=== PATIENT | female | born 1955 | race Caucasian/White ===

== ENCOUNTER → 2021-05-17 12:01 | Outpatient (CLI) | payer OTHER, SELFPAY | PROVIDERS: PCP Family Medicine; Visit Provider Nurse Practitioner | DX: Z20.822 Contact with and (suspected) exposure to COVID-19 (principal) | CPT/HCPCS: C9803; U0003; U0005 ==

== ENCOUNTER 2022-01-28 10:33 | Emergency (ER) | payer MEDICARE, OTHER, SELFPAY ==
--- NOTE | 2022-01-28 10:45 | HMH.EDUTC ---
[facility] [place] Clinical Impression: Chronic pharyngitis Disposition: Home, Self-Care Condition on Discharge: Good Instructions: Sore Throat, DI for Pharyngitis/Tonsillopharyngitis -- Child Additional Instructions: Drink plenty of fluids. Take tylenol for pain or fever. Take the medications as directed. Follow up with your regular doctor. GO TO THE ER FOR ANY WORSENING SYMPTOMS follow up with your primary care physician to have your thyroid checked. follow up with the ent (Dr. Obando). Any chronically sore throat needs to be examined by an ENT physician to check for thing like cancer, growths, etc. Make sure you follow up there. Prescriptions: Azithromycin [Z-Familia 250mg Tab*] 250 mg PO UD DOSE PK #6 tab Transmission Status: Received by [facility] #[id number] Referrals: Mounika Mccarty [Primary Care Provider] - Samaria Obando MD [Consulting Physician] - Time of Disposition: 11:14 Medical Decision Making - Medical Records Medical records reviewed: No: I reviewed the patient's medical records. - Syed Inquiry Pt receiving controlled substance: No Vital Signs: 01/28/22 10:55 01/28/22 11:16 Temperature 98.2 F 98.2 F Temperature Source Oral Pulse Rate 71 Pulse Rate [Left] 71 Respiratory Rate 18 18 Blood Pressure 148/83 H Blood Pressure [Right Arm] 148/83 H Blood Pressure Mean [Right Arm] 104 02 Sat by Pulse Oximetry 96 - Lab Data Lab Results 01/28/22 10:55: Strep [facility] Negative Orders (Tests/Meds): ORDERS Category Date Time Status Throat Culture Stat Micro 01/28/22 11:15 Received [facility] [place] HPI - General Stated complaint: sore throat Time Seen by Provider: 01/28/22 10:45 - History of Present Illness Provider Complaint: She has had a sore throat for the past 2 months. She has had chronic sinus drainage related to allergies that she believes is causing her symptoms. She denies any fever or chills. - Related Data Home Medications Medication Instructions Recorded Confirmed Metformin HCl [Metformin 500mg 500 mg PO BID 10/06/17 06/29/18 Tablet] Aspirin [Aspir 81] 81 mg PO DAILY 10/09/17 06/29/18 Duloxetine HCl [Cymbalta] 30 mg PO DAILY 10/09/17 06/29/18 Levothyroxine Sodium 125 mcg PO DAILY 10/09/17 06/29/18 [Levothyroxine 125mcg (0.125mg) Tab] Losartan Potassium 100 mg PO DAILY 10/09/17 06/29/18 Metoprolol Succinate 50 mg PO DAILY 10/09/17 06/29/18 Mirtazapine [Remeron 15mg tablet] 15 mg PO DAILY 10/09/17 06/29/18 Multivit-Min/FA/Lycopen/Lutein 1 each PO DAILY 10/09/17 06/29/18 [Centrum Silver Tablet] Pravastatin Sodium [Pravachol 40mg 40 mg PO DAILY 10/09/17 06/29/18 Tablet] cloNIDine HCL [cloNIDine 0.2mg 0.2 - 0.4 mg PO BID 10/09/17 06/29/18 Tablet] hydroCHLOROthiazide [HCTZ 25mg 25 - 50 mg PO DAILY 10/09/17 06/29/18 tab] Fluticasone Propionate 1 - 2 spray IN DAILY 06/29/18 06/29/18 SUMAtriptan succinate [Imitrex] 50 mg PO NEEDED PRN 06/29/18 06/29/18 Tramadol HCl [Tramadol 50mg 50 mg PO BIDP PRN 06/29/18 06/29/18 Tab] hydrOXYzine HCL [Hydroxyzine HCl] 50 mg PO DAILY 06/29/18 06/29/18 Previous Rx's Medication Instructions Recorded Azithromycin [Z-Familia 250mg Tab*] 250 mg PO UD DOSE PK #6 tab 01/28/22 Allergies Allergy/AdvReac Type Severity Reaction Status Date / Time codeine [CODEINE] Allergy Unknown Verified 01/28/22 10:58 ketorolac [From TORADOL] Allergy Unknown Verified 01/28/22 10:58 meperidine [From DEMEROL] Allergy Unknown Verified 01/28/22 10:58 zolpidem [From AMBIEN] Allergy Unknown Verified 01/28/22 10:58 [facility] History - Hepatitis A Screen Attestation statement:: This patient has been screened for Hepatitis A risk factors. I have reviewed the patient's past medical history: Yes Medical History: Reports:: Diabetes Mellitus Type 2, Hyperlipidemia, Hypertension, Lung Disease (histoplasmosis, sleep apnea) Denies:: Cancer, Diabetes Mellitus Type 1, Internal [place]
[2022-01-28 10:55] VITALS: BP 148/83; PULSE 71; RESP 18; TEMP 36.8; O2SAT 96; BMI 46.5
[2022-01-28 11:06] LABS: UTC Strep Screen (Rapid) Negative (Negative)
[2022-01-28 11:16] VITALS: BP 148/83; PULSE 71; RESP 18; TEMP 36.8
== END 2022-01-28 11:20 | disposition home or self-care (01) ==
PROVIDERS: Emergency Provider Nurse Practitioner Family; PCP Family Medicine
DX: J31.2 Chronic pharyngitis (principal)
CPT/HCPCS: 87070; 87880; 99212; G0463

== ENCOUNTER → 2022-02-14 08:14 | Outpatient (CLI) | payer MEDICARE, OTHER, SELFPAY ==
--- NOTE | 2022-02-14 08:18 | MM_ITS ---
PROCEDURE INFORMATION: Exam: MG Bilateral Screening 3D Mammography Exam date and time: 02/14/2022 8:17 AM Age: 66 years old Clinical indication: Screening examination TECHNIQUE: Imaging protocol: Bilateral Screening tomosynthesis and 2D mammography including computer-aided detection (CAD) when performed. COMPARISON: No relevant prior studies available. FINDINGS: MAMMOGRAPHY: Breast composition: The breasts are almost entirely fatty. Mass: 2 adjacent masses measuring 0.6 and 0.5 cm are noted in the middle third of the left lower inner quadrant Architectural distortion: None. Calcifications: No suspicious calcifications. Asymmetric density: None. Skin thickening: None. Axillary adenopathy: None. IMPRESSION: Patient to be recalled for left breast ultrasound for further evaluation of 2 left breast masses ASSESSMENT: BI-RADS Category 0: Incomplete- Need Additional Imaging Evaluation and/or Prior Mammograms for Comparison
== END ==
PROVIDERS: PCP Family Medicine; Visit Provider Family Medicine
DX: Z12.31 Encounter for screening mammogram for malignant neoplasm of breast (principal)
CPT/HCPCS: 77063; 77067

== ENCOUNTER → 2022-02-24 12:51 | Outpatient (CLI) | payer MEDICARE, OTHER, SELFPAY ==
--- NOTE | 2022-02-24 12:54 | US_ITS ---
PROCEDURE INFORMATION: Exam: US Left Breast, Complete Exam date and time: 02/24/2022 1:03 PM Age: 66 years old Clinical indication: Recall on the basis of screening mammogram 02/14/2022 for further evaluation of 2 adjacent masses in the middle 3rd of the left lower inner quadrant. TECHNIQUE: Imaging protocol: Complete ultrasound of all four quadrants of the Left breast and the retroareolar regions, including ultrasound of the axilla when performed. COMPARISON: MG MM DIG SCREENING MAMM BI W/CAD 02/14/2022 8:17 AM MG MAMMO DIAGNOSTIC DIGITAL BILAT 07/28/2016 10:56 AM FINDINGS: Breast: Left sonography, all 4 quadrants, retroareolar and axilla demonstrate at 7 o'clock 4 cm from the nipple a simple cyst measuring 0.7 x 0.6 x 0.4 cm - which appears to correlate with the 0.6 cm mammographic mass. No other masses demonstrated. Sonographically unremarkable left axillary lymph node. Also, comparing to the provided mammogram from 07/28/2016, the 2 adjacent masses in the middle 3rd of the left lower inner quadrant appears similar. IMPRESSION: Probably benign findings, the larger of the 2 adjacent masses corresponds to a simple sonographic cyst and the mammographic pattern appears similar to 2017, unless otherwise clinically indicated, suggest six-month follow-up right diagnostic mammogram. ASSESSMENT: BI-RADS Category 2: Benign
== END ==
PROVIDERS: PCP Family Medicine; Visit Provider Family Medicine
DX: R92.8 Other abnormal and inconclusive findings on diagnostic imaging of breast (principal)
CPT/HCPCS: 76641

== ENCOUNTER 2022-03-08 08:48 | Emergency (ER) | payer MEDICARE, OTHER, SELFPAY ==
[2022-03-08 09:00] VITALS: BP 134/80; PULSE 62; RESP 19; TEMP 36.6; O2SAT 98; BMI 47.4
--- NOTE | 2022-03-08 09:22 | EXP.UTC ---
Discharge Plan Disposition Patient Disposition: Home, Self-Care Prescriptions Prescriptions: No Action metformin 500 MG Tablet 500 mg PO BID pravastatin 40 MG Tablet 40 mg PO DAILY metoprolol succinate 50 MG Tab.Er.24h 50 mg PO DAILY aspirin [Aspir-81] 81 MG Tablet.Dr 81 mg PO DAILY clonidine HCl 0.2 MG Tablet 0.2 - 0.4 mg PO BID levothyroxine 125 MCG Tablet 125 mcg PO DAILY hydrochlorothiazide 25 MG Tablet 25 - 50 mg PO DAILY mirtazapine 15 MG Tablet 15 mg PO DAILY losartan 100 MG Tablet 100 mg PO DAILY duloxetine [Cymbalta] 30 MG Capsule.Dr 30 mg PO DAILY dyewmuqq-ctg-FM-lycopen-lutein [Centrum Silver] 1 EACH Tablet 1 ea PO DAILY sumatriptan succinate [Imitrex] 50 MG Tablet 50 mg PO NEEDED PRN (Reason: Migraine Headache) hydroxyzine HCl 50 MG Tablet 50 mg PO DAILY tramadol 50 MG Tablet 50 mg PO BIDP PRN (Reason: pain) fluticasone propionate 16 GM [place].Susp 1 - 2 spray IN DAILY azithromycin 250 MG tablet 250 mg PO UD DOSE PK Qty: 6 0RF Rx Instructions: Take two (2) tablets today, then one (1) tablet days #2 thru #5 Referrals Follow up/Referrals: Yossi Cuadra MD [Primary Care Provider] - See instructions Activity Restrictions/Add. Instructions Additional Instructions/Restrictions: Start antibiotic today. Be sure to complete entire prescription even if feeling better Tylenol and ibuprofen as needed for pain or fever Humidifier/vaporizer/hot steamy shower Follow-up with primary care tomorrow. Follow-up immediately in the ER of the [facility] for new or worsening symptoms or no noticeable improvement over the next 48-72 hours. Stop smoking Hugo Vaughan will not cause drowsiness to use at bedtime to help stop cough so that she can get some sleep Start steroids today. Helps with inflammation therefore coughing and wheezing. Follow directions on package. Clinical Impressions Clinical Impression: Acute bronchitis Instructions Patient Instructions: Acute Bronchitis Discharge ED Provider: Wilmar ([facility])Binh [facility] [place] HPI General Stated complaint: Cough, congestion Mode of Arrival: Ambulatory Source of Information: Patient Limitations: No Limitations Time Seen by Provider: 03/08/22 09:23 HEENT Symptoms (Recalled from RN notes): Yes Resp Symptoms (Recalled from RN notes): Yes Skin Symptoms (Recalled from RN notes): No GI/ Symptoms (Recalled from RN notes): No MS Symptoms (Recalled from RN notes): No Card Symptoms (Recalled from RN notes): No Other (Recalled from RN notes): No History of Present Illness Provider Complaint: 66 yr old female presents for non productive cough, chest congestion, cough, wheezing and nasal congestion for 1 week and not getting better Related Data Home Medications Medication Instructions Recorded Confirmed metformin 500 mg tablet 500 mg PO BID Diabetes 10/06/17 06/29/18 aspirin 81 mg tablet,delayed 81 mg PO DAILY thinner 10/09/17 06/29/18 release (Aspir-) clonidine HCl 0.2 mg tablet 0.2 - 0.4 mg PO BID heart rate 10/09/17 06/29/18 duloxetine 30 mg capsule,delayed 30 mg PO DAILY Depression 10/09/17 06/29/18 release (Cymbalta) hydrochlorothiazide 25 mg tablet 25 - 50 mg PO DAILY Fluid 10/09/17 06/29/18 levothyroxine 125 mcg tablet 125 mcg PO DAILY thyroid 10/09/17 06/29/18 losartan 100 mg tablet 100 mg PO DAILY blood pressure 10/09/17 06/29/18 metoprolol succinate 50 mg 50 mg PO DAILY Heart rate 10/09/17 06/29/18 tablet,extended release 24 hr mirtazapine 15 mg tablet 15 mg PO DAILY Depression 10/09/17 06/29/18 lykllsdw-nkd-ilyvu acid 0.4 1 ea PO DAILY Supplement 10/09/17 06/29/18 mg-lycopene 300 mcg-lutein 250 mcg tablet (Centrum Silver) pravastatin 40 mg tablet 40 mg PO DAILY Cholesterol 10/09/17 06/29/18 fluticasone propionate 50 1 - 2 spray IN DAILY allergies 06/29/18 06/29/18 mcg/actuation nasal spray,suspension hydroxyzine HCl 50 mg tablet 5
[2022-03-08 09:36] VITALS: BP 134/80; PULSE 62; RESP 19; TEMP 36.6; O2SAT 98
== END 2022-03-08 09:37 | disposition home or self-care (01) ==
PROVIDERS: Emergency Provider Nurse Practitioner Family; PCP Family Medicine
DX: J20.9 Acute bronchitis, unspecified (principal)
CPT/HCPCS: 99212; G0463

== ENCOUNTER 2022-04-11 08:13 | Emergency (ER) | payer MEDICARE, OTHER, SELFPAY ==
[2022-04-11 08:27] VITALS: BP 144/61; PULSE 70; RESP 18; TEMP 36.8; O2SAT 96; BMI 46.5
--- NOTE | 2022-04-11 08:40 | EXP.UTC ---
Discharge Plan Disposition Patient Disposition: Home, Self-Care Condition: Good Prescriptions Prescriptions: New promethazine-DM 6.25-15 mg/5 mL Syrup 5 ml PO Q6H PRN (Reason: Cough) Qty: 180 0RF prednisone [prednisone] 20 mg tablet 20 mg PO BID 5 Days Qty: 10 0RF doxycycline monohydrate 100 mg tablet 100 mg PO BID 10 Days Qty: 20 0RF albuterol sulfate [Ventolin HFA] 90 mcg/actuation HFA aerosol inhaler 2 puffs inhalation QIDP PRN (Reason: Wheezing) Qty: 1 0RF Mucinex 1,200 mg tablet extended release 12hr 1,200 mg PO BID Qty: 20 0RF Breztri Aerosphere 160-9-4.8 mcg/actuation HFA aerosol inhaler 2 inh inhalation BID Qty: 10.7 0RF No Action metformin 500 MG tablet 500 mg PO BID pravastatin 40 MG tablet 40 mg PO DAILY metoprolol succinate 50 MG tablet extended release 24 hr 50 mg PO DAILY aspirin [Aspir-81] 81 MG tablet,delayed release (DR/EC) 81 mg PO DAILY clonidine HCl 0.2 MG tablet 0.2 - 0.4 mg PO BID levothyroxine 125 MCG tablet 125 mcg PO DAILY hydrochlorothiazide 25 MG tablet 25 - 50 mg PO DAILY mirtazapine 15 MG tablet 15 mg PO DAILY losartan 100 MG tablet 100 mg PO DAILY duloxetine [Cymbalta] 30 MG capsule,delayed release(DR/EC) 30 mg PO DAILY yhkvohow-vhl-HT-lycopen-lutein [Centrum Silver] 1 EACH tablet 1 ea PO DAILY sumatriptan succinate [Imitrex] 50 MG tablet 50 mg PO NEEDED PRN (Reason: Migraine Headache) hydroxyzine HCl 50 MG tablet 50 mg PO DAILY tramadol 50 MG tablet 50 mg PO BIDP PRN (Reason: pain) fluticasone propionate 16 GM spray,suspension 1 - 2 spray IN DAILY azithromycin 250 MG tablet 250 mg PO UD DOSE PK Qty: 6 0RF Rx Instructions: Take two (2) tablets today, then one (1) tablet days #2 thru #5 prednisone 10 mg tablet 10 mg PO BID 5 Days Qty: 10 0RF benzonatate 100 mg capsule 100 mg PO BID PRN (Reason: cough) Qty: 10 0RF azithromycin [Zithromax Z-Familia] 250 mg tablet 250 mg PO DAILY 5 Days Qty: 5 0RF Referrals Follow up/Referrals: Yossi Cuadra MD [Primary Care Provider] - See instructions Catherine Pennington MD [Physician] - See instructions Activity Restrictions/Add. 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 by RN): pt comes in with c/o productive cough ongoing for 1 week. pt states she feels a rattle in her chest. HEENT Symptoms (Recalled from RN notes): No Resp Symptoms (Recalled from RN notes): Yes Skin Symptoms (Recalled from RN notes): No MS Symptoms (Recalled from RN notes): No Functional Status (Recalled from RN notes): n/a History of Present Illness Provider Complaint: Patient has had cough X 1 week. No fever. Feels like phlegm stuck in her chest and throat but cannot cough it out. Had bronchitis a month or so ago. Does not smoke or have a history of asthma, but has had bronchitis 3 times since she had COVID. No vomiting or diarrhea. Onset (ago): week(s) Location: chest Consistency: constant Relieving factors: none Exacerbating factors: none Associated symptoms: cough Treatments prior to arrival: none Related Data Home Medications Medication Instru
[2022-04-11 08:56] VITALS: BP 144/61; PULSE 70; RESP 18; TEMP 36.8
== END 2022-04-11 08:57 | disposition home or self-care (01) ==
PROVIDERS: Emergency Provider Physician Assistant; PCP Family Medicine
DX: J20.9 Acute bronchitis, unspecified (principal); E13.9 Other specified diabetes mellitus without complications; U09.9 Post COVID-19 condition, unspecified; Z88.6 Allergy status to analgesic agent; E78.5 Hyperlipidemia, unspecified; I10 Essential (primary) hypertension; E07.9 Disorder of thyroid, unspecified; F32.A Depression, unspecified; G43.909 Migraine, unspecified, not intractable, without status migrainosus; G40.909 Epilepsy, unspecified, not intractable, without status epilepticus; Z86.73 Personal history of transient ischemic attack (TIA), and cerebral infarction without residual deficits
CPT/HCPCS: 99283

== ENCOUNTER → 2022-08-19 11:33 | Outpatient (CLI) | payer MEDICARE, OTHER, SELFPAY ==
[2022-08-19 14:32] VITALS: BMI 39.4
== END ==
PROVIDERS: PCP Family Medicine; Visit Provider Family Medicine
DX: Z71.3 Dietary counseling and surveillance (principal); E11.9 Type 2 diabetes mellitus without complications
CPT/HCPCS: 97802

== ENCOUNTER → 2022-08-20 08:48 | Outpatient (CLI) | payer MEDICARE, OTHER, SELFPAY ==
--- NOTE | 2022-08-20 08:56 | FL_ITS ---
FINAL REPORT CLINICAL HISTORY: sniff test, soa, ft 0.2min FINDINGS: Sniff test History: Chest pressure. Shortness of breath Findings: Diaphragmatic motion was assessed under fluoroscopic observation. Diaphragms were assessed during normal respiration as well as sniff test maneuvers. The right diaphragm is mildly elevated. However normal respiratory excursion was noted of both diaphragms. There was no paradoxical motion. IMPRESSION: No evidence of diaphragmatic paralysis Fluoroscopy time: 0.2 minutes Number of images: 1. Authenticated and ERN
[2022-08-20 14:58] LABS: C-Reactive Protein 10.6 mg/L (0-4)
[2022-08-20 16:57] LABS: Basophils # 0.1 K/mm3 (0-0.2); Basophils % 0.8 % (0.1-2.0); Eosinophils # 0.4 K/mm3 (0.0-0.4); Eosinophils % 3.6 % (0.1-12.0); Hematocrit 47.3 % (37.0-47.0); Hemoglobin 14.9 g/dL (12.2-16.2); Lymphocytes # 3.4 K/mm3 (0.7-4.5); Lymphocytes % 34.8 % (10-50); Mean Corpuscular HGB Conc 31.5 g/dL (31.8-35.4); Mean Corpuscular Hemoglobin 27.7 pg (27.0-31.2); Mean Corpuscular Volume 87.9 fl (81-99); Mean Platelet Volume 9.9 fl (7.4-10.4); Monocytes # 0.5 K/mm3 (0.1-1.0); Monocytes % 4.7 % (1.7-9.3); Neutrophils # 5.4 K/mm3 (1.8-7.8); Neutrophils % 56.1 % (37.0-80.0); Platelet Count 252 K/mm3 (142-424); Red Blood Count 5.38 M/mm3 (4.20-5.40); Red Cell Distribution Width 14.2 % (11.5-17.5); White Blood Count 9.6 K/mm3 (4.8-10.8)
[2022-08-24 14:20] LABS: D001-IgE D pteronyssinus <0.10 kU/L (Class 0); D002-IgE D farinae <0.10 kU/L (Class 0); E001-IgE Cat Dander <0.10 kU/L (Class 0); E005-IgE Dog Dander <0.10 kU/L (Class 0); E072-IgE Mouse Urine <0.10 kU/L (Class 0); G002-IgE Bermuda Grass <0.10 kU/L (Class 0); G006-IgE Timothy Grass <0.10 kU/L (Class 0); I006-IgE Cockroach, German <0.10 kU/L (Class 0); Immunoglobulin E, Total 10 IU/mL (6-495); M001-IgE Penicillium chrysogen <0.10 kU/L (Class 0); M002-IgE Cladosporium herbarum <0.10 kU/L (Class 0); M003-IgE Aspergillus fumigatus <0.10 kU/L (Class 0); M006-IgE Alternaria alternata <0.10 kU/L (Class 0); T001-IgE Maple/Box Elder <0.10 kU/L (Class 0); T003-IgE Common Silver Birch <0.10 kU/L (Class 0); T006-IgE Cedar, Mountain 0.21 kU/L (Class 0/I); T007-IgE Oak, White <0.10 kU/L (Class 0); T008-IgE Elm, American <0.10 kU/L (Class 0); T010-IgE Walnut <0.10 kU/L (Class 0); T011-IgE Maple Leaf Sycamore <0.10 kU/L (Class 0); T014-IgE Cottonwood <0.10 kU/L (Class 0); T015-IgE Ash, White <0.10 kU/L (Class 0); T022-IgE Pecan, Hickory <0.10 kU/L (Class 0); T070-IgE White Mulberry <0.10 kU/L (Class 0); W001-IgE Ragweed, Short <0.10 kU/L (Class 0); W011-IgE Thistle, Russian <0.10 kU/L (Class 0); W014-IgE Pigweed, Common <0.10 kU/L (Class 0); W018-IgE Sheep Sorrel <0.10 kU/L (Class 0)
== END ==
PROVIDERS: PCP Family Medicine; Visit Provider Internal Medicine Pulmonary Disease
DX: R06.09 Other forms of dyspnea; J98.6 Disorders of diaphragm; J45.909 Unspecified asthma, uncomplicated
CPT/HCPCS: 36415; 76000; 82785; 85025; 86003; 86140; 94060; 94618; 94726; 94729

== ENCOUNTER → 2022-09-18 14:21 | Outpatient (CLI) | payer MEDICARE, OTHER, SELFPAY ==
--- NOTE | 2022-09-18 14:25 | XR_ITS ---
FINAL REPORT CLINICAL HISTORY: RT HIP PAIN FINDINGS: RIGHT HIP Two views of the right hip with an AP pelvis demonstrate no acute fracture or dislocation. There are mild degenerative changes. The visualized bony structures are well aligned. No soft tissue abnormality is seen. IMPRESSION: Mild degenerative change with no acute bony abnormality. Reviewed, Interpreted and Dictated by Lico Aguila III, MD Transcribed by Frieda Sandoval Authenticated and . [facility]
== END ==
PROVIDERS: PCP Family Medicine; Visit Provider Family Medicine
DX: M25.551 Pain in right hip (principal)
CPT/HCPCS: 73502

== ENCOUNTER 2022-10-02 09:13 | Emergency (ER) | payer MEDICARE, OTHER, SELFPAY ==
[2022-10-02 09:15] VITALS: BP 154/94; PULSE 58; RESP 18; TEMP 36.9; O2SAT 100; BMI 45.6
--- NOTE | 2022-10-02 09:24 | EXP.UTC ---
Discharge Plan Disposition Patient Disposition: Home, Self-Care Condition: Good Prescriptions Prescriptions: New prednisone 10 mg tablet 10 mg PO DIRECTED 9 Days Qty: 21 0RF Rx Instructions: Take 4 tablets daily for 3 days, then take 2 tablets daily for 3 days, then take 1 tablet daily for 3 days, then stop. benzonatate [benzonatate] 100 mg capsule 100 mg PO TIDP PRN (Reason: Cough) Qty: 30 0RF amoxicillin-pot clavulanate 875-125 mg Tablet 1 tab PO Q12H Qty: 20 0RF guaifenesin [Mucinex] 600 mg tablet extended release 12hr 600 - 1,200 mg PO BIDP PRN (Reason: Congestion) Qty: 30 0RF No Action levalbuterol tartrate [Xopenex HFA] 45 mcg/actuation HFA aerosol inhaler 2 inh inhalation Q6H PRN (Reason: shortness of breath or wheezing) 90 Days Qty: 15 3RF lamotrigine 25 mg tablet 25 mg PO DAILY montelukast 10 mg tablet 10 mg PO DAILY omeprazole 40 mg capsule,delayed release(DR/EC) 40 mg PO DAILY insulin glargine [Lantus Solostar U-100 Insulin] 100 unit/mL (3 mL) insulin pen 34 unit SQ DAILY metformin 500 MG tablet 500 mg PO BID pravastatin 40 MG tablet 40 mg PO DAILY metoprolol succinate 50 MG tablet extended release 24 hr 50 mg PO DAILY aspirin [Aspir-81] 81 MG tablet,delayed release (DR/EC) 81 mg PO DAILY clonidine HCl 0.2 MG tablet 0.2 - 0.4 mg PO BID levothyroxine 125 MCG tablet 125 mcg PO DAILY mirtazapine 15 MG tablet 15 mg PO DAILY Centrum Silver 1 EACH tablet 1 ea PO DAILY sumatriptan succinate [Imitrex] 50 MG tablet 50 mg PO NEEDED PRN (Reason: Migraine Headache) fluticasone propionate 16 GM spray,suspension 1 - 2 spray IN DAILY bupropion HCl 150 mg tablet sustained-release 12 hr 150 mg PO DAILY donepezil 10 mg tablet 10 mg PO DAILY valsartan 320 mg tablet 320 mg PO DAILY Jardiance 25 mg tablet 25 mg PO DAILY fluticasone propion-salmeterol [Advair HFA] 115-21 mcg/actuation HFA aerosol inhaler 2 puff inhalation BID cholecalciferol (vitamin D3) [D3-2000] 50 mcg (2,000 unit) Capsule 2,000 unit PO DAILY mecobalamin (vitamin B12) [B12 Active] 1,000 mcg Tablet,Chewable 1,000 mcg PO DAILY Referrals Follow up/Referrals: Yossi Cuadra MD [Primary Care Provider] - See instructions Activity Restrictions/Add. Instructions Additional Instructions/Restrictions: Drink plenty of fluids. Take tylenol or ibuprofen for pain or fever. Take the medications as directed. Follow up with your regular doctor. GO TO THE ER FOR ANY WORSENING SYMPTOMS Don't start the oral steroids until tomorrow, since you had the shot here today. Clinical Impressions Clinical Impression: COPD exacerbation Instructions Patient Instructions: Chronic Obstructive Pulmonary Disease, DI for Chronic Obstructive Pulmonary Disease Discharge ED Provider: Geoff Eubanks [facility] HPI General Stated complaint: Cough, congestion, sore throat Time Seen by Provider: 10/02/22 09:19 History of Present Illness Provider Complaint: She states that for the past 4 days she has had worsening chest congestion, sore throat from coughing, and a productive cough with yellowish sputum. Related Data Home Medications Medication Instructions Recorded Confirmed metformin 500 mg tablet 500 mg PO BID Diabetes 10/06/17 10/02/22 aspirin 81 mg tablet,delayed 81 mg PO DAILY thinner 10/09/17 10/02/22 release (Aspir-) clonidine HCl 0.2 mg tablet 0.2 - 0.4 mg PO BID heart rate 10/09/17 10/02/22 levothyroxine 125 mcg tablet 125 mcg PO DAILY thyroid 10/09/17 10/02/22 metoprolol succinate 50 mg 50 mg PO DAILY Heart rate 10/09/17 10/02/22 tablet,extended release 24 hr mirtazapine 15 mg tablet 15 mg PO DAILY Depression 10/09/17 10/02/22 qurftvnw-fuu-ltcnr acid 0.4 1 ea PO DAILY Supplement 10/09/17 10/02/22 mg-lycopene 300 mcg-lutein 250 mcg tablet (Centrum Silver) prav
--- NOTE | 2022-10-02 09:25 | XR_ITS ---
FINAL REPORT CLINICAL HISTORY: cough COMPARISON: 06/29/2018 FINDINGS: Two views of the chest were obtained. The heart size and pulmonary vascularity are within normal limits. The mediastinum is normal. Mild left base opacities favored to represent atelectasis or pneumonia. There is no pneumothorax. The bony thorax is intact. IMPRESSION: Mild left base opacities. Reviewed, Interpreted and Dictated by Lico Aguila III, MD Transcribed by Zoila Lawson Authenticated and [facility]
[2022-10-02 10:42] VITALS: BP 154/94; PULSE 58; RESP 18; TEMP 36.9; O2SAT 100
== END 2022-10-02 10:42 | disposition home or self-care (01) ==
PROVIDERS: Emergency Provider Nurse Practitioner Family; PCP Family Medicine
DX: J44.1 Chronic obstructive pulmonary disease with (acute) exacerbation (principal); E11.9 Type 2 diabetes mellitus without complications; I10 Essential (primary) hypertension; E78.5 Hyperlipidemia, unspecified; E03.9 Hypothyroidism, unspecified; K21.9 Gastro-esophageal reflux disease without esophagitis; Z79.4 Long term (current) use of insulin; Z79.84 Long term (current) use of oral hypoglycemic drugs
CPT/HCPCS: 71046; 96372; 99212; 99214; G0463; J0696

== ENCOUNTER → 2022-11-19 09:20 | Outpatient (CLI) | payer MEDICARE, OTHER, SELFPAY ==
--- NOTE | 2022-11-19 09:20 | MR_ITS ---
FINAL REPORT CLINICAL HISTORY: RIGHT HIP PAIN, BURSITIS COMPARISON: None FINDINGS: Multiplanar MR imaging of the right hip was performed without contrast. There is no evidence of fracture or dislocation. There is no evidence of avascular necrosis. No bony mass is identified. No labral tear is identified. No significant joint effusion is seen. There is a small partial tear at the insertion of the right gluteus minimus. The musculature is intact. There is soft tissue edema adjacent to the bilateral greater trochanters which may represent greater trochanter bursitis. Diffuse bladder wall thickening is likely inflammatory. IMPRESSION: Partial tear insertion of the right gluteus minimus. Findings may represent greater trochanter bursitis. Reviewed, Interpreted and Dictated by Lico Aguila III, MD Transcribed by Zoila Lawson Authenticated and [facility]
== END ==
PROVIDERS: PCP Family Medicine; Visit Provider Orthopaedic Surgery
DX: M25.551 Pain in right hip (principal)
CPT/HCPCS: 73721

== ENCOUNTER 2022-12-23 11:00 | Outpatient (RCR) | payer MEDICARE, OTHER, SELFPAY ==
--- NOTE | 2022-12-03 10:49 | HMH.PTOPEV ---
PT Outpatient Evaluation Rehab PT Outpatient Evaluation Start: 12/03/22 09:40 Freq: Status: Active Protocol: Document 12/03/22 09:40 RAMESH (Rec: 12/03/22 10:49 RAMESH [id number]) E-signed By Gabriela Kang, PT Outpatient Therapy Subjective History Subjective History Pt is a 67 y/o female who reports chronic right lateral hip pain for years with recent worsening within the last year. Pt reports pain is aggravated by walking <5 minutes and abolishes with resting just a few minutes in either standing or sitting. Pt denies numbness/tingling, swelling, or clicking/popping of the hip. Pt denies low back pain. Pt had a R hip MRI at [facility] on 11/19/22 with impression of Partial tear insertion of the right gluteus minimus. Findings may represent greater trochanter bursitis. Pt reports she just started taking prescribed Mobic this morning for pain. Medical History: COPD, asthma, Type II Diabetes, hypertension, hx of bilateral knee replacements Chief Complaint Pain Symptom Type Sharp Symptoms Relieved By Rest/Positioning Symptoms Aggravated By Physical Activity,Walking Prior Functional Limitations None Current Functional Limitations Housework,Sleeping,Walking Symptom Description Intermittent Level of pain today (0-10) 0 Pain scale - at its best (0-10) 0 Pain scale - at its worst (0-10) 10 Hip/Knee Eval Gait Observation General Gait Pattern Observation Antalgic Gait Assistive Device Assistive Devices None / NA Palpation Tenderness right Knee Palpation Finding Tenderness Knee Palpation Overall Comment 3/4 over greater trochanter MMT Hip Flexion Strength Grade 4 Good Hip Abduction Strength Grade 4- Good- Hip Adduction Strength Grade 4- Good- Hip Extension Strength Grade 4- Good- Knee Extension Strength Grade 5 Normal Knee Flexion Strength Grade 5 Normal ROM Hip Flexion w/Knee Flexed Passive Range 85 of Motion (degrees) Hip External Rotation Active Range of 30 Motion (degrees) Hip Internal Rotation Active Range of
== END 2022-12-23 11:05 | disposition home or self-care (01) ==
LOC: PT 11:00
PROVIDERS: PCP Family Medicine; Visit Provider Orthopaedic Surgery
DX: M25.551 Pain in right hip (principal); M70.71 Other bursitis of hip, right hip
CPT/HCPCS: 97033; 97035; 97110; 97163; 97530

== ENCOUNTER → 2023-03-24 09:40 | Outpatient (CLI) | payer MEDICARE, OTHER, SELFPAY ==
--- NOTE | 2023-03-24 09:44 | MM_ITS ---
PROCEDURE INFORMATION: Exam: MG Bilateral Screening 3D Mammography Exam date and time: 03/24/2023 9:43 AM Age: 67 years old Clinical indication: Screening examination; Family history of breast cancer in mother and in sister; Mother's age: Unknown; Sister's age: 45 years TECHNIQUE: Imaging protocol: Bilateral Screening tomosynthesis and 2D mammography including computer-aided detection (CAD) when performed. COMPARISON: 1. MG MM DIG SCREENING MAMM BI W/CAD 02/14/2022 8:17 AM 2. MG MAMMO DIAGNOSTIC DIGITAL BILAT 07/28/2016 10:56 AM FINDINGS: MAMMOGRAPHY: Breast composition: There are scattered areas of fibroglandular density. Mass: No new or suspicious masses Architectural distortion: None. Calcifications: No suspicious calcifications. Asymmetric density: None. Skin thickening: None. Axillary adenopathy: None. IMPRESSION: No mammographic evidence of malignancy. Annual screening is recommended unless otherwise clinically indicated. ASSESSMENT: BI-RADS Category 1: Negative
== END ==
PROVIDERS: PCP Family Medicine; Visit Provider Family Medicine
DX: Z12.31 Encounter for screening mammogram for malignant neoplasm of breast (principal)
CPT/HCPCS: 77063; 77067

== ENCOUNTER 2023-08-31 11:44 | Outpatient (CLI) | payer MEDICARE, OTHER, SELFPAY ==
--- NOTE | 2023-08-31 11:55 | XR_ITS ---
FINAL REPORT CLINICAL HISTORY: PAIN IN LEFT SHOULDER..no truama FINDINGS: 2 views of the left shoulder were obtained. There is no prior exam for comparison. There is no fracture or dislocation. There is mild degenerative disease. Soft tissues are normal. IMPRESSION: Mild degenerative disease without acute osseous abnormality of the left shoulder. Reviewed, Interpreted and Dictated by Marcia Mccoy MD Transcribed by Zoila Lawson Authenticated and [facility]
== END 2023-08-31 23:59 ==
PROVIDERS: PCP Family Medicine; Visit Provider Family Medicine
DX: M25.512 Pain in left shoulder (principal)
CPT/HCPCS: 73030

== ENCOUNTER 2024-04-12 13:43 | Outpatient (CLI) | payer MEDICARE, OTHER, SELFPAY ==
--- NOTE | 2024-04-12 13:45 | MM_ITS ---
PROCEDURE INFORMATION: Exam: MG Bilateral Screening 3D Mammography Exam date and time: 04/12/2024 1:42 PM Age: 68 years old Clinical indication: Screening examination TECHNIQUE: Imaging protocol: Bilateral Screening tomosynthesis and 2D mammography including computer-aided detection (CAD) when performed. COMPARISON: 1. MG MM DIG SCREENING MAMM BI W/CAD 03/24/2023 9:43 AM 2. MG MM DIG SCREENING MAMM BI W/CAD 02/14/2022 8:17 AM FINDINGS: MAMMOGRAPHY: Breast composition: The breasts are almost entirely fatty. Mass: None. Architectural distortion: None. Calcifications: No suspicious calcifications. Asymmetric density: None. Skin thickening: None. Axillary adenopathy: None. IMPRESSION: No mammographic evidence of malignancy. Annual screening is recommended unless otherwise clinically indicated. ASSESSMENT: BI-RADS Category 1: Negative.
== END 2024-04-12 23:59 | disposition home or self-care (01) ==
LOC: RAD 13:43
PROVIDERS: PCP Family Medicine; Visit Provider Family Medicine
DX: Z12.31 Encounter for screening mammogram for malignant neoplasm of breast (principal)
CPT/HCPCS: 77063; 77067

== ENCOUNTER 2024-05-01 00:47 | Emergency (ER) | payer MEDICARE, OTHER, SELFPAY ==
[2024-05-01] VITALS (11 sets, daily range): BP systolic 98–124; BP diastolic 59–75; PULSE 67–79; RESP 15–19; TEMP 36.6; O2SAT 94–98; BMI 38.2
--- NOTE | 2024-05-01 00:48 | CT_ITS ---
PROCEDURE INFORMATION: Exam: CTA Neck With Contrast Exam date and time: 05/01/2024 1:29 AM Age: 68 years old Clinical indication: Syncope and collapse; Additional info: Fall today and 2 days ago, syncope TECHNIQUE: Imaging protocol: Computed tomographic angiography of the neck with contrast. Exam focused on the cervical segments of the vasculature. 3D rendering (Not supervised by radiologist): MIP and/or 3D reconstructed images were created by the technologist. Radiation optimization: All CT scans at this facility use at least one of these dose optimization techniques: automated exposure control; mA and/or kV adjustment per patient size (includes targeted exams where dose is matched to clinical indication); or iterative reconstruction. Contrast material: ISOUVE 370; Contrast volume: 80 ml; Contrast route: INTRAVENOUS (IV); COMPARISON: CT CERVICAL SPINE WO CON 05/01/2024 1:27 AM FINDINGS: Right common carotid artery: No stenosis. No dissection or occlusion. Right internal carotid artery: Mild proximal calcific plaque with less than 50% stenosis of the ICA. No dissection or occlusion. Right external carotid artery: No occlusion or stenosis of the origin. Left common carotid artery: No stenosis. No dissection or occlusion. Left internal carotid artery: Moderate calcific plaque with 50-69% stenosis of the proximal ICA. No dissection or occlusion. Left external carotid artery: No occlusion or stenosis of the origin. Right vertebral artery: No stenosis. No dissection or occlusion. Left vertebral artery: No stenosis. No dissection or occlusion. Soft tissues: Normal. No significant soft tissue swelling. Bones/joints: No acute fracture. The cervical spine is reported separately. IMPRESSION: 1. Less than 50% right ICA stenosis and 50-69% left ICA stenosis. 2. Normal vertebral arteries. REFERENCES: NASCET CRITERIA. The degree of stenosis in the cervical segment of the internal carotid artery is based on NASCET criteria. Normal is no stenosis. Mild is less than 50% stenosis. Moderate is 50-69% stenosis. Severe is 70% to 99% stenosis. Total occlusion is no detectable patent lumen.
--- NOTE | 2024-05-01 00:48 | CT_ITS ---
PROCEDURE INFORMATION: Exam: CT Head Without Contrast Exam date and time: 05/01/2024 1:13 AM Age: 68 years old Clinical indication: Injury or trauma; Fall; Blunt trauma (contusions or hematomas); Syncope and collapse; Additional info: Fall today and 2 days ago, syncope TECHNIQUE: Imaging protocol: Computed tomography of the head without contrast. Radiation optimization: All CT scans at this facility use at least one of these dose optimization techniques: automated exposure control; mA and/or kV adjustment per patient size (includes targeted exams where dose is matched to clinical indication); or iterative reconstruction. COMPARISON: CT HEAD/BRAIN WO CON 05/01/2024 1:13 AM FINDINGS: Brain: There is age related atrophy. No hemorrhage. There is mild periventricular white matter hypodensity consistent with chronic small vessel disease. No mass effect. Cerebral ventricles: No ventriculomegaly. Paranasal sinuses: Visualized sinuses are unremarkable. No fluid levels. Mastoid air cells: Visualized mastoid air cells are well aerated. Orbital cavities: There has been bilateral lens extraction. Bones: Unremarkable. No acute fracture. Soft tissues: There is a small right parietal scalp hematoma. IMPRESSION: 1. No acute intracranial abnormality. 2. Small right parietal scalp hematoma.
--- NOTE | 2024-05-01 00:49 | CT_ITS ---
PROCEDURE INFORMATION: Exam: CTA Head With Contrast, Arteriography Exam date and time: 05/01/2024 1:29 AM Age: 68 years old Clinical indication: Injury or trauma; Fall; Blunt trauma; Head; Additional info: Fall today and 2 days ago, syncope TECHNIQUE: Imaging protocol: Computed tomographic angiography of the head with contrast. Exam focused on the arteries. 3D rendering (Not supervised by radiologist): MIP and/or 3D reconstructed images were created by the technologist. Radiation optimization: All CT scans at this facility use at least one of these dose optimization techniques: automated exposure control; mA and/or kV adjustment per patient size (includes targeted exams where dose is matched to clinical indication); or iterative reconstruction. Contrast material: ISOUVE 370; Contrast volume: 80 ml; Contrast route: INTRAVENOUS (IV); COMPARISON: CT HEAD/BRAIN WO CON 05/01/2024 1:13 AM FINDINGS: ANTERIOR CIRCULATION: Right internal carotid artery: Intracranial segment is patent with no significant stenosis. No aneurysm. Right middle cerebral artery: No occlusion or significant stenosis. No aneurysm. Right anterior cerebral artery: No occlusion or significant stenosis. No aneurysm. Left internal carotid artery: Intracranial segment is patent with no significant stenosis. No aneurysm. Left middle cerebral artery: No occlusion or significant stenosis. No aneurysm. Left anterior cerebral artery: No occlusion or significant stenosis. No aneurysm. POSTERIOR CIRCULATION: Right vertebral artery: No occlusion or significant stenosis. No aneurysm. Left vertebral artery: No occlusion or significant stenosis. No aneurysm. Basilar artery: No occlusion or significant stenosis. No aneurysm. Right posterior cerebral artery: No occlusion or significant stenosis. No aneurysm. Left posterior cerebral artery: No occlusion or significant stenosis. No aneurysm. Brain: No definite mass, mass effect, or midline shift. Cerebral ventricles: No ventriculomegaly. Bones/joints: Unremarkable. No acute fracture. Soft tissues: Small right parietal scalp hematoma. IMPRESSION: No large vessel stenosis or occlusion.
--- NOTE | 2024-05-01 00:49 | XR_ITS ---
PROCEDURE INFORMATION: Exam: XR Chest Exam date and time: 05/01/2024 1:32 AM Age: 68 years old Clinical indication: Injury or trauma; Fall; Other: Syncope; Blunt trauma (contusions or hematomas); Additional info: Fall today and 2 days ago, syncope TECHNIQUE: Imaging protocol: Radiologic exam of the chest. Views: 1 view. COMPARISON: CR XR CHEST 2V 10/02/2022 9:20 AM FINDINGS: Lungs: There are peripheral linear densities within the left mid lung zone similar to the prior study consistent with scarring. No consolidation. No mass. Pleural spaces: Unremarkable. No pleural effusion. No pneumothorax. Heart/Mediastinum: Unremarkable. No cardiomegaly. Vasculature: Unremarkable. Bones/joints: Unremarkable. IMPRESSION: No acute findings.
--- NOTE | 2024-05-01 00:50 | CT_ITS ---
PROCEDURE INFORMATION: Exam: CT Cervical Spine Without Contrast Exam date and time: 05/01/2024 1:27 AM Age: 68 years old Clinical indication: Injury or trauma; Fall; Blunt trauma; Additional info: Fall today and 2 days ago, syncope TECHNIQUE: Imaging protocol: Computed tomography of the cervical spine without contrast. Radiation optimization: All CT scans at this facility use at least one of these dose optimization techniques: automated exposure control; mA and/or kV adjustment per patient size (includes targeted exams where dose is matched to clinical indication); or iterative reconstruction. COMPARISON: CT CERVICAL SPINE WO CON 05/01/2024 1:27 AM FINDINGS: Bones: No acute fracture. Normal alignment. Moderate to severe degenerative disc disease at C4-C5 and C5-C6. Diffuse moderate severe facet arthropathy. No significant disc bulge or herniation. No severe spinal canal stenosis. No significant neural foraminal narrowing. Lungs: Lung apices are normal. Soft tissues: Unremarkable. IMPRESSION: No acute findings.
--- NOTE | 2024-05-01 00:51 | [facility].EDGENADL ---
Discharge Plan Disposition Patient Disposition: Home, Self-Care Prescriptions Prescriptions: New sulfamethoxazole-trimethoprim 800-160 mg tablet 1 tab PO BID 7 Days Qty: 14 0RF No Action levalbuterol tartrate [Xopenex HFA] 45 mcg/actuation HFA aerosol inhaler 2 inh inhalation Q6H PRN (Reason: shortness of breath or wheezing) 90 Days Qty: 15 3RF lamotrigine 25 mg tablet 25 mg PO DAILY montelukast 10 mg tablet 10 mg PO DAILY omeprazole 40 mg capsule,delayed release(DR/EC) 40 mg PO DAILY insulin glargine [Lantus Solostar U-100 Insulin] 100 unit/mL (3 mL) insulin pen 34 unit SQ DAILY levalbuterol tartrate [Xopenex HFA] 45 mcg/actuation HFA aerosol inhaler 2 inh inhalation Q6H PRN (Reason: shortness of breath or wheezing) 90 Days Qty: 15 3RF meloxicam 15 mg tablet See Rx Instructions .ROUTE .COMPLEX Qty: 30 1RF Dose Instruction: TAKE 1 TABLET BY MOUTH DAILY Rx Instructions: TAKE 1 TABLET BY MOUTH DAILY meloxicam 15 mg tablet 15 mg PO DAILY Qty: 90 3RF fluticasone propion-salmeterol [Advair HFA] 230-21 mcg/actuation HFA aerosol inhaler See Rx Instructions .ROUTE .COMPLEX Qty: 12 11RF Dose Instruction: USE 2 INHALATIONS TWICE A DAY Rx Instructions: USE 2 INHALATIONS TWICE A DAY azelastine 137 mcg (0.1 %) aerosol,spray 2 spray intranasal HS 90 Days Qty: 30 2RF Rx Instructions: administer into each nostril metformin 500 MG tablet 500 mg PO BID pravastatin 40 MG tablet 40 mg PO DAILY metoprolol succinate 50 MG tablet extended release 24 hr 50 mg PO DAILY aspirin [Aspir-81] 81 MG tablet,delayed release (DR/EC) 81 mg PO DAILY clonidine HCl 0.2 MG tablet 0.2 - 0.4 mg PO BID levothyroxine 125 MCG tablet 125 mcg PO DAILY mirtazapine 15 MG tablet 15 mg PO DAILY Centrum Silver 1 EACH tablet 1 ea PO DAILY sumatriptan succinate [Imitrex] 50 MG tablet 50 mg PO NEEDED PRN (Reason: Migraine Headache) fluticasone propionate 16 GM spray,suspension 1 - 2 spray IN DAILY bupropion HCl 150 mg tablet sustained-release 12 hr 150 mg PO DAILY donepezil 10 mg tablet 10 mg PO DAILY valsartan 320 mg tablet 320 mg PO DAILY Jardiance 25 mg tablet 25 mg PO DAILY cholecalciferol (vitamin D3) [D3-2000] 50 mcg (2,000 unit) Capsule 2,000 unit PO DAILY mecobalamin (vitamin B12) [B12 Active] 1,000 mcg Tablet,Chewable 1,000 mcg PO DAILY prednisone 10 mg tablet 10 mg PO DIRECTED 9 Days Qty: 21 0RF Rx Instructions: Take 4 tablets daily for 3 days, then take 2 tablets daily for 3 days, then take 1 tablet daily for 3 days, then stop. benzonatate [benzonatate] 100 mg capsule 100 mg PO TIDP PRN (Reason: Cough) Qty: 30 0RF amoxicillin-pot clavulanate 875-125 mg Tablet 1 tab PO Q12H Qty: 20 0RF guaifenesin [Mucinex] 600 mg tablet extended release 12hr 600 - 1,200 mg PO BIDP PRN (Reason: Congestion) Qty: 30 0RF Referrals Follow up/Referrals: Yossi Cuadra MD [Primary Care Provider] - See instructions Activity Restrictions/Add. Instructions Additional Instructions/Restrictions: Please follow-up with your primary care provider for reassessment. Take antibiotics as prescribed for treatment of urinary tract infection. Please return to the emergency department if you develop any new or worsening symptoms or become concerned for your health. Clinical Impressions Clinical Impression: Syncope, Acute UTI, Concussion, Carotid stenosis, bilateral Print Language Print Language: [place] Discharge ED Provider: Eliel Ibrahim General Adult HPI General Chief complaint: Dizziness Stated complaint: Syncope/fall Time Seen by Provider: 05/01/24 00:51 History of Present Illness HPI narrative: 68-year-old female with history of PRES and prior brain hemorrhage with residual chronic dizziness, hypertension hyperlipidemia type 2 diabetes obesity asthma/COPD presents for syncope. She reports that she has felt a little nauseous today, starting earlier today when they were in [place]. She felt a little better this evening. Tonight when they were laying down she felt nauseous and sat up. After she sat up she had a syncopal episode and ended up falling off the bed between the bed and the nightstand, striking her head on the nightstand. She does not really remember these events. History is obtained from her, EMS and from family who was there. She also had a serious fall 2 days ago. She thinks that she tripped on the ramp going into their house and fell striking her head and losing consciousness as well. She reports some residual right-sided shoulder and hip pain from that fall, she has been ambulatory at baseline without pain after that fall however. Regarding her prior PRES, it happened several years ago and was associated with severe hypertension and a head bleed of some kind. She did have some seizures as a result and is on seizure medication but she has not had a seizure in a really long time . No reported seizure-like activity tonight, no tongue biting generalized symptoms, bowel or bladder incontinence etc. They were unable to fully characterize the seizures that she had been having when she was hospitalized with PRES. patient reports that she feels generally weak but not focally weak. She denies any vision changes, headache, chest pain abdominal pain shortness of breath. She reports that she has chronic dizziness and her doctors think she either has vertigo or orthostatic hypotension. She reports no recent fever or illness, reports that she has been eating and drinking normally. Her only complaint currently is that she feels off . Patient reports that she is lost approximately 60 pounds in the last 10 months as result of Ozempic, has not had any recent doses, recently came off of her diabetes medications. Related Data Home Medications ?Medication ?Instructions ?Recorded ?Confirmed metformin 500 mg tablet 500 mg PO BID Diabetes 10/06/17 05/21/23 aspirin 81 mg tablet,delayed 81 mg PO DAILY thinner 10/09/17 05/21/23 release (Aspir-) clonidine HCl 0.2 mg tablet 0.2 - 0.4 mg PO BID heart rate 10/09/17 05/21/23 levothyroxine 125 mcg tablet 125 mcg PO DAILY thyroid 10/09/17 05/21/23 metoprolol succinate 50 mg 50 mg PO DAILY Heart rate 10/09/17 05/21/23 tablet,extended release 24 hr mirtazapine 15 mg tablet 15 mg PO DAILY Depression 10/09/17 05/21/23 aicxlebq-sur-ztxvq acid 0.4 1 ea PO DAILY Supplement 10/09/17 05/21/23 mg-lycopene 300 mcg-lutein 250 mcg tablet (Centrum Silver) pravastatin 40 mg tablet 40 mg PO DAILY Cholesterol 10/09/17 05/21/23 fluticasone propionate 50 1 - 2 spray IN DAILY allergies 06/29/18 05/21/23 mcg/actuation nasal spray,suspension sumatriptan succinate 50 mg tablet 50 mg PO NEEDED PRN Migraine 06/29/18 05/21/23 (Imitrex) Headache lamotrigine 25 mg tablet 25 mg PO DAILY . 07/22/22 05/21/23 montelukast 10 mg tablet 10 mg PO DAILY allergies 07/22/22 05/21/23 omeprazole 40 mg capsule,delayed 40 mg PO DAILY gerd 07/22/22 05/21/23 release insulin glargine 100 unit/mL (3 34 unit SQ DAILY Diabetes 08/20/22 05/21/23 mL) subcutaneous pen (Lantus Solostar U-100 Insulin) bupropion HCl 150 mg tablet,12 hr 150 mg PO DAILY Depression 10/02/22 05/21/23 sustained-release cholecalciferol (vitamin D3) 50 2,000 unit PO DAILY Supplement 10/02/22 05/21/23 mcg (2,000 unit) capsule (D3-2000) donepezil 10 mg tablet 10 mg PO DAILY . 10/02/22 05/21/23 empagliflozin 25 mg tablet 25 mg PO DAILY Diabetes 10/02/22 05/21/23 (Jardiance) mecobalamin (vitamin B12) 1,000 1,000 mcg PO DAILY Supplement 10/02/22 05/21/23 mcg chewable tablet (B12 Active) valsartan 320 mg tablet 320 mg PO DAILY blood pressure 10/02/22 05/21/23 Previous Rx's ?Medication ?Instructions ?Recorded levalbuterol tartrate 45 2 inh inhalation Q6H PRN shortness 08/20/22 mcg/actuation aerosol inhaler of breath or wheezing 90 days #15 (Xopenex HFA) grams amoxicillin 875 mg-potassium 1 tab PO Q12H #20 tabs 10/02/22 clavulanate 125 mg tablet benzonatate 100 mg capsule 100 mg PO TIDP PRN Cough #30 caps 10/02/22 guaifenesin 600 mg tablet, 600 - 1,200 mg (1 - 2 x 600 mg) PO 10/02/22 extended release 12 hr (Mucinex) BIDP PRN Congestion #30 tabs prednisone 10 mg tablet 10 mg PO DIRECTED 9 days #21 10/02/22 tabs levalbuterol tartrate 45 2 inh inhalation Q6H PRN shortness 02/26/23 mcg/actuation aerosol inhaler of breath or wheezing 90 days #15 (Xopenex HFA) grams meloxicam 15 mg tablet See Rx Instructions .Route 03/02/23 .COMPLEX #30 tabs meloxicam 15 mg tablet 15 mg PO DAILY osteoarthritis #90 04/20/23 tabs fluticasone propionate 230 See Rx Instructions .Route 05/11/23 mcg-salmeterol 21 mcg/actuation .COMPLEX #12 grams HFA inhaler (Advair HFA) azelastine 137 mcg (0.1 %) nasal 2 spray intranasal HS 90 days #30 10/12/23 spray mL sulfamethoxazole 800 1 tab PO BID 7 days #14 tabs 05/01/24 mg-trimethoprim 160 mg tablet Allergies Allergy/AdvReac Type Severity Reaction Status Date / Time codeine (CODEINE) Allergy Unknown Verified 05/21/23 14:18 ketorolac (From TORADOL) Allergy Unknown Verified 05/21/23 14:18 meperidine (From DEMEROL) Allergy Unknown Verified 05/21/23 14:18 zolpidem (From AMBIEN) Allergy Unknown Verified 05/21/23 14:18 PFSH PFSH Disclaimer: The information contained in this section may have been updated after the patient was seen, as this information can be updated by other users. Medical History Abnormal x-ray of lungs with single pulmonary nodule Asthma Asthma-chronic obstructive pulmonary disease overlap syndrome Depression Diabetes mellitus, type 2 Dyspnea on exertion History of 2019 novel coronavirus disease (COVID-19) History of sleep apnea History of stroke Hyperlipidemia Hypertension Lung nodule Migraine Orthopnea Seizure disorder Thyroid disease Wheezing on both sides of chest Surgical History History of appendectomy History of cholecystectomy History of hysterectomy History of tonsillectomy Family History Other Cancer Social History (Updated 05/21/23 @ 14:19 by Concetta Thrasher) Smoking Status: Never smoker alcohol intake: never current occupational status: retired and other Other Medical History Have you received the Pneumonia Vaccine: Yes ROS Obtained: Yes All systems reviewed & no additional complaints except as documented Physical Exam General General appearance: alert and anxious Head Head exam: normocephalic and other (Right parietal scalp hematoma without laceration) Eye Eye exam: Present normal appearance, PERRL and EOMI; Absent scleral icterus or conjunctival redness ENT ENT exam: Present normal oropharynx and normal external ear exam Neck Neck exam: Present normal inspection and full ROM; Absent tenderness Chest Chest inspection: Present normal inspection and symmetric chest wall rise; Absent tenderness Respiratory Respiratory exam: Present normal lung sounds bilaterally; Absent respiratory distress Cardiovascular Cardiovascular exam: Present regular rate and normal rhythm Abdominal Exam Abdominal exam: Present soft; Absent distention, tenderness or guarding Extremities Exam Extremities exam: Present normal inspection; Absent edema or joint swelling Back Exam Back exam: Present normal inspection; Absent tenderness Neurological Exam Neurological exam: Present alert and oriented X3; Absent motor sensory deficit Psychiatric Psychiatric exam: Present normal affect and normal mood Skin Skin exam: Present warm, dry and normal color Lymphatic Lymphatic Findings: no adenopathy Medical Decision Making Medical Records Medical records reviewed: Yes I reviewed the patient's medical records. Screening: Per USPSTF and CDC recommendations, given the prevalence of disease in our region, it is our hospital?s policy to screen for HIV and viral Hepatitis for all patients aged 18 and over and those with ongoing risk factors. Syed Inquiry Pt receiving controlled substance: No Syed was queried for this patient: No Vital Signs: 05/01/24 00:47 Temperature 97.9 F Temperature Source Oral Pulse Rate [Right Radial] 79 Respiratory Rate 18 Blood Pressure [Right Arm] 124/72 Blood Pressure Mean [Right Arm] 89 Blood Pressure Source [Right Arm] Automatic Cuff Blood Pressure Position [Right Arm] Supine 02 Sat by Pulse Oximetry 97 Oxygen Delivery Method Room Air Lab Data Lab results reviewed: Yes I reviewed the patient's lab results. Lab Results 05/01/24 00:50: WBC 11.1 H, RBC 5.13, Hgb 15.2, Hct 45.3, MCV 88.1, MCH 29.6, MCHC 33.5, RDW 14.2, Plt Count 218, MPV 8.0, Neut % (Auto) 64.5, Lymph % (Auto) 26.8, Mccone % (Auto) 5.9, Eos % (Auto) 1.9, Baso % (Auto) 0.8, Neut # (Auto) 7.2, Lymph # (Auto) 3.0, Mccone # (Auto) 0.7, Eos # (Auto) 0.2, Baso # (Auto) 0.1, PT 10.5, INR 0.93, Sodium 138, Potassium 4.6, Chloride 104, Carbon Dioxide 27, Anion Gap 11.6, BUN 20 H, Creatinine 1.10 H, Estimated Creat Clear 82, Estimated GFR 50 L, Est GFR ( Amer) 60, Glucose 136 H, Calcium 10.0, Magnesium 1.9, Total Bilirubin 0.8, AST 52 H, ALT 39, Alkaline Phosphatase 98, Troponin I < 0.01, Total Protein 7.4, Albumin 4.2, Globulin 3.2, Albumin/Globulin Ratio 1.3, Lipase 106, HIV 1&2 Antibody Rapid Nonreactive 05/01/24 03:09: Urine Color Yellow, Urine Appearance Clear, Urine pH 6.0, Ur Specific Dowell <= 1.005, Urine Protein Negative, Urine Glucose (UA) 3+, Urine Ketones Negative, Urine Blood Negative, Urine Nitrate Positive A, Urine Bilirubin Negative, Urine Urobilinogen 0.2, Ur Leukocyte Esterase Negative, Urine RBC None, Urine WBC 3-5, Ur Squamous Epith Cells None, Urine Bacteria 4+ 05/01/24 03:56: Troponin I < 0.01 05/01/24 00:50 05/01/24 00:50 Orders (Tests/Meds): ED MEDICATIONS Generic Name Dose Route Start Last Admin Trade Name Freq PRN Reason Stop Dose Admin Sodium Chloride 10 ml 05/01/24 01:49 05/01/24 01:53 Sodium Chloride 0.9% 10ml Syr (Rad Only) IV 05/31/24 01:48 10 ml NEEDED PRN Administration Maintain IV Site Discontinued Medications Generic Name Dose Route Start Last Admin Trade Name Freq PRN Reason Stop Dose Admin Sodium Chloride 1,000 mls @ 999 mls/hr 05/01/24 01:00 05/01/24 00:56 Sod Chlor 0.9% 1000ml Bag IV 05/01/24 02:00 999 mls/hr .Q1H1M DANIEL Administration Iopamidol 80 ml 05/01/24 01:49 05/01/24 01:53 Iopamidol-370 (76%);100ml Bottle IV 05/01/24 01:50 80 ml ONCE ONE Administration Ondansetron HCl 4 mg 05/01/24 00:47 05/01/24 00:55 Ondansetron 4mg/2ml Vial IV 05/01/24 00:48 4 mg ONCE ONE Administration Ondansetron HCl 4 mg 05/01/24 03:54 05/01/24 04:22 Ondansetron 4mg Odt SL 05/01/24 03:55 4 mg ONCE ONE Administration Sodium Chloride 50 ml 05/01/24 01:49 05/01/24 01:53 0.9 % Sodium Chloride 50 Ml Vial IV 05/01/24 01:50 50 ml ONCE ONE Administration Trimethoprim/Sulfamethoxazole 1 each 05/01/24 04:33 05/01/24 04:38 Sulfa/Trimethoprim 1 Tablet PO 05/01/24 04:34 1 each ONCE ONE Administration ORDERS Category Date Time Status CT angio head Stat Cat Scan 05/01/24 00:[address] angio neck Stat Cat Scan 05/01/24 00:[address] cervical spine wo con Stat Cat Scan 05/01/24 00:[address] head/brain wo con Stat Cat Scan 05/01/24 00:48 Completed CXR --portable [XR chest portable] Stat Exams 05/01/24 00:49 Completed Hip XR right minimum 2 views [XR hip RT 2-3V w/pelvis] Exams 05/01/24 00:58 Completed Stat Shoulder XR right miminum 2 views [XR shoulder RT min Exams 05/01/24 00:58 Completed 2V] Stat CBC w/Auto Diff [Complete Blood Count Auto Diff] Stat Lab 05/01/24 00:50 Completed CMP [Comprehensive Metabolic Panel] Stat Lab 05/01/24 00:50 Completed HIV (1&2) Antibody Rapid Stat Lab 05/01/24 00:50 Completed Hep C Ab with Reflex to RNA Stat Lab 05/01/24 00:50 Received INR [Prothrombin Time INR] Stat Lab 05/01/24 00:50 Completed Lipase Stat Lab 05/01/24 00:50 Completed MAG [Magnesium] Stat Lab 05/01/24 00:50 Completed Trop I [Troponin I] Stat Lab 05/01/24 00:50 Completed Troponin I Q3H Lab 05/01/24 03:56 Completed Troponin I Q3H Lab 05/01/24 07:00 Ordered UA [Urinalysis and Microscopic] Stat Lab 05/01/24 03:09 Completed Urine Culture Stat Micro 05/01/24 03:09 Received EKG Request [ECG Request] Stat Y 05/01/24 00:47 Ordered HEART Score History (anamnesis): Slightly suspicious ECG: Normal Age: >65 years Risk factors: 3 or more risk factors Troponin: </= normal limit HEART Score: 4 Medical Decision Narrative: 68-year-old female with extensive past medical history presents with syncope and fall out of bed with head trauma. Currently only reports that she feels off and slightly nauseous.. History was obtained via interactive discussion with patient, EMS, family, chart review. On arrival, patient is [afebrile, hemodynamically stable, satting appropriately, alert, oriented x4, GCS 15], moving all extremities spontaneously. Full physical exam performed and significant for clear lungs bilaterally, no significant tenderness of the spines, chest, abdomen, pelvis, extremities. Small right parietal scalp hematoma. Normal neurologic exam with focal deficit. Patient reports normal vision. Differential includes but is not limited to intracranial trauma intrathoracic trauma intra-abdominal trauma spine trauma extremity trauma, neurogenic syncope, orthostasis, cardiogenic syncope, hypoglycemia, electrolyte derangement seizure, stroke. No indication for tPA at this time given NIH of 0, chronic dizziness. Patient was given 1 L IV fluid bolus and 4 mg IV Zofran for symptomatic management and correction of underlying abnormalities. Workup initiated including EKG troponin CBC CMP coags CT head, CT C-spine Noncon, CTA head neck, radiographs of the chest pelvis right hip right shoulder. On re-evaluation, patient [remains afebrile, HD stable.] She reports symptomatic improvement. Laboratory workup independently interpreted by me and significant for no significant leukocytosis, normal renal function, no significant electrolyte derangement, initial troponin undetectably low. Urinalysis consistent with infection. Repeat troponin undetectably low Imaging independently interpreted by me and significant for no evidence of intracranial bleeding or cervical fracture, less than 50% right ICA stenosis, 50 to 69% left ICA stenosis, no dissection or occlusion. No LVO. No acute traumatic injuries on radiographs. See radiology read for full review of final results. EKG independently interpreted by me and significant for normal sinus rhythm, rate of 74, no significant ST or T wave changes, no evidence of arrhythmia.. Interactive discussion was had with patient and family regarding her presentation. The definitive underlying etiology of the patient's syncopal episode tonight remains unclear. No evidence of cardiac involvement as patient has had no chest pain palpitations shortness of breath, has normal EKG and normal troponin x 2, no cardiac history. Patient's symptoms were not reported to be consistent with prior seizures, patient has no stroke deficits on exam and is now asymptomatic. Orthostatics were performed and were normal. Patient's labs were unrevealing. CT does show some mild to moderate carotid stenosis but this seems unlikely to be the acute cause of her symptoms tonight. I had extensive discussion with patient regarding her symptoms, presentation workup and future steps. I discussed with them the possibility of admission for syncope, but after discussion using shared decision making we decided to discharge the patient with treatment for urinary tract infection. The UTI in combination with a possible concussion from the patient's fall 2 days ago could potentially have precipitated the patient's presentation tonight. The patient was given strict return precautions for repeat syncope or any new or worsening symptoms. Patient discharged in stable condition. Patient able ambulate at baseline without difficulty. Procedures Risk/Benefits of Procedure(s) Were Explained: Yes Critical Care Critical Care Time Critical Care Time: No
--- NOTE | 2024-05-01 00:53 | ECG_ITS ---
APPROVED REPORT Exam: Resting ECG HR:74 bpm ECG Measurements Heart Rate 74 AXES SC 171 P 52 QRSd 97 QRS -10 QT 407 T 53 QTc 434 Conclusion SINUS RHYTHM NORMAL ECG UNCONFIRMED REPORT Electronically signed by : MESHA EDWARDS, 05/05/2024 06:33:13
[2024-05-01] MEDS: ONDANSETRON 4MG/2ML VIAL 4 MG IV (00:55)
[2024-05-01] MEDS: 0.9 % SODIUM CHLORIDE 1000ML 1,000 ML 999 ML IV (00:56)
--- NOTE | 2024-05-01 00:58 | XR_ITS ---
PROCEDURE INFORMATION: Exam: XR Right Shoulder Exam date and time: 05/01/2024 1:32 AM Age: 68 years old Clinical indication: Injury or trauma; Fall; Blunt trauma (contusions or hematomas); Shoulder; Right; Additional info: Fall, pain TECHNIQUE: Imaging protocol: Radiologic exam of the right shoulder. Views: 2 or more views. COMPARISON: CR XR CHEST PORTABLE 05/01/2024 1:32 AM FINDINGS: Bones/joints: The shoulder is normally aligned. There are mild degenerative changes of the AC joint. No acute fracture. Soft tissues: Normal. IMPRESSION: No acute findings.
--- NOTE | 2024-05-01 00:58 | XR_ITS ---
PROCEDURE INFORMATION: Exam: XR Right Hip Exam date and time: 05/01/2024 1:32 AM Age: 68 years old Clinical indication: Injury or trauma; Fall; Blunt trauma (contusions or hematomas); Right; Hip; Additional info: Fall, pain TECHNIQUE: Imaging protocol: Radiologic exam of the right hip. Views: 2 or 3 views hip with pelvis when performed. COMPARISON: MR HIP RT WO CON 11/19/2022 9:30 AM FINDINGS: Bones/joints: The pelvis and proximal femurs are intact. There is no acute fracture evident. The SI joints, hips and pubic symphysis are normally aligned. Dedicated imaging of the right hip does not demonstrate a fracture or avascular necrosis Soft tissues: Unremarkable. IMPRESSION: No acute findings.
[2024-05-01 01:04] LABS: Albumin Level 4.2 g/dl (3.5-5.0); Chloride 104 mmol/L (98-107); Potassium 4.6 mmoL/L (3.5-5.1); Sodium 138 mmol/L (136-145)
[2024-05-01 01:05] LABS: Lipase 106 U/L (23-300)
[2024-05-01 01:06] LABS: Alanine Aminotransferase 39 U/L (12-78); Alkaline Phosphatase 98 U/L (38-126); Anion Gap 11.6 mEq/L (5-15); Aspartate Amino Transferase 52 U/L (14-36); Bilirubin,Total 0.8 mg/dl (0.2-1.3); Blood Urea Nitrogen 20 mg/dl (7-17); Carbon Dioxide 27 mmol/L (22.0-30.0); Creatinine Clearance Estimated 82 mL/min (50-200); Estimated Glomerular Filt Rate 50 ml/min (>60); GFR (African American) 60 ML/MIN (>60)
[2024-05-01 01:07] LABS: Albumin/Globulin Ratio 1.3 (1.1-1.8); Globulin 3.2 g/dL (1.3-3.2); Glucose 136 mg/dl (74-100); INR 0.93 (0.9-1.1); Magnesium 1.9 mg/dl (1.6-2.3); Prothrombin Time 10.5 seconds (10.1-12.5); Total Protein,Serum 7.4 g/dl (6.3-8.2)
[2024-05-01 01:14] LABS: Basophils # 0.1 K/mm3 (0-0.2); Basophils % 0.8 % (0.1-2.0); Eosinophils # 0.2 K/mm3 (0.0-0.4); Eosinophils % 1.9 % (0.1-12.0); Hematocrit 45.3 % (37.0-47.0); Hemoglobin 15.2 g/dL (12.2-16.2); Lymphocytes % 26.8 % (10-50); Mean Corpuscular HGB Conc 33.5 g/dL (31.8-35.4); Mean Corpuscular Hemoglobin 29.6 pg (27.0-31.2); Mean Corpuscular Volume 88.1 fl (81-99); Monocytes # 0.7 K/mm3 (0.1-1.0); Monocytes % 5.9 % (1.7-9.3); Neutrophils # 7.2 K/mm3 (1.8-7.8); Neutrophils % 64.5 % (37.0-80.0); Platelet Count 218 K/mm3 (142-424); Red Blood Count 5.13 M/mm3 (4.20-5.40); Red Cell Distribution Width 14.2 % (11.5-17.5); White Blood Count 11.1 K/mm3 (4.8-10.8)
[2024-05-01 01:21] LABS: Troponin I < 0.01 ng/ml (0.00-0.034)
[2024-05-01 01:39] LABS: HIV (1&2) Antibody Rapid NONREACTIVE (NONREACTIVE)
[2024-05-01] MEDS: IOPAMIDOL-370 (76%);100ML BOTTLE 80 ML IV (01:53)
[2024-05-01] MEDS: 0.9 % SODIUM CHLORIDE 50 ML VIAL IV (01:53)
[2024-05-01] MEDS: SODIUM CHLORIDE 0.9% 10ML SYR (RAD ONLY) 10 ML IV (01:53)
[2024-05-01 03:16] LABS: Microscopic, Urine URINE MICROSCOPIC (MICROSCOPIC)
[2024-05-01 03:17] LABS: Appearance,Urine CLEAR (Clear); Bilirubin,Urine Negative (Negative); Blood, Urine Negative (Negative); Color,Urine YELLOW (Yellow); Glucose,Urine (UA) 3+ (Negative); Ketones,Urine Negative (Negative); Leukocyte Esterase,Urine Negative (Negative); Nitrate,Urine POSITIVE (Negative); Protein,Urine Negative (Negative); Specific Gravity, Urine <= 1.005 (1.005-1.030); Urobilinogen,Urine 0.2 EU/dl (0.2)
[2024-05-01 03:27] LABS: Bacteria,Urine 4+ /lpf
[2024-05-01] MEDS: ONDANSETRON 4MG ODT 4 MG SL (04:22)
[2024-05-01 04:23] LABS: Troponin I < 0.01 ng/ml (0.00-0.034)
[2024-05-01] MEDS: SULFA/TRIMETHOPRIM 1 TABLET 1 EACH PO (04:38)
[2024-05-03 06:52] LABS: HCV Ab Non Reactive (Non Reactive)
== END 2024-05-01 04:48 | disposition home or self-care (01) ==
PROVIDERS: Emergency Provider Emergency Medicine; PCP Family Medicine
DX: S06.0XAA Concussion with loss of consciousness status unknown, initial encounter (principal); N39.0 Urinary tract infection, site not specified; R55 Syncope and collapse; R42 Dizziness and giddiness; R11.0 Nausea; R53.1 Weakness; W06.XXXA Fall from bed, initial encounter; Y93.89 Activity, other specified; Y92.003 Bedroom of unspecified non-institutional (private) residence as the place of occurrence of the external cause
CPT/HCPCS: 70450; 70496; 70498; 71045; 72125; 73030; 73502; 80053; 81001; 83690; 83735; 84484; 85025; 85610; 86803; 87086; 87088; 87186; 87389; 93005; 96361; 96374; 99285; J2405; J7030; Q0162; Q9967

== ENCOUNTER 2024-11-28 08:37 | Outpatient (CLI) | payer MEDICARE, OTHER, SELFPAY ==
--- OUTSIDE RECORDS SUMMARY | 2024-11-07 05:45 | XMS_ITS ---
[facility] Organization [facility] Address [address] [facility] [address] [place] [phone] Care Team Providers Care Hoisting Engineer Name Role Phone Yossi Cuadra Primary Care Provider Allergies Allergen (clinical drug ingredient) Drug/Non Drug [...] MG 1 tablet Orally Onc e a day for 90 days Active Valsartan 320 mg TAKE 1 TABLET DAILY for 90 days Active Synthroid 137 MCG TAKE 1 TABLET DAILY Orally Once a day for 90 days Active lamoTRIgine 25 MG 1 tab(s) orally 2 ti mes a day for 90 days Active cloNIDine HCl 0.2 MG 1 tablet Orally twi ce a day for 90 days 11/07/2024 Active buPROPion HCl ER (SR) 150 MG 1 tab(s) orally 2 times a day for 90 days Active Pravastatin Sodium 80 mg 1 tablet Orally Once a day for 90 days Active Metoprolol Succinate ER 50 MG 1 tab(s) orally once a day for 90 days Active CLONIDINE 0.2 mg 1 tab(s) orally 2 ti mes a day for 90 days Active BD Pen Needle Jennifer 2nd Gen 32G X 4 MM USE DIRECTED BY PRESCRIBER OR PACKAGE INSTRUCTIONS Active Ozempic (2 MG/DOSE) 8 MG/3ML USE DIRECTED UNDER THE SKIN ONCE WEEKLY Active Montelukast Sodium 10 MG 1 tab(s) orally once a day for 90 days Active Donepezil HCl 10 MG 1 tab(s) orally once a day (at bedtime) for 90 days Active Mirtazapine 15 MG 1 tab(s) orally once a day (at bedtime) for 90 days Active FREE STYLE BRIAN GLUCOSE SYSTEM 08/05/2022 Active Aspirin 81 MG 1 tab(s) orally once a day for 30 day(s) Active SUMAtriptan Succinate 100 MG 1 tab(s) orally Once a day A ctive Fluticasone Propionate 50 MCG/ACT 1 spray(s) in each nostril once a day for 30 day(s) Active B-12 1000 MCG 1 tab(s) orally once a day for 30 day(s) Active Furosemide 20 MG 1 tablet Orally Once a day for 30 day(s) Active Diclofenac Sodium 1 % as directed applie d topically 4 times a day Active Problems Problem Type SNOMED Code ICD Code Onset Dates Problem Status W/U Status Risk Notes Problem 135325158 Dementia associated with other underlying disease without behavioral disturbance (F02.80) Active confirmed Problem 284231893 BMI 39.0-39.9,adult (Z68.39) Active confirmed Vital Signs Blood pressure systolic 128 mm Hg 11/08/19 25 Blood pressure diastolic 78 mm Hg 025 Heart Rate 62 /min 11/07/2024 Height 65.5 in 11/07/2024 Weight 240.2 lbs 11/07/2024 BMI 39.36 kg/m2 11/07/2024 Encounters Encounter Location Date Provider Diagnosis [facility] [address] [facility] [place] [phone] 11/07/2024 Yossi [place] Primary hypertension I10 ; Type 2 diabetes [...] MG 1 tablet Orally Onc e a day for 90 days Valsartan 320 mg TAKE 1 TABLET DAILY for 90 days Synthroid 137 MCG TAKE 1 TABLET DAILY Orally Once a day for 90 days lamoTRIgine 25 MG 1 tab(s) orally 2 ti mes a day for 90 days cloNIDine HCl 0.2 MG 1 tablet Orally twi ce a day for 90 days 11/07/2024 Pravastatin Sodium 80 mg 1 tablet Orally Once a day for 90 days Next Appt Details Follow Up: 6 Months, Reason: Provider Name:Ysosi Kat ry, 05/24/2025 09:30:00 AM, [address] [facility], [address], [place], [place], [phone], Progress Notes * ELIEL ALEJANDRODOB: (69 yo F)Acc No.[id number]:11/07/2024 Progress Notes Patient: PRINCESS CARROLLNA Provider: Kenia Cuadra M.D. :1955 A ge:69 Y S ex:Female Date:11/07/2024 Address:[address] [place] [address], [id number] Subjective: * Chief Complaints: * 1 . [...] impairment, PRES syndrome, s/p neurology evaluation at [facility], Allergic Rhinitis, Cardiac Murmur, COPD. * Surgical [...] Temp: 97.8, BP: 128/78, HR: 62, Nurse: WMKapil, Ht: 65.5, BMI:39.36. * Examination: E ndocrinology: General Appearance: N AD, BMI 38.67. Heart: R SR. Lungs: c lear to auscultation. Extremities: n o leg edema. Assessment: * Assessment: [...] behavioral disturbance - F02.80 8 . B AL 39.0-39.9,adult - Z68.39 Plan: * Treatment: 2. [...] G 2211 Complex e/[place], [address] CAPILLARY BLOOD DRAW, 88505 GLUCOSE TEST, 47811 GLYCATED HEMOGLOBIN TEST, Modifiers: QW , 3044F HG A1C LEVEL LT 7.0%, G8950 PREHTN/HTN BP DOC INDCD F/U DOC, G8352 MOST RECENT SYSTOLIC BP < 140MM HG, G8754 MOST RECENT DIASTOLIC BP < 90MM HG * Follow Up: 6 Months * Billing Information: * Visit Code: 71353 Office Visit, Est Pt., Level 4. * Procedure Codes: G2211 Complex e/[place]. [address] CAPILLARY BLOOD DRAW. 27220 GLUCOSE TEST. 99406 GLYCATED HEMOGLOBIN TEST. Modifiers: QW 3044F HG A1C LEVEL LT 7.0%. G8950 PREHTN/HTN BP DOC INDCD F/U DOC. G8752 MOST RECENT SYSTOLIC BP < 140MM HG. G8754 MOST RECENT DIASTOLIC BP < 90MM HG. * Electronic signature of Swapna Cuadra MD on 11/28/2024 at 08:44 AM EDT Sign off status: Pending * Provider: Kenia Cuadra M.D. Date: 0 11/07/2024 Generated for [place] nance/Valerie/Aliyahitting on: 0 11/28/2024 08:44 AM EDT History and Physical Notes * [...]
--- OUTSIDE RECORDS SUMMARY | 2024-11-08 07:04 | XMS_ITS ---
Author Organization [facility] Address 1210 [facility] 36 [facility] [address] [place] [phone] Care Team Providers Care Powder Coater Name Role Phone Yossi Cuadra Primary Care Provider Results Component Value Reference Range Notes Cologreggie Reviewed date:11/17/2024 02:22:24 PM Interpretation:not performed, pt is not a candidate Performing Lab: Notes/Report: not performed, pt is not a candidate REASON FOR VISIT due for screenings Encounters Encounter Location Date Provider Diagnosis [facility] 36 [facility] [address] [place] [phone] 11/08/2024 Yossi Cuadra Osteoporosis screeni ng Z13.820 and Colon cancer screening Z12.11 Assessments Encounter Date Diagnosis (ICD Code) Assessment Notes Treatment Notes Treatment Clinical Notes Section Notes 11/08/2024 Osteoporosis screening (ICD-10 - Z13.820) 11/08/2024 Colon cancer screening (ICD-10 - Z12.11) Plan Of Treatment Pending Test Test Name Order Date DEXA Hip and Spine 11/08/2024 Next Appt Details Provider Name:Yossi Kat ry, 05/24/2025 09:30:00 AM, [facility], [address], [place], [phone], Progress Notes * ELIEL ALEJANDRODOB: (69 yo F)Acc No.[id number]:11/08/2024 Patient: Ramon MANLEYCHAKA ELIEL :1955 A ge:69 Y S ex:Female Address:[address] [place] [address], [address] Subjective: * Chief Complaints: * D ue [...] Date: Generated for [place] nance/Valerie/eTransmitting on: 0 11/28/2024 08:42 AM EDT
--- OUTSIDE RECORDS SUMMARY | 2024-11-17 09:51 | XMS_ITS ---
[facility] Address [address] [facility] [address] [place] [id number] Care Team Providers Care Field Artillery Basic Name Role Phone Yossi Cuadra Primary Care Provider REASON FOR VISIT order change Encounters Encounter Location Date Provider Diagnosis [facility] [address] [facility] [address] [place] [id number] 11/17/2024 Yossi Cuadra Screening for colon cancer Z12.11 Assessments Encounter Date Diagnosis (ICD Code) Assessment Notes Treatment Notes Treatment Clinical Notes Section Notes 11/17/2024 Screening for colon cancer (ICD-10 - Z12.11) Plan Of Treatment Pending Test Test Name Order Date colonoscopy 11/17/2024 Next Appt Details Provider Name:Yossi Kat ry, 05/24/2025 09:30:00 AM, [address] [facility], [address], [place], [phone], Progress Notes * ELIEL ARROYODOB: (69 yo F)Acc No.[id number]:11/17/2024 Patient: ELIEL CARROLL :1955 A ge:69 Y S ex:Female Address:[facility] [address] [place], [address] Subjective: * Chief Complaints: * O rder change * Medical History: * Surgical History: * Hospitalization/Major Diagno stic Procedure: * Medications: Objective: * Vitals: * Physical Examination: Assessment: * Assessment: 1. S creening for colon cancer - Z12.11 (Primary) Plan: * Treatment: * Procedure Codes: * true * Date: Generated for [place] nance/Valerie/Anurag on: 0 11/28/2024 08:43 AM EDT
--- OUTSIDE RECORDS SUMMARY | 2024-11-28 08:39 | XMS_ITS | Continuity of Care Document ---
Author Name [facility] Organization [facility] Care Team Providers Care Diet Therapist Name Role Phone [facility] Unavailable Unavailable Medications Combined list of outpatient medications from Department of Defense and Veterans Affairs facilities.Medications provided include 1) outpatient medications from the last 15 months, and 2) patient-reported medications. Medication Details Route Status Patient Instructions Prescription Expires Prescription Number Last Dispense Date Ordering Provider Order Date Order Qty Source AZELASTINE HCL (AZELASTINE HCL), 137 MCG, SPRAY/PUMP, NASAL, APOTEX JERSON, 30 ml SQUEEZ BTL Active [id number] 4 2023 60 Pharmac y Data Transac tion Service Facilit y CLONIDINE HCL (clonidine HCl), 0.2 MG, TABLET, ORAL, [employer] 1000 ea. BOTTLE Active [id number] 4 2023 180 Pharmac y Data Transac tion Service Facilit y DONEPEZIL HCL (DONEPEZIL HCL), 10 MG, TABLET, ORAL, [employer] 1000 ea. BOTTLE Active [id number] 4 2023 90 Pharmac y Data Transac tion Service Facilit y METOPROLOL SUCCINATE (metoprolol succinate), 50 MG, TAB ER 24H, ORAL, [employer] 1000 ea. BOTTLE Active [id number] 4 2023 90 Pharmac y Data Transac tion Service Facilit y MIRTAZAPINE (mirtazapin e), 15 MG, TABLET, ORAL, [employer] 1000 ea. BOTTLE Active [id number] 4 2023 90 Pharmac y Data Transac tion Service Facilit y MIRTAZAPINE (mirtazapin e), 15 MG, TABLET, ORAL, [employer] 1000 ea. BOTTLE Active [id number] 4 2023 90 Pharmac y Data Transac tion Service Facilit y MONTELUKAST SODIUM (montelukas t sodium), 10 MG, TABLET, ORAL, [employer], 90 ea. BOTTLE Active [id number] 4 2023 90 Pharmac y Data Transac tion Service Facilit y OZEMPIC (semaglutid e), 1/0.75 (3), PEN INJCTR, SUBCUT, ALPHONSE NORDISK, 3 ml SYRINGE Active [id number] 4 2023 9 Pharmac y Data Transac tion Service Facilit y SYNTHROID (LEVOTHYROX INE SODIUM), 137 MCG, TABLET, ORAL, [employer] 90 ea. BOTTLE Cancele d [id number] : 2023 0 Pharmac y Data Transac tion Service Facilit y SYNTHROID (LEVOTHYROX INE SODIUM), 137 MCG, TABLET, ORAL, [employer] 90 ea. BOTTLE Active [id number] 4 2023 90 Pharmac y Data Transac tion Service Facilit y Allergies, Adverse Reactions, Alerts Combined list of allergies from Department of Defense and Veterans Affairs facilities. It does not include entries that were removed or entered in error. Substance Category Reaction Severity Reaction type Status Date Reported Comments Source No Known Allergies Drug allergy (disorder) active 2 [facility] Immunizations Combined list of available immunizations from the Department of Defense and Veterans Affairs facilities. Immunization Series Date Given Administered By Site Reaction Lot Number CVX Code Drug Engineer Operations And Maintenance Status Comments Source influenza, injectable, quadrivalent, preservative free 2020 DERRICK VILLAREAL, () Not Given influenza , injectabl e, quadrival ent, preservat margarito free [facility] influenza, injectable, quadrivalent, preservative free 2018 ERWIN WALTON () Not Given influenza , injectabl e, quadrival ent, preservat margarito free DoD Hep A, adult 2016 LIZZY GUADALUPE () Not Given Hep A, adult [facility] Social History Combined list of available smoking, tobacco, and other social history from Department of Defense and Veterans Affairs facilities. Social History Type Response Date Comment [facility] This section is an empty social history section. [facility]
--- NOTE | 2024-11-28 08:41 | XR_ITS ---
FINAL REPORT TECHNIQUE: Bone densitometry calculations of the lumbar spine and bilateral hips were obtained. CLINICAL HISTORY: SCREENING COMPARISON: None FINDINGS: Using L1-4, the bone mineral density of the spine is 1.072 g/cm2, corresponding to T-score of 0.2. Using the left hip, the bone mineral density of the femoral neck is 0.748 g/cm2, corresponding to a T-score of -0.9. Using the right hip, the bone mineral density of the femoral neck is 0.861 g/cm?, corresponding to a T-score of 0.1. NOTE: T-score: Standard deviation compared with peak bone mass of young adult mean. *Following the recommendations of the International Society of Bone densitometry, classification of hip BMD is based on the lower of two T-scores; total hip or femoral neck. IMPRESSION: Normal bone mineral density of the lumbar spine and bilateral hips. Reviewed, Interpreted and Dictated by Constantine Haas MD Transcribed by Sania Willingham Authenticated and [facility]
--- OUTSIDE RECORDS SUMMARY | 2024-11-28 08:43 | XMS_ITS | Clinical Summary ---
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 OBESITY 806828946 (SNOMED CT) Active Jovita Calle MD Obesity DM TYPE II E11.9 (ICD-10-CM ) Active Alexandra Rea Type 2 diabetes mellitus without complications HYPERTENSION 80559976 (SNOMED CT) Active Alexandra Rea Hypertensive disorder HYPERLIPIDEMIA 60641072 (SNOMED CT) Active Alexandra Rea Hyperlipidemia MARTHA LUNG 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 Take after a full meal. ITRACONAZOLE [id number] Donita Suzan RN ITRACONAZOLE 100 MG CAPS take two pills three times daily for two days, then decrease to two pills twice daily. Take after a full meal. ITRACONAZOLE [id number] Jovita Calle MD PERCOCET TABS OXYCODONE-ACETAM INOPHEN TABS 38180104144 Jovita Calle MD MECLIZINE HCL TABS MECLIZINE HCL TABS 24692789942 Jovita Calle MD ZYRTEC ALLERGY TABS CETIRIZINE HCL TABS 04243435772 Jovita Calle MD STOOL SOFTENER CAPS DOCUSATE CALCIUM CAPS 13539896368 Jovita Calle MD PERCOCET TABS OXYCODONE-ACETAM INOPHEN TABS 96838612306 Becca G MECLIZINE HCL TABS MECLIZINE HCL TABS 85767951430 Becca G ZYRTEC ALLERGY TABS CETIRIZINE HCL TABS 43169474935 Becca G SIMVASTATIN TABLET SIMVASTATIN TABS 38066043254 Becca G CENTRUM ORAL TABLET MULTIPLE VITAMINS-MINERAL S 07146317844 Becca G METFORMIN HCL TABS METFORMIN HCL TABS 77302789013 Becca G COZAAR 50 MG TABS LOSARTAN POTASSIUM 01332622636 Becca G SYNTHROID TABS LEVOTHYROXINE SODIUM TABS 88692355832 Becca G LEXAPRO TABS ESCITALOPRAM OXALATE TABS 09690624435 Becca G STOOL SOFTENER CAPS DOCUSATE CALCIUM CAPS 04497234956 Becca G CELEBREX CAPS CELECOXIB CAPS 32759845029 Becca G Medications Administered No information available. Allergies, Adverse Reactions, Alerts Allergy Name Reaction Description Start Date Severity Statu s Provider LATEX TAPE Moderate Active Jovita SANTOS and ambien family Moderate Active Jovita Calle MD DEMEROL Moderate Active Becca G AMBIEN Moderate No Longer Active Becca G TORADOL Moderate Active Becca G CODEINE Moderate Active Becca G Results Date Name Value Unit Range Flag Description Office Visit: 13 SMOK STATUS never smoker Tobacco smoking status Lab Report: Comprehensive Me tabolic Panel ANIONGAP 10 mmol/L 3-11 N anion gap, s ana GFRC 91 mL/min/1. 73m2 Glomerular Filtration Rate Calculation ALBUMIN 4.1 g/dL 3.4-4.8 N Albumin [Mass/volume] in Serum or Plasma PROTEIN, TOT 7.3 g/dL 6.4-8.3 N Protein [Mass/volume] in Serum or Plasma BILI TOTAL 0.7 mg/dL 0.3-1.2 N Bilirubin. total [Mass/volume] in Serum or Plasma SGPT (ALT) 21 U/L 7-40 N Alanine aminotransferase [Enzymatic activity/volume] in Serum or Plasma SGOT (AST) 24 U/L 8-33 N Aspartate aminotransferase [Enzymatic activity/volume] in Serum or Plasma ALK PHOS 88 U/L 25-100 N Alkaline rohini sphatase [Enzymatic activity/volume] in Blood CALCIUM 9.1 mg/dL 8.7-10.4 N Calcium [Moles/volume] in Serum or Plasma CO2 25 mmol/L 20-31 N Carbon dioxid e, total [Moles/volume] in Venous blood CHLORIDE 110 mmol/L 98-107 H Chloride [Moles/volume] in Serum or Plasma POTASSIUM 4.0 mmol/L 3.4-5.4 N Potassium [Moles/volume] in Serum or Plasma SODIUM 145 mmol/L 136-145 N Sodium [Moles/volume] in Serum or Plasma CREATININE 0.7 mg/dL 0.6-1.3 N Creatinine [Mass/volume] in Serum or Plasma BUN 14 mg/dL 6-20 N Urea nitrogen [Mass/volume] in Serum or Plasma GLUCOSE SER 139 mg/dL 70-100 H Glucose [Mass/volume] in Serum or Plasma Lab Report: Itraconazole, Se rum/Plasma [id number] 1.3 mcg/mL GE use o nly - for [employer] import when terms are not otherwise specified Office Visit: rm2 MEDS REVIEW Done Documenta tion of current medications (procedure) Lab Report: Histoplasma Anti gen, Urine HIS AG UR 0.00 EU {EIA'U} Histoplasma capsulatum Ag [Units/volume] in Urine by Immunoassay Plan of Care Type Date Detail Pending order Histoplasmosis U rinary AG Procedures Code Procedure Name Date Entry Date [id number]-71140 Histoplasmosis Urinary AG 20 20/06/10 Vital Signs Date Name Value Unit Description BMI (Body Mass Index) 44.08 kg/m2 Bod y Mass Index (Ratio) Body Temperature 97.7 [degF] temperat ure E&M BP Diastolic 84 mm[Hg] blood pressu re, diastolic BP Systolic 126 mm[Hg] blood pressur e, systolic Heart Rate 88 /min pulse rate Height 65.5 [in_us] height E&M Respiratory Rate 14 /min respirat ory rate E&M Weight Measured 268 [lb_av] weight E& M Weight Measured 268 [lb_av] weight E& M Immunizations No information available. Advance Directives No information available.
--- OUTSIDE RECORDS SUMMARY | 2024-11-28 08:43 | XMS_ITS | Clinical Summary ---
Author Organization Healthcare Address [address] [place] [address] Care Team Providers Care Video Journalist Name Role Phone Mounika Mccarty MD Primary Care Provider Family History Medical History Relation Name Comments Hypertension Brother 1 Other cancer Brother 2 Colon cancer Brother 3 Family history of colon cancer Cardiac disorder Father Hypertension Father Other cancer Father Stomach cancer Father Family histor y of malignant neoplasm of stomach Breast cancer Maternal Grandmother Family history of malignant neoplasm of breast Breast cancer Mother Family history of malignant neoplasm of breast Diabetes Sister 1 Other cancer Sister 2 Breast cancer Sister 3 Family history of malignant neoplasm of breast Stomach cancer Sister 4 Family histor y of malignant neoplasm of stomach Relation Name Status Comments Brother 1 Brother 2 Brother 3 Father Maternal Grandmother Mother Sister 1 Sister 2 Sister 3 Sister 4 Social History Tobacco Use Types Packs/Day Years Used Date Smoking Tobacco: Never Alcohol Use Standard Drinks/Week Comments No 0 (1 standard drink = 0.6 oz pur e alcohol) Comments Unknown Sex and Gender Information Value Date Recorded Sex Assigned at Not on file Legal Sex Female 6:51 PM EDT Gender Identity Not on file Sexual Orientation Not on file Last Filed Vital Signs Vital Sign Reading Time Taken Comments Blood Pressure - - Pulse - - Temperature - - Respiratory Rate - - Oxygen Saturation - - Inhaled Oxygen Concentration - - Weight 121 kg (267 lb 4.9 oz) 09/03/2016 12:45 P M EDT Height 166.4 cm (5' 5.5 ) 03/07/2015 2:00 PM EDT Body Mass Index 43.81 03/07/2015 2:00 PM EDT Plan of Treatment Health Maintenance Due Date Last Done Comments [facility]-Bone Density Scan 1955 [facility]-Depression Screening 1955 [facility]-Infant/Child/Adol SDOH Screenings 1955 [facility]- SDOH Screenings 1974 [facility]-Adult SDOH Screenings 1974 CT Colonography 2001 Colonoscopy 2001 FIT-DNA 2001 FIT 2001 FOBT 2001 Sigmoidoscopy 2001 [facility]-Colorectal Cancer Screening 2001 [facility]-Pneumococcal Vaccine: 50+ Years (3 of 3 - PCV20 or PCV21) 03/16/2022 03/16/2017, 04/11/2016, 06/08/2011 [id number] Vaccine ( - 2023- season) 2024 [facility]-Influenza Vaccine (Season Ended) 2025 05/14/2021, 02/18/2015, 03/14/2014, Additional history exists [facility]-DTaP,Tdap,and Td Vaccines (2 - Td or Tdap) 07/29/2026 07/29/2016 [facility]-RSV Vaccine: 60+ Years or (1 - 1-dose 75+ series) 08/27/2031 [facility]-Hepatitis A Vaccines Aged Out 08/30/2018, 03/08 No longer eligible based on patient's age to complete this topic [facility]-Breast Cancer Screening Discontinued 07/10, 10/11/2018, 2017 [facility]-Zoster Vaccines Completed 03/07/2021, 11/29/2020, 07/29/2016 HPV Vaccines Aged Out No longer eligi ble based on patient's age to complete this topic [facility]-HIB Vaccines Aged Out No longer e ligible based on patient's age to complete this topic [facility]-IPV Vaccines Aged Out No longer e ligible based on patient's age to complete this topic [facility]-Rotavirus Vaccines Aged Out No lo nger eligible based on patient's age to complete this topic Procedures Procedure Name Priority Date/Time Associated Diagnosis Comments MAMMOGRAPHY BREAST SCREENING TOMOSYNTHESIS BILATERAL Routine 08/01/2020 12:00 AM EST from Last 3 Months or Most Recently Relevant to Health Maintenance Results * Mammography Breast Screening Tomosynthesis Bilateral (08/01/2020 12:00 AM EST) Anatomical Region Laterality Modality Breast Bilateral Mammography Impressions 08/02/2020 3:13 PM EST BI-RADS Assessment Category 2: Benign finding. RECOMMENDATION: Routine screening mammogram in 1 year. COMMUNICATION: The results and recommendations will be sent to the patient in a printed lay language version of the imaging report. The mammogram was read with the assistance of CAD and tomosynthesis. Page 1 of 2 Patient Name:Danielle Murphy : 1955 Age: 64 Gender: femaleDate of Service: 08/01/2020 eferring Phy:[facility]ikakayden Mccarty, [facility] [phone] Dictated By: Luis Whaley M.D. Verified By: Luis Whaley M.D. on 08/02/2020 at 03:07:24 PM Page 2 of 2 Narrative 08/02/2020 3:13 PM EST REQUESTING PHYSICIAN: MOUNIKA MCCARTY REASON FOR EXAMINATION/PROCEDURE: screen EXAMINATION / PROCEDURE: ANDRE BILATERAL SCREENING Aug 01 2020:; Screening Mamm w/cad Aug 01 2020:; HISTORY: Patient is 64 years old and is seen for screening mammography. The patient has a history of right breast cyst aspiration in 2001 - benign. The patient has the following family history of breast cancer: sister, at age 40, x2; mother and maternal grandmother. COMPARISON: The present examination has been compared to prior imaging studies performed at [facility] on 07/28/2016, and at [facility] on 2017 and 10/11/2018. FINDINGS: MAMMOGRAM There are scattered areas of fibroglandul ar density. There are multiple equal density, oval masses of varying size with circumscribed margins in both breasts. There are no suspicious masses, calcifications, or areas of architectural distortion in either breast. IMPRESSION: BI -RADS Assessment Category 2: Benign finding. RECOMMENDATION: Routine screening mammogram in 1 year. COMMUNICATION: The results and recommendations will be sent to the patient in a printed lay language version of the imaging report. The mamm ogram was read with the assistance of CAD and tomosynthesis. Read By: LUIS WHALEY M.D. Signed By: LUIS WHALEY M.D. on 08/02/2020 at 15::1:2: Verified by: LUIS WHALEY M.D. on Aug 02 2020 3:12P Transcribed by: PSCB on Aug 02 2020 3:12 P Dictated by: LUIS WHALEY M.D. on Aug 02 2020 3:12P Patient Name:Danielle Murphy : 1955 Age: 64 Gender: femaleDate of Service: 08/01/2020 eferring Phy:[facility]ounika Mccarty, [facility] [phone] MD Bibiana Guthrie[address], [address] [place] [address] FINAL REPORT PROCEDURE: Tomosynthesis Bilateral Screening - bilateral , Screening Mammogram With Cad - bilateral HISTORY: Patient is 64 years old and is seen for screening mammography. The patient has a history of right breast cyst aspiration in 2001 - benign. The patient has the following family history of breast cancer: sister, at age 40, x2; mother and maternal grandmother. COMPARISON: The present examination has been compared to prior imaging studies performed at [facility] on 07/28/2016, and at [facility] on 2017 and 10/11/2018. FINDINGS: MAMMOGRAM There are scattered areas of fibroglandular density. There are multiple equal density, oval masses of varying size with circumscribed margins in both breasts. There are no suspicious masses, calcifications, or areas of architectural distortion in either breast. Procedure Note Luis Whaley MD - 10/14/2020 REQUESTING PHYSICIAN: MOUNIKA MCCARTY REASON FOR EXAMINATION/PROCEDURE: screen EXAMINATION / PROCEDURE: ANDRE BILATERAL SCREENING Aug 01 2020 - 12:27; Screening Mamm w/cad Aug 01 2020 - 12:27; HISTORY: Patient is 64 years old and is seen for screening mammography. The patient has a history of right breast cyst aspiration in 2001 - benign. The patient has the following family history of breast cancer: sister, at age 40, x2; mother and maternal grandmother. COMPARISON: The present examination has been compared to prior imaging studies performed at [facility] on 07/28/2016, and at [facility] on 2017 and 10/11/2018. FINDINGS: MAMMOGRAM There are scattered areas of fibroglandul ar density. There are multiple equal density, oval masses of varying size with circumscribed margins in both breasts. There are no suspicious masses, calcifications, or areas of architectural distortion in either breast. IMPRESSION: BI -RADS Assessment Category 2: Benign finding. RECOMMENDATION: Routine screening mammogram in 1 year. COMMUNICATION: The results and recommendations will be sent to the patient in a printed lay language version of the imaging report. The mamm ogram was read with the assistance of CAD and tomosynthesis. Read By: LUIS WHALEY M.D. Signed By: LUIS WHALEY M.D. on 08/02/2020 at 15::1:2: Verified by: LUIS WHALEY M.D. on Aug 02 2020 3:12P Transcribed by: PSCB on Aug 02 2020 3:12 P Dictated by: LUIS WHALEY M.D. on Aug 02 2020 3:12P Patient Name:Danielle Murphy : 1955 Age: 64 Gender: femaleDate of Service:08/01/2020 eferring Phy:[facility] [phone] MD Bibiana Guthrie[address], [address] [place] [address] FINAL REPORT PROCEDURE: Tomosynthesis Bilateral Screening - bilateral , Screening Mammogram WithCad - bilateral HISTORY: Patient is 64 years old and is seen for screening mammography. The patienthas a history of right breast cyst aspiration in 2002 - benign. The patient has the following family historyof breast cancer: sister, at age 40, x2; mother and maternal grandmother. COMPARISON: The present examination has been compared to prior imaging studiesperformed at [facility], and at [facility] on 2017 and 10/11/2018. FINDINGS: MAMMOGRAM There are scattered areas of fibroglandular density. There are multiple equal density, oval masses of varying size withcircumscribed margins in both breasts. There are no suspicious masses, calcifications, or areas of architecturaldistortion in either breast. IMPRESSION: BI-RADS Assessment Category 2: Benign finding. RECOMMENDATION: Routine screening mammogram in 1 year. COMMUNICATION: The results and recommendations will be sent to the patient in a printedlay language version of the imaging report. The mammogram was read with the assistance of CAD and tomosynthesis. Page 1 of 2 Patient Name:Danielle Murphy : 1955 Age: 64 Gender: femaleDate of Service:08/01/2020 eferring Phy:Mounika Mccarty, [facility] [phone] Dictated By: Luis Whaley M.D. Verified By: Luis Whaley M.D. on 08/02/2020 at 03:07:24 PM Page 2 of 2 us Mounika Mccarty MD IMG BI PROCEDURES Final Res ult from Last 3 Months or Most Recently Relevant to [place] [address] [place] [address] MEDICARE Care Teams Video Journalist Relationship Specialty Start Date End Date Mounika Mccarty MD [address] [place] [address] [address] [place] [address] PCP - General 10/19/20
--- OUTSIDE RECORDS SUMMARY | 2024-11-28 08:44 | XMS_ITS | Patient Health Record ---
[facility] [address] [place] [id number] Care Team Providers Care [employer]anner Name Role Phone Yossi Cuadra Primary Care Provider Allergies Allergen (clinical drug ingredient) Drug/Non Drug Allergy documented on EMR Reaction Allergy Type Onset Date Status zolpidem Ambien Unknown Drug Allergy Active meperidine Demerol Unknown Drug Allergy Active codeine Codeine Unknown Drug Allergy Active ketorolac Ketorolac Unknown Drug Allergy Active Results Component Value Reference Range Notes Cologuard Reviewed date:11/17/2024 02:22:24 PM Interpretation:not performed, pt is not a candidate Performing Lab: Notes/Report: not performed, pt is not a candidate Mammogram Reviewed date:04/18/2024 11:50:58 AM Interpretation:Negative, annual f/u Performing Lab: Notes/Report: Negative, annual f/u result Negative, annual f/u Glycohemoglobin A1c (in hous e) Reviewed date:11/07/2024 10:17:52 AM Interpretation:6.0 Performing Lab: Notes/Report: 6.0 glycohemoglobin 6.0 5 - 6.5 % Glucose (In-House) Reviewed date:11/08/2024 10:23:30 AM Interpretation:134 Performing Lab: Notes/Report: 134 blood glucose 134 74 - 106 mg/dL Glucose (In-House) Reviewed date:01/15/2024 05:32:34 PM Interpretation:114 Performing Lab: Notes/Report: 114 blood glucose 114 74 - 106 mg/dL Glycohemoglobin A1c (in hous e) Reviewed date:01/15/2024 05:32:48 PM Interpretation:6.0% Performing Lab: Notes/Report: 6.0% glycohemoglobin 6.0% 5 - 6.5 % Glucose (In-House) Reviewed date:04/19/2024 08:59:32 AM Interpretation:142 Performing Lab: Notes/Report: 142 blood glucose 142 74 - 106 mg/dL Glycohemoglobin A1c (in hous e) Reviewed date:04/19/2024 08:59:32 AM Interpretation:6.1 Performing Lab: Notes/Report: 6.1 glycohemoglobin 6.1% 5 - 6.5 % P-Comprehensive Metabolic Pa sujit (CMP) Reviewed date:04/19/2024 08:59:32 AM Interpretation:gluc 125 Performing Lab: Notes/Report: Test performed by [facility] [address] [place], [place] [id number] [place] , [address], [place] [address] Jose De Jesus Núñez MD, Assigner CLIA: [id number] Sodium 143 135-145 mmol/L Potassium 4.4 3.5-5.3 mmol/L Chloride 104 97-108 mmol/L CO2 25 22-32 mmol/L Glucose 125 65-99 mg/dL BUN 16 8-23 mg/dL Creatinine 0.94 0.50-1.00 mg/dL Calcium 9.5 8.6-10.4 mg/dL eGFR by Creatinine 66 >59 mL/min/1.73m2 Protein 6.7 6.0-8.3 g/dL Albumin 4.3 3.5-5.3 g/dL Alkaline Phosphatase 118 35-121 IU/L ALT (SGPT) 28 <5-47 IU/L AST (SGOT) 21 <5-40 IU/L Bilirubin, Total 0.4 <0.2-1.2 mg/dL A/G Ratio 1.8 1.1-2.5 P-T4 Free (thyroxine) Reviewed date:04/19/2024 08:59:32 AM Interpretation:Normal Performing Lab: Notes/Report: Test performed by [facility] [address] [place], [place] [id number] [place] , [address], [place] [address] Jose De Jesus Núñez MD, Assigner CLIA: [id number] Thyroxine Free (free T4) 1.42 0.86-1.76 ng/dL P-Lipid Panel Reviewed date:04/19/2024 08:59:32 AM Interpretation:trigs 157 Performing Lab: Notes/Report: Test performed by [facility] [place] [id number] [facility] [place] [address] Jose De Jesus Núñez MD, Assigner CLIA: [id number] Cholesterol 156 <200 mg/dL Triglycerides 157 <150 mg/dL HDL Cholesterol 52 >39 mg/dL Cholesterol / HDL Ratio 3.00 0.00-4.44 Ratio Non-HDL Cholesterol 104 <130 mg/dL LDL Cholesterol (Calculation) 73 <130 mg/dL LDL Cholesterol Levels* Less than 100 mg/dL Optimal 100 to 129 mg/dL Near Optimal/ Above Optimal 130 to 159 mg/dL Borderline High 160 to 189 mg/dL High 190 mg/dL and above Very High * Categories as recommended by the 2004 ATPIII guidelines LDL/HDL Ratio 1.4 <3.3 Ratio LDL Cholesterol Patient History Test Date: 04/15/2024 LDL Results: 73 Units: mg/dL % Change: - P-TSH Reviewed date:04/19/2024 08:59:32 AM Interpretation:Normal Performing Lab: Notes/Report: Test performed by [facility] [place] [id number] [facility] [place] [address] Jose De Jesus Núñez MD, Assigner CLIA: [id number] TSH 0.56 0.43-5.25 mU/L P-Microalbumin/Creatinine, R andom Urine Sample Reviewed date:04/19/2024 08:59:32 AM Interpretation:Normal Performing Lab: Notes/Report: Test performed by [facility] [employer] [address] [place] [address] , [address], [place] [address] Jose De Jesus Núñez MD, Assigner CLIA: [id number] Albumin/Creatinine Ratio, Urine 6 0-30 ug/mg Microalbumin, Urine, Random 0.4 Creatinine, Urine 69.8 Urinalysis - Inhouse Reviewed date:05/12/2024 04:10:13 PM Interpretation: Performing Lab: Notes/Report: Color/Clarity yellow/clear Leuk Neg Nitrite Neg Urobili 3.2 Protein Neg pH 5.5 Blood Neg Sp. Gr. 1.015 Ketone Neg Bili Neg Gluc 2+ CBC Fingerstick (in house) Reviewed date:05/12/2024 04:10:23 PM Interpretation: Performing Lab: Notes/Report: wbc 8.0 3.5 - 10 lym 26.8% 15 - 50 mid 6.3% 2 - 15 gran 66.9% 35 - 80 rbc 5.08 3.5 - 5.5 hgb 14.5 11.5 - 16.5 hct 44.3 35 - 55 mcv 87.1 75 - 100 mch 28.6 25 - 35 mchc 32.8 31 - 38 plat 164 100 - 400 Reason For Referral Reason Dr. Mabry Diagnosis 1 TIP on CPAP (G47.33) Referral Organization [facility] Referring Provider First Name Yossi Referring Provider Last Name Khalif Referring Provider Speciality Family [facility] ctice Referred Provider Specialty Neurology General Notes Anne Marie Carvajal 2024 03:59:12 PM > faxed to Dr. Lewis office, Anne Marie Carvajal 10/14/2024 10:01:19 AM > appt 01/12/2025 at 08:45am Referral Priority Routine Medications Medication SIG (Take, Route, Frequency, Duration) Notes Start Date End Date Status cloNIDine HCl 0.2 MG 1 tablet Orally twi ce a day for 90 days 11/07/2024 Active Cetirizine HCl 10 MG 1 tablet Orally Onc e a day for 90 days Active buPROPion HCl ER (SR) 150 MG 1 tab(s) orally 2 times a day for 90 days Active Pravastatin Sodium 80 mg 1 tablet Orally Once a day for 90 days Active Metoprolol Succinate ER 50 MG 1 tab(s) orally once a day for 90 days Active Valsartan 320 mg TAKE 1 TABLET DAILY for 90 days Active CLONIDINE 0.2 mg 1 tab(s) orally 2 ti mes a day for 90 days Active FREE STYLE EVARISTO GLUCOSE SYSTEM 08/05/2022 Active Aspirin 81 MG 1 tab(s) orally once a day for 30 day(s) Active Ozempic (2 MG/DOSE) 8 MG/3ML USE DIRECTED UNDER THE SKIN ONCE WEEKLY Active SUMAtriptan Succinate 100 MG 1 tab(s) orally Once a day A ctive Montelukast Sodium 10 MG 1 tab(s) orally once a day for 90 days Active Fluticasone Propionate 50 MCG/ACT 1 spray(s) in each nostril once a day for 30 day(s) Active Donepezil HCl 10 MG 1 tab(s) orally once a day (at bedtime) for 90 days Active Synthroid 137 MCG TAKE 1 TABLET DAILY Orally Once a day for 90 days Active Furosemide 20 MG 1 tablet Orally Once a day for 30 day(s) Active Mirtazapine 15 MG 1 tab(s) orally once a day (at bedtime) for 90 days Active lamoTRIgine 25 MG 1 tab(s) orally 2 ti mes a day for 90 days Active B-12 1000 MCG 1 tab(s) orally once a day for 30 day(s) Active Diclofenac Sodium 1 % as directed applie d topically 4 times a day Active BD Pen Needle Jennifer 2nd Gen 32G X 4 MM USE DIRECTED BY PRESCRIBER OR PACKAGE INSTRUCTIONS Active Immunizations Vaccine Route Administration Date Status Comme nts Fluzone High Dose (65yr and older) IM Intramuscular 05/05/2022 Administered Fluzone High Dose (65yr and older) IM Intramuscular 03/11/2023 Administered Fluzone High Dose (65yr and older) IM Intramuscular 04/15/2024 Administered Fluzone PF Quad (6-35 months) Unknown 05/14/2021 Administered Prevnar (PCV13) IM Intramuscular 05/05/2022 Administered Prevnar (PCV20) IM Intramuscular 04/15/2024 Administered Shingrix Unknown 11/29/2020 Administered Shingrix Unknown 03/07/2021 Administered Problems Problem Type SNOMED Code ICD Code Onset Dates Problem Status W/U Status Risk Notes Problem 277212406 Type 2 diabetes mellitus without complications (E11.9) Active confirmed Problem 623406193 Morbid obesity (E66.01) Active confir med Problem 97394948 Memory loss (R41.3) Active confirmed Problem 222263911 senior living (curre nt) use of insulin (Z79.4) Active confirmed Problem 682647118 Acquired hypothy roidism (E03.9) Active confirmed Problem 279168504 Dementia associa amarilys with other underlying disease without behavioral disturbance (F02.80) Active confirmed Problem 382992159 Abnormal mammogr am of left breast (R92.8) Active confirmed Problem 463088064 BMI 39.0-39.9,ad ult (Z68.39) Active confirmed Problem 000300802 Pure hypercholesterolemia (E78.00) Active confirmed Problem 18562716 Allergic rhiniti s, unspecified seasonality, unspecified trigger (J30.9) Active confirmed Problem 304460964 Gastroesophageal reflux disease, unspecified whether esophagitis present (K21.9) Active confirmed Problem 35868182 Primary hyperten jony (I10) Active confirmed Problem 64058005 TIP on CPAP (G47.33) Active confirmed Vital Signs Heart Rate 62 /min 11/07/2024 Blood pressure diastolic 78 mm Hg 11/07/2024 Height 65.5 in 11/07/2024 Blood pressure systolic 128 mm Hg 11/07/2024 Weight 240.2 lbs 11/07/2024 BMI 39.36 kg/m2 11/07/2024 Encounters Encounter Location Date Provider Diagnosis [facility] [address] [facility] [address] [facility] [address] [place], [employer] [id number] 01/15/2024 Yossi [place] Type 2 diabetes ely itus without complications E11.9 ; Primary hypertension I10 ; Depressive disorder F32.A and Morbid obesity E66.01 [facility] [address] [place], [place] [id number] 04/15/2024 Yossi [place] Type 2 diabetes ely itus without complications E11.9 ; Primary hypertension I10 ; Acquired hypothyroidism E03.9 ; Pure hypercholesterolemia E78.00 and Encounter for immunization Z23 [facility] [address] [place], [place] [id number] 05/12/2024 Yossi [place] Dizziness R42 ; Conc ussion with unknown loss of consciousness status, initial encounter S06.0XAA ; Acute URI J06.9 ; Recent urinary tract infection Z87.440 and Primary hypertension I10 [facility] [address] [place], [place] [id number] 07/14/2024 Yossi [place] Type 2 diabetes ely itus without complications E11.9 [facility] [address] [place], [place] [id number] 11/07/2024 Yossi [place] Primary hypertension I10 ; Type 2 diabetes mellitus without complications E11.9 ; Acquired hypothyroidism E03.9 ; Pure hypercholesterolemia E78.00 ; Allergic rhinitis, unspecified seasonality, unspecified trigger J30.9 ; Morbid obesity E66.01 ; Dementia associated with other underlying disease without behavioral disturbance F02.80 and BMI 39.0-39.9,adult Z68.39 [facility] [address] [place], [place] [id number] 02/04/2024 Yossi [place] Type 2 diabetes ely itus without complications E11.9 [facility] [address] [place], [place] [id number] 02/11/2024 Yossi [place] [facility] [address] [place], [place] [id number] 04/19/2024 Yossi [place] [facility] [address] [place], [place] [id number] 07/14/2024 Yossi [place] Type 2 diabetes ely itus without complications E11.9 [facility] [address] [place], [place] [id number] 10/11/2024 Yossi [place] TIP on CPAP G47.33 [facility] [address] [place], [place] [id number] 10/12/2024 Yossi [place] [facility] [address] [place], [place] [id number] 11/08/2024 Yossi [place] Osteoporosis screeni ng Z13.820 and Colon cancer screening Z12.11 [facility] [address] [place] [id number] 11/17/2024 Yossi [place] Screening for colon cancer Z12.11 Assessments Encounter Date Diagnosis (ICD Code) Assessment Notes Treatment Notes Treatment Clinical Notes Section Notes 01/15/2024 Type 2 diabetes ely itus without complications (ICD-10 - E11.9) 01/15/2024 Primary hypertension (ICD-10 - I10) 02/04/2024 Type 2 diabetes ely itus without complications (ICD-10 - E11.9) 04/15/2024 Type 2 diabetes ely itus without complications (ICD-10 - E11.9) 04/15/2024 Primary hypertension (ICD-10 - I10) 05/12/2024 Dizziness (ICD-10 - R42) See ms to predate the concussion, will stop Clonidine and monitor for symptoms 05/12/2024 Concussion with unkn own loss of consciousness status, initial encounter (ICD-10 - S06.0XAA) Clinically improved 07/14/2024 Type 2 diabetes ely itus without complications (ICD-10 - E11.9) 07/14/2024 Type 2 diabetes ely itus without complications (ICD-10 - E11.9) 10/11/2024 TIP on CPAP (ICD-10 - G47.33) 11/07/2024 Type 2 diabetes ely itus without complications (ICD-10 - E11.9) 11/07/2024 Primary hypertension (ICD-10 - I10) 11/08/2024 Colon cancer screeni ng (ICD-10 - Z12.11) 11/08/2024 Osteoporosis screeni ng (ICD-10 - Z13.820) 11/17/2024 Screening for colon cancer (ICD-10 - Z12.11) 04/15/2024 Acquired hypothyroid ism (ICD-10 - E03.9) 11/07/2024 Acquired hypothyroid ism (ICD-10 - E03.9) 05/12/2024 Acute URI (ICD-10 - J06.9) fluids, rest, supportive measures for fever/symptom relief 01/15/2024 Depressive disorder (ICD-10 - F32.A) 01/15/2024 Morbid obesity (ICD- 10 - E66.01) 05/12/2024 Recent urinary tract infection (ICD-10 - Z87.440) Resolved 04/15/2024 Pure hypercholesterolemia (ICD-10 - E78.00) 11/07/2024 Pure hypercholesterolemia (ICD-10 - E78.00) 11/07/2024 Allergic rhinitis, unspecified seasonality, unspecified trigger (ICD-10 - J30.9) 05/12/2024 Primary hypertension (ICD-10 - I10) 04/15/2024 Encounter for immunization (ICD-10 - Z23) 11/07/2024 Morbid obesity (ICD- 10 - E66.01) 11/07/2024 Dementia associated with other underlying disease without behavioral disturbance (ICD-10 - F02.80) 11/07/2024 BMI 39.0-39.9,adult (ICD-10 - Z68.39) Plan Of Treatment Pending Test Test Name Order Date colonoscopy 11/17/2024 DEXA Hip and Spine 11/08/2024 Next Appt Details Provider Name:Yossi Kat ry, 05/24/2025 09:30:00 AM, [address], [place], [place], [id number], Insurance Providers Payer Name Payer Address Payer Phone Subscriber Number Group Number Insured Name Patient Relationship to Insured Coverage Start Date Coverage End Date MEDICARE PART B [address] [address] [place] [address] [id number] ELIEL ALEJANDRO Self - patient is the insured [facility] CLAIMS [address] [address] [place] [id number] ELIEL ALEJANDRO Self - patient is the insured Medical (General) History Medical History History ICD Code Diabetes Mellitus 2 Hypertension, Followed by Dr. Patel Hypothyroidism Migraines Histoplamosis Sleep Apnea, treated with ASV Renal Artery Stenosis Enlarged Left Atrium Narcolepsy Brain Hemorrhage Memory Loss Mild cognitive impairment PRES syndrome, s/p neurology evaluation at [facility] Allergic Rhinitis Cardiac Murmur COPD Surgical History Surgery Date(Month/Year) Tubaligation Appedectomy Hysterectomy LT Knee Orthoscopy Cholecystectomy Bilateral Knee Replacement Thoracotomy Foot/ Ankle Surgery Hospitalization History Reason Date(Month/Year)
--- OUTSIDE RECORDS SUMMARY | 2024-11-28 08:44 | XMS_ITS | Data Portability ---
Author Organization [facility] Address [address] [place] [address] Care Team Providers Care Multicultural Internship Name Role Phone [facility] Referring Provider [facility] Referring Provider [phone] SITA GILMAN Referring Provider VADIM MONTES Referring Provider [facility] Referring Provider Assessment Encounter Date Assessment Date Assessment LastModified by Organization Details LastModified Time 08/20/2020 08/20/2020 Eliel presents for a check up. She has had some medications adjusted and they were reviewed. Some need refills. Her corrected some of the medications after we saw her. She has basically been dismissed from the neurologist who advised her to consider psychiatry. She does not feel the need for that at this point. Labs are taken and diabetes is well controlled with A1C of 6.5%. Remaining labs are quite good. She did get out of the habit of her regular exercise when her sister passed. She seems motivated to resume her water aerobics and plant based diet. She has recently taken the covid vaccine so it is premature to take the shingrix vaccine. We recommend she wait 4 weeks to begin shingrix. Not available 08/22/2020 20:29:20 11/29/2020 11/29/2020 Eliel receives the second Shingrix vaccine today. She is concerned about a skin lesion that has recently appeared on the dorsum of the right hand and it is suspicious for an early basal cell lesion. We recommend dermatology referral. Not available 12/02/2020 22:37:12 03/07/2021 03/07/2021 Mrs. Murphy presents for her annual wellness visit. Her primary concern recently is her memory and she has gotten lost last year while driving. Her drives her now. There were been concerns for a possible seizure disorder and this also started after a small cerebral hemorrhagic stroke 3 years ago. A follow up brain CT in March 2018 as well as in 2018 and also just last month have shown no abnormalities or hemorrhage. She had been seeing a neurologist at [facility] along with her electronic funds transfer coordinator for TIP and the mine engineering supervisor, But neurology has dismissed her. She is more compliant with TIP treatment now with ASV and it has been felt most of her memory and seizure type activity is related to the severe ASV. She has struggled with her weight for years. Her orthopedic problems are much better since the left knee replacement revision in 2016. We referred her for nutrition counselling recently as she was motivated and she has been following a plant based diet. She felt wonderful on this and had also started water aerobics. This lifestyle change helped her both mentally and physically. But with Covid that all stopped and we encourage her to resume more exercise and healthier diet. She has some knee pain as well as lateral hip soreness. We encourage her to continue with stretches as that is her best treatment for the trochanteric bursitis. We also encourage stationary cycling if possible. She has been having great toe pain with walking although the toes appear normal, so we have recommended trying silicone toe sleeves. Depression is in remission so we do not recommend changing her medications. Blood pressure is variable and is elevated today. She is compliant with her medications. With her history of labile hypertension, hemorrhagic stroke, carotid artery atherosclerosis, mild renal artery stenosis and an abnormal stress test several years ago she will continue to be followed by [facility] cardiology as her risk factors are very high. Diabetes had previously been controlled with A1C levels hovering around 6% however it has increased to over 7.6%. Lipids are close to goal and she is already taking high dose statin. She is has controlled seasonal allergies and can use a steroid nasal spray as needed. She had a normal colonoscopy in 2009 and then a small polyp in 2017. She will be due again in 2022. She is now being followed at [facility] and did test positive for the BRCA 2 gene and so have 2 of her sisters. She is having alternating mammograms and breast MRIs there now every 6 months. However she has gotten behind with the pandemic and we encourage her to reach out and get a follow up this year. Vaccines are up to date. She receives the second Shingrix vaccine and should follow with the flu vaccine in a couple of weeks. She is a candidate for the covid booster as well later this year. We continue to encourage her to work on healthy lifestyle choices Not available 03/10/2021 15:49:39 07/08/2021 07/08/2021 Eliel was evaluated in the local ER for chest pressure and dyspnea symptoms on July 01. A chest x ray was negative. Troponin elevation was minimal. ABG was not taken correctly and they only had a venous draw. Pulse oximetry is fine. She has noticed that for several weeks she has had shortness of breath and a chest pressure with any activity she does including laundry and walking to the mailbox. Previously these activities did not bother her. She has had 2 covid vaccines and is due a booster. Covid testing last week in ER was negative but we do recommend repeating that to be cautious. She has an occasional cough but really does not have a lot of respiratory symptoms other than the dyspnea. She did feel the prednisone helped her and so far the sugars have been doing OK. She saw her mine engineering supervisor, Dr. Patel for a brief visit in November. At this point we are rechecking a covid test as a precaution. We can prescribe a short low dose prednisone at this point as we noted a minimal basilar wheeze. She has a rescue inhaler as well. Addendum: The pcr covid test is negative. We continue to recommend cardiology evaluation and have prescribed sublingual nitroglycerin to have on hand as needed. Not available 07/09/2021 23:21:18 07/30/2021 07/30/2021 Mrs. Murphy has had recent bouts of chest pressure and shortness of breath. This has been noticable since she suffered a bout of covid (although we have never received any medical documents about a positive case). She has never smoked. We recently sent her for a cardiology evaluation and the lexiscan was negative. Today we noted a possible mild restriction with the pulmonary function test. We recommend a chest CT scan as her last scan in 2019 did show several small nodules. She has never smoked. In the differential of her breathing issue is acid reflux disease although she does not have major symptoms, we will recommend a trial of a ppi. Not available 07/31/2021 19:48:28 Plan of Treatment Reminders Order Date Submit Date Provider Last Modified By Organization Details Last Modified Time Details Appointments None recorded. Lab SARS CoV 2 RNA (COVID-19 ), QL, purchasing director-PCR, respirato ry specimen [address] [facility], [address] [place], [address], 21:03:08 HbA1c (hemoglob in A1c), blood 2020 [facility], [address] [place], [address], 08:29:15 microalbu min/creat inine, ratio panel, urine [email or web address] [facility], [address] [place], [address], 12:05:54 CMP, serum or plasma 2020 [facility], [address] [place], [address], 08:29:14 lipid panel, serum 2020 [facility], [address] [place], [address], 08:29:13 TSH, serum or plasma 2020 [facility], [address] [place], [address], 08:29:16 CBC w/ auto diff 2020 [facility], [address] [facility], [place], [address], 08:29:17 lipid panel, serum 2020 [facility] Not available 08:13:12 TSH, serum or plasma 2020 [facility] Not available 08:13:13 CBC w/ auto diff 2020 [facility] Not available 08:13:14 HbA1c (hemoglob in A1c), blood 2020 [facility] Not available 08:13:13 microalbu min/creat inine, ratio, test strip, urine 2020 [email or web address] 5 Not available 11:41:54 CMP, serum or plasma 2020 [facility] Not available 08:13:12 Referral cardiolog ist referral 2021 022 [email or web address] 5 Geoff Patel MD, [address] [facility], [facility] [address], [place], [address], 15:17:38 dermatolo gist referral 2020 021 [email or web address] 5 Not available 11:41:39 Procedures None recorded. Surgeries None recorded. Imaging CT, chest, w/o contrast 2021 [facility] (Lab Registration), [address] , [place], [address], 09:35:01 Medication Orders omeprazol e 40 mg capsule,d elayed release 2021 022 [facility] #[id number], [address] [address] [place], [id number], 2 19:28:13 nitroglyc jes 0.4 mg sublingua l tablet 2021 [id number], [address] [facility] [address] [place], [id number], 2 14:20:17 prednison e 10 mg tablet 2021 [address] [place] [address] [facility] #[id number], [address] [address] [place], [id number], 2 14:19:45 lamotrigi ne 25 mg tablet 2020 021 [facility], [address] [place] [address], [address], 1 10:37:14 duloxetin e 30 mg capsule,d elayed release 2020 021 INTER[facility], [address] [place] [address], [address], 1 11:26:08 duloxetin e 60 mg capsule,d elayed release 2020 021 INTERFACE [facility], [address] [place] [address], [address], 11:26:10 donepezil 10 mg tablet 2020 021 INTERFACE [facility], [address] [place] [address], [address], 11:26:09 Patient TargetsNo targets recorded. Patient Instructions Encounter Date Encounter Id Patient Instructions Last Modified By Organization Details Last Modified Time 08/20/2020 [id number] taylor Not available 08/20 11:26:26 03/07/2021 [id number] trochanteric bursitis: exercises Not available 03/07/2021 11:20:44 07/30/2021 [id number] pulmonary function test* [facility] Not available 07/31/2021 16:40:07 Reason for Referral Recreational Programs Director Referral for N eoplasm of uncertain behavior of skin Referring Physician: Mounika Mccarty [facility], Encounter Date: 11/29/2020 Turkey Cleaner Referral for Ch est pain Referring Physician: Mounika Mccarty [facility], Encounter Date: 07/08/2021 Results Created Date Observation Date Name Description Value Unit Range Abnormal Flag Note LastModifiedBy Organization Detail LastModifiedTime 08/21/1908/21/2020 lipid panel , serum cholesterol, total 168 mg/dL <200 normal Not Available [facility] [place] [facility] [address] [place], [address], 08/21/2020 08:13:12 08/21/1908/21/2020 lipid panel , serum HDL cholesterol 62 mg/dL > or = 50 normal Not Available [facility] [place] [facility] [address] [place], [address], 08/21/2020 08:13:12 08/21/1908/21/2020 lipid panel , serum triglyceride s 143 mg/dL <150 normal Not Available [facility] [place] [facility] [address] [facility] [place], [address], 08/21/2020 08:13:12 08/21/1908/21/2020 lipid panel , serum LDL-choleste rol 82 mg/dL _(yesenia c) normal Refer ence range : <100 Drew able range <100 mg/dL for prima ry preve ntion ; <70 mg/dL for patie nts with CHD or diabe tic patie nts with > or = 2 CHD risk facto rs. LDL-C is now calcu lated using the Xochilt n-Hop kins criss reid n, which is a valid ated novel marisolo yuki collado r accur acy than the Fried bita equat ion in the estim ation of LDL-C . Xochilt n SS et al. JOSE RAMON. 2013; 310(1 9): 2061- 2068 (http ://ed sheliaati on.Qu Elena maier [employer]. com/f aq/FA Q164) Not Available [facility] [place] [facility] [address] [facility] [place], [address], 08/21/2020 08:13:12 08/21/1908/21/2020 lipid panel , serum chol/HDLC ratio 2.7 (calc ) <5.0 normal Not Available [facility] [place] [facility] [address] [place], [address], 08/21/2020 08:13:12 08/21/1908/21/2020 lipid panel , serum non HDL cholesterol 106 mg/dL _(yesenia c) <130 normal For patie nts with diabe kathryn plus 1 major ASCVD risk facto r, treat ing to a non-H DL-C goal of <100 mg/dL (LDL- C of <70 mg/dL ) is consi dered a thera peuti c optio n. Not Available [facility] [place] [facility] [address] [facility], [place], [address], 08/21/2020 08:13:12 08/21/1908/21/2020 CMP, serum or plasm a glucose 132 mg/dL 65-99 high Fasti ng refer ence inter stephane For someo ne witho ut known diabe kathryn, a gluco se value >125 mg/dL indic ates that they may have diabe kathryn and this shoul d be confi rmed with a follo w-up test. Not Available [facility] [place] [facility] [address] [facility], [place], [address], 08/21/2020 08:13:12 08/21/1908/21/2020 CMP, serum or plasm a urea nitrogen (BUN) 15 mg/dL 7-25 normal Not Available [facility] [place] [facility] [address] [place], [address], 08/21/2020 08:13:12 08/21/1908/21/2020 CMP, serum or plasm a creatinine 0.84 mg/dL 0.50-0 .99 normal For patie nts >49 years of age, the refer ence limit for Creat inine is appro ximat tim 13% highe r for peopl e ident ified as Afric an-Am oscar n. Not Available [facility] [address] [facility] [place], [address], 08/21/2020 08:13:12 08/21/1908/21/2020 CMP, serum or plasm a eGFR non-afr. albanian 74 mL/mi n/1.7 3m2 > or = 60 normal Not Available [facility] [address] [place], [address], 08/21/2020 08:13:12 08/21/19 21 08/21/2020 CMP, serum or plasm a eGFR 86 mL/mi n/1.7 3m2 > or = 60 normal Not Available [facility] [address] [place], [address], 08/21/2020 08:13:12 08/21/19 21 08/21/2020 CMP, serum or plasm a BUN/creatini ne ratio NOT APPLIC ABLE (calc ) 6-22 Not Available [facility] [address] [facility] [place], [address], 08/21/2020 08:13:12 08/21/1908/21/2020 CMP, serum or plasm a sodium 143 mmol/ L 135-14 6 normal Not Available [facility] [address] [facility] [place], [address], 08/21/2020 08:13:12 08/21/19 21 08/21/2020 CMP, serum or plasm a potassium 4.2 mmol/ L 3.5-5. 3 normal Not Available [facility] [address] [place], [place] [address], [address], 08/21/2020 08:13:12 08/21/19 21 08/21/2020 CMP, serum or plasm a chloride 104 mmol/ L 98-110 normal Not Available [facility] [address], [address], 08/21/2020 08:13:12 08/21/19 21 08/21/2020 CMP, serum or plasm a carbon dioxide 29 mmol/ L 20-32 normal Not Available [address], [address], 08/21/2020 08:13:12 08/21/19 21 08/21/2020 CMP, serum or plasm a calcium 9.1 mg/dL 8.6-10 .4 normal Not Available [facility] [address] [place] [address], [address], 08/21/2020 08:13:12 08/21/1908/21/2020 CMP, serum or plasm a protein, total 6.5 g/dL 6.1-8. 1 normal Not Available [address], [address], 08/21/2020 08:13:12 08/21/1908/21/2020 CMP, serum or plasm a albumin 3.9 g/dL 3.6-5. 1 normal Not Available [facility] [address] [place] [address], [address], 08/21/2020 08:13:12 08/21/1908/21/2020 CMP, serum or plasm a globulin 2.6 g/dL_ (calc ) 1.9-3. 7 normal Not Available [facility] [address] [place], [address], 08/21/2020 08:13:12 08/21/1908/21/2020 CMP, serum or plasm a albumin/glob ulin ratio 1.5 (calc ) 1.0-2. 5 normal Not Available [facility] [address] [place], [address], 08/21/2020 08:13:12 08/21/1908/21/2020 CMP, serum or plasm a bilirubin, total 0.4 mg/dL 0.2-1. 2 normal Not Available [facility] [address] [place], [address], 08/21/2020 08:13:12 08/21/1908/21/2020 CMP, serum or plasm a alkaline phosphatase 114 U/L 37-153 normal Not Available [facility] [address] [place], [address], 08/21/2020 08:13:12 08/21/1908/21/2020 CMP, serum or plasm a AST 18 U/L 10-35 normal Not Available [facility] [address] [place], [address], 08/21/2020 08:13:12 08/21/1908/21/2020 CMP, serum or plasm a ALT 19 U/L 6-29 normal Not Available [facility] [address] [place], [address], 08/21/2020 08:13:12 08/21/1908/21/2020 HbA1c (hemo globi n A1c), blood hemoglobin A1C 6.5 %_of_ total _HGB <5.7 high For someo ne witho ut known diabe kathryn, a hemog lobin A1c value of 6.5% or great er indic ates that they may have diabe kathryn and this shoul d be confi rmed with a follo w-up test. For someo ne with known diabe kathryn, a value <7% indic ates that their diabe kathryn is well contr olled and a value great er than or equal to 7% indic ates subop timal contr ol. A1c targe ts shoul d be indiv idual ized based on durat ion of diabe kathryn, age, comor bid condi tions , and other consi derat ions. Curre ntly, no conse nsus exist s beth rowland use of hemog lobin A1c for diagn osis of diabe kathryn for child gracia. Not Available [facility] [place] [facility] [address] [place], [address], 08/21/2020 08:13:13 08/21/1908/21/2020 TSH, serum or plasm a TSH 2.10 mIU/L 0.40-4 .50 normal Not Available [facility] [place] [facility] [address] [facility] [place], [address], 08/21/2020 08:13:13 08/21/1908/21/2020 CBC w/ auto diff white blood cell count 8.8 thous and/u L 3.8-10 .8 normal Not Available [facility] [place] [facility] [address] [place], [address], 08/21/2020 08:13:14 08/21/1908/21/2020 CBC w/ auto diff red blood cell count 4.81 montana on/uL 3.80-5 .10 normal Not Available [facility] [place] [facility] [address] [place], [address], 08/21/2020 08:13:14 08/21/1908/21/2020 CBC w/ auto diff hemoglobin 13.2 g/dL 11.7-1 5.5 normal Not Available [facility] [place] [facility] [address] [facility] [place], [address], 08/21/2020 08:13:14 08/21/19 21 08/21/2020 CBC w/ auto diff hematocrit 41.0 % 35.0-4 5.0 normal Not Available [facility] [address] [facility] [place], [address], 08/21/2020 08:13:14 08/21/1908/21/2020 CBC w/ auto diff MCV 85.2 fL 80.0-1 00.0 normal Not Available [facility] [address] [place], [address], 08/21/2020 08:13:14 08/21/1908/21/2020 CBC w/ auto diff MCH 27.4 pg 27.0-3 3.0 normal Not Available [facility] [address] [place], [address], 08/21/2020 08:13:14 08/21/1908/21/2020 CBC w/ auto diff MCHC 32.2 g/dL 32.0-3 6.0 normal Not Available [facility] [address] [facility] [place], [address], 08/21/2020 08:13:14 08/21/1908/21/2020 CBC w/ auto diff RDW 13.2 % 11.0-1 5.0 normal Not Available [facility] [address] [facility] [place], [address], 08/21/2020 08:13:14 08/21/1908/21/2020 CBC w/ auto diff platelet count 197 thous and/u L 140-40 0 normal Not Available [facility] [address] [place], [address], 08/21/2020 08:13:14 08/21/19 21 08/21/2020 CBC w/ auto diff MPV 11.6 fL 7.5-12 .5 normal Not Available [facility] [place] [facility] [address], [place], [address], 08/21/2020 08:13:14 08/21/19 21 08/21/2020 CBC w/ auto diff absolute neutrophils 6239 cells /uL 1500-7 800 normal Not Available [facility] [place] [facility] [address], [place], [address], 08/21/2020 08:13:14 08/21/19 21 08/21/2020 CBC w/ auto diff absolute lymphocytes 1646 cells /uL 850-39 00 normal Not Available [facility] [place] [facility] [address], [place], [address], 08/21/2020 08:13:14 08/21/1908/21/2020 CBC w/ auto diff absolute monocytes 598 cells /uL 200-95 0 normal Not Available [facility] [place] [facility] [address], [place], [address], 08/21/2020 08:13:14 08/21/19 21 08/21/2020 CBC w/ auto diff absolute eosinophils 299 cells /uL 15-500 normal Not Available [facility] [place] [facility] [address], [place], [address], 08/21/2020 08:13:14 08/21/19 21 08/21/2020 CBC w/ auto diff absolute basophils 18 cells /uL 0-200 normal Not Available [facility] [place] [facility] [address], [place], [address], 08/21/2020 08:13:14 08/21/19 21 08/21/2020 CBC w/ auto diff neutrophils 70.9 % normal Not Available [facility] [place] [facility] [address], [place], [address], 08/21/2020 08:13:14 08/21/1908/21/2020 CBC w/ auto diff lymphocytes 18.7 % normal Not Available [facility] [address] [place], [address], 08/21/2020 08:13:14 08/21/19 21 08/21/2020 CBC w/ auto diff monocytes 6.8 % normal Not Available [facility] [address] [place], [address], 08/21/2020 08:13:14 08/21/19 21 08/21/2020 CBC w/ auto diff eosinophils 3.4 % normal Not Available [facility] [address] [place], [address], 08/21/2020 08:13:14 08/21/19 21 08/21/2020 CBC w/ auto diff basophils 0.2 % normal Not Available [facility] [place], [address], 08/21/2020 08:13:14 03/07/20 21 03/08/2021 ALBUM IN, RANDO M URINE W/CRE ATINI NE creatinine, random urine 82 mg/dL 20-275 normal Not Available [facility] [address] [place], [address], 03/08/2021 08:29:12 03/07/20 21 03/08/2021 ALBUM IN, RANDO M URINE W/CRE ATINI NE albumin, urine 0.4 mg/dL see note: normal Refer ence Range : Refer ence Range Not estab lishe d Not Available [facility] [address] [place], [address], 03/08/2021 08:29:12 03/07/20 21 03/08/2021 ALBUM IN, RANDO M URINE W/CRE ATINI NE albumin/crea tinine ratio, random urine 5 mcg/m g_cre at <30 normal The ADA defin es abnor malit ies in album in excre tion as follo ws: Album inuri a Categ ory Resul t (mcg/ mg creat inine ) Chelsi l to Mildl y incre ased <30 Moder ately incre ased 30-29 9 Sever tim incre ased > OR = 300 The ADA recom mends that at least two of three speci mens colle cted withi n a 3-6 month perio d be abnor mal befor e consi arely g a patie nt to be withi n a diagn ostic categ ory. Not Available [facility] [place] [facility] [address] [facility], [place], [address], 03/08/2021 08:29:12 03/07/20 21 03/08/2021 LIPID PANEL , STAND BEVERLY cholesterol, total 203 mg/dL <200 high Not Available [facility] [place] [facility] [address] [facility], [place], [address], 03/08/2021 08:29:13 03/07/20 21 03/08/2021 LIPID PANEL , STAND BEVERLY HDL cholesterol 58 mg/dL > or = 50 normal Not Available [facility] [place] [facility] [address] [facility], [place], [address], 03/08/2021 08:29:13 03/07/20 21 03/08/2021 LIPID PANEL , STAND BEVERLY triglyceride s 259 mg/dL <150 high If a non-f astin g speci men was colle cted, consi prasanna repea t trigl yceri de testi ng on a fasti ng speci men if clini deja indic ated. Sotero art et al. J. of Clin. Lipid ol. 2015; 9:129 -169. Not Available [facility] [place] [facility] [address] [facility] [address], [place], [address], 03/08/2021 08:29:13 03/07/20 21 03/08/2021 LIPID PANEL , STAND BEVERLY LDL-choleste rol 108 mg/dL _(yesenia c) high Refer ence range : <100 Drew able range <100 mg/dL for prima ry preve ntion ; <70 mg/dL for patie nts with CHD or diabe tic patie nts with > or = 2 CHD risk facto rs. LDL-C is now calcu lated using the Xochilt n-Hop kins calcu franklin osuna, which is a valid ated novel metho d provi ding tobias r accur acy than the Fried bita equat ion in the estim ation of LDL-C . Xochilt osuna SS et al. JOSE RAMON. 2013; 310(1 9): 2061- 2068 (http ://ed ucati on.Prifloat. MediaMath/f aq/FA Q164) Not Available [facility] [place] [facility] [address] [facility], [place], [address], 03/08/2021 08:29:13 03/07/20 21 03/08/2021 LIPID PANEL , STAND BEVERLY chol/HDLC ratio 3.5 (calc ) <5.0 normal Not Available [facility] [place] [facility] [address], [place], [address], 03/08/2021 08:29:13 03/07/20 21 03/08/2021 LIPID PANEL , STAND [place] non HDL cholesterol 145 mg/dL _(yesenia c) <130 high For patie nts with diabe kathryn plus 1 major ASCVD risk facto r, treat ing to a non-H DL-C goal of <100 mg/dL (LDL- C of <70 mg/dL ) is consi dered a thera peuti c optio n. Not Available [facility] [place] [facility] [address], [place], [address], 03/08/2021 08:29:13 03/07/20 21 03/08/2021 COMPR EHENS ANY METAB OLIC PANEL glucose 136 mg/dL 65-99 high Fasti ng refer ence inter stephane For someo ne witho ut known diabe kathryn, a gluco se value >125 mg/dL indic ates that they may have diabe kathryn and this shoul d be confi rmed with a follo w-up test. Not Available [facility] [place] [facility] [address] [place], [address], 03/08/2021 08:29:14 03/07/20 21 03/08/2021 COMPR EHENS ANY METAB OLIC PANEL urea nitrogen (BUN) 20 mg/dL 7-25 normal Not Available [facility] [place] [facility] [address] [place], [address], 03/08/2021 08:29:14 03/07/20 21 03/08/2021 COMPR EHENS ANY METAB OLIC PANEL creatinine 0.78 mg/dL 0.50-0 .99 normal For patie nts >49 years of age, the refer ence limit for Creat inine is appro ximat tim 13% highe r for peopl e ident ified as Afric an-Am oscar n. Not Available [facility] [place] [facility] [address] [place], [address], 03/08/2021 08:29:14 03/07/20 21 03/08/2021 COMPR EHENS ANY METAB OLIC PANEL eGFR non-afr. albanian 80 mL/mi n/1.7 3m2 > or = 60 normal Not Available [facility] [address] [place], [address], 03/08/2021 08:29:14 03/07/20 21 03/08/2021 COMPR EHENS ANY METAB OLIC PANEL eGFR 93 mL/mi n/1.7 3m2 > or = 60 normal Not Available [facility] [address] [place], [address], 03/08/2021 08:29:14 03/07/20 21 03/08/2021 COMPR EHENS ANY METAB OLIC PANEL BUN/creatini ne ratio NOT APPLIC ABLE (calc ) 6-22 Not Available [facility] [place] [facility] [address] [place], [address], 03/08/2021 08:29:14 03/07/20 21 03/08/2021 COMPR EHENS ANY METAB OLIC PANEL sodium 141 mmol/ L 135-14 6 normal Not Available [facility] [address] [facility] [place], [address], 03/08/2021 08:29:14 03/07/20 21 03/08/2021 COMPR EHENS ANY METAB OLIC PANEL potassium 4.6 mmol/ L 3.5-5. 3 normal Not Available [facility] [address] [facility] [place], [address], 03/08/2021 08:29:14 03/07/20 21 03/08/2021 COMPR EHENS ANY METAB OLIC PANEL chloride 102 mmol/ L 98-110 normal Not Available [facility] [address] [facility] [place], [address], 03/08/2021 08:29:14 03/07/20 21 03/08/2021 COMPR EHENS ANY METAB OLIC PANEL carbon dioxide 29 mmol/ L 20-32 normal Not Available [facility] [address] [facility] [place], [address], 03/08/2021 08:29:14 03/07/20 21 03/08/2021 COMPR EHENS ANY METAB OLIC PANEL calcium 10.2 mg/dL 8.6-10 .4 normal Not Available [facility] [address] [facility] [place], [address], 03/08/2021 08:29:14 03/07/20 21 03/08/2021 COMPR EHENS ANY METAB OLIC PANEL protein, total 7.1 g/dL 6.1-8. 1 normal Not Available [facility] [address] [facility] [place], [address], 03/08/2021 08:29:14 03/07/20 21 03/08/2021 COMPR EHENS ANY METAB OLIC PANEL albumin 4.4 g/dL 3.6-5. 1 normal Not Available [facility] [address] [facility] [place], [address], 03/08/2021 08:29:14 03/07/20 21 03/08/2021 COMPR EHENS ANY METAB OLIC PANEL globulin 2.7 g/dL_ (calc ) 1.9-3. 7 normal Not Available [facility] [address] [place], [address], 03/08/2021 08:29:14 03/07/20 21 03/08/2021 COMPR EHENS ANY METAB OLIC PANEL albumin/glob ulin ratio 1.6 (calc ) 1.0-2. 5 normal Not Available [facility] [address] [facility] [place], [address], 03/08/2021 08:29:14 03/07/20 21 03/08/2021 COMPR EHENS ANY METAB OLIC PANEL bilirubin, total 0.4 mg/dL 0.2-1. 2 normal Not Available [facility] [address] [place], [address], 03/08/2021 08:29:14 03/07/20 21 03/08/2021 COMPR EHENS ANY METAB OLIC PANEL alkaline phosphatase 112 U/L 37-153 normal Not Available [facility] [facility] [address] [place], [address], 03/08/2021 08:29:14 03/07/20 21 03/08/2021 COMPR EHENS ANY METAB OLIC PANEL AST 24 U/L 10-35 normal Not Available [facility] [address] [place], [address], 03/08/2021 08:29:14 03/07/20 21 03/08/2021 COMPR EHENS ANY METAB OLIC PANEL ALT 24 U/L 6-29 normal Not Available [facility] [place] [facility] [address] [place], [address], 03/08/2021 08:29:14 03/07/20 21 03/08/2021 HEMOG LOBIN A1C hemoglobin A1C 7.6 %_of_ total _HGB <5.7 high For someo ne witho ut known diabe kathryn, a hemog lobin A1c value of 6.5% or great er indic ates that they may have diabe kathryn and this shoul d be confi rmed with a follo w-up test. For someo ne with known diabe kathryn, a value <7% indic ates that their diabe kathryn is well contr olled and a value great er than or equal to 7% indic ates subop timal contr ol. A1c targe ts shoul d be indiv idual ized based on durat ion of diabe kathryn, age, comor bid condi tions , and other consi derat ions. Curre ntly, no conse nsus exist s beth rowland use of hemog lobin A1c for diagn osis of diabe kathryn for child gracia. Not Available [facility] [place] [facility] [address] [place], [address], 03/08/2021 08:29:15 03/07/20 21 03/08/2021 TSH TSH 2.67 mIU/L 0.40-4 .50 normal Not Available [facility] [place] [facility] [address] [place], [address], 03/08/2021 08:29:16 03/07/20 21 03/08/2021 CBC (INCL UDES DIFF/ PLT) white blood cell count 8.0 thous and/u L 3.8-10 .8 normal Not Available [facility] [place] [facility] [address] [place], [address], 03/08/2021 08:29:16 03/07/20 21 03/08/2021 CBC (INCL UDES DIFF/ PLT) red blood cell count 5.29 [place] on/uL 3.80-5 .10 high Not Available [facility] [place] [facility] [address] [facility] [place], [address], 03/08/2021 08:29:16 03/07/20 21 03/08/2021 CBC (INCL UDES DIFF/ PLT) hemoglobin 14.6 g/dL 11.7-1 5.5 normal Not Available [facility] [address] [facility] [place], [address], 03/08/2021 08:29:16 03/07/20 21 03/08/2021 CBC (INCL UDES DIFF/ PLT) hematocrit 44.7 % 35.0-4 5.0 normal Not Available [facility] [address] [facility] [place], [address], 03/08/2021 08:29:16 03/07/20 21 03/08/2021 CBC (INCL UDES DIFF/ PLT) MCV 84.5 fL 80.0-1 00.0 normal Not Available [facility] [place] [facility] [address] [facility] [place], [address], 03/08/2021 08:29:16 03/07/20 21 03/08/2021 CBC (INCL UDES DIFF/ PLT) MCH 27.6 pg 27.0-3 3.0 normal Not Available [facility] [address] [facility] [place], [address], 03/08/2021 08:29:16 03/07/20 21 03/08/2021 CBC (INCL UDES DIFF/ PLT) MCHC 32.7 g/dL 32.0-3 6.0 normal Not Available [facility] [address] [facility] [place], [address], 03/08/2021 08:29:16 03/07/20 21 03/08/2021 CBC (INCL UDES DIFF/ PLT) RDW 13.3 % 11.0-1 5.0 normal Not Available [facility] [place] [facility] [address] [facility] [address], [place], [address], 03/08/2021 08:29:16 03/07/20 21 03/08/2021 CBC (INCL UDES DIFF/ PLT) platelet count 264 thous and/u L 140-40 0 normal Not Available [facility] [place] [facility] [address], [place], [address], 03/08/2021 08:29:16 03/07/20 21 03/08/2021 CBC (INCL UDES DIFF/ PLT) MPV 10.1 fL 7.5-12 .5 normal Not Available [facility] [place] [facility] [address] [facility], [place], [address], 03/08/2021 08:29:16 03/07/20 21 03/08/2021 CBC (INCL UDES DIFF/ PLT) absolute neutrophils 4752 cells /uL 1500-7 800 normal Not Available [facility] [place] [facility] [address], [place], [address], 03/08/2021 08:29:16 03/07/20 21 03/08/2021 CBC (INCL UDES DIFF/ PLT) absolute lymphocytes 2344 cells /uL 850-39 00 normal Not Available [facility] [place] [facility] [address], [place], [address], 03/08/2021 08:29:16 03/07/20 21 03/08/2021 CBC (INCL UDES DIFF/ PLT) absolute monocytes 608 cells /uL 200-95 0 normal Not Available [facility] [place] [facility] [address], [place], [address], 03/08/2021 08:29:16 03/07/20 21 03/08/2021 CBC (INCL UDES DIFF/ PLT) absolute eosinophils 256 cells /uL 15-500 normal Not Available [facility] [place] [facility] [address], [place], [address], 03/08/2021 08:29:16 03/07/20 21 03/08/2021 CBC (INCL UDES DIFF/ PLT) absolute basophils 40 cells /uL 0-200 normal Not Available [facility] [place] [facility] [address], [place], [address], 03/08/2021 08:29:16 03/07/20 21 03/08/2021 CBC (INCL UDES DIFF/ PLT) neutrophils 59.4 % normal Not Available [facility] [place] [facility] [address], [place], [address], 03/08/2021 08:29:16 03/07/20 21 03/08/2021 CBC (INCL UDES DIFF/ PLT) lymphocytes 29.3 % normal Not Available [facility] [place] [facility] [address], [place], [address], 03/08/2021 08:29:16 03/07/20 21 03/08/2021 CBC (INCL UDES DIFF/ PLT) monocytes 7.6 % normal Not Available [facility] [place] [facility] [address], [place], [address], 03/08/2021 08:29:16 03/07/20 21 03/08/2021 CBC (INCL UDES DIFF/ PLT) eosinophils 3.2 % normal Not Available [facility] [place] [facility] [address], [place], [address], 03/08/2021 08:29:16 03/07/20 21 03/08/2021 CBC (INCL UDES DIFF/ PLT) basophils 0.5 % normal Not Available [facility] [place] [facility] [address], [place], [address], 03/08/2021 08:29:16 07/01/19 22 07/01/2021 CBC AUTO W DIFF WBC 6.8 10 4.5-11 .5 Not Available [facility] (Lab Registration) [address] [place], [address], 07/01/2021 22:32:30 07/01/19 22 07/01/2021 CBC AUTO W DIFF RBC 5.17 10 4.25-5 .57 Not Available [facility] (Lab Registration) [address] [place], [address], 07/01/2021 22:32:30 07/01/19 22 07/01/2021 CBC AUTO W DIFF HGB 14.3 g/dL 12.0-1 5.7 Not Available [facility] (Lab Registration) [address] [place], [address], 07/01/2021 22:32:30 07/01/19 22 07/01/2021 CBC AUTO W DIFF HCT 45.3 % 36.0-4 7.0 Not Available [facility] (Lab Registration) [address] [place], [address], 07/01/2021 22:32:30 07/01/19 22 07/01/2021 CBC AUTO W DIFF MCV 87.6 fL 80-95 Not Available [facility] (Lab Registration) [address] [place], [address], 07/01/2021 22:32:30 07/01/19 22 07/01/2021 CBC AUTO W DIFF MCH 27.7 pg 27.0-3 4.0 Not Available [facility] (Lab Registration) [address] [place], [address], 07/01/2021 22:32:30 07/01/19 22 07/01/2021 CBC AUTO W DIFF MCHC 31.6 g/dL 32.0-3 6.0 low Not Available [facility] (Lab Registration) [address] [place], [address], 07/01/2021 22:32:30 07/01/19 22 07/01/2021 CBC AUTO W DIFF platelet count 200 10 150-45 0 Not Available [facility] (Lab Registration) [address] [place], [address], 07/01/2021 22:32:30 07/01/19 22 07/01/2021 CBC AUTO W DIFF RDW 13.9 % 12.3-1 5.1 Not Available [facility] (Lab Registration) [address] [place], [address], 07/01/2021 22:32:30 07/01/19 22 07/01/2021 CBC AUTO W DIFF MPV 10.8 fL 7.4-10 .4 high Not Available [facility] (Lab Registration) [address] [place], [address], 07/01/2021 22:32:30 07/01/19 22 07/01/2021 CBC AUTO W DIFF granulocyte% 51.6 % 40-75 Not Available [facility] (Lab Registration) [address] [place], [address], 07/01/2021 22:32:30 07/01/19 22 07/01/2021 CBC AUTO W DIFF lymphocyte% 35.5 % 15-57 Not Available [facility] (Lab Registration) [address] [place], [address], 07/01/2021 22:32:30 07/01/19 22 07/01/2021 CBC AUTO W DIFF monocyte% 8.6 % 4.0-12 .0 Not Available [facility] (Lab Registration) [address] [place], [address], 07/01/2021 22:32:30 07/01/19 22 07/01/2021 CBC AUTO W DIFF eosinophil% 3.5 % 0.0-4. 0 Not Available [facility] (Lab Registration) [address] [place], [address], 07/01/2021 22:32:30 07/01/19 22 07/01/2021 CBC AUTO W DIFF basophil% 0.4 % 0.0-1. 0 Not Available [facility] (Lab Registration) [address] [place], [address], 07/01/2021 22:32:30 07/01/19 22 07/01/2021 CBC AUTO W DIFF immature granulocytes % 0.4 % 0.0-0. 8 Not Available [facility] (Lab Registration) [address] [place], [address], 07/01/2021 22:32:30 07/01/19 22 07/01/2021 CBC AUTO W DIFF granulocyte# 3.52 10 Not Available [facility] (Lab Registration) [address] [place], [address], 07/01/2021 22:32:30 07/01/19 22 07/01/2021 CBC AUTO W DIFF lymphocyte# 2.43 10 Not Available [facility] (Lab Registration) [address] [place], [address], 07/01/2021 22:32:30 07/01/19 22 07/01/2021 CBC AUTO W DIFF monocyte# 0.59 10 Not Available [facility] (Lab Registration) [address] [place], [address], 07/01/2021 22:32:30 07/01/19 22 07/01/2021 CBC AUTO W DIFF eosinophil# 0.24 10 Not Available [facility] (Lab Registration) [address] [place], [address], 07/01/2021 22:32:30 07/01/19 22 07/01/2021 CBC AUTO W DIFF basophil# 0.03 10 Not Available [facility] (Lab Registration) [address] [place], [address], 07/01/2021 22:32:30 07/01/19 22 07/01/2021 CBC AUTO W DIFF immature granulocytes # 0.03 10 Not Available [facility] (Lab Registration) [address] [place], [address], 07/01/2021 22:32:30 07/01/19 22 07/01/2021 CBC AUTO W DIFF manual differential NO Not Available [facility] (Lab Registration) [address] [place], [address], 07/01/2021 22:32:30 07/01/19 22 07/01/2021 CBC AUTO W DIFF note Unles s other kennedy noted testi ng perfo rmed at: [facility] [address] [place] [address] [phone] Walt mcknight MD CLIA: [id number] Not Available [facility] (Lab Registration) [address] [place], [address], 07/01/2021 22:32:30 07/01/19 22 07/01/2021 COMP METAB OLIC PANEL sodium 140 mmol/ L 136-14 5 Not Available [facility] (Lab Registration) [address] [place], [address], 07/01/2021 22:52:50 07/01/19 22 07/01/2021 COMP METAB OLIC PANEL potassium 4.0 mmol/ L 3.5-5. 1 Not Available [facility] (Lab Registration) [address] [place], [address], 07/01/2021 22:52:50 07/01/19 22 07/01/2021 COMP METAB OLIC PANEL chloride 103 mmol/ L 98-107 Not Available [facility] (Lab Registration) [address] [place], [address], 07/01/2021 22:52:50 07/01/19 22 07/01/2021 COMP METAB OLIC PANEL carbon dioxide 26 mmol/ L 21-32 Not Available [facility] (Lab Registration) [address] [place], [address], 07/01/2021 22:52:50 07/01/19 22 07/01/2021 COMP METAB OLIC PANEL anion gap 11.0 Not Available [facility] (Lab Registration) [address] [place], [address], 07/01/2021 22:52:50 07/01/19 22 07/01/2021 COMP METAB OLIC PANEL glucose 148 mg/dL 70-110 high Not Available [facility] (Lab Registration) [address] [place], [address], 07/01/2021 22:52:50 07/01/19 22 07/01/2021 COMP METAB OLIC PANEL blood urea nitrogen 19 mg/dL 7-18 high Not Available [facility] (Lab Registration) [address] [place], [address], 07/01/2021 22:52:50 07/01/19 22 07/01/2021 COMP METAB OLIC PANEL creatinine 0.9 mg/dL 0.6-1. 0 Not Available [facility] (Lab Registration) [address] [place], [address], 07/01/2021 22:52:50 07/01/19 22 07/01/2021 COMP METAB OLIC PANEL BUN/creatini ne ratio 21.1 ratio 9-21 high Not Available [facility] (Lab Registration) [address] [place], [address], 07/01/2021 22:52:50 07/01/19 22 07/01/2021 COMP METAB OLIC PANEL estimated glom filtration rate 67 mL/mi n >60- Not Available [facility] (Lab Registration) [address] [place], [address], 07/01/2021 22:52:50 07/01/19 22 07/01/2021 COMP METAB OLIC PANEL total protein 7.5 g/dL 6.4-8. 2 Not Available [facility] (Lab Registration) [address], [place], [address], 07/01/2021 22:52:50 07/01/19 22 07/01/2021 COMP METAB OLIC PANEL albumin 3.6 g/dL 3.4-5. 0 Not Available [facility] (Lab Registration) [address], [place], [address], 07/01/2021 22:52:50 07/01/19 22 07/01/2021 COMP METAB OLIC PANEL calcium 9.6 mg/dL 8.5-10 .1 Not Available [facility] (Lab Registration) [address] [place], [address], 07/01/2021 22:52:50 07/01/19 22 07/01/2021 COMP METAB OLIC PANEL corrected calcium 9.9 mg/dL 8.5-10 .1 Not Available [facility] (Lab Registration) [address], [place], [address], 07/01/2021 22:52:50 07/01/19 22 07/01/2021 COMP METAB OLIC PANEL bilirubin total 0.2 mg/dL 0.4-1. 5 low Not Available [facility] (Lab Registration) [address] [place], [address], 07/01/2021 22:52:50 07/01/19 22 07/01/2021 COMP METAB OLIC PANEL AST (SGOT) 28 U/L 15-37 Not Available [facility] (Lab Registration) [address] [place], [address], 07/01/2021 22:52:50 07/01/19 22 07/01/2021 COMP METAB OLIC PANEL ALT (SGPT) 38 U/L 12-78 Not Available [facility] (Lab Registration) [address] [place], [address], 07/01/2021 22:52:50 07/01/19 22 07/01/2021 COMP METAB OLIC PANEL alk phosphatase 116 U/L 53-141 Not Available [facility] (Lab Registration) [address], [place], [address], 07/01/2021 22:52:50 07/01/19 22 07/01/2021 COMP METAB OLIC PANEL note Jasones s other kennedy noted testi ng perfo rmed at: [facility] [address] [place] [address] [phone] Walt mcknight MD CLIA: [id number] Not Available [facility] (Lab Registration) [address], [place], [address], 07/01/2021 22:52:50 07/01/19 22 07/01/2021 CREAT INE KINAS E (CK) creatinine kinase (CPK) 85 U/L 21-232 Not Available [facility] (Lab Registration) [address], [place], [address], 07/01/2021 22:52:52 07/01/19 22 07/01/2021 CREAT INE KINAS E (CK) note Karla mcknight other kennedy noted testi ng perfo rmed at: [facility] [address] [place] [address] [phone] Walt mcknight MD CLIA: [id number] Not Available [facility] (Lab Registration) [address], [place], [address], 07/01/2021 22:52:52 07/01/19 22 07/01/2021 CK MB CKMB 0.3 NG/mL 0.0-3. 6 Not Available [facility] (Lab Registration) [address] [place], [address], 07/01/2021 22:53:54 07/01/19 22 07/01/2021 CK MB note Karla s other kennedy noted testi ng perfo rmed at: [facility] [address] [place] [phone] Walt mcknight MD CLIA: [id number] Not Available [facility] (Lab Registration) [address] , [place], [address], 07/01/2021 22:53:54 07/01/19 22 07/01/2021 TROPO DRAKE QUANT troponin 5.4 pg/mL 0-5 critical high HIGH SENSI TVITY TROPO DRAKE I REFER ENCE RANGE LOW RISK OF CARDI AC EVENT IF RESUL TS ARE /= 75.1 PG/ML FOR MALE PATIE NTS >/= 50.1 PG/ML FOR FEMAL E PATIE NTS 2-ABIMAEL R TROPO DRAKE IS RECOM FANNY D FOR ANY PATIE NT THAT FALLS INTO THE INDET ERMIN ATE OR HIGH RISK CATEG ORIES . BIO TIN AND OTHER SUPPL EMENT S HAVE BEEN KNOWN TO ELEVA TE TROPO DRAKE VAUES IN CHELSI L INDIV IDUAL S Not Available [facility] (Lab Registration) [address] , [place], [address], 07/01/2021 22:53:56 07/01/19 22 07/01/2021 TROPO DRAKE QUANT note Unles s other kennedy noted testi ng perfo rmed at: [facility] [address] [place] [address] [phone] Walt mcknight MD CLIA: [id number] Not Available [facility] (Lab Registration) [address] , [place], [address], 07/01/2021 22:53:56 07/01/19 22 07/01/2021 B-TYP E NATRI URETI C PEPTI DE BNP B-type natriuretic peptide BNP 14.6 pg/mL 0.0-10 0 Non-C HF: Less than 100 pg/mL Class I: Great er than 100 pg/mL - Patie nts have no limit ation s of physi yesenia activ ity and have no sympt oms with ordin troy physi yesenia activ ity. Class II: Great er than 221 pg/mL - Patie nts have a sligh t limit ation of physi yesenia activ ity and have sympt oms with ordin troy physi yesenia activ ity. Class III: Great er than 459 pg/mL - Patie nts have a marke d limit ation of physi yesenia activ ity and have sympt oms with less than ordin troy physi yesenia activ ity, but not at rest. Class IV : Great er than 1006 pg/mL -Gale ents are unabl e to perfo rm any physi yesenia activ ity witho ut disco mfort . Not Available [facility] (Lab Registration) [address], [place], [address], 07/01/2021 22:59:14 07/01/19 22 07/01/2021 B-TYP E NATRI URETI C PEPTI DE BNP note Unles s other kennedy noted testi ng perfo rmed at: [facility] [address] [place], [place] [id number] [phone] Walt mcknight MD CLIA: [id number] Not Available [facility] (Lab Registration) [address] [place], [address], 07/01/2021 22:59:14 07/01/19 22 07/01/2021 D-DIM ER QUANT ITATI VE D-dimer quantitative 423.14 NG/mL 0-500 Not Available [facility] (Lab Registration) [address] [place], [address], 07/01/2021 22:59:15 07/01/19 22 07/01/2021 D-DIM ER QUANT ITATI VE note Karla mcknight other kennedy noted testi ng perfo rmed at: [facility] [address] [place], [place] [id number] [phone] Walt mcknight MD CLIA: [id number] Not Available [facility] (Lab Registration) [address] [place], [address], 07/01/2021 22:59:15 07/01/19 22 07/01/2021 ARTER IAL BLOOD GAS specimen source ARTERI AL Not Available [facility] (Lab Registration) [address] [place], [address], 07/01/2021 23:56:16 07/01/19 22 07/01/2021 ARTER IAL BLOOD GAS marleny's test YES Not Available [facility] (Lab Registration) [address] [place], [address], 07/01/2021 23:56:16 07/01/19 22 07/01/2021 ARTER IAL BLOOD GAS ABG site RIGHT RADIAL Not Available [facility] (Lab Registration) [address] [place], [address], 07/01/2021 23:56:16 07/01/19 22 07/01/2021 ARTER IAL BLOOD GAS arterial pH 7.400 7.35-7 .45 Not Available [facility] (Lab Registration) [address] [place], [address], 07/01/2021 23:56:16 07/01/19 22 07/01/2021 ARTER IAL BLOOD GAS ABG partial pressure CO2 47 mmHg 35-45 high Not Available [facility] (Lab Registration) [address] [place], [address], 07/01/2021 23:56:16 07/01/19 22 07/01/2021 ARTER IAL BLOOD GAS ABG partial pressure O2 24.0 mmHg 80-100 critical low Not Available [facility] (Lab Registration) [address] [place], [address], 07/01/2021 23:56:16 07/01/19 22 07/01/2021 ARTER IAL BLOOD GAS ABG bicarbonate 26.4 mEq/L 21-25 high Not Available [facility] [place] (Lab Registration) [address] [place], [address], 07/01/2021 23:56:16 07/01/19 22 07/01/2021 ARTER IAL BLOOD GAS ABG base excess 3.6 Not Available [facility] (Lab Registration) [address], [place], [address], 07/01/2021 23:56:16 07/01/19 22 07/01/2021 ARTER IAL BLOOD GAS ABG O2 saturation 43 % Not Available [facility] (Lab Registration) [address] [place], [address], 07/01/2021 23:56:16 07/01/19 22 07/01/2021 ARTER IAL BLOOD GAS ABG delivery O2 mode VENTIL ATOR Not Available [facility] (Lab Registration) [address] [place], [address], 07/01/2021 23:56:16 07/01/19 22 07/01/2021 ARTER IAL BLOOD GAS ABG pos end expir pressure 8 cm_H2 O Not Available [facility] (Lab Registration) [address] [place], [address], 07/01/2021 23:56:16 07/01/19 22 07/01/2021 ARTER IAL BLOOD GAS ABG temperature 37.0 Not Available [facility] (Lab Registration) [address] [place], [address], 07/01/2021 23:56:16 07/01/19 22 07/01/2021 ARTER IAL BLOOD GAS ventilator mode PRVC Not Available [facility] (Lab Registration) [address] [place], [address], 07/01/2021 23:56:16 07/01/19 22 07/01/2021 ARTER IAL BLOOD GAS note Unles s other kennedy noted testi ng perfo rmed at: [facility] [address] [place] [address] [phone] Walt mcknight MD CLIA: [id number] Not Available [facility] (Lab Registration) [address] , [place], [address], 07/01/2021 23:56:16 07/01/19 22 07/01/2021 COVID 19, ROMAN (GRAV ITY) note Unles s other kennedy noted testi ng perfo rmed at: [facility] [address] [place] [address] [phone] Walt mcknight MD CLIA: [id number] Not Available [facility] (Lab Registration) [address] , [place], [address], 07/04/2021 13:39:37 07/01/19 22 07/04/2021 COVID 19, ROMAN (GRAV ITY) covid 19, ROMAN (gravity) NOT DETECT ED not detect ed Not Available [facility] (Lab Registration) [address] , [place], [address], 07/04/2021 13:39:37 07/08/19 22 07/09/2021 SARS COV 2 RNA(C OVID 19), QUALI TATIV E NAAT sars cov 2 RNA NOT DETECT ED not detect ed normal A Not Detec amarilys resul t means that SARS- CoV-2 RNA was not prese nt in the speci men above the limit of detec tion. A Not Detec amarilys resul t does not rule out the possi bilit y of COVID -19 and shoul d not be used as the sole basis for treat ment or patie nt manag ement decis ions. If COVID -19 is still suspe cted, based on expos ure histo ry toget her with other clini yesenia findi ngs, re-te sting shoul d be consi dered in the dayana xt of clini yesenia obser vatio ns and epide miolo gical data for patie nt manag ement decis ions. Test Metho d: Nucle ic Acid Ampli ficat ion Test inclu ding rever se trans cript ion polym erase chain react ion (RT-P CR) and trans cript ion media amarilys ampli ficat ion (TMA) . The test metho d meets the [place] Cente rs for Disea se Contr ol and preve ntion (CDC) pre depar ture and arriv al requi remen t for viral test for COVID -19 dated 2020. Testi ng requi remen ts for tatiana wood may caro e with time. The patie nt is respo nsibl e for deter minin g the test requi remen ts for each natio n while they are tatiana wood. This test has been autho rized by the FDA under an Emerg ency Use Autho rizat ion (EUA) for use by autho rized labor atori es. Meggan felipe w the Fact Sheet s and FDA autho rized label ing avail able for healt h care provi ders and patie nts using the follo wing websi kathryn: https ://mark w.que stdia gnost ics.c om/ho me/Co vid-1 9/HCP /NAAT /fact -shee t2 https ://mark w.que stdia gnost ics.c om/ho me/Co vid-1 9/Pat ients /NAAT / fact- sheet 2 Due to the curre nt publi c healt h emerg ency, [facility] is accep parag jarquin es from appro priat e clini yesenia sourc es colle cted using wide varie ty of swabs and trans port media for COVID -19. Not detec amarilys test resul ts deriv ed from speci mens recei edison in non- comme rcial ly manuf actur ed viral colle ction kits or those not yet autho rized by FDA for COVID -19 testi ng shoul d be cauti ously evalu ated and take extra preca ution s such as addit ional clini yesenia monit oring , inclu ding colle ction of an addit ional speci men. Addit ional infor mataustin n about COVID -19 can be found at the [facility] websi te: www.LivQuik uestD iagno LogicMonitor .MediaMath/ Covid 19. Not Available [facility] [address] [facility], [place], [address], 07/09/2021 21:03:08 07/31/19 22 07/31/2021 pulmo nary funct ion test* PFT mild restri ctive patter n Not Available [facility] [address], [place], [address], 07/30/2021 14:22:02 11/10/19 21 10/29/2020 sleep study , diagn ostic * No observ ation record ed. [facility] [address], [place], [address], 12/26/2020 15:37:54 07/02/19 22 07/01/2021 XR, chest , 1 view [facility] [address] [place] [address] Phone: Fax: Name: ELIEL MARQUES Exam Date: : [birth year] Age 65 Gender : F Access ion: [id number] Physic hawa: MINOR GARCIA Facili ty: [facility] Facili ty HSV: Outpat ient Exam: CHEST SINGLE VIEW/P ORTABL E PORTAB LE CHEST, One view HISTOR Y: Cough with weakne ss COMPAR CASSI: FINDIN GS: Portab le view of the chest demons trates the lungs to be grossl y clear. There has been interv al resolu tion of right upper lobe oval opacit y presum ably inflam matory . There is no eviden ce of effusi on, pneumo thorax or other signif icant pleura l diseas e. The medias tinum is unrema rkable . The heart size is normal . IMPRES VON: Unrema rkable portab le chest. Dictat ed By: COURTNEY BOSWELL Transc ribed By: sara malhotra Transc ribed On: 9:22 AM Electr onical ly signed by: COURTNEY BOSWELL Thank you for referr ing EL[facility]EL [facility] to [facility]. Legall y authen ticate d by ELBERT TRINIDAD MD 07-02 11:59: 12 CC'ed Logic: Orderi ng Provid er: RADHA GAXIOLA CC Provid er: JAYJAY Robins Attend ing Provid er: RADHA GAXIOLA Referr ing Provid er: RADHA Parryitt ing Provid er: RADHA vazquez [facility] (Radiology) [address] [place], [address], 07/08/2021 15:38:33 07/24/19 22 07/24/2021 joesph can cardi olite stres s test (PROC ) No observ ation record ed. [address] [facility] [address] [facility] [address], [place], [address], 07/30/2021 14:02:26 07/25/19 22 07/24/2021 joesph can cardi olite stres s test (PROC ) No observ ation record ed. [address] [facility] [address] [facility] [address], [place], [address], 07/25/2021 20:33:55 08/09/19 22 08/08/2021 CT, chest , w/o contr [facility] [address] [facility] [place] [address] Phone: Fax: Name: ELIEL MARQUES Exam Date: 08/09/19 : [birth year] Age 65 Gender : F Access ion: [id number] Physic hawa: CHANTAL CANO Facili ty: [facility] Facili ty HSV: Outpat ient Exam: CT CHEST WO CONTRA ST CT SCAN OF THE CHEST WITHOU T CONTRA ST COMPAR CASSI: 020 HISTOR Y: Shortn ess of breath . Pulmon troy nodule s. PROCED URE: Axial images were obtain ed from the lung apex to the mid abdome n by comput ed tomogr aphy. This study was perfor med with techni ques to keep radiat ion doses as low as reason ably achiev able, (PAULINA ). FINDIN GS: CHEST: There is no axilla ry adenop athy. There is no hilar or medias tinal adenop athy. Heart size is normal . There are scatte red left main peña ry artery calcif icatio ns. There is no perica rdial or pleura l effusi on. Limite d images of the upper abdome n demons trate scatte red coloni c divert iculos is. The patien t is status post prior left lung wedge resect ion. There is a stable puncta te nodule identi fied in the right lower lobe. No new pulmon troy nodule or mass is identi fied. No suspic ious infilt rate is identi fied. There is no pneumo thorax . Centra l airway s are patent . IMPRES VON: No acute proces s. No suspic ious pulmon troy nodule identi fied. Films review ed , interp reted and dictat ed by Dr. Fitz Heath . Transc ribed by Dennis Sosa PA-C. Dictat ed By: FITZ HEATH Transc ribed By: FITZ EHATH Transc ribed On: 08/09/19 9:16 AM Electr onical ly signed by: FITZ HEATH 08/09/19 Thank you for referr ing [facility]. Legall y authen ticate d by FITZ HEATH IVO 08-08 09:16: 27 CC'ed Logic: Orderi ng Provid er: JAYJAY Robins CC Provid er: JAYJAY Robins Attend ing Provid er: JAYJAY Robins Referr ing Provid er: JAYJAY Robins Admitt ing Provid er: JAYJAY vazquez [facility] (Radiology) [address] [place] [address] , [place], [address], 08/09/2021 20:14:52 02/18/20 22 02/14/2022 MAMMO , diagn ostic , bilat eral No observ ation record ed. [email or web address] [facility] [address], [place], [address], 02/18/2022 17:19:05 Result Notes Documentation Provider Name and Address Organization Details Recorded Time Xr, Chest, 1 View : [address] [place] [address] Name: ELIEL MURPHY Exam Date: 07/01/2021 : 1955 Age 65 Gender: F Physician: MINOR GARCIA Facility: [facility] Facility HSV: Outpatient Exam: CHEST SINGLE VIEW/PORTABLE PORTABLE CHEST, One view HISTORY: Cough with weakness COMPARISON: 03/19/21 FINDINGS: Portable view of the chest demonstrates the lungs to be grossly clear. There has been interval resolution of right upper lobe oval opacity presumably inflammatory. There is no evidence of effusion, pneumothorax or other significant pleural disease. The mediastinum is unremarkable. The heart size is normal. IMPRESSION: Unremarkable portable chest. Dictated By: COURTNEY BOSWELL Transcribed By: sara hutton Transcribed On: 07/02/2021 9:22 AM Electronically signed by: COURTNEY BOSWELL 07/02/2021 Thank you for referring ELIEL MURPHY to [facility]. Legally authenticated by ELBERT TRINIDAD MD 2021-07-02 11:59:12 CC'ed Logic: Ordering Provider: RADHA DAVEY Provider: BIBIANA GONZALEZ Attending Provider: RADHA GAXIOLA Referring Provider: RADHA GAXIOLA Admitting Provider: RADHA Mccarty MD [address] [facility], [address], [place], [address], [place] [facility] 07/08/2021 15:38:33 Ct, Chest, W/o Contrast : [address] [place] [address] Name: ELIEL MURPHY Exam Date: 08/08/2021 : 1955 Age 65 Gender: F Physician: MOUNIKA MCCARTY Facility: [facility] Facility HSV: Outpatient Exam: CT CHEST WO CONTRAST CT SCAN OF THE CHEST WITHOUT CONTRAST COMPARISON: 01/23/2020 HISTORY: Shortness of breath. Pulmonary nodules. PROCEDURE: Axial images were obtained from the lung apex to the mid abdomen by computed tomography. This study was performed with techniques to keep radiation doses as low as reasonably achievable, (ALARA). FINDINGS: CHEST: There is no axillary adenopathy. There is no hilar or mediastinal adenopathy. Heart size is normal. There are scattered left main coronary artery calcifications. There is no pericardial or pleural effusion. Limited images of the upper abdomen demonstrate scattered colonic diverticulosis. The patient is status post prior left lung wedge resection. There is a stable punctate nodule identified in the right lower lobe. No new pulmonary nodule or mass is identified. No suspicious infiltrate is identified. There is no pneumothorax. Central airways are patent. IMPRESSION: No acute process. No suspicious pulmonary nodule identified. Films reviewed , interpreted and dictated by Dr. Fitz Heath. Transcribed by Dennis Sosa PA-C. Dictated By: FITZ HEATH Transcribed By: FITZ HEATH Transcribed On: 08/08/2021 9:16 AM Electronically signed by: FITZ HEATH 08/08/2021 Thank you for referring ELIEL MURPHY to [facility]. Legally authenticated by FITZ HEATH IVO 2021-08-08 09:16:27 CC'ed Logic: Ordering Provider: BIBIANA GONZALEZ CC Provider: BIBIANA GONZALEZ Attending Provider: BIBIANA GONZALEZ Referring Provider: BIBIANA GONZALEZ Admitting Provider: BIBIANA Mccarty MD [address] [facility], [facility] [address], [place], [address], [facility] 08/09/2021 20:14:52 Problems Name Problem SNOMED Code Status Onset Date Resolution Date Notes Provider Name and Address Organization Details Recorded Time Disorder of urinary tract 96820018 Active Mounika Mcacrty MD [address] [facility], [facility] [address], [place], [address], [facility] 09:27:57 Malaise and fatigue 248313308 Active Mounika Mccarty MD [address], [address] [place] [address], [place] - [facility] 6 09:27:57 Pain of hip region [id number] Juan Daniel Mccarty MD [address] [place] [address], [place] - [facility] 6 09:27:57 Chest swelling [id number] Juan Daniel Mccarty MD [address] [place] [address], [place] - [facility] 6 09:27:57 Achilles tendinitis 25535282 Active Mounika Mccarty MD [address] [place] [address], [place] [facility] 6 09:27:57 Cellulitis of leg, excluding foot 760197915 Active Mounika Mccarty MD [address] [place] [address], [place] - [facility] 6 09:27:57 Acute sinusitis 69284450 Active Mounika Mccarty MD [address] [place] [address], [place] [facility] 6 09:27:57 Hypertrophi c condition of skin 72652246 Juan Daniel Mccarty MD [address] [place] [address], [place] - [facility] 6 09:27:57 Acute upper respiratory infection 21424976 Juan Daniel Mccarty MD [address] [place] [address], [place] [facility] 6 22:11:51 Essential hypertensio n [id number] Juan Daniel Mccarty MD [address] [place] [address], [place] - [facility] 6 09:27:57 Single major depressive episode Active Mounika Mccarty MD [address] [place] [address], [place] [facility] 6 09:27:57 Type 2 diabetes mellitus without complicatio n 561844274 Active Mounika Mccarty MD [address] [place] [address], [place] [facility] 6 09:27:57 Fever 913048429 Active Mounika Mccarty MD [address] [place] [address], [place] [facility] 6 09:27:57 Generalized osteoarthri tis 585488113 Active Mounika Mccarty MD [address] [place] [address], [place] [facility] 6 22:28:41 Hyperlipide mp 03230988 Active Mounika Mccarty MD [address] [place] [address], [place] [facility] 6 09:27:57 Hypothyroid ism 05338627 Active Mounika Mccarty MD [address] [place] [address], [place] [facility] 6 22:28:41 Acute bronchitis 73109015 Active Mounika Mccarty MD [address] [place] [address], [place] [facility] 6 09:27:57 Depressive disorder 43445813 Active Mounika Mccarty MD [address] [place] [address], [place] [facility] 6 22:28:41 Histoplasma capsulatum with pneumonia Active Mounika Mccarty MD [address] [place] [address], [place] [facility] 6 09:27:57 Otitis media 90511028 Active Mounika Mccarty MD [address] [place] [address], [place] [facility] 6 09:27:57 Impacted cerumen 17306422 Active Mounika Mccarty MD [address] [place] [address], [facility] - [facility] 6 09:27:57 Anxiety 03537881 Active Mounika Mccarty MD [address] [place] [address], [place] 6 09:27:57 Sleep disorder 13234453 Active Mounika Mccarty MD [address] [place] [address], [facility] 6 09:27:57 Chronic headache disorder 556542003 Active Mounika Mccarty MD [address] [place] [address], [facility] 6 09:27:57 Hypertensiv e disorder 69587340 Active Mounika Mccarty MD [address] [place] [address], [facility] 6 09:27:57 Sleep apnea 35373268 Juan Daniel Mccarty MD [address] [place] [address], [facility] 6 09:27:57 Tendinitis of elbow or forearm 067301985175 Juan Daniel Mccarty MD [address] [place] [address], [place] [facility] 6 09:27:57 Anthony's palsy 018759109 Juan Daniel Mccarty MD [address] [place] [address], [place] [facility] 6 09:27:57 Vertiginous syndrome 82641638 Juan Daniel Mccarty MD [address] [place] [address], [place] [facility] 6 09:27:57 Nausea 725985887 Juan Daniel Mccarty MD [address] [place] [address], [place] [facility] 6 09:27:57 Sensory neuropathy 15158427 Juan Daniel Mccarty MD [address] [place] [address], [place] [facility] 6 09:27:57 Dehydration 05622269 Juan Daniel Mccarty MD [address] [place] [address], [place] [facility] 6 09:27:57 Acute urinary tract infection 795428791 Juan Daniel Mccarty MD [address] [place] [address], [place] [facility] 6 09:27:57 Diabetic peripheral neuropathy 231967867 Juan Daniel Mccarty MD [address] [place] [address], [place] 6 09:27:57 Mammography abnormal 256397727 Juan Daniel Mccarty MD [address] [place] [address], [facility] 6 09:27:57 Knee pain Active Mounika Mccarty MD [address] [place] [address], [place], [place], [address] [place] [address] 7, [facility] 6 09:27:57 Insomnia 202217939 Active Mounika Mccarty MD [address], [address] [place] [address], [place] 6 22:28:41 Problem Notes None recorded. Procedures Surgical History Date Name Laterality Status Provider Name and Address Organization Details Recorded Time 10/10/19 18 Colonoscopy completed Mounika Mccarty MD [address], [address] [place] [address], [facility] 12/02/2020 22:39:02 06/08/19 15 Orthopaedic Surgery completed Mounika Mccarty MD [address], [address] [place] [address], [facility] 06/18/2015 10:21:40 04/13/20 14 Orthopaedic Surgery completed Mounika Mccarty MD [address], [address] [place] [address], [facility] 06/18/2015 10:21:40 06/08/19 12 Other completed [facility] 07/18/2013 08:57:50 09/06/19 10 Colonoscopy completed Mounika Mccarty MD [address], [address] [place] [address], [facility] 06/18/2015 10:21:40 06/08/19 07 Breast Biopsy completed Mounika Mccarty MD [address], [address] [place] [address], [facility] 06/18/2015 10:21:40 06/08/19 05 Knee Surgery completed [facility] 09/02/2011 09:20:39 06/08/19 05 Colonoscopy completed [facility] 09/02/2011 09:20:39 06/08/19 03 Knee Surgery completed [facility] 09/02/2011 09:20:39 06/08/19 02 Cholecystectomy completed [facility] 09/02/2011 09:20:39 06/08/19 02 Knee Surgery completed Mounika Mccarty MD [address], [address], [facility] 03/31/2014 21:45:39 06/08/19 02 Lumpectomy completed Mounika Mccarty MD [address] [address], [place], [address], [facility] 06/18/2015 10:21:40 06/08/19 01 Hysterectomy completed Mounika Mccarty MD [address] [address], [place], [address], [facility] 06/18/2015 10:22:05 06/08/18 81 Tubal Ligation completed [facility] 09/02/2011 09:20:39 06/08/18 81 Appendectomy completed [facility] 09/02/2011 09:20:39 Imaging Results None recorded. Procedure Notes None recorded. Medical Equipment None Reported. Allergies Allergen ID Allergen Name Allergen Category Reaction Reaction Severity Criticality Documentation Date Start Date Code Code System Note Provider Name and Address Organization Details Recorded Time 92506 codeine medicatio n Not available Not available Not available 09/02/2011 5930 RxNorm [facility] 03/27/201 2 09:25:04 72030 Ambien medicatio n Not available Not available Not available 09/02/2011 30949 5 RxNorm Era [facility] 2 09:25:04 63594 Toradol medicatio n Not available Not available Not available 09/02/2011 31656 RxNorm [facility] 2 09:25:04 43310 Demerol medicatio n Not available Not available Not available 09/02/2011 86807 1 RxNorm [facility] 2 09:25:04 Medications Name Sig Start Date Stop Date Status Note LastModified by Organization Details LastModified Time amoxicill in 500 mg capsule take 4 capsules by mouth 1 hour prior to appointm ent 03/27 completed Not Available Not Available Not Available clonidine HCl 0.1 mg tablet TAKE 1 TABLET BY MOUTH 3 TIMES A DAY ONLY IF SBP IS HIGHER THAN 160 active Not Available Not Available No t Available prednison e 10 mg tablet TAKE 1 TABLET BY MOUTH EVERY DAY WITH MEALS FOR 5 DAYS 07/30 completed Not Available Not Available Not Available venlafaxi ne ER 75 mg capsule,e xtended release 24 hr 1 po daily active Not Available Not Available No t Available donepezil 5 mg tablet 09/04 completed Not Available Not Available Not Available azithromy neeta 250 mg tablet take 2 tablets by mouth today then take 1 tablet DAILY FOR 4 DAYS 07/29 completed Not Available Not Available Not Available pravastat in 40 mg tablet TAKE 2 TABLETS DAILY UNTIL the 80 mg ARRIVES 11/05 completed Not Available Not Available Not Available ofloxacin 0.3 % eye drops INSTILL ONE DROP IN THE OPERATIV E EYE(S) THREE TIMES A DAY DIRECTED 09/24 completed Not Available Not Available Not Available metoprolo l succinate ER 50 mg tablet,ex tended release 24 hr TAKE 1 TABLET DAILY active Not Available Not Available No t Available valacyclo vir 1 gram tablet TAKE 1 TABLET EVERY 12 HOURS active Not Available Not Available No t Available sumatript an 100 mg tablet TAKE 1 TABLET BY MOUTH EVERY DAY NEEDED active Not Available Not Available No t Available ondansetr on HCl 8 mg tablet take 1 tablet by mouth every 6 hours if needed 09/24 completed Not Available Not Available Not Available donepezil 10 mg tablet TAKE 1 TABLET DAILY IN THE EVENING active Not Available Not Available No t Available FreeStyle Lancets 28 gauge TEST once daily active Not Available Not Available No t Available ondansetr on HCl 4 mg tablet TAKE 1 TABLET BY MOUTH EVERY 12 HOURS 09/08 completed tx for migraine s Not Available Not Available Not Available prednison e 20 mg tablet TAKE 3 TABLETS BY MOUTH EVERY DAY WITH FOOD FOR 5 DAYS 07/30 completed Not Available Not Available Not Available sumatript an 50 mg tablet Take 1 tablet every day by oral route as needed for 90 days. 07/30 completed Not Available Not Available Not Available topiramat e 25 mg tablet 12/24 completed Not Available Not Available Not Available metronida zole 500 mg tablet Take 1 tablet 3 times a day by oral route for 5 days. 01/29 completed Not Available Not Available Not Available hydroxyzi ne HCl 50 mg tablet TAKE ONE-HALF (1/2) TO ONE TABLET AT BEDTIME NEEDED active Not Available Not Available No t Available melatonin 3 mg tablet Take by oral route. active Not Available Not Available No t Available fexofenad ine 180 mg tablet Take 1 tablet every day by oral route at bedtime. 04/11 completed Not Available Not Available Not Available sulfameth oxazole 800 mg-trimet hoprim 160 mg tablet TAKE 1 TABLET BY MOUTH EVERY 12 HOURS FOR 5 DAYS 07/13 completed Not Available Not Available Not Available hydrocodo ne 10 mg-acetam inophen 325 mg tablet take 1 tablet by mouth every 4 hours if needed for pain 02/13 completed Not Available Not Available Not Available omeprazol e 40 mg capsule,d elayed release TAKE 1 CAPSULE BY MOUTH EVERY DAY IN THE MORNING 2021 active Not Available Not Available Not Avai lable aspirin 81 mg tablet,de layed release Take 1 tablet every day by oral route. active Not Available Not Available No t Available tramadol 50 mg tablet TAKE 1 TABLET EVERY 4 TO 6 HOURS NEEDED FOR PAIN 01/14 completed Not Available Not Available Not Available Gentak 0.3 % eye drops INSTILL 2 DROPS IN THE AFFECTED EYE THREE TIMES A DAY FOR 7 DAYS active Not Available Not Available No t Available simvastat in 40 mg tablet Take 1 tablet every day by oral route in the evening. 2012 active Not Available Not Available Not Avai lable ondansetr on 8 mg disintegr ating tablet DISSOLVE 1 TABLET ON THE TONGUE EVERY 8 HOURS NEEDED 08/22 completed Not Available Not Available Not Available glimepiri de 1 mg tablet TAKE 1 TABLET DAILY active Not Available Not Available No t Available lamotrigi ne 25 mg tablet TAKE 3 TABLETS DAILY active Not Available Not Available No t Available levothyro xine 75 mcg tablet Take 1 tablet every day by oral route for 90 days. 2013 active Not Available Not Available Not Avai lable Celebrex 200 mg capsule 04/11 completed Not Available Not Available Not Available meloxicam 7.5 mg tablet TAKE 1 TABLET BY MOUTH TWICE A DAY AFTER MEALS active Not Available Not Available No t Available levothyro xine 100 mcg tablet TAKE 1 TABLET DAILY FOR 90 DAYS (THIS REPLACES THE 75 MCG DOSE) 2014 active Not Available Not Available Not Avai lable oxycodone -acetamin ophen 5 mg-325 mg tablet take 1 tablet by mouth every 8 hours if needed 04/16 completed Not Available Not Available Not Available ceftriaxo ne 1 gram solution for injection Take 1 g by injectio n route. 07/06 completed Not Available Not Available Not Available clonidine HCl 0.2 mg tablet TAKE 1 TABLET TWICE A DAY active Not Available Not Available No t Available pravastat in 80 mg tablet TAKE 1 TABLET DAILY active Not Available Not Available No t Available oxycodone -acetamin ophen 10 mg-325 mg tablet TAKE 1 TABLET EVERY 6 HOURS AFTER MEALS active Not Available Not Available No t Available ciproflox acin 0.3 % eye drops INSTILL 1 DROP INTO AFFECTED EYES EVERY 2 HOURS WHILE AWAKE FOR 2 DAYS, THEN 1 DROP EVERY 4 HOURS WHILE AWAKE FOR 5 DAYS 2021 active Not Available Not Available Not Avai lable baclofen 10 mg tablet TAKE 1 TABLET 4 TIMES A DAY NEEDED active Not Available Not Available No t Available amlodipin e 10 mg tablet TAKE 1 TABLET DAILY 12/08 completed Not Available Not Available Not Available benzonata te 100 mg capsule TAKE ONE CAPSULE THREE TIMES A DAY DO NOT CHEW SWALLOW WHOLE active Not Available Not Available No t Available levothyro xine 50 mcg tablet TAKE 1 TABLET BY MOUTH EVERY DAY 2012 active Not Available Not Available Not Avai lable cephalexi n 500 mg capsule Take 2 capsules every 12 hours by oral route for 10 days. 03/24 completed Not Available Not Available Not Available levothyro xine 125 mcg tablet TAKE 1 TABLET DAILY PO 09/24 completed Not Available Not Available Not Available valsartan 320 mg tablet TAKE 1 TABLET DAILY active Not Available Not Available No t Available diltiazem ER (XR/XT) 120 mg capsule,e xtended release 24 hr, controlle d Take 1 capsule every day by oral route for 30 days. 04/22 completed Not Available Not Available Not Available hydrochlo rothiazid e 12.5 mg capsule TAKE 1 CAPSULE DAILY 08/[address] Duong office increase d to 25mg 06-13-16 Not Available Not Available Not Available nitroglyc jes 0.4 mg sublingua l tablet PLACE ONE TABLET UNDER THE TONGUE NEEDED FOR CHEST PAIN EVERY 5 MINUTES FOR A MAX OF 3 TABLETS IN 15 MINUTES NEEDED 07/30 completed Not Available Not Available Not Available diltiazem CD 120 mg capsule,e xtended release 24 hr Take 1 capsule every day by oral route for 90 days. 2013 active Not Available Not Available Not Avai lable pravastat in 20 mg tablet TAKE 1 TABLET BY MOUTH EVERY DAY IN THE EVENING 2013 active Not Available Not Available Not Avai lable hydrochlo rothiazid e 25 mg tablet TAKE 1 or 2 TABLET (25 MG) BY ORAL ROUTE ONCE DAILY 08/13 completed Not Available Not Available Not Available mupirocin 2 % topical ointment APPLY TO BIOPSY SITE DAILY DIRECTED 07/30 completed Not Available Not Available Not Available furosemid e 20 mg tablet TAKE 1 TABLET DAILY NEEDED FOR LEG SWELLING / WEIGHT GAIN OF ... (REFER TO PRESCRIP TION NOTES). active Not Available Not Available No t Available mirtazapi ne 15 mg tablet TAKE 1 TABLET DAILY IN THE EVENING active Not Available Not Available No t Available metoprolo l succinate ER 25 mg tablet,ex tended release 24 hr take 1 tablet by mouth once daily active Not Available Not Available No t Available dexametha sone sodium phosphate 4 mg/mL injection solution Take 1 mL by injectio n route. 05/18 completed Not Available Not Available Not Available ibuprofen 600 mg tablet TAKE 1 TABLET EVERY 6 HOURS NEEDED FOR PAIN 11/05 completed Not Available Not Available Not Available levofloxa neeta 500 mg tablet TAKE ONE TABLET EVERY 24 HOURS DIRECTED FOR 10 DAYS active Not Available Not Available No t Available methylpre dnisolone 4 mg tablets in a dose pack take as directed on pack 04/26 completed Not Available Not Available Not Available ondansetr on 4 mg disintegr ating tablet 08/22 completed Not Available Not Available Not Available Zofran 2 mg/mL intraveno us solution 2014 active odansetr on for nausea & vomiting , IM Not Available Not Available Not Available losartan 100 mg tablet Take 1 tablet(s ) every day by oral route. 11/03 completed Not Available Not Available Not Available fluticaso ne propionat e 50 mcg/actua tion nasal spray,lucia pension USE 1 SPRAY IN EACH NOSTRIL DAILY active Not Available Not Available No t Available metformin ER 500 mg tablet,ex tended release 24 hr TAKE 1 TABLET TWICE A DAY WITH MEALS active Not Available Not Available No t Available metoclopr amide 10 mg tablet TAKE 1 TABLET BY MOUTH EVERY 12 HOURS -- TAKE WITH BENADRYL 09/24 completed Not Available Not Available Not Available levothyro xine 112 mcg tablet TAKE 1 TABLET DAILY (REPLACE S 100 MCG DOSE) 12/15 completed Not Available Not Available Not Available amoxicill in 875 mg-potass ium clavulana te 125 mg tablet TAKE 1 TABLET BY MOUTH TWICE DAILY WITH MEALS 07/08 completed Not Available Not Available Not Available modafinil 100 mg tablet 1 po daily 08/22 completed Not Available Not Available Not Available Tessalon Perle 100 mg capsule Take 1 capsule 3 times a day by oral route as needed. 2011 active Not Available Not Available Not Avai lable enoxapari n 40 mg/0.4 mL subcutane ous syringe inject ONE SYRINGE (40MG) subcutan eously once daily for 10 days 02/07 completed Not Available Not Available Not Available escitalop gaby 20 mg tablet TAKE 1 TABLET BY MOUTH EVERY DAY 2013 active Not Available Not Available Not Avai lable Synthroid 137 mcg tablet TAKE 1 TABLET DAILY (REPLACE S THE 125 MCG) 2021 active Not Available Not Available Not Avai lable bupropion HCl XL 150 mg 24 hr tablet, extended release TAKE 1 TABLET DAILY active Not Available Not Available No t Available topiramat e 50 mg tablet Take 1 tablet twice a day by oral route. 01/17 completed Not Available Not Available Not Available nitrofura ntoin monohydra te/macroc rystals 100 mg capsule TAKE 1 CAPSULE EVERY 12 HOURS 10/04 completed Not Available Not Available Not Available duloxetin e 30 mg capsule,d elayed release TAKE 1 CAPSULE DAILY active Not Available Not Available No t Available duloxetin e 60 mg capsule,d elayed release 1 po daily active Not Available Not Available No t Available Stacie-D 24 Hour 180 mg-240 mg tablet,ex tended release Take 1 tablet every day by oral route as needed. 09/24 completed Not Available Not Available Not Available melatonin q hs prn active Not Available Not A vailable Not Available digestive enzymes Zenwise 350 mg bid active Not Available Not Available No t Available Aleve active Not Available Not Availa ble Not Available Excedrin Migraine active Not Available Not Available Not Available Centrum Silver 1 PO daily active Not Available Not Available No t Available Zantac 75 as needed 11/05 completed Not Available Not Available Not Available Vitamin B12 1000 mcg sl daily active Not Available Not Available No t Available berberine -herbal comb no.18 1200 mg bid active Not Available Not Available No t Available FreeStyle Lite Meter kit use as directed active Not Available Not Available No t Available FreeStyle Lite Strips use one strip daily to check glucose active Not Available Not Available No t Available Havrix (PF) 1,440 ANNALEE unit/mL intramusc ular syringe inject 1 millilit er intramus cularly 10/03 completed Not Available Not Available Not Available Lantus Solostar U-100 Insulin 100 unit/mL (3 mL) subcutane ous pen Inject 20 units every day by subcutan eous route at bedtime for 90 days. active Not Available Not Available No t Available diclofena c 1 % topical gel BILLIE 1 TO 2 GRAMS EXT AA QID active Not Available Not Available No t Available Durezol 0.05 % eye drops 09/24 completed Not Available Not Available Not Available levetirac etam ER 500 mg tablet,ex tended release 24 hr 2 po daily 09/04 completed Not Available Not Available Not Available Refresh P.M. 57.3 %-42.5 % eye ointment APPLY TO AFFECTED EYE EVERY EVENING active Not Available Not Available No t Available Salvax Duo Plus 6 %-35 % topical foam Apply by topical route as directed bid 04/11 completed Not Available Not Available Not Available Suprep Bowel Prep Kit 17.5 gram-3.13 gram-1.6 gram oral solution 10/02 completed Not Available Not Available Not Available Kapvay 0.1 mg tablet,ex tended release TAKE 1 TABLET AT BEDTIME 05/29 completed Not Available Not Available Not Available Caltrate 600 plus D 1 PO daily active Not Available Not Available No t Available Refresh Lacri-Lub e 56.8 %-42.5 % eye ointment Apply by ophthalm ic route to affected eye q pm 2014 active Not Available Not Available Not Avai lable Ilevro 0.3 % eye drops,lucia pension 09/24 completed Not Available Not Available Not Available Oxytrol For Women 3.9 mg/24 hour transderm al patch Apply 1 patch twice a week by transder mal route. 11/19 completed Not Available Not Available Not Available Jardiance 10 mg tablet TAKE 1 TABLET DAILY active Not Available Not Available No t Available Afluria Quad (PF) 60 mcg (15 mcg x 4)/0.5 mL IM syringe inject 0.5 millilit er intramus cularly 11/05 completed Not Available Not Available Not Available BD Jennifer 2nd Gen Pen Needle 32 gauge x USE WITH LANTUS INJECTIO NS ONCE DAILY active Not Available Not Available No t Available Fluarix Quad (PF) 60 mcg (15 mcg x 4)/0.5 mL IM syringe inject 0.5 millilit ers intramus cularly 08/22 completed Not Available Not Available Not Available Vitals Date Recorded Body height Body mass index (BMI) Body weight Heart rate Oxygen saturation Oxygen saturation in Arterial blood by Pulse oximetry Body temperature Systolic blood pressure Diastolic blood pressure Provider Name and Address Organization Details Last Updated DateTime 2 167.64 cm 46.2 kg/m2 205851. 82 g 74 /min 97 % 97 % 97 [degF] 142 mm[Hg] 96 mm[Hg] [facility] 2 15:15:08 Date Recorded Body height Body mass index (BMI) Body weight Body temperature Oxygen saturation Oxygen saturation in Arterial blood by Pulse oximetry Heart rate Systolic blood pressure Diastolic blood pressure Provider Name and Address Organization Details Last Updated DateTime 2 167.64 cm 46.3 kg/m2 746998. 01 g 97.7 [degF] 97 % 97 % 78 /min 137 mm[Hg] 90 mm[Hg] [facility] 2 13:30:48 Date Recorded Body height Body mass index (BMI) Body weight Heart rate Oxygen saturation Oxygen saturation in Arterial blood by Pulse oximetry Body temperature Systolic blood pressure Diastolic blood pressure Provider Name and Address Organization Details Last Updated DateTime 1 167.64 cm 43.9 kg/m2 287406. 82 g 83 /min 96 % 96 % 97.7 [degF] 138 mm[Hg] 83 mm[Hg] [facility] 1 10:04:47 Date Recorded Body height Heart rate Oxygen saturation Oxygen saturation in Arterial blood by Pulse oximetry Body temperature Systolic blood pressure Diastolic blood pressure Provider Name and Address Organization Details Last Updated DateTime 1 167.64 cm 70 /min 97 % 97 % 97.9 [degF] 134 mm[Hg] 91 mm[Hg] [facility] 1 14:54:07 Date Recorded Body height Body mass index (BMI) Body weight Heart rate Oxygen saturation Oxygen saturation in Arterial blood by Pulse oximetry Body temperature Systolic blood pressure Diastolic blood pressure Provider Name and Address Organization Details Last Updated DateTime 1 167.64 cm 46.5 kg/m2 644214. 7 g 82 /min 96 % 96 % 97.2 [degF] 167 mm[Hg] 110 mm[Hg] [facility] 1 10:10:52 Social History Question Answer Notes LastModified by Organizat ion Details LastModified Time Tobacco Smoking Status Never Smoker Not Available [facility] 04/03/2020 03:11:20 Do You Have An Advance Directive? Yes [id number] Information not available 04/03/2020 Animal Exposure? No Informat ion not available 09/02/2011 Auto Related Injury? No Information not available 09/02/2011 Is Blood Transfusion Acceptable In An Emergency? Yes [id number] Information not available 04/03/2020 What Is Your Level Of Caffeine Consumption? Moderate [id number] Information not available 04/03/2020 How Much Tobacco Do You Chew? None [id number] Information not available 04/03/2020 In The 14 Days Before Symptom Onset, Have You Had Close Contact With A Laboratory-confir med COVID-19 While That Case Was Ill? No [id number] Information not available 04/03/2020 In The 14 Days Before Symptom Onset, Have You Had Close Contact With A Person Who Is Under Investigation For COVID-19 While That Person Was Ill? No [id number] Information not available 04/03/2020 Have You Been To An Area Known To Be High Risk For COVID-19? No [id number] Information not available 04/03/2020 Diabetes Yes Information no t available 03/09/2020 What Type Of Diet Are You Following? GLUTENFREE [id number] Information not available 04/03/2020 Education 12 1 Yr. College Information not available 09/02/2011 Family History Of Heart Disease? Yes Information not available 09/02/2011 High Blood Pressure Yes Information not available 09/02/2011 High Cholesterol Yes Informat ion not available 09/02/2011 Live Alone Or With Others? With Others Information not available 09/02/2011 Marital Status Informatio n not available 09/02/2011 What Was The Date Of Your Most Recent Tobacco Screening? 07/30/2021 Information not available 07/31/2021 How Many Children Do You Have? 2 [id number] Information not available 04/03/2020 Obese Yes Information no t available 03/09/2020 What Is Your Relationship Status? Information not available 03/10/2021 Seat Belts Used Routinely Yes Information not available 09/02/2011 Smoke Alarm In Home Yes Information not available 09/02/2011 Are You Passively Exposed To Smoke? No Information no t available 09/02/2011 How Much Tobacco Do You Smoke? No [id number] Information not available 04/03/2020 General Stress Level Low Information not available 09/02/2011 Do You Use Sunscreen Routinely? No [id number] Information not available 04/03/2020 Sex: Unknown Functional Status Question Answer Note LastModified by Organizat ion Details LastModified Time What is your level of alcohol consumption? None [id number] Information not available 04/03/2020 Are you currently employed? No Information not available 03/10/2021 Are you able to care for yourself? 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 Occasional Information not available 03/10/2021 Mental Status None recorded. Family History Relationship Description Onset Age of this Age Resolved Age Notes LastModified by Organization Details LastModified Time Mother Malignant neoplastic disease breast (previ ously record ed as Cancer ) Not available 10/23/2015 09:34:40 Sister Malignant neoplastic disease stomac h, diabet es (previ ously record ed as Cancer ) Not available 10/23/2015 09:34:40 Brother Malignant neoplastic disease colon, diabet es (previ ously record ed as Cancer ) Not available 10/23/2015 09:34:40 Father Malignant neoplastic disease stomac h, heart proble m (previ ously record ed as Cancer ) Not available 10/23/2015 09:34:40 Sister Malignant neoplastic disease breast (previ ously record ed as Cancer ) Not available 10/23/2015 09:34:40 Sister Malignant tumor of breast 40 Not available 2017 10:25:47 Maternal Grandmother Malignant neoplastic disease breast (previ ously record ed as Cancer ) Not available 10/23/2015 09:34:40 Notes:all of four sisters bu t one are positive for BRCA 2 gene; she is the oldest sister; She has one brother with colon cancer. Medical History Condition Response Coronary Artery Disease N Gout N Kidney Stones N Blood Diseases N Hyperthyroidism N Depression Y COPD N Hypothyroidism Y Developmental or Behavioral Disorders N Eczema, Hives or other skin conditions N Anxiety Disorder N Muscle, Joint, or Bone Problems N Vision or Eye Problems N Arthritis Y Serious Illness or Injuries N Congenital Anomalies N Cancer N Stroke N Bladder or Kidney Problems N Hospital Admission other than N High Cholesterol Y Liver Disease N Fibromyalgia N Kidney Disease N Heart Problems N Ear or Hearing Problems N ADD or ADHD N Thyroid Problems N Skin Problems N Anemia N Constipation N Diabetes N Bedwetting N Seizures/Epilepsy N Tuberculosis N Diverticulitis N Asthma N Allergies N GERD/Reflux N Heart Disease N Pulmonary Embolism N Hypertension Y Chicken Pox N Osteoporosis N Gynecological HistoryNo gynecological history recorded. Obstetrics History GPAL:G 0 P 0 0 0 0 Immunizations Vaccine Type Date Status Note Provider Nam e and Address Organization Details Recorded Time Influenza, split virus, quadrivalent, PF 7 completed Not Available [facility] 06/25/2019 02:12:13 pneumococcal polysaccharide PPV23 7 completed Not Available [facility] 06/25/2019 02:12:07 Influenza, recombinant, quadrivalent, PF 0 completed Not Available [facility] 03/06/2020 10:29:37 Influenza, split virus, trivalent, preservative 4 completed [facility] 05/18/2014 11:03:43 zoster recombinant 1 completed Not Available [facility] 11/29/2020 15:01:31 zoster recombinant 1 completed Not Available [facility] 03/07/2021 10:17:21 Influenza, split virus, trivalent, preservative 5 completed Mounika Mccarty MD [address] [address], [place], [address], [facility] 02/22/2015 19:20:45 pneumococcal, unspecified formulation 2 completed Mounika Mccarty MD [address] [address], [place], [address], [facility] 03/05/2012 10:59:08 Influenza, split virus, quadrivalent, preservative 6 completed [facility] 04/11/2016 11:41:59 Pneumococcal conjugate PCV 13 6 completed [facility] 04/11/2016 11:42:57 Tdap 7 completed [facility] 07/29/2016 11:14:49 zoster live 7 completed [facility] 07/29/2016 11:15:02 Hep A, adult 7 completed Mounika Mccarty MD [address] [facility], [address] [address], [place], [address], [facility] 06/25/2017 08:51:34 Influenza, split virus, quadrivalent, preservative 8 completed Mounika Mccarty MD [address] [facility], [facility], [place], [address], [facility] 05/03/2018 22:10:14 Hep A, adult 9 completed Mounika Mccarty MD [address] [address], [place], [address], [place] [facility] 11/05/2018 15:38:26 Influenza, split virus, quadrivalent, preservative 9 completed [facility] 02/24/2019 08:48:02 SARS-COV-2 (COVID-19) vaccine, UNSPECIFIED 1 completed Mounika Mccarty MD [address] [address], [place], [address], [place] [facility] 08/20/2020 11:05:17 SARS-COV-2 (COVID-19) vaccine, UNSPECIFIED 1 completed Mounika Mccarty MD [address] [address], [place], [address], [facility] 08/20/2020 11:05:35 Influenza, split virus, trivalent, preservative 2 completed Not Available [facility] 06/25/2019 02:12:11 Influenza, split virus, trivalent, preservative 3 completed Mounika Mccarty MD [address] [address], [place], [address], [place] [facility] 07/18/2013 09:53:05 Past Encounters Encounter ID Performer Location Encounter Start Date Encounter Closed Date Diagnosis/Indication Diagnosis SNOMED-CT Code Diagnosis ICD10 Code Diagnosis Note [id number] Mounika Mccarty MD [facility] [address] [address] 09/02/2011 08:45:51 09/02/2011 14:14:27 [id number] Mounika Mccarty MD [address] [id number] 10/06/2011 15:31:57 10/07/2011 08:28:44 [id number] Mounika Mccarty MD [facility] [address] [address] 01/12/2012 15:33:44 01/14/2012 10:33:44 [id number] Mounika Mccarty MD [address] [id number] 03/05/2012 09:44:43 03/05/2012 11:54:19 [id number] Mounika Mccarty MD [place] [id number] 12/24/2012 15:49:00 12/24/2012 17:40:53 [id number] Mounika Mccarty MD [address] [address] 07/18/2013 08:49:00 07/18/2013 14:39:55 Essential hypertension 27450736 Hyperlipidemia 07742823 Hypothyroidism 40615741 Pain of hip region 39219352 Hypertroph ic condition of skin 25140532 [id number] Mounika Mccarty MD [facility] [address] [address] 03/14/2014 08:23:05 03/14/2014 10:44:00 Achilles tendinitis 60636372 Depressive disorder 94592760 Otitis media 60905817 Impacted cerumen 44563775 Anxiety 71746813 Sleep disorder 08432144 Generalize d osteoarthritis 157469148 Chronic he adache disorder 637002498 Hypertensive disorder 80110030 [id number] Mounika Mccarty MD [address] [address] 03/23/2014 13:34:43 03/31/2014 15:08:30 Essential hypertension 67985939 Sleep apnea 86931498 Generalize d osteoarthritis 916167934 Hyperlipidemia 76914600 Hypothyroidism 20858470 Malaise and fatigue 544283115 [id number] Mounika Mccarty MD [address] [id number] 03/30/2014 16:33:06 04/05/2014 11:07:04 Hypertensive disorder 01927011 Achilles tendinitis 32263662 [id number] Mounika Mccarty MD [address] [id number] 04/28/2014 13:31:14 04/28/2014 16:30:03 Tendinitis of elbow or forearm 0340160724 06 [id number] Mounika Mccarty MD [facility] [address] [address] 11/09/2014 08:52:46 11/09/2014 17:00:21 Anthony's palsy 420849867 Vertiginous syndrome 69700848 Chronic he adache disorder 382996906 Essential hypertension 42762474 Nausea 483958993 [id number] Mounika Mccarty MD [facility] [place] [id number] 12/12/2014 08:57:45 12/12/2014 10:24:23 Essential hypertension 50423916 Depressive disorder 02006707 Chronic he adache disorder 492376475 Sleep disorder 58334420 Type 2 alex betes mellitus without complication 561901516 Generalize d osteoarthritis 119175710 [id number] Mounika Mccarty MD [facility] [place] [id number] 01/18/2015 09:17:25 01/18/2015 17:38:28 Essential hypertension 53720418 Achilles tendinitis 39786437 Generalize d osteoarthritis 019206023 Type 2 alex betes mellitus without complication 465231999 Sensory neuropathy 69247888 [id number] Mounika Mccarty MD [address] [id number] 05/16/2015 08:57:46 05/18/2015 00:24:01 Acute sinusitis 23289448 J01.90 [id number] Mounika Mccarty MD [facility] [address] [id number] 06/06/2015 08:31:34 06/10/2015 23:21:56 Acute bronchitis 64290207 J20.9 Dehydration 29522055 E86 .0 Acute urin troy tract infection 438461151 N39.0 [id number] Mounika Mccarty MD [facility] [address] [address] 06/18/2015 08:42:16 06/20/2015 08:46:44 Adult health examination 586323021 Z00.01 Essential hypertension 55482003 I10 Hyperlipidemia 03745156 E78.5 Hypothyroidism 15300587 E03.9 Screening mammography 24 458584 Z12.31 Type 2 alex betes mellitus without complication 105931141 E11.9 Diabetic p eripheral neuropathy 989190739 E11.40 [id number] Mounika Mccarty MD [facility] [address] [place], [place] [id number] 10/23/2015 08:16:56 10/24/2015 08:18:04 Depressive disorder 21491526 F32.9 Insomnia 559227597 G47.0 0 Hypothyroidism 43683021 E03.9 Generalize d osteoarthritis 309469531 M15.9 [id number] Mounika Mccarty MD [facility] [address] [place], [place] [id number] 04/11/2016 10:58:24 04/16/2016 09:20:48 Chronic headache disorder 933132611 G43.719 [id number] Mounika Mccarty MD [place] [address] 7 05/29/2016 09:12:39 05/29/2016 14:20:15 Essential hypertension 16084274 I10 Atypical chest pain 1025 17694 R07.89 Migraine 64753059 G43.90 9 Gastroesop hageal reflux disease 529558635 K21.9 [id number] Mounika Mccarty MD [facility] [place] [id number] 07/29/2016 09:13:23 07/30/2016 09:03:26 Adult health examination 866940322 Z00.01 Hypothyroidism 06005941 E03.9 Greater tr ochanteric pain syndrome 7483207 M70.60 Cyst of breast 149821714 N60.01 Body mass index 40+ - severely obese 244507025 Z68.42 Active or passive immunization 078655473 Z23 Essential hypertension 58617616 I10 Depressive disorder 3548 9007 F32.4 Diabetic p eripheral neuropathy 598130297 E11.40 Hyperlipidemia 34895820 E78.5 [id number] Mounika Mccarty MD [facility] [address] [address] 01/15/2017 15:08:38 01/16/2017 10:04:52 Pre-surgery evaluation 117305839 Z01.818 Essential hypertension 88861441 I10 Hypothyroidism 10349499 E03.9 Diabetic p eripheral neuropathy 795334158 E11.40 Depressive disorder 3548 9007 F32.5 History of migraine 1614 66924 Z86.69 Hyperlipidemia 37817863 E78.5 [id number] Mounika Mccarty MD [facility] [address] [place] [address] 7 03/16/2017 10:33:29 03/17/2017 09:17:07 Active or passive immunization 809025385 Z23 [place] malignant neoplasm of breast 0337614449 66741 Z91.89 Type 2 alex betes mellitus without complication 681509988 E11.9 Essential hypertension 52708100 I10 Hyperlipidemia 11710259 E78.5 Hypothyroidism 79449089 E03.9 [id number] Mounika Mccarty MD [facility] [place] [address] 7 05/18/2017 10:10:11 05/18/2017 14:10:28 Acute sinusitis 97500471 J01.90 [id number] Mounika Mccarty MD [facility] [place] [address] 7 07/03/2017 10:12:53 07/03/2017 14:24:33 Urge incontinence of urine 52657261 N39.41 Body mass index 40+ - severely obese 692232517 Z68.42 [id number] Mounika Mccarty MD [place] [address] 7 08/18/2017 09:14:18 08/19/2017 12:06:58 Adult health examination 217120977 Z00.01 Seasonal a llergic rhinitis 624884096 J30.2 Screening for malignant neoplasm of colon 639727016 Z12.11 Essential hypertension 67185050 I10 Hyperlipidemia 39509939 E78.5 History of migraine 1614 39321 Z86.69 Chronic pain syndrome 37 7813964 G89.4 BRCA2 gene mutation detected 114241973 Z15.01 Hypothyroidism 93866819 E03.9 Diabetic p eripheral neuropathy 173585356 E11.40 Depressive disorder 3548 9007 F32.5 Body mass index 40+ - severely obese 809285065 Z68.42 [id number] Mounika Mccarty MD [facility] [place] [address] 7 12/17/2017 09:48:26 12/18/2017 08:06:22 Essential hypertension 79785344 I10 Migraine 64794245 G43.90 9 Seizure disorder 9241334 02 G40.909 Depressive disorder 3548 9007 F32.5 History of hemorrhagic cerebrovascular accident without residual deficits 0184892733 96380 Z86.73 Body mass index 40+ - severely obese 587704704 Z68.42 [id number] Mounika Mccarty MD [facility] [address] [place] [address] 7 07/05/2018 09:40:47 07/05/2018 17:58:04 Urinary tract infectious disease 80018282 N39.0 Acute pyelonephritis 366 88297 N10 [id number] Mounika Mccarty MD [facility] [address] [place] [address] 7 09/24/2018 09:51:14 09/26/2018 21:27:36 Adult health examination 071269719 Z00.01 Hypothyroidism 27234956 E03.9 Allergic rhinitis 413473 04 J30.9 Urinary tr act infectious disease 17014430 N39.0 Hyperlipidemia 61117559 E78.5 Screening for malignant neoplasm of colon 379436410 Z12.11 Obstructiv e sleep apnea syndrome 01185616 G47.33 Atypical chest pain 1025 39788 R07.89 Essential hypertension 59543708 I10 History of migraine 1614 07131 Z86.69 BRCA2 gene mutation detected 751598500 Z15.01 Diabetic p eripheral neuropathy 592897525 E11.40 Depressive disorder 3548 9007 F32.5 Body mass index 40+ - severely obese 690763655 Z68.42 at her last visit and may be higher now Uncontroll ed type 2 diabetes mellitus 682903577 E11.65 Memory impairment 700804 006 R41.3 [id number] Mounika Mccarty MD [facility] [address] [place] [address] 7 11/05/2018 14:43:12 11/09/2018 08:11:28 Uncontrolled type 2 diabetes mellitus 977985448 E11.65 Essential hypertension 47315434 I10 Body mass index 40+ - severely obese 617580303 Z68.42 at her last visit and may be higher now Hyperlipidemia 51302521 E78.5 Depressive disorder 3548 9007 F32.5 Hypothyroidism 83835944 E03.9 [id number] Mounika Mccarty MD [facility] [address] [place] [address] 7 01/14/2019 14:46:06 01/17/2019 07:47:19 Seizure disorder 075125415 G40.909 History of migraine 1614 04900 Z86.69 Essential hypertension 31714620 I10 she will continue to monitor this as it is quite variable and consider taking a low dose( 2.5 to 5 mg) of the amlodipine 10 mg tablets she has at home. [id number] Mounika Mccarty MD [facility] [address] [place] [address] 7 09/05/2019 14:18:47 09/06/2019 09:11:02 Abdominal pain 20923466 R10.9 Diarrhea 03290184 R19.7 Gastro-eso phageal reflux disease with esophagitis 121858301 K21.0 Uncontroll ed type 2 diabetes mellitus 155586470 E11.65 Hyperlipidemia 66732059 E78.5 [id number] Mounika Mccarty MD [facility] [address] [place] [address] 7 01/30/2020 13:57:06 02/01/2020 19:05:24 Increased frequency of urination 239874741 R35.0 Uncontroll ed type 2 diabetes mellitus 486356158 E11.65 Depressive disorder 3548 9007 F32.5 Depression screening 171 597782 Z13.31 Pain in left thumb 64911 14574 009293 M79.645 [id number] Mounika Mccarty MD [facility] [address] [place] [address] 7 03/06/2020 09:34:40 03/09/2020 15:50:46 Active or passive immunization 851678970 Z23 Trochanter ic bursitis of right hip 9018838922 02509 M70.61 Adult heal th examination 392974280 Z00.01 Hypothyroidism 20239087 E03.9 Allergic rhinitis 215713 04 J30.9 Hyperlipidemia 38790081 E78.5 Obstructiv e sleep apnea syndrome 33120570 G47.33 History of migraine 1614 94749 Z86.69 BRCA2 gene mutation detected 857025219 Z15.01 Diabetic p eripheral neuropathy 187836978 E11.40 Depressive disorder 3548 9007 F32.5 Body mass index 40+ - severely obese 129551139 Z68.42 at her last visit and may be higher now Uncontroll ed type 2 diabetes mellitus 987357508 E11.65 Memory impairment 575618 006 R41.3 [id number] Mounika Mccarty MD [facility] [address] [address] 05/21/2020 11:06:49 05/22/2020 08:38:40 Diabetic peripheral neuropathy 420322948 E11.40 Dizziness 801850941 R42 we will decrease clonidine only to pm dose Administra tion of viral vaccine 76142132 Z23 Body mass index 40+ - severely obese 700036939 Z68.41 [id number] Mounika Mccarty MD [facility] [address] [address] 08/20/2020 09:58:53 08/23/2020 08:56:59 Essential hypertension 31012782 I10 Hyperlipidemia 28533609 E78.5 Fatigue 07465488 R53.83 Type 2 alex betes mellitus without complication 560930802 E11.9 Depressive disorder 3548 9007 F32.5 Mild memor y disturbance 319102040 R41.3 Seizure disorder 2820855 02 G40.909 [id number] Mounika Mccarty MD [facility] [address] [address] 7 11/29/2020 14:48:17 12/03/2020 09:29:29 Active or passive immunization 323700582 Z23 Neoplasm o f uncertain behavior of skin 33255158 D48.5 suspicious lesion dorsum right hand [id number] Mounika Mccarty MD [facility] [address] [address] 03/07/2021 10:09:30 03/10/2021 15:54:35 Active or passive immunization 913425007 Z23 Adult heal th examination 448209841 Z00.01 Trochanter ic bursitis of right hip 3995165116 33081 M70.61 Hypothyroidism 64141321 E03.9 Allergic rhinitis 486298 04 J30.9 Hyperlipidemia 49462079 E78.5 Obstructiv e sleep apnea syndrome 94933182 G47.33 History of migraine 1614 74105 Z86.69 BRCA2 gene mutation detected 738715626 Z15.01 Diabetic p eripheral neuropathy 736578494 E11.40 Depressive disorder 3548 9007 F32.5 Body mass index 40+ - severely obese 169257018 Z68.42 at her last visit and may be higher now Uncontroll ed type 2 diabetes mellitus 584620621 E11.65 Memory impairment 837924 006 R41.3 Essential hypertension 87428482 I10 Fatigue 24167790 R53.83 [id number] Mounika Mccarty MD [facility] [address] [address] 07/08/2021 14:47:45 07/10/2021 11:53:17 Chest pain 29295702 R07.9 This started 3-4 weeks ago with any activity and it causes a chest pressure and significan t dyspnea with any activity that is new. This is gradually worsening over the past several weeks and is concerning for CAD. Dyspnea on exertion 6084 5006 R06.09 Dyspnea 360851543 R06.00 [id number] Mounika Mccarty MD [facility] [address] [address] 07/30/2021 13:26:45 08/01/2021 08:50:19 Dyspnea on exertion 95068158 R06.09 Multiple n odules of lung 888740280 R91.8 Gastroesop hageal reflux disease 770860134 K21.9 Body mass index 40+ - severely obese 564911523 Z68.42 Health Concerns Section Related Observation LastModified by Organization Detai ls LastModified Time None Recorded Concern Status LastModified by Organization Details LastModified Time None Recorded Advance Directives Directive Y: Payers Insurance Date Sequence Insurance Name Policy Number Policy Hope Covered Member ID Hope Member ID Guarantor Name 09/22/2021 1 [facility] Eliel Murphy [id number] Eliel Murphy 06/05/2023 1 [place] Eliel Murphy [id number] Eliel Murphy 09/22/2021 1 [employer] - [place] [employer] - [facility] (PPO) [id number] Eliel Murphy [id number] Eliel Murphy 09/22/2021 1 [facility] Eliel Murphy [id number] Eliel Murphy 12/03/2021 2 FOR LIFE ( - MEDICARE SUPPLEMENT) Eliel Murphy [id number] Eliel Murphy 12/03/2021 1 [facility] () Eliel Murphy [id number] Eliel Murphy Notes Date Note Type Note Provider Name and Address Organization Details Recorded Time 08/20/2020 text/html Her sister end of june and she got off her diet She had leukemia and was a year younger than her. She is having a hard time with it. She is still doing plant based eating for the most part Mounika Mccarty MD [facility], [address], [address], [facility] 08/22/2020 20:29:32 11/29/2020 text/html she had a sleep study a few weeks ago and she remains on BipaP and she may be changed She has a suspicious lesion right dorsum of hand for early basal cell Mounika Mccarty MD 2017 [facility], [place] [address], [place], [address], [facility] 12/02/2020 22:40:19 03/07/2021 text/html her CPAP/ ARC wa s increased about 2 months ago but she is still tired but her sleep numbers are doing well. Mounika Mccarty MD 2017 [facility], [facility], [place], [address], [facility] 03/10/2021 15:50:36 07/08/2021 text/html she has been having significant shortness of breath and went to ER. She feels that she gets worse as the day progresses At night on BIPAP she does OK but feels at times like she is struggling with any activity. 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 She is having some dry cough lately as well. No fevers. Had a negative covid test last week but we recommend repeating Has not had the Booster yet.All activity including just walking to mailbox has started causing her to have shortness of breath Mounika Mccarty MD [address] [facility], [address], [place], [address], [facility] 07/09/2021 23:21:50 07/30/2021 text/html she gets out of breath walking to and from mailbox but they keep walking. And sometimes just feels short of breath when sitting and it gets worse as the day goes on. She does not have acid reflux. She gets a pressure sensation in her chest but no pain. She never chokes. She just had a normal lexiscan stress test. Mounika Mccarty MD [address] [facility], [address], [place], [address], [facility] 07/31/2021 19:49:55 OBGyn Episode No OBEpisode recorded.
== END 2024-11-28 23:59 | disposition home or self-care (01) ==
LOC: RAD 08:39
PROVIDERS: PCP Family Medicine; Visit Provider Family Medicine
DX: M81.0 Age-related osteoporosis without current pathological fracture (principal)
CPT/HCPCS: 77080

== ENCOUNTER 2024-12-22 13:22 | Outpatient (CLI) | payer MEDICARE, OTHER, SELFPAY ==
--- OUTSIDE RECORDS SUMMARY | 2024-11-07 05:45 | XMS_ITS ---
Author Organization [facility] Address [address] [facility] [address] [place] [phone] Care Team Providers Care Heavy Media Operator Name Role Phone Yossi Cuadra Primary Care Provider [phone] Allergies Allergen (clinical drug ingredient) Drug/Non Drug [...] Status W/U Status Risk Notes Problem Dementia (28117989) Dementia associated with other underlying disease without behavioral disturbance (F02.80) Active confirmed Problem Obese class II (338031608628 105) BMI 39.0-39.9,adult (Z68.39) Active confirmed Vital Signs Blood pressure systolic 128 mm Hg 11/08/19 25 Blood pressure diastolic 78 mm Hg 025 Heart Rate 62 /min 11/07/2024 Height 65.5 in 11/07/2024 Weight 240.2 lbs 11/07/2024 BMI 39.36 kg/m2 11/07/2024 Encounters Encounter Location Date Provider Diagnosis [facility] [address] [place] [phone] 11/07/2024 Yossi Cuadra Primary hypertension I10 ; [...] 05/24/2025 09:30:00 AM, [address] [facility], [address], [place], [place], [phone], Progress Notes * OLEG ALEJANDRO: 7 (69 yo F)Acc No.[id number]:11/07/2024 Progress Notes Patient: ELIEL CARROLL Provider: Kenia Cuadra M.D. :1955 A ge:69 Y S ex:Female Date:11/07/2024 Address:[address] [place] [address] Subjective: * Chief Complaints: * 1 . [...] iabetes Mellitus 2, Hypertension, Followed by Dr. aPtel, Hypothyroidism, Migraines, Histoplamosis, Sleep Apnea, treated with ASV, Renal Artery Stenosis, Enlarged Left Atrium, Narcolepsy, Brain Hemorrhage, Memory Loss, Mild cognitive impairment, PRES syndrome, s/p neurology evaluation at [facility], Allergic Rhinitis, Cardiac Murmur, COPD. * [...] behavioral disturbance - F02.80 8 . B MS 39.0-39.9,adult - Z68.39 Plan: * Treatment: 2. [...] G 2211 Complex e/[place], [address] CAPILLARY BLOOD DRAW, 73749 GLUCOSE TEST, 82667 GLYCATED HEMOGLOBIN TEST, Modifiers: QW , 3044F HG A1C LEVEL LT 7.0%, G8950 PREHTN/HTN BP DOC INDCD F/U DOC, G8752 MOST RECENT SYSTOLIC BP < 140MM HG, G8754 MOST RECENT DIASTOLIC BP < 90MM HG * Follow Up: 6 Months * Images: Billing Information: * Visit Code: 30130 Office Visit, Est Pt., Level 4. * Procedure Codes: G2211 Complex e/[place]. [address] CAPILLARY BLOOD DRAW. 51418 GLUCOSE TEST. 49080 GLYCATED HEMOGLOBIN TEST. Modifiers: QW 3044F HG A1C LEVEL LT 7.0%. G8950 PREHTN/HTN BP DOC INDCD F/U DOC. G8752 MOST RECENT SYSTOLIC BP < 140MM HG. G8754 MOST RECENT DIASTOLIC BP < 90MM HG. * Electronic signature of Swapna Cuadra MD on 12/22/2024 at 01:26 PM EDT Sign off status: Pending * Provider: Kenia Cuadra M.D. Date: 0 11/07/2024 Generated for [place] nance/Valerie/eTransmitting on: 0 12/22/2024 01:26 PM EDT History and Physical Notes * HPI [...]
--- OUTSIDE RECORDS SUMMARY | 2024-11-08 07:04 | XMS_ITS ---
Author Organization [facility] Address [address] [place] [address] 36 [facility] Kimberlee [place] [id number] Care Team Providers Care Junior High School Teacher Name Role Phone Yossi Cuadra Primary Care Provider Results Component Value Reference Range Notes Cologuard Reviewed date:11/17/2024 02:22:24 PM Interpretation:not performed, pt is not a candidate Performing Lab: Notes/Report: not performed, pt is not a candidate DEXA Hip and Spine Reviewed date:11/30/2024 03:47:48 PM Interpretation:Normal Performing Lab: Notes/Report: Normal REASON FOR VISIT due for screenings Encounters Encounter Location Date Provider Diagnosis [facility] 1210 [facility] 36 [facility] [address] [place] [id number] 11/08/2024 Yossi Cuadra Osteoporosis screeni ng Z13.820 and Colon cancer screening Z12.11 Assessments Encounter Date Diagnosis (ICD Code) Assessment Notes Treatment Notes Treatment Clinical Notes Section Notes 11/08/2024 Osteoporosis screening (ICD-10 - Z13.820) 11/08/2024 Colon cancer screening (ICD-10 - Z12.11) Plan Of Treatment Next Appt Details Provider Name:Yossi Kat ry, 05/24/2025 09:30:00 AM, [address] [facility] 36 [facility], [address], [place], [id number], Progress Notes * ELIEL ALEJANDRODOB: 7 (69 yo F)Acc No.[id number]:11/08/2024 Patient: Ramon ELIEL MERRILL :1955 A ge:69 Y S ex:Female Address:[address] [place] [address] Subjective: * Chief Complaints: * D ue for screenings * Medical History: * Surgical History: * Hospitalization/Major Diagno stic Procedure: * Medications: Objective: * Vitals: * Physical Examination: Assessment: * Assessment: 1. O steoporosis screening - Z13.820 (Primary) 2 . C olon cancer screening - Z12.11 Plan: * Treatment: 2. C olon cancer screening L AB: Cologuard * Procedure Codes: * true * Date: Generated for [place] nance/Valerie/eTransmitting on: 0 12/22/2024 01:25 PM EDT
--- OUTSIDE RECORDS SUMMARY | 2024-11-17 09:51 | XMS_ITS ---
[facility] [address] [facility] [address] [place] [id number] Care Team Providers Care Cotton Candy Maker Name Role Phone Yossi Cuadra Primary Care Provider [phone] REASON FOR VISIT order change Encounters Encounter Location Date Provider Diagnosis [facility] [address] [facility] [address] [place] [id number] 11/17/2024 Yossi Cuadra Screening for colon cancer Z12.11 Assessments Encounter Date Diagnosis (ICD Code) Assessment Notes Treatment Notes Treatment Clinical Notes Section Notes 11/17/2024 Screening for colon cancer (ICD-10 - Z12.11) Plan Of Treatment Pending Test Test Name Order Date colonoscopy 11/17/2024 Next Appt Details Provider Name:Yossi Kat ry, 05/24/2025 09:30:00 AM, [address] [facility], [address], [place], [id number], Progress Notes * ELIEL ALEJANDRODOB: (69 yo F)Acc No.[id number]:11/17/2024 Patient: ELIEL CARROLL :1955 A ge:69 Y S ex:Female Address:[facility] [address] [place], [address] Subjective: * Chief Complaints: * O rder change * Medical History: * Surgical History: * Hospitalization/Major Diagno stic Procedure: * Medications: Objective: * Vitals: * Physical Examination: Assessment: * Assessment: 1. S creening for colon cancer - Z12.11 (Primary) Plan: * Treatment: * Procedure Codes: * true * Date: Generated for [place] nance/Valerie/Anurag on: 0 12/22/2024 01:25 PM EDT
--- OUTSIDE RECORDS SUMMARY | 2024-12-22 13:23 | XMS_ITS | Continuity of Care Document ---
Author Name [facility] Organization [facility] Care Team Providers Care Silk Spooler Name Role Phone [facility] Unavailable Unavailable Medications Combined list of outpatient [...] APOTEX JERSON, 30 ml SQUEEZ BTL Active [id number] 4 2023 60 Pharmac y Data Transac tion Service Facilit y CLONIDINE HCL (clonidine HCl), 0.2 MG, TABLET, ORAL, [employer]., 1000 ea. BOTTLE Active [id number] 4 2023 180 Pharmac y Data Transac tion Service Facilit y DONEPEZIL HCL (DONEPEZIL HCL), 10 MG, TABLET, ORAL, [employer] 1000 ea. BOTTLE Active [id number] 4 2023 90 Pharmac y Data Transac tion Service Facilit y METOPROLOL SUCCINATE (metoprolol succinate), 50 MG, TAB ER 24H, ORAL, [employer] 1000 ea. BOTTLE Active [id number] 4 2023 90 Pharmac y Data Transac tion Service Facilit y MONTELUKAST SODIUM (montelukas t sodium), 10 MG, TABLET, ORAL, [employer], 90 ea. BOTTLE Active [id number] 4 2023 90 Pharmac y Data Transac tion Service Facilit y OZEMPIC (semaglutid e), 1/0.75 (3), PEN INJCTR, SUBCUT, ALPHONSE NORDISK, 3 ml SYRINGE Active [id number] 4 2023 9 Pharmac y Data Transac tion Service Facilit y SYNTHROID (LEVOTHYROX INE SODIUM), 137 MCG, TABLET, ORAL, [employer] 90 ea. BOTTLE Cancele d 0524538 4 [id number] : 2023 0 Pharmac y Data Transac tion Service Facilit y SYNTHROID (LEVOTHYROX INE SODIUM), 137 MCG, TABLET, ORAL, [employer] 90 ea. BOTTLE Active [id number] 4 2023 90 Pharmac y Data Transac tion Service Facilit y Allergies, Adverse Reactions, Alerts Combined list of allergies from Department of Defense and Veterans Affairs facilities. It does not include entries that were removed or entered in error. Substance Category Reaction Severity Reaction type Status Date Reported Comments Source No Known Allergies Drug allergy (disorder) active [address] [facility] Immunizations Combined list of available immunizations from the Department of Defense and Veterans Affairs facilities. Immunization Series Date Given Administered By Site Reaction Lot Number CVX Code Drug Research Chemical Engineer Status Comments Source influenza, injectable, quadrivalent, preservative free 2020 DERRICK VILLAREAL, () Not Given influenza , injectabl e, quadrival ent, preservat margarito free DoD influenza, injectable, quadrivalent, preservative free 2018 ERWIN WALTON () Not Given influenza , injectabl e, quadrival ent, preservat margarito free DoD Hep A, adult 2016 LIZZY GUADALUPE () Not Given Hep A, adult [facility] Social History Combined list of available smoking, tobacco, and other social history from Department of Defense and Veterans Affairs facilities. Social History Type Response Date Comment Formerly [facility] e This section is an empty social history section. [facility]
--- OUTSIDE RECORDS SUMMARY | 2024-12-22 13:25 | XMS_ITS | Clinical Summary ---
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 OBESITY 578809159 (SNOMED CT) Active Jovita Calle MD Obesity DM TYPE II E11.9 (ICD-10-CM ) Active Alexandra Rea Type 2 diabetes mellitus without complications HYPERTENSION 87111598 (SNOMED CT) Active Alexandra Rea Hypertensive disorder HYPERLIPIDEMIA 49189615 (SNOMED CT) Active Alexandra Rea Hyperlipidemia MARTHA LUNG 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 Take after a full meal. ITRACONAZOLE 26585491685 Donita Suzan RN ITRACONAZOLE 100 MG CAPS take two pills three times daily for two days, then decrease to two pills twice daily. Take after a full meal. ITRACONAZOLE 80565952425 Jovita Calle MD PERCOCET TABS OXYCODONE-ACETAM INOPHEN TABS 78576660298 Jovita Calle MD MECLIZINE HCL TABS MECLIZINE HCL TABS 10389066457 Jovita Calle MD ZYRTEC ALLERGY TABS CETIRIZINE HCL TABS 62493951277 Jovita Calle MD STOOL SOFTENER CAPS DOCUSATE CALCIUM CAPS 60496132335 Jovita Calle MD PERCOCET TABS OXYCODONE-ACETAM INOPHEN TABS 77077042311 Becca G MECLIZINE HCL TABS MECLIZINE HCL TABS 79029029160 Becca G ZYRTEC ALLERGY TABS CETIRIZINE HCL TABS 70661910929 Becca G SIMVASTATIN TABLET SIMVASTATIN TABS 78526472318 Becca G CENTRUM ORAL TABLET MULTIPLE VITAMINS-MINERAL S 41878613669 Becca G METFORMIN HCL TABS METFORMIN HCL TABS 06746797169 Becca G COZAAR 50 MG TABS [place]ARTAN POTASSIUM 00698985150 Becca G SYNTHROID TABS LEVOTHYROXINE SODIUM TABS 05530636286 Becca G LEXAPRO TABS ESCITALOPRAM OXALATE TABS 35579980643 Becca G STOOL SOFTENER CAPS DOCUSATE CALCIUM CAPS 56249628486 Becca G CELEBREX CAPS CELECOXIB CAPS 88358701036 Becca G Medications Administered No information available. [...] Procedures Code Procedure Name Date Entry Date CPT-75201 Histoplasmosis Urinary AG 20 20/06/10 Vital Signs [...]
--- OUTSIDE RECORDS SUMMARY | 2024-12-22 13:25 | XMS_ITS | Clinical Summary ---
Author Organization Healthcare Address [address] [place] [address] Care Team Providers Care Customer Success Manager Name Role Phone Mounika Mccarty MD Primary [...] PCV20 or PCV21) 03/16/2022 03/16/2017, 04/11/2016, 06/08/2011 [id number] Vaccine (1 - 2023- season) 2024 [facility]-Influenza Vaccine (#1) 02/06/202505/14, 02/18/2015, 03/14/2014, Additional history exists [facility]-DTaP,Tdap,and Td [...] femaleDate of Service: 08/01/2020 eferring Phy:[phone] Dictated By: Luis Whaley M.D. Verified By: [...] An Outside Location on 07/28/2016, and at [facility] on 2017 and 10/11/2018. FINDINGS: MAMMOGRAM [...] femaleDate of Service: 08/01/2020 eferring Phy:[facility] [phone] MD [facility], [address] [place] [address] FINAL REPORT PROCEDURE: Tomosynthesis Bilateral Screening - [...] An Outside Location on 07/28/2016, and at [facility] on 2017 and 10/11/2018. FINDINGS: MAMMOGRAM [...] An Outside Location on 07/28/2016, and at [facility] on 2017 and 10/11/2018. FINDINGS: MAMMOGRAM [...] Gender: femaleDate of Service:08/01/2020 eferring Phy:[facility] [phone] MD [place] [address], [address] [place] [address] FINAL REPORT PROCEDURE: Tomosynthesis Bilateral Screening - [...] An Outside Location on 07/28/2016, and at [facility] on 2017 and 10/11/2018. FINDINGS: MAMMOGRAM [...] Gender: femaleDate of Service:08/01/2020 eferring Phy:[facility] [phone] Dictated By: Luis Whaley M.D. Verified By: Luis Whaley M.D. on 08/02/2020 at 03:07:24 PM Page 2 of 2 us Mounika Mccarty MD IMG BI PROCEDURES Final Res ult from Last 3 Months or Most Recently Relevant to Health [place] [address] [id number] MEDICARE Care Teams Customer Success Manager Relationship Specialty Start Date End Date Mounika Mccarty MD [address] [place] [address] [address] [place] [address] PCP - General 10/19/20
--- OUTSIDE RECORDS SUMMARY | 2024-12-22 13:26 | XMS_ITS | Data Portability ---
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 She is [...] she will continue to be followed by [facility] cardiology as her risk factors are very [...] 2022. She is now being followed at [facility] and did test positive for the BRCA [...] have been doing OK. She saw her chicken hanger, Dr. Patel for a brief visit in [...] SARS CoV 2 RNA (COVID-19 ), QL, employment representative-PCR, respirato ry specimen 2021 022 [facility], [address] [place], [address], 21:03:08 HbA1c (hemoglob in A1c), blood 2020 [facility], [address] [place], [address], 08:29:15 microalbu min/creat inine, ratio panel, urine 2020 021 [email or web address] 5 [facility], [address] [place], [address], 12:05:54 CMP, serum or plasma 2020 [facility], [address] [place], [address], 08:29:14 lipid panel, serum 2020 [facility], [address] [place], [address], 08:29:13 TSH, serum or plasma 2020 [facility], [address] [place], [address], 08:29:16 CBC w/ auto diff 2020 [facility], [address] [facility], [place], [address], 08:29:17 lipid panel, serum 2020 HEIDY Not [...] 022 [email or web address] 5 Geoff Patel MD, [address] [facility], [facility] [address], [place], [address], 15:17:38 dermatolo gist referral 2020 021 [email or web address] 5 Not available 11:41:39 Procedures None recorded. Surgeries None recorded. Imaging CT, chest, w/o contrast 2021 [facility] (Lab Registration), [address] , [place], [address], 09:35:01 Medication Orders omeprazol e 40 mg capsule,d elayed release 2021 022 [facility] #[id number], [address] [address] [place], [id number], 2 19:28:13 nitroglyc jes 0.4 mg sublingua l tablet 2021 022 [facility], [address] [facility] [address] [place], [id number], 2 14:20:17 prednison e 10 mg tablet 2021 022 [place] [address] [facility] #81878, [address] [address] [place], [id number], 2 14:19:45 lamotrigi ne 25 mg tablet 2020 021 [facility], [address] [place] [address], [address], 1 10:37:14 duloxetin e 30 mg capsule,d elayed release 2020 021 INTER[facility], [address] [place] [address], [address], 1 11:26:08 duloxetin e 60 mg capsule,d elayed release 2020 021 INTER[facility], [address] [place] [address], [address], 11:26:10 donepezil 10 mg tablet 2020 021 INTER[facility], [address] [place] [address], [address], 11:26:09 Patient TargetsNo targets recorded. Patient Instructions Encounter Date Encounter Id Patient Instructions Last Modified By Organization Details Last Modified Time 08/20/2020 [id number] taylor Not available 08/20 11:26:26 03/07/2021 [id number] trochanteric bursitis: exercises Not available 03/07/2021 11:20:44 07/30/2021 [id number] pulmonary function test* HEIDY Not available 07/31/2021 16:40:07 Reason for Referral Grinder Set Up Operator Thread Tool Referral for N eoplasm of uncertain behavior of skin Referring Physician: Mounika Mccarty [facility], Encounter Date: 11/29/2020 Measurement Psychologist Referral for Ch est pain Referring Physician: Mounika Mccarty [facility], Encounter Date: 07/08/2021 Results Created Date Observation Date Name Description Value Unit Range Abnormal Flag Note LastModifiedBy Organization Detail LastModifiedTime 08/21/1908/21/2020 lipid panel , serum cholesterol, total 168 mg/dL <200 normal Not Available [facility] [place] [facility] [address] [place], [address], 08/21/2020 08:13:12 08/21/1908/21/2020 lipid panel , serum HDL cholesterol 62 mg/dL > or = 50 normal Not Available [facility] [place] [facility] [address] [place], [address], 08/21/2020 08:13:12 08/21/1908/21/2020 lipid panel , serum triglyceride s 143 mg/dL <150 normal Not Available [facility] [place] [facility] [address] [place], [address], 08/21/2020 08:13:12 08/21/1908/21/2020 lipid panel , serum [...] 2068 (http ://ed sheliaati on.Qu Elena maier [employer]Ch[employer]. com/f aq/FA Q164) Not Available [facility] [place] [facility] [address] [facility] [place], [address], 08/21/2020 08:13:12 08/21/1908/21/2020 lipid panel , serum chol/HDLC ratio 2.7 (calc ) <5.0 normal Not Available [facility] [place] [facility] [address] [place], [address], 08/21/2020 08:13:12 08/21/1908/21/2020 lipid panel , serum non HDL cholesterol 106 mg/dL _(yesenia c) <130 normal For patie nts with diabe kathryn plus 1 major ASCVD risk facto r, treat ing to a non-H DL-C goal of <100 mg/dL (LDL- C of <70 mg/dL ) is consi dered a thera peuti c optio n. Not Available [facility] [place] [facility] [address] [facility], [place], [address], 08/21/2020 08:13:12 08/21/1908/21/2020 CMP, serum or plasm a glucose 132 mg/dL 65-99 high Fasti ng refer ence inter stephane For someo ne witho ut known diabe kathryn, a gluco se value >125 mg/dL indic ates that they may have diabe kathryn and this shoul d be confi rmed with a follo w-up test. Not Available [facility] [place] [facility] [address] [facility], [place], [address], 08/21/2020 08:13:12 08/21/1908/21/2020 CMP, serum or plasm a urea nitrogen (BUN) 15 mg/dL 7-25 normal Not Available [facility] [place] [facility] [address] [facility] [place], [address], 08/21/2020 08:13:12 08/21/1908/21/2020 CMP, serum or plasm a creatinine 0.84 mg/dL 0.50-0 .99 normal For patie nts >49 years of age, the refer ence limit for Creat inine is appro ximat tim 13% highe r for peopl e ident ified as Afric an-Am oscar n. Not Available [facility] [address] [place], [address], 08/21/2020 08:13:12 08/21/1908/21/2020 CMP, serum or plasm a eGFR non-afr. luxembourger 74 mL/mi n/1.7 3m2 > or = 60 normal Not Available [facility] [address] [place], [address], 08/21/2020 08:13:12 08/21/19 21 08/21/2020 CMP, serum or plasm a eGFR 86 mL/mi n/1.7 3m2 > or = 60 normal Not Available [facility] [address] [place], [address], 08/21/2020 08:13:12 08/21/19 21 08/21/2020 CMP, serum or plasm a BUN/creatini ne ratio NOT APPLIC ABLE (calc ) 6-22 Not Available [facility] [address] [place], [address], 08/21/2020 08:13:12 08/21/1908/21/2020 CMP, serum or plasm a sodium 143 mmol/ L 135-14 6 normal Not Available [facility] [address] [place], [address], 08/21/2020 08:13:12 08/21/19 21 08/21/2020 CMP, serum or plasm a potassium 4.2 mmol/ L 3.5-5. 3 normal Not Available [facility] [address] [place] [address], [address], 08/21/2020 08:13:12 08/21/19 21 08/21/2020 CMP, serum or plasm a chloride 104 mmol/ L 98-110 normal Not Available [facility] [address], [address], 08/21/2020 08:13:12 08/21/19 21 08/21/2020 CMP, serum or plasm a carbon dioxide 29 mmol/ L 20-32 normal Not Available [address], [address], 08/21/2020 08:13:12 08/21/19 21 08/21/2020 CMP, serum or plasm a calcium 9.1 mg/dL 8.6-10 .4 normal Not Available [facility] [address] [place] [address], [address], 08/21/2020 08:13:12 08/21/1908/21/2020 CMP, serum or plasm a protein, total 6.5 g/dL 6.1-8. 1 normal Not Available [address], [address], 08/21/2020 08:13:12 08/21/1908/21/2020 CMP, serum or plasm a albumin 3.9 g/dL 3.6-5. 1 normal Not Available [facility] [address] [place] [address], [address], 08/21/2020 08:13:12 08/21/1908/21/2020 CMP, serum or plasm a globulin 2.6 g/dL_ (calc ) 1.9-3. 7 normal Not Available [facility] [address] [place], [address], 08/21/2020 08:13:12 08/21/1908/21/2020 CMP, serum or plasm a albumin/glob ulin ratio 1.5 (calc ) 1.0-2. 5 normal Not Available [facility] [address] [place], [address], 08/21/2020 08:13:12 08/21/1908/21/2020 CMP, serum or plasm a bilirubin, total 0.4 mg/dL 0.2-1. 2 normal Not Available [facility] [address] [place], [address], 08/21/2020 08:13:12 08/21/1908/21/2020 CMP, serum or plasm a alkaline phosphatase 114 U/L 37-153 normal Not Available [facility] [address] [place], [address], 08/21/2020 08:13:12 08/21/1908/21/2020 CMP, serum or plasm a AST 18 U/L 10-35 normal Not Available [facility] [address] [place], [address], 08/21/2020 08:13:12 08/21/1908/21/2020 CMP, serum or plasm a ALT 19 U/L 6-29 normal Not Available [facility] [address] [place], [address], 08/21/2020 08:13:12 08/21/1908/21/2020 HbA1c (hemo globi n [...] diabe kathryn for child gracia. Not Available [facility] [place] [facility] [address] [place], [address], 08/21/2020 08:13:13 08/21/1908/21/2020 TSH, serum or plasm a TSH 2.10 mIU/L 0.40-4 .50 normal Not Available [facility] [place] [facility] [address] [place], [address], 08/21/2020 08:13:13 08/21/1908/21/2020 CBC w/ auto diff white blood cell count 8.8 thous and/u L 3.8-10 .8 normal Not Available [facility] [place] [facility] [address] [place], [address], 08/21/2020 08:13:14 08/21/1908/21/2020 CBC w/ auto diff red blood cell count 4.81 montana on/uL 3.80-5 .10 normal Not Available [facility] [place] [facility] [address] [place], [address], 08/21/2020 08:13:14 08/21/1908/21/2020 CBC w/ auto diff hemoglobin 13.2 g/dL 11.7-1 5.5 normal Not Available [facility] [place] [facility] [address] [place], [address], 08/21/2020 08:13:14 08/21/19 21 08/21/2020 CBC w/ auto diff hematocrit 41.0 % 35.0-4 5.0 normal Not Available [facility] [address] [place], [address], 08/21/2020 08:13:14 08/21/1908/21/2020 CBC w/ auto diff MCV 85.2 fL 80.0-1 00.0 normal Not Available [facility] [address] [place], [address], 08/21/2020 08:13:14 08/21/1908/21/2020 CBC w/ auto diff MCH 27.4 pg 27.0-3 3.0 normal Not Available [facility] [address] [place], [address], 08/21/2020 08:13:14 08/21/1908/21/2020 CBC w/ auto diff MCHC 32.2 g/dL 32.0-3 6.0 normal Not Available [facility] [address] [place], [address], 08/21/2020 08:13:14 08/21/1908/21/2020 CBC w/ auto diff RDW 13.2 % 11.0-1 5.0 normal Not Available [facility] [address] [place], [address], 08/21/2020 08:13:14 08/21/1908/21/2020 CBC w/ auto diff platelet count 197 thous and/u L 140-40 0 normal Not Available [facility] [address] [place], [address], 08/21/2020 08:13:14 08/21/19 21 08/21/2020 CBC w/ auto diff MPV 11.6 fL 7.5-12 .5 normal Not Available [facility] [place] [facility] [address], [place], [address], 08/21/2020 08:13:14 08/21/19 21 08/21/2020 CBC w/ auto diff absolute neutrophils 6239 cells /uL 1500-7 800 normal Not Available [facility] [place] [facility] [address], [place], [address], 08/21/2020 08:13:14 08/21/19 21 08/21/2020 CBC w/ auto diff absolute lymphocytes 1646 cells /uL 850-39 00 normal Not Available [facility] [place] [facility] [address], [place], [address], 08/21/2020 08:13:14 08/21/1908/21/2020 CBC w/ auto diff absolute monocytes 598 cells /uL 200-95 0 normal Not Available [facility] [place] [facility] [address], [place], [address], 08/21/2020 08:13:14 08/21/19 21 08/21/2020 CBC w/ auto diff absolute eosinophils 299 cells /uL 15-500 normal Not Available [facility] [place] [facility] [address], [place], [address], 08/21/2020 08:13:14 08/21/19 21 08/21/2020 CBC w/ auto diff absolute basophils 18 cells /uL 0-200 normal Not Available [facility] [place] [facility] [address], [place], [address], 08/21/2020 08:13:14 08/21/19 21 08/21/2020 CBC w/ auto diff neutrophils 70.9 % normal Not Available [facility] [place] [facility] [address], [place], [address], 08/21/2020 08:13:14 08/21/1908/21/2020 CBC w/ auto diff lymphocytes 18.7 % normal Not Available [facility] [address] [place], [address], 08/21/2020 08:13:14 08/21/19 21 08/21/2020 CBC w/ auto diff monocytes 6.8 % normal Not Available [facility] [address] [place], [address], 08/21/2020 08:13:14 08/21/19 21 08/21/2020 CBC w/ auto diff eosinophils 3.4 % normal Not Available [facility] [address] [place], [address], 08/21/2020 08:13:14 08/21/19 21 08/21/2020 CBC w/ auto diff basophils 0.2 % normal Not Available [facility] [place], [address], 08/21/2020 08:13:14 03/07/20 21 03/08/2021 ALBUM IN, RANDO M URINE W/CRE ATINI NE creatinine, random urine 82 mg/dL 20-275 normal Not Available [facility] [address] [place], [address], 03/08/2021 08:29:12 03/07/20 21 03/08/2021 ALBUM IN, RANDO M URINE W/CRE ATINI NE albumin, urine 0.4 mg/dL see note: normal Refer ence Range : Refer ence Range Not estab lishe d Not Available [facility] [address] [place], [address], 03/08/2021 08:29:12 03/07/20 21 03/08/2021 ALBUM IN, [...] categ ory. Not Available [facility] [place] [facility] [address] [facility], [place], [address], 03/08/2021 08:29:12 03/07/20 21 03/08/2021 LIPID PANEL , STAND BEVERLY cholesterol, total 203 mg/dL <200 high Not Available [facility] [place] [facility] [address] [facility], [place], [address], 03/08/2021 08:29:13 03/07/20 21 03/08/2021 LIPID PANEL , STAND BEVERLY HDL cholesterol 58 mg/dL > or = 50 normal Not Available [facility] [place] [facility] [address] [facility], [place], [address], 03/08/2021 08:29:13 03/07/20 21 03/08/2021 LIPID PANEL , STAND BEVERLY triglyceride s 259 mg/dL <150 high If a non-f astin g speci men was colle cted, consi prasanna repea t trigl yceri de testi ng on a fasti ng speci men if clini deja indic ated. Sotero art et al. J. of Clin. Lipid ol. 2015; 9:129 -169. Not Available [facility] [place] [facility] [address], [place], [address], 03/08/2021 08:29:13 03/07/20 21 03/08/2021 LIPID PANEL [...] 310(1 9): 2061- 2068 (http ://ed ucati on.Everwise. [employer]/f aq/FA Q164) Not Available [facility] [place] [facility] [address] [facility], [place], [address], 03/08/2021 08:29:13 03/07/20 21 03/08/2021 LIPID PANEL , STAND BEVERLY chol/HDLC ratio 3.5 (calc ) <5.0 normal Not Available [facility] [place] [facility] [address], [place], [address], 03/08/2021 08:29:13 03/07/20 21 03/08/2021 LIPID PANEL , STAND BEVERLY non HDL cholesterol 145 mg/dL _(eysenia c) <130 high For patie nts with diabe kathryn plus 1 major ASCVD risk facto r, treat ing to a non-H DL-C goal of <100 mg/dL (LDL- C of <70 mg/dL ) is consi dered a thera peuti c optio n. Not Available [facility] [place] [facility] [address], [place], [address], 03/08/2021 08:29:13 03/07/20 21 03/08/2021 COMPR EHENS ANY METAB OLIC PANEL glucose 136 mg/dL 65-99 high Fasti ng refer ence inter stephane For someo ne witho ut known diabe kathryn, a gluco se value >125 mg/dL indic ates that they may have diabe kathryn and this shoul d be confi rmed with a follo w-up test. Not Available [facility] [place] [facility] [address] [place], [address], 03/08/2021 08:29:14 03/07/20 21 03/08/2021 COMPR EHENS ANY METAB OLIC PANEL urea nitrogen (BUN) 20 mg/dL 7-25 normal Not Available [facility] [place] [facility] [address] [place], [address], 03/08/2021 08:29:14 03/07/20 21 03/08/2021 COMPR EHENS ANY METAB OLIC PANEL creatinine 0.78 mg/dL 0.50-0 .99 normal For patie nts >49 years of age, the refer ence limit for Creat inine is appro ximat tim 13% highe r for peopl e ident ified as Afric an-Am oscar n. Not Available [facility] [place] [facility] [address] [place], [address], 03/08/2021 08:29:14 03/07/20 21 03/08/2021 COMPR EHENS ANY METAB OLIC PANEL eGFR non-afr. luxembourger 80 mL/mi n/1.7 3m2 > or = 60 normal Not Available [facility] [address] [place], [address], 03/08/2021 08:29:14 03/07/20 21 03/08/2021 COMPR EHENS ANY METAB OLIC PANEL eGFR 93 mL/mi n/1.7 3m2 > or = 60 normal Not Available [facility] [address] [place], [address], 03/08/2021 08:29:14 03/07/20 21 03/08/2021 COMPR EHENS ANY METAB OLIC PANEL BUN/creatini ne ratio NOT APPLIC ABLE (calc ) 6-22 Not Available [facility] [place] [facility] [address] [place], [address], 03/08/2021 08:29:14 03/07/20 21 03/08/2021 COMPR EHENS ANY METAB OLIC PANEL sodium 141 mmol/ L 135-14 6 normal Not Available [facility] [address] [place], [address], 03/08/2021 08:29:14 03/07/20 21 03/08/2021 COMPR EHENS ANY METAB OLIC PANEL potassium 4.6 mmol/ L 3.5-5. 3 normal Not Available [facility] [address] [place], [address], 03/08/2021 08:29:14 03/07/20 21 03/08/2021 COMPR EHENS ANY METAB OLIC PANEL chloride 102 mmol/ L 98-110 normal Not Available [facility] [address] [place], [address], 03/08/2021 08:29:14 03/07/20 21 03/08/2021 COMPR EHENS ANY METAB OLIC PANEL carbon dioxide 29 mmol/ L 20-32 normal Not Available [facility] [address] [place], [address], 03/08/2021 08:29:14 03/07/20 21 03/08/2021 COMPR EHENS ANY METAB OLIC PANEL calcium 10.2 mg/dL 8.6-10 .4 normal Not Available [facility] [address] [place], [address], 03/08/2021 08:29:14 03/07/20 21 03/08/2021 COMPR EHENS ANY METAB OLIC PANEL protein, total 7.1 g/dL 6.1-8. 1 normal Not Available [facility] [address] [place], [address], 03/08/2021 08:29:14 03/07/20 21 03/08/2021 COMPR EHENS ANY METAB OLIC PANEL albumin 4.4 g/dL 3.6-5. 1 normal Not Available [facility] [address] [place], [address], 03/08/2021 08:29:14 03/07/20 21 03/08/2021 COMPR EHENS ANY METAB OLIC PANEL globulin 2.7 g/dL_ (calc ) 1.9-3. 7 normal Not Available [facility] [address] [place], [address], 03/08/2021 08:29:14 03/07/20 21 03/08/2021 COMPR EHENS ANY METAB OLIC PANEL albumin/glob ulin ratio 1.6 (calc ) 1.0-2. 5 normal Not Available [facility] [address] [place], [address], 03/08/2021 08:29:14 03/07/20 21 03/08/2021 COMPR EHENS ANY METAB OLIC PANEL bilirubin, total 0.4 mg/dL 0.2-1. 2 normal Not Available [facility] [address] [place], [address], 03/08/2021 08:29:14 03/07/20 21 03/08/2021 COMPR EHENS ANY METAB OLIC PANEL alkaline phosphatase 112 U/L 37-153 normal Not Available [facility] [employer] [facility] [address] [place], [address], 03/08/2021 08:29:14 03/07/20 21 03/08/2021 COMPR EHENS ANY METAB OLIC PANEL AST 24 U/L 10-35 normal Not Available [facility] [address] [place], [address], 03/08/2021 08:29:14 03/07/20 21 03/08/2021 COMPR EHENS ANY METAB OLIC PANEL ALT 24 U/L 6-29 normal Not Available [facility] [place] [facility] [address] [place], [address], 03/08/2021 08:29:14 03/07/20 21 03/08/2021 HEMOG LOBIN [...] child gracia. Not Available [facility] [place] [facility] [address] [place], [address], 03/08/2021 08:29:15 03/07/20 21 03/08/2021 TSH TSH 2.67 mIU/L 0.40-4 .50 normal Not Available [facility] [place] [facility] [address] [place], [address], 03/08/2021 08:29:16 03/07/20 21 03/08/2021 CBC (INCL UDES DIFF/ PLT) white blood cell count 8.0 thous and/u L 3.8-10 .8 normal Not Available [facility] [place] [facility] [address] [place], [address], 03/08/2021 08:29:16 03/07/20 21 03/08/2021 CBC (INCL UDES DIFF/ PLT) red blood cell count 5.29 montana on/uL 3.80-5 .10 high Not Available [facility] [place] [facility] [address] [place], [address], 03/08/2021 08:29:16 03/07/20 21 03/08/2021 CBC (INCL UDES DIFF/ PLT) hemoglobin 14.6 g/dL 11.7-1 5.5 normal Not Available [facility] [address] [place], [address], 03/08/2021 08:29:16 03/07/20 21 03/08/2021 CBC (INCL UDES DIFF/ PLT) hematocrit 44.7 % 35.0-4 5.0 normal Not Available [facility] [address] [place], [address], 03/08/2021 08:29:16 03/07/20 21 03/08/2021 CBC (INCL UDES DIFF/ PLT) MCV 84.5 fL 80.0-1 00.0 normal Not Available [facility] [place] [facility] [address] [place], [address], 03/08/2021 08:29:16 03/07/20 21 03/08/2021 CBC (INCL UDES DIFF/ PLT) MCH 27.6 pg 27.0-3 3.0 normal Not Available [facility] [address] [place], [address], 03/08/2021 08:29:16 03/07/20 21 03/08/2021 CBC (INCL UDES DIFF/ PLT) MCHC 32.7 g/dL 32.0-3 6.0 normal Not Available [facility] [address] [place], [address], 03/08/2021 08:29:16 03/07/20 21 03/08/2021 CBC (INCL UDES DIFF/ PLT) RDW 13.3 % 11.0-1 5.0 normal Not Available [facility] [place] [facility] [address], [place], [address], 03/08/2021 08:29:16 03/07/20 21 03/08/2021 CBC (INCL UDES DIFF/ PLT) platelet count 264 thous and/u L 140-40 0 normal Not Available [facility] [place] [facility] [address], [place], [address], 03/08/2021 08:29:16 03/07/20 21 03/08/2021 CBC (INCL UDES DIFF/ PLT) MPV 10.1 fL 7.5-12 .5 normal Not Available [facility] [place] [facility] [address] [facility], [place], [address], 03/08/2021 08:29:16 03/07/20 21 03/08/2021 CBC (INCL UDES DIFF/ PLT) absolute neutrophils 4752 cells /uL 1500-7 800 normal Not Available [facility] [place] [facility] [address], [place], [address], 03/08/2021 08:29:16 03/07/20 21 03/08/2021 CBC (INCL UDES DIFF/ PLT) absolute lymphocytes 2344 cells /uL 850-39 00 normal Not Available [facility] [place] [facility] [address], [place], [address], 03/08/2021 08:29:16 03/07/20 21 03/08/2021 CBC (INCL UDES DIFF/ PLT) absolute monocytes 608 cells /uL 200-95 0 normal Not Available [facility] [place] [facility] [address], [place], [address], 03/08/2021 08:29:16 03/07/20 21 03/08/2021 CBC (INCL UDES DIFF/ PLT) absolute eosinophils 256 cells /uL 15-500 normal Not Available [facility] [place] [facility] [address], [place], [address], 03/08/2021 08:29:16 03/07/20 21 03/08/2021 CBC (INCL UDES DIFF/ PLT) absolute basophils 40 cells /uL 0-200 normal Not Available [facility] [place] [facility] [address], [place], [address], 03/08/2021 08:29:16 03/07/20 21 03/08/2021 CBC (INCL UDES DIFF/ PLT) neutrophils 59.4 % normal Not Available [facility] [place] [facility] [address], [place], [address], 03/08/2021 08:29:16 03/07/20 21 03/08/2021 CBC (INCL UDES DIFF/ PLT) lymphocytes 29.3 % normal Not Available [facility] [place] [facility] [address], [place], [address], 03/08/2021 08:29:16 03/07/20 21 03/08/2021 CBC (INCL UDES DIFF/ PLT) monocytes 7.6 % normal Not Available [facility] [place] [facility] [address], [place], [address], 03/08/2021 08:29:16 03/07/20 21 03/08/2021 CBC (INCL UDES DIFF/ PLT) eosinophils 3.2 % normal Not Available [facility] [place] [facility] [address], [place], [address], 03/08/2021 08:29:16 03/07/20 21 03/08/2021 CBC (INCL UDES DIFF/ PLT) basophils 0.5 % normal Not Available [facility] [place] [facility] [address], [place], [address], 03/08/2021 08:29:16 07/01/19 22 07/01/2021 CBC AUTO W DIFF WBC 6.8 10 4.5-11 .5 Not Available [facility] (Lab Registration) [address] [place], [address], 07/01/2021 22:32:30 07/01/19 22 07/01/2021 CBC AUTO W DIFF RBC 5.17 10 4.25-5 .57 Not Available [facility] (Lab Registration) [address] [place], [address], 07/01/2021 22:32:30 07/01/19 22 07/01/2021 CBC AUTO W DIFF HGB 14.3 g/dL 12.0-1 5.7 Not Available [facility] (Lab Registration) [address] [place], [address], 07/01/2021 22:32:30 07/01/19 22 07/01/2021 CBC AUTO W DIFF HCT 45.3 % 36.0-4 7.0 Not Available [facility] (Lab Registration) [address] [place], [address], 07/01/2021 22:32:30 07/01/19 22 07/01/2021 CBC AUTO W DIFF MCV 87.6 fL 80-95 Not Available [facility] (Lab Registration) [address] [place], [address], 07/01/2021 22:32:30 07/01/19 22 07/01/2021 CBC AUTO W DIFF MCH 27.7 pg 27.0-3 4.0 Not Available [facility] (Lab Registration) [address] [place], [address], 07/01/2021 22:32:30 07/01/19 22 07/01/2021 CBC AUTO W DIFF MCHC 31.6 g/dL 32.0-3 6.0 low Not Available [facility] (Lab Registration) [address] [place], [address], 07/01/2021 22:32:30 07/01/19 22 07/01/2021 CBC AUTO W DIFF platelet count 200 10 150-45 0 Not Available [facility] (Lab Registration) [address] [place], [address], 07/01/2021 22:32:30 07/01/19 22 07/01/2021 CBC AUTO W DIFF RDW 13.9 % 12.3-1 5.1 Not Available [facility] (Lab Registration) [address] [place], [address], 07/01/2021 22:32:30 07/01/19 22 07/01/2021 CBC AUTO W DIFF MPV 10.8 fL 7.4-10 .4 high Not Available [facility] (Lab Registration) [address] [place], [address], 07/01/2021 22:32:30 07/01/19 22 07/01/2021 CBC AUTO W DIFF granulocyte% 51.6 % 40-75 Not Available [facility] (Lab Registration) [address] [place], [address], 07/01/2021 22:32:30 07/01/19 22 07/01/2021 CBC AUTO W DIFF lymphocyte% 35.5 % 15-57 Not Available [facility] (Lab Registration) [address] [place], [address], 07/01/2021 22:32:30 07/01/19 22 07/01/2021 CBC AUTO W DIFF monocyte% 8.6 % 4.0-12 .0 Not Available [facility] (Lab Registration) [address] [place], [address], 07/01/2021 22:32:30 07/01/19 22 07/01/2021 CBC AUTO W DIFF eosinophil% 3.5 % 0.0-4. 0 Not Available [facility] (Lab Registration) [address] [place], [address], 07/01/2021 22:32:30 07/01/19 22 07/01/2021 CBC AUTO W DIFF basophil% 0.4 % 0.0-1. 0 Not Available [facility] (Lab Registration) [address] [place], [address], 07/01/2021 22:32:30 07/01/19 22 07/01/2021 CBC AUTO W DIFF immature granulocytes % 0.4 % 0.0-0. 8 Not Available [facility] (Lab Registration) [address] [place], [address], 07/01/2021 22:32:30 07/01/19 22 07/01/2021 CBC AUTO W DIFF granulocyte# 3.52 10 Not Available [facility] (Lab Registration) [address] [place], [address], 07/01/2021 22:32:30 07/01/19 22 07/01/2021 CBC AUTO W DIFF lymphocyte# 2.43 10 Not Available [facility] (Lab Registration) [address] [place], [address], 07/01/2021 22:32:30 07/01/19 22 07/01/2021 CBC AUTO W DIFF monocyte# 0.59 10 Not Available [facility] (Lab Registration) [address] [place], [address], 07/01/2021 22:32:30 07/01/19 22 07/01/2021 CBC AUTO W DIFF eosinophil# 0.24 10 Not Available [facility] (Lab Registration) [address] [place], [address], 07/01/2021 22:32:30 07/01/19 22 07/01/2021 CBC AUTO W DIFF basophil# 0.03 10 Not Available [facility] (Lab Registration) [address] [place], [address], 07/01/2021 22:32:30 07/01/19 22 07/01/2021 CBC AUTO W DIFF immature granulocytes # 0.03 10 Not Available [facility] (Lab Registration) [address] [place], [address], 07/01/2021 22:32:30 07/01/19 22 07/01/2021 CBC AUTO W DIFF manual differential NO Not Available [facility] (Lab Registration) [address] [place], [address], 07/01/2021 22:32:30 07/01/19 22 07/01/2021 CBC AUTO W DIFF note Unles s other kennedy noted testi ng perfo rmed at: [facility] [address] [place] [address] [phone] Walt mcknight MD CLIA: [id number] Not Available [facility] (Lab Registration) [address] [place], [address], 07/01/2021 22:32:30 07/01/19 22 07/01/2021 COMP METAB OLIC PANEL sodium 140 mmol/ L 136-14 5 Not Available [facility] (Lab Registration) [address] [place], [address], 07/01/2021 22:52:50 07/01/19 22 07/01/2021 COMP METAB OLIC PANEL potassium 4.0 mmol/ L 3.5-5. 1 Not Available [facility] (Lab Registration) [address] [place], [address], 07/01/2021 22:52:50 07/01/19 22 07/01/2021 COMP METAB OLIC PANEL chloride 103 mmol/ L 98-107 Not Available [facility] (Lab Registration) [address] [place], [address], 07/01/2021 22:52:50 07/01/19 22 07/01/2021 COMP METAB OLIC PANEL carbon dioxide 26 mmol/ L 21-32 Not Available [facility] (Lab Registration) [address] [place], [address], 07/01/2021 22:52:50 07/01/19 22 07/01/2021 COMP METAB OLIC PANEL anion gap 11.0 Not Available [facility] (Lab Registration) [address] [place], [address], 07/01/2021 22:52:50 07/01/19 22 07/01/2021 COMP METAB OLIC PANEL glucose 148 mg/dL 70-110 high Not Available [facility] (Lab Registration) [address] [place], [address], 07/01/2021 22:52:50 07/01/19 22 07/01/2021 COMP METAB OLIC PANEL blood urea nitrogen 19 mg/dL 7-18 high Not Available [facility] (Lab Registration) [address] [place], [address], 07/01/2021 22:52:50 07/01/19 22 07/01/2021 COMP METAB OLIC PANEL creatinine 0.9 mg/dL 0.6-1. 0 Not Available [facility] (Lab Registration) [address] [place], [address], 07/01/2021 22:52:50 07/01/19 22 07/01/2021 COMP METAB OLIC PANEL BUN/creatini ne ratio 21.1 ratio 9-21 high Not Available [facility] (Lab Registration) [address] [place], [address], 07/01/2021 22:52:50 07/01/19 22 07/01/2021 COMP METAB OLIC PANEL estimated glom filtration rate 67 mL/mi n >60- Not Available [facility] (Lab Registration) [address] [place], [address], 07/01/2021 22:52:50 07/01/19 22 07/01/2021 COMP METAB OLIC PANEL total protein 7.5 g/dL 6.4-8. 2 Not Available [facility] (Lab Registration) [address], [place], [address], 07/01/2021 22:52:50 07/01/19 22 07/01/2021 COMP METAB OLIC PANEL albumin 3.6 g/dL 3.4-5. 0 Not Available [facility] (Lab Registration) [address], [place], [address], 07/01/2021 22:52:50 07/01/19 22 07/01/2021 COMP METAB OLIC PANEL calcium 9.6 mg/dL 8.5-10 .1 Not Available [facility] (Lab Registration) [address] [place], [address], 07/01/2021 22:52:50 07/01/19 22 07/01/2021 COMP METAB OLIC PANEL corrected calcium 9.9 mg/dL 8.5-10 .1 Not Available [facility] (Lab Registration) [address], [place], [address], 07/01/2021 22:52:50 07/01/19 22 07/01/2021 COMP METAB OLIC PANEL bilirubin total 0.2 mg/dL 0.4-1. 5 low Not Available [facility] (Lab Registration) [address] [place], [address], 07/01/2021 22:52:50 07/01/19 22 07/01/2021 COMP METAB OLIC PANEL AST (SGOT) 28 U/L 15-37 Not Available [facility] (Lab Registration) [address] [place], [address], 07/01/2021 22:52:50 07/01/19 22 07/01/2021 COMP METAB OLIC PANEL ALT (SGPT) 38 U/L 12-78 Not Available [facility] (Lab Registration) [address] [place], [address], 07/01/2021 22:52:50 07/01/19 22 07/01/2021 COMP METAB OLIC PANEL alk phosphatase 116 U/L 53-141 Not Available [facility] (Lab Registration) [address], [place], [address], 07/01/2021 22:52:50 07/01/19 22 07/01/2021 COMP METAB OLIC PANEL note Jasones s other kennedy noted testi ng perfo rmed at: [facility] [address] [place] [address] [phone] Walt mcknight MD CLIA: [id number] Not Available [facility] (Lab Registration) [address], [place], [address], 07/01/2021 22:52:50 07/01/19 22 07/01/2021 CREAT INE KINAS E (CK) creatinine kinase (CPK) 85 U/L 21-232 Not Available [facility] (Lab Registration) [address], [place], [address], 07/01/2021 22:52:52 07/01/19 22 07/01/2021 CREAT INE KINAS E (CK) note aKrla mcknight other kennedy noted testi ng perfo rmed at: [facility] [address] [place] [address] [phone] Walt mcknight MD CLIA: [id number] Not Available [facility] (Lab Registration) [address], [place], [address], 07/01/2021 22:52:52 07/01/19 22 07/01/2021 CK MB CKMB 0.3 NG/mL 0.0-3. 6 Not Available [facility] (Lab Registration) [address] [place], [address], 07/01/2021 22:53:54 07/01/19 22 07/01/2021 CK MB note Karla s other kennedy noted testi ng perfo rmed at: [facility] [address] [place] [phone] Walt mcknight MD CLIA: [id number] Not Available [facility] (Lab Registration) [address] , [place], [address], 07/01/2021 22:53:54 07/01/19 22 07/01/2021 TROPO DRAKE [...] CHELSI L INDIV IDUAL S Not Available [facility] (Lab Registration) [address] , [place], [address], 07/01/2021 22:53:56 07/01/19 22 07/01/2021 TROPO DRAKE QUANT note Unles s other kennedy noted testi ng perfo rmed at: [facility] [address] [place] [phone] Walt mcknight MD CLIA: [id number] Not Available [facility] (Lab Registration) [address] , [place], [address], 07/01/2021 22:53:56 07/01/19 22 07/01/2021 B-TYP E [...] witho ut disco mfort . Not Available [facility] (Lab Registration) [address], [place], [address], 07/01/2021 22:59:14 07/01/19 22 07/01/2021 B-TYP E NATRI URETI C PEPTI DE BNP note Unles s other kennedy noted testi ng perfo rmed at: [facility] [address] [place], [place] [address] [phone] Walt mcknight MD CLIA: [id number] Not Available [facility] (Lab Registration) [address] [place], [address], 07/01/2021 22:59:14 07/01/19 22 07/01/2021 D-DIM ER QUANT ITATI VE D-dimer quantitative 423.14 NG/mL 0-500 Not Available [facility] (Lab Registration) [address] [place], [address], 07/01/2021 22:59:15 07/01/19 22 07/01/2021 D-DIM ER QUANT ITATI VE note Karla mcknight other kennedy noted testi ng perfo rmed at: [facility] [address] [place], [place] [address] [phone] Walt mcknight MD CLIA: [id number] Not Available [facility] (Lab Registration) [address] [place], [address], 07/01/2021 22:59:15 07/01/19 22 07/01/2021 ARTER IAL BLOOD GAS specimen source ARTERI AL Not Available [facility] (Lab Registration) [address] [place], [address], 07/01/2021 23:56:16 07/01/19 22 07/01/2021 ARTER IAL BLOOD GAS marleny's test YES Not Available [facility] (Lab Registration) [address] [place], [address], 07/01/2021 23:56:16 07/01/19 22 07/01/2021 ARTER IAL BLOOD GAS ABG site RIGHT RADIAL Not Available [facility] (Lab Registration) [address] [place], [address], 07/01/2021 23:56:16 07/01/19 22 07/01/2021 ARTER IAL BLOOD GAS arterial pH 7.400 7.35-7 .45 Not Available [facility] (Lab Registration) [address] [place], [address], 07/01/2021 23:56:16 07/01/19 22 07/01/2021 ARTER IAL BLOOD GAS ABG partial pressure CO2 47 mmHg 35-45 high Not Available [facility] (Lab Registration) [address] [place], [address], 07/01/2021 23:56:16 07/01/19 22 07/01/2021 ARTER IAL BLOOD GAS ABG partial pressure O2 24.0 mmHg 80-100 critical low Not Available [facility] (Lab Registration) [address] [place], [address], 07/01/2021 23:56:16 07/01/19 22 07/01/2021 ARTER IAL BLOOD GAS ABG bicarbonate 26.4 mEq/L 21-25 high Not Available [facility] (Lab Registration) [address] [place], [address], 07/01/2021 23:56:16 07/01/19 22 07/01/2021 ARTER IAL BLOOD GAS ABG base excess 3.6 Not Available [facility] (Lab Registration) [address], [place], [address], 07/01/2021 23:56:16 07/01/19 22 07/01/2021 ARTER IAL BLOOD GAS ABG O2 saturation 43 % Not Available [facility] (Lab Registration) [address] [place], [address], 07/01/2021 23:56:16 07/01/19 22 07/01/2021 ARTER IAL BLOOD GAS ABG delivery O2 mode VENTIL ATOR Not Available [facility] (Lab Registration) [address] [place], [address], 07/01/2021 23:56:16 07/01/19 22 07/01/2021 ARTER IAL BLOOD GAS ABG pos end expir pressure 8 cm_H2 O Not Available [facility] (Lab Registration) [address] [place], [address], 07/01/2021 23:56:16 07/01/19 22 07/01/2021 ARTER IAL BLOOD GAS ABG temperature 37.0 Not Available [facility] (Lab Registration) [address] [place], [address], 07/01/2021 23:56:16 07/01/19 22 07/01/2021 ARTER IAL BLOOD GAS ventilator mode PRVC Not Available [facility] (Lab Registration) [address] [place], [address], 07/01/2021 23:56:16 07/01/19 22 07/01/2021 ARTER IAL BLOOD GAS note Unles s other kennedy noted testi ng perfo rmed at: [facility] [address] [place] [address] [phone] Walt mcknight MD CLIA: [id number] Not Available [facility] (Lab Registration) [address] , [place], [address], 07/01/2021 23:56:16 07/01/19 22 07/01/2021 COVID 19, ROMAN (GRAV ITY) note Unles s other kennedy noted testi ng perfo rmed at: [facility] [address] [facility] [address] [phone] Walt mcknight MD CLIA: [id number] Not Available [facility] (Lab Registration) [address] , [place], [address], 07/04/2021 13:39:37 07/01/19 22 07/04/2021 COVID 19, ROMAN (GRAV ITY) covid 19, ROMAN (gravity) NOT DETECT ED not detect ed Not Available [facility] (Lab Registration) [address] , [place], [address], 07/04/2021 13:39:37 07/08/19 22 07/09/2021 SARS COV [...] the [facility] websi te: www.FookyZ uestD iagno Cl[employer] .[employer]/ Covid 19. Not Available [facility] [place] [facility] [address] [facility], [place], [address], 07/09/2021 21:03:08 07/31/19 22 07/31/2021 pulmo nary funct ion test* PFT mild restri ctive patter n Not Available [facility] [address], [place], [address], 07/30/2021 14:22:02 11/10/19 21 10/29/2020 sleep study , diagn ostic * No observ ation record ed. [facility] [address], [place], [address], 12/26/2020 15:37:54 07/02/19 22 07/01/2021 XR, chest , 1 view [facility] [address] [place] [address] Phone: Fax: Name: ELIEL MARQUES Exam Date: : [birth year] Age 65 Gender : F Access ion: [id number] Physic hawa: MINOR GARCIA Facili ty: [facility] Facili ty HSV: Outpat ient Exam: [...] you for referr ing ELIEL MARQUES to [facility]. Legall y authen ticate d by ELBERT TRINIDAD MD 07-02 11:59: 12 CC'ed Logic: Orderi ng Provid er: RADHA GAXIOLA CC Provid er: JAYJAY Robins Attend ing Provid er: RADHA GAXIOLA Referr ing Provid er: ARDHA Parryitt ing Provid er: RADHA vazquez [facility] (Radiology) [address] [place], [address], 07/08/2021 15:38:33 07/24/19 22 07/24/2021 joesph can cardi olite stres s test (PROC ) No observ ation record ed. [address] [facility] [address] [facility] [address], [place], [address], 07/30/2021 14:02:26 07/25/19 22 07/24/2021 joesph can cardi olite stres s test (PROC ) No observ ation record ed. [address] [facility] [address] [facility] [address], [place], [address], 07/25/2021 20:33:55 08/09/19 22 08/08/2021 CT, chest , w/o contr [facility] [address] [facility] [place] [address] Phone: Fax: Name: ELIEL MARQUES Exam Date: 08/09/19 : [birth year] Age 65 Gender : F Access ion: [id number] Physic hawa: CHANTAL CANO Facili ty: [facility] Facili ty HSV: Outpat ient Exam: [...] By: FITZ HEATH Transc ribed By: FITZ HEATH Transc ribed On: 08/09/19 9:16 AM Electr onical ly signed by: FITZ HEATH 08/09/19 Thank you for referr ing ELIEL MARQUES to [facility] Hospit [facility]. Legall y authen ticate d by FITZ HEATH IVO 08-08 09:16: 27 CC'ed Logic: Orderi ng Provid er: JAYJAY Robins CC Provid er: JAYJAY Robins Attend ing Provid er: JAYJAY Robins Referr ing Provid er: JAYJAY Robins Admitt ing Provid er: JAYJAY vazquez [facility] (Radiology) [address] [place] [address] , [place], [address], 08/09/2021 20:14:52 02/18/20 22 02/14/2022 MAMMO , diagn ostic , bilat eral No observ ation record ed. [email or web address] [facility] [address], [place], [address], 02/18/2022 17:19:05 Result Notes Documentation Provider Name and Address Organization Details Recorded Time Xr, Chest, 1 View : [address] [place] [address] Name: ELIEL MURPHY Exam Date: 07/01/2021 : 1955 Age 65 Gender: F Physician: MINOR GARCIA Facility: [facility] Facility HSV: Outpatient Exam: CHEST SINGLE [...] Thank you for referring ELIEL MURPHY to [facility]. Legally authenticated by ELBERT TRINIDAD MD 2021-07-02 11:59:12 CC'ed Logic: Ordering Provider: RADHA DAVEY Provider: BIBIANA GONZALEZ Attending Provider: RADHA GAXIOLA Referring Provider: RADHA GAXIOLA Admitting Provider: RADHA Mccarty MD [address] [facility], [address], [place], [address], [facility] 07/08/2021 15:38:33 Ct, Chest, W/o Contrast : [address] [place] [address] Name: ELIEL MURPHY Exam Date: 08/08/2021 : 1955 Age 65 Gender: F Physician: MOUNIKA MCACRTY Facility: [facility] Facility HSV: Outpatient Exam: CT CHEST [...] Thank you for referring ELIEL MURPHY to [facility]. Legally authenticated by FITZ HEATH IVO 2021-08-08 09:16:27 CC'ed Logic: Ordering Provider: BIBIANA GONZALEZ CC Provider: BIBIANA GONZALEZ Attending Provider: BIBIANA GONZALEZ Referring Provider: BIBIANA GONZALEZ Admitting Provider: BIBIANA Mccarty MD [address] [facility], [facility] [address], [place], [address], [facility] 08/09/2021 20:14:52 Problems Name Problem SNOMED Code Status Onset Date Resolution Date Notes Provider Name and Address Organization Details Recorded Time Disorder of urinary tract 33968913 Active Mounika Mccarty MD [address] [facility], [facility] [address], [place], [address], [facility] 09:27:57 Malaise and fatigue 587945425 Active Mounika Mccarty MD [address], [address] [place] [address], [place] - [facility] 6 09:27:57 Pain of hip region 90718510 Juan Daniel Mccarty MD [address] [place] [address], [place] - [facility] 6 09:27:57 Chest swelling 265076311 Juan Daniel Mccarty MD [address] [place] [address], [place] - [facility] 6 09:27:57 Achilles tendinitis 16618089 Active Mounika Mccarty MD [address] [place] [address], [place] - [facility] 6 09:27:57 Cellulitis of leg, excluding foot 927916942 Active Mounika Mccarty MD [address] [place] [address], [place] - [facility] 6 09:27:57 Acute sinusitis 18780768 Active Mounika Mccarty MD [address] [place] [address], [place] [facility] 6 09:27:57 Hypertrophi c condition of skin 06623993 Juan Daniel Mccarty MD [address] [place] [address], [place] - [facility] 6 09:27:57 Acute upper respiratory infection 15413251 Juan Daniel Mccarty MD [address] [place] [address], [place] [facility] 6 22:11:51 Essential hypertensio n 83331937 Juan Danile Mccarty MD [address] [place] [address], [place] - [facility] 6 09:27:57 Single major depressive episode Active Mounika Mccarty MD [address] [place] [address], [place] - [facility] 6 09:27:57 Type 2 diabetes mellitus without complicatio n 972438012 Active Mounika Mccarty MD [address] [place] [address], [place] - [facility] 6 09:27:57 Fever 774408109 Active Mounika Mccarty MD [address] [place] [address], [place] [facility] 6 09:27:57 Generalized osteoarthri tis 331933277 Active Mounika Mccarty MD [address] [place] [address], [place] [facility] 6 22:28:41 Hyperlipide mp 98816362 Active Mounika Mccarty MD [address] [place] [address], [place] [facility] 6 09:27:57 Hypothyroid ism 69765683 Active Mounika Mccarty MD [address] [place] [address], [place] [facility] 6 22:28:41 Acute bronchitis 88373537 Active Mounika Mccarty MD [address] [place] [address], [place] - [facility] 6 09:27:57 Depressive disorder 77054434 Active Mounika Mccarty MD [address] [place] [address], [place] [facility] 6 22:28:41 Histoplasma capsulatum with pneumonia Active Mounika Mccarty MD [address] [place] [address], [place] [facility] 6 09:27:57 Otitis media 15611188 Active Mounika Mccarty MD [address] [place] [address], [place] [facility] 6 09:27:57 Impacted cerumen 82853572 Active Mounika Mccarty MD [address] [place] [address], [facility] - [facility] 6 09:27:57 Anxiety 33149453 Active Mounika Mccarty MD [address] [place] [address], [facility] 6 09:27:57 Sleep disorder 07198824 Active Mounika Mccarty MD [address] [place] [address], [facility] 6 09:27:57 Chronic headache disorder 494551190 Active Mounika Mccarty MD [address] [place] [address], [facility] 6 09:27:57 Hypertensiv e disorder 74456266 Active Mounika Mccarty MD [address] [place] [address], [facility] 6 09:27:57 Sleep apnea 31962247 Juan Daniel Mccarty MD [address] [place] [address], [facility] 6 09:27:57 Tendinitis of elbow or forearm 009968004977 Juan Daniel Mccarty MD [address] [place] [address], [place] [facility] 6 09:27:57 Anthony's palsy 178812743 Juan Daniel Mccarty MD [address] [place] [address], [place] [facility] 6 09:27:57 Vertiginous syndrome 51339943 Juan Daniel Mccarty MD [address] [place] [address], [place] [facility] 6 09:27:57 Nausea 818985471 Juan Daniel Mccarty MD [address] [place] [address], [place] - [facility] 6 09:27:57 Sensory neuropathy 62307049 Juan Daniel Mccarty MD [address] [place] [address], [place] [facility] 6 09:27:57 Dehydration 66000180 Juan Daniel Mccarty MD [address] [place] [address], [place] [facility] 6 09:27:57 Acute urinary tract infection 901696499 Juan Daniel Mccarty MD [address] [place] [address], [place] [facility] 6 09:27:57 Diabetic peripheral neuropathy 484058203 Juan Daniel Mccarty MD [address] [place] [address], [facility] 6 09:27:57 Mammography abnormal 931338132 Juan Daniel Mccarty MD [address] [place] [address], [facility] 6 09:27:57 Knee pain Active Mounika Mccarty MD [address] [place] [address], [place], [place], [address] [place] [address] 7, [facility] 6 09:27:57 Insomnia 471354909 Active Mounika Mccarty MD [address], [address] [place] [address], [facility] 6 22:28:41 Problem Notes None recorded. Procedures Surgical History Date Name Laterality Status Provider Name and Address Organization Details Recorded Time 10/10/19 18 Colonoscopy completed Mounika Mccarty MD [address], [address] [place] [address], [facility] 12/02/2020 22:39:02 06/08/19 15 Orthopaedic Surgery completed Mounika Mccarty MD [address], [address] [place] [address], [facility] 06/18/2015 10:21:40 04/13/20 14 Orthopaedic Surgery completed Mounika Mccarty MD [address], [address] [place] [address], [facility] 06/18/2015 10:21:40 06/08/19 12 Other completed [facility] 07/18/2013 08:57:50 09/06/19 10 Colonoscopy completed Mounika Mccarty MD [address], [address] [place] [address], [facility] 06/18/2015 10:21:40 06/08/19 07 Breast Biopsy completed Mounika Mccarty MD [address], [address] [place] [address], [facility] 06/18/2015 10:21:40 06/08/19 05 Knee Surgery completed [facility] 09/02/2011 09:20:39 06/08/19 05 Colonoscopy completed [facility] 09/02/2011 09:20:39 06/08/19 03 Knee Surgery completed [facility] 09/02/2011 09:20:39 06/08/19 02 Cholecystectomy completed [facility] 09/02/2011 09:20:39 06/08/19 02 Knee Surgery completed Mounika Mccarty MD [address], [address], [facility] 03/31/2014 21:45:39 06/08/19 02 Lumpectomy completed Mounika Mccarty MD [address] [address], [place], [address], [facility] 06/18/2015 10:21:40 06/08/19 01 Hysterectomy completed Mounika Mccarty MD [address] [address], [place], [address], [facility] 06/18/2015 10:22:05 06/08/18 [...] Name and Address Organization Details Recorded Time 93320 codeine medicatio n Not available Not available Not available 09/02/2011 6330 RxNorm [facility] 03/27/201 2 09:25:04 24093 Ambien medicatio n Not available Not available Not available 09/02/2011 26112 5 RxNorm [facility] 2 09:25:04 18147 Toradol medicatio n Not available Not available Not available 09/02/2011 11337 RxNorm [facility] 2 09:25:04 21601 Demerol medicatio n Not available Not available Not available 09/02/2011 25905 1 RxNorm [facility] [...] blood by Pulse oximetry Body temperature Systolic And Diastolic Provider Name and Address Organization Details Last Updated DateTime 2 167.64 cm 46.2 kg/m2 543295. 82 g 74 /min 97 % 97 % 97 [degF] 142/96 mm[Hg] [facility] 2 15:15:08 Date Recorded Body height Body mass index (BMI) Body weight Body temperature Oxygen saturation Oxygen saturation in Arterial blood by Pulse oximetry Heart rate Systolic And Diastolic Provider Name and Address Organization Details Last Updated DateTime 2 167.64 cm 46.3 kg/m2 228053. 01 g 97.7 [degF] 97 % 97 % 78 /min 137/90 mm[Hg] [facility] 2 13:30:48 Date Recorded Body height Body mass index (BMI) Body weight Heart rate Oxygen saturation Oxygen saturation in Arterial blood by Pulse oximetry Body temperature Systolic And Diastolic Provider Name and Address Organization Details Last Updated DateTime 1 167.64 cm 43.9 kg/m2 306463. 82 g 83 /min 96 % 96 % 97.7 [degF] 138/83 mm[Hg] [facility] 1 10:04:47 Date Recorded Body height Heart rate Oxygen saturation Oxygen saturation in Arterial blood by Pulse oximetry Body temperature Systolic And Diastolic Provider Name and Address Organization Details Last Updated DateTime 1 167.64 cm 70 /min 97 % 97 % 97.9 [degF] 134/91 mm[Hg] [facility] 1 14:54:07 Date Recorded Body height Body mass index (BMI) Body weight Heart rate Oxygen saturation Oxygen saturation in Arterial blood by Pulse oximetry Body temperature Systolic And Diastolic Provider Name and Address Organization Details Last Updated DateTime 1 167.64 cm 46.5 kg/m2 452356. 7 g 82 /min 96 % 96 % 97.2 [degF] 167/110 mm[Hg] [facility] 1 10:10:52 Social History Question Answer Notes LastModified by Organizat ion Details LastModified Time Tobacco Smoking Status Never Smoker Not Available [facility] 04/03/2020 03:11:20 Do You Have An Advance Directive? Yes [id number] Information not available 04/03/2020 Animal Exposure? No Informat ion not available 09/02/2011 Auto Related Injury? No Information not available 09/02/2011 Is Blood Transfusion Acceptable In An Emergency? Yes [id number] Information not available 04/03/2020 What Is Your Level Of Caffeine Consumption? Moderate [id number] Information not available 04/03/2020 How Much Tobacco Do You Chew? None [id number] Information not available 04/03/2020 In The 14 Days Before Symptom Onset, Have You Had Close Contact With A Laboratory-confir med COVID-19 While That Case Was Ill? No [id number] Information not available 04/03/2020 In The 14 Days Before Symptom Onset, Have You Had Close Contact With A Person Who Is Under Investigation For COVID-19 While That Person Was Ill? No [id number] Information not available 04/03/2020 Have You Been To An Area Known To Be High Risk For COVID-19? No [id number] Information not available 04/03/2020 Diabetes Yes Information no t available 03/09/2020 What Type Of Diet Are You Following? GLUTENFREE [id number] Information not available 04/03/2020 Education 12 1 [...] How Many Children Do You Have? 2 [id number] Information not available 04/03/2020 Obese Yes Information no t available 03/09/2020 What Is Your Relationship Status? Information not available 03/10/2021 Seat Belts Used Routinely Yes Information not available 09/02/2011 Smoke Alarm In Home Yes Information not available 09/02/2011 Are You Passively Exposed To Smoke? No Information no t available 09/02/2011 How Much Tobacco Do You Smoke? No [id number] Information not available 04/03/2020 General Stress Level Low Information not available 09/02/2011 Do You Use Sunscreen Routinely? No [id number] Information not available 04/03/2020 Sex: Unknown Functional Status Question Answer Note LastModified by Organizat ion Details LastModified Time What is your level of alcohol consumption? None [id number] Information not available 04/03/2020 Are you currently employed? No Information not available 03/10/2021 Are you able to care for yourself? 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 Obstetrics History GPAL:G 0 P 0 0 0 0 Immunizations Vaccine Type Date Status Note Provider Nam e and Address Organization Details Recorded Time Influenza, split virus, quadrivalent, PF 7 completed Not Available [facility] 06/25/2019 02:12:13 pneumococcal polysaccharide PPV23 7 completed Not Available [facility] 06/25/2019 02:12:07 Influenza, recombinant, quadrivalent, PF 0 completed Not Available [facility] 03/06/2020 10:29:37 Influenza, split virus, trivalent, preservative 4 completed [facility] 05/18/2014 11:03:43 zoster recombinant 1 completed Not Available [facility] 11/29/2020 15:01:31 zoster recombinant 1 completed Not Available [facility] 03/07/2021 10:17:21 Influenza, split virus, trivalent, preservative 5 completed Mounika Mccarty MD [address] [address], [place], [address], [facility] 02/22/2015 19:20:45 pneumococcal, unspecified formulation 2 completed Mounika Mccarty MD [address] [address], [place], [address], [facility] 03/05/2012 10:59:08 Influenza, split virus, quadrivalent, preservative 6 completed [facility] 04/11/2016 11:41:59 Pneumococcal conjugate PCV 13 6 completed [facility] 04/11/2016 11:42:57 Tdap 7 completed [facility] 07/29/2016 11:14:49 zoster live 7 completed [facility] 07/29/2016 11:15:02 Hep A, adult 7 completed Mounika Mccarty MD [address] [address], [place], [address], [facility] 06/25/2017 08:51:34 Influenza, split virus, quadrivalent, preservative 8 completed Mounika Mccarty MD [address] [address], [place], [address], [facility] 05/03/2018 22:10:14 Hep A, adult 9 completed Mounika Mccarty MD [address] [address], [place], [address], [facility] 11/05/2018 15:38:26 Influenza, split virus, quadrivalent, preservative 9 [facility] 02/24/2019 08:48:02 SARS-COV-2 (COVID-19) vaccine, UNSPECIFIED 1 completed Mounika Mccarty MD [address], [address], [facility] 08/20/2020 11:05:17 SARS-COV-2 (COVID-19) vaccine, UNSPECIFIED 1 completed Mounika Mccarty MD [address], [address] [place] [address], [facility] 08/20/2020 11:05:35 Influenza, split virus, trivalent, preservative 2 completed Not Available [facility] 06/25/2019 02:12:11 Influenza, split virus, trivalent, preservative 3 completed Mounika Mccarty MD [address], [address], [facility] 07/18/2013 09:53:05 Past Encounters Encounter ID Performer Location Encounter Start Date Encounter Closed Date Diagnosis/Indication Diagnosis SNOMED-CT Code Diagnosis ICD10 Code Diagnosis Note [id number] Mounika Mccarty MD [facility] [address] [place] [id number] 7 09/02/2011 08:45:51 09/02/2011 14:14:27 [id number] Mounika Mccarty MD [facility] [address] [id number] 7 10/06/2011 15:31:57 10/07/2011 08:28:44 [id number] Mounika Mccarty MD [facility] [address] [id number] 7 01/12/2012 15:33:44 01/14/2012 10:33:44 [id number] Mounika Mccarty MD [facility] [address] [id number] 7 03/05/2012 09:44:43 03/05/2012 11:54:19 [id number] Mounika Mccarty MD [address] [address] 7 12/24/2012 15:49:00 12/24/2012 17:40:53 [id number] Mounika Mccarty MD [facility] [address] [id number] 7 07/18/2013 08:49:00 07/18/2013 14:39:55 Essential hypertension 08050806 Hyperlipidemia 60471176 Hypothyroidism 14536437 Pain of hip region 45753002 Hypertroph ic condition of skin 23715276 [id number] Mounika Mccarty MD [address] [address] 7 03/14/2014 08:23:05 03/14/2014 10:44:00 Achilles tendinitis 49303959 Depressive disorder 12502674 Otitis media 13640006 Impacted cerumen 21149401 Anxiety 73162023 Sleep disorder 17162317 Generalize d osteoarthritis 489644648 Chronic he adache disorder 262105077 Hypertensive disorder 58997305 [id number] Mounika Mccarty MD [address] [address] 7 03/23/2014 13:34:43 03/31/2014 15:08:30 Essential hypertension 15229006 Sleep apnea 21059287 Generalize d osteoarthritis 431556899 Hyperlipidemia 52611955 Hypothyroidism 00448176 Malaise and fatigue 304906386 [id number] Mounika Mccarty MD [facility] [address] [id number] 7 03/30/2014 16:33:06 04/05/2014 11:07:04 Hypertensive disorder 83192653 Achilles tendinitis 58254679 [id number] Mounika Mccarty MD [facility] [address] [id number] 7 04/28/2014 13:31:14 04/28/2014 16:30:03 Tendinitis of elbow or forearm 4470006081 06 [id number] Mounika Mccarty MD [facility] [place] [id number] 11/09/2014 08:52:46 11/09/2014 17:00:21 Anthony's palsy 800216901 Vertiginous syndrome 78252030 Chronic he adache disorder 593194255 Essential hypertension 61129797 Nausea 759896415 [id number] Mounika Mccarty MD [facility] [address] [place] [id number] 7 12/12/2014 08:57:45 12/12/2014 10:24:23 Essential hypertension 50329893 Depressive disorder 89697183 Chronic he adache disorder 789256375 Sleep disorder 49759594 Type 2 alex betes mellitus without complication 409598691 Generalize d osteoarthritis 581104821 [id number] Mounika Mccarty MD [facility] [address] [id number] 7 01/18/2015 09:17:25 01/18/2015 17:38:28 Essential hypertension 52116815 Achilles tendinitis 32327081 Generalize d osteoarthritis 458986704 Type 2 alex betes mellitus without complication 086182256 Sensory neuropathy 51289262 [id number] Mounika Mccarty MD [facility] [address] [id number] 7 05/16/2015 08:57:46 05/18/2015 00:24:01 Acute sinusitis 99401090 J01.90 [id number] Mounika Mccarty MD [facility] [address] [id number] 7 06/06/2015 08:31:34 06/10/2015 23:21:56 Acute bronchitis 94693412 J20.9 Dehydration 40448913 E86 .0 Acute urin troy tract infection 333922040 N39.0 [id number] Mounika Mccarty MD [facility] [address] [id number] 7 06/18/2015 08:42:16 06/20/2015 08:46:44 Adult health examination 984401059 Z00.01 Essential hypertension 46995448 I10 Hyperlipidemia 42007325 E78.5 Hypothyroidism 08583547 E03.9 Screening mammography 24 093100 Z12.31 Type 2 alex betes mellitus without complication 777760169 E11.9 Diabetic p eripheral neuropathy 602275714 E11.40 [id number] Mounika Mccarty MD [facility] [address] [place] [id number] 7 10/23/2015 08:16:56 10/24/2015 08:18:04 Depressive disorder 14073116 F32.9 Insomnia 058828020 G47.0 0 Hypothyroidism 15595574 E03.9 Generalize d osteoarthritis 532830066 M15.9 [id number] Mounika Mccarty MD [facility] [address] [place] [id number] 7 04/11/2016 10:58:24 04/16/2016 09:20:48 Chronic headache disorder 366139694 G43.719 [id number] Mounika Mccarty MD [facility] [place] [address] 7 05/29/2016 09:12:39 05/29/2016 14:20:15 Essential hypertension 86023780 I10 Atypical chest pain 1025 22734 R07.89 Migraine 81688006 G43.90 9 Gastroesop hageal reflux disease 490286071 K21.9 [id number] Mounika Mccarty MD [facility] [address] [address] 07/29/2016 09:13:23 07/30/2016 09:03:26 Adult health examination 247082710 Z00.01 Hypothyroidism 17869603 E03.9 Greater tr ochanteric pain syndrome 7744477 M70.60 Cyst of breast 845980388 N60.01 Body mass index 40+ - severely obese 985196668 Z68.42 Active or passive immunization 462686927 Z23 Essential hypertension 06480695 I10 Depressive disorder 3548 9007 F32.4 Diabetic p eripheral neuropathy 359079340 E11.40 Hyperlipidemia 52900074 E78.5 [id number] Mounika Mccarty MD [facility] [address] [id number] 7 01/15/2017 15:08:38 01/16/2017 10:04:52 Pre-surgery evaluation 934072041 Z01.818 Essential hypertension 01772828 I10 Hypothyroidism 71532238 E03.9 Diabetic p eripheral neuropathy 443182460 E11.40 Depressive disorder 3548 9007 F32.5 History of migraine 1614 77429 Z86.69 Hyperlipidemia 74370885 E78.5 [id number] Mounika Mccarty MD [facility] [address] [id number] 7 03/16/2017 10:33:29 03/17/2017 09:17:07 Active or passive immunization 205194888 Z23 [place] malignant neoplasm of breast 7245170753 21916 Z91.89 Type 2 alex betes mellitus without complication 746082913 E11.9 Essential hypertension 07106522 I10 Hyperlipidemia 76424760 E78.5 Hypothyroidism 68169452 E03.9 [id number] Mounika Mccarty MD [facility] [address] [place], [place] [address] 7 05/18/2017 10:10:11 05/18/2017 14:10:28 Acute sinusitis 80927547 J01.90 [id number] Mounika Mccarty MD [facility] [place] [id number] 07/03/2017 10:12:53 07/03/2017 14:24:33 Urge incontinence of urine 97007908 N39.41 Body mass index 40+ - severely obese 991978122 Z68.42 [id number] Mounika Mccarty MD [facility] [place] [address] 7 08/18/2017 09:14:18 08/19/2017 12:06:58 Adult health examination 305312979 Z00.01 Seasonal a llergic rhinitis 098941529 J30.2 Screening for malignant neoplasm of colon 664216501 Z12.11 Essential hypertension 05104508 I10 Hyperlipidemia 60129852 E78.5 History of migraine 1614 61304 Z86.69 Chronic pain syndrome 37 8777175 G89.4 BRCA2 gene mutation detected 015572634 Z15.01 Hypothyroidism 34138569 E03.9 Diabetic p eripheral neuropathy 252923774 E11.40 Depressive disorder 3548 9007 F32.5 Body mass index 40+ - severely obese 763412979 Z68.42 [id number] Mounika Mccarty MD [facility] [address] [id number] 7 12/17/2017 09:48:26 12/18/2017 08:06:22 Essential hypertension 33214723 I10 Migraine 51865103 G43.90 9 Seizure disorder 7807166 02 G40.909 Depressive disorder 3548 9007 F32.5 History of hemorrhagic cerebrovascular accident without residual deficits 8087719470 20510 Z86.73 Body mass index 40+ - severely obese 025986707 Z68.42 [id number] Mounika Mccarty MD [facility] [address] [place] [id number] 7 07/05/2018 09:40:47 07/05/2018 17:58:04 Urinary tract infectious disease 58118053 N39.0 Acute pyelonephritis 366 59088 N10 [id number] Mounika Mccarty MD [facility] [address] [id number] 7 09/24/2018 09:51:14 09/26/2018 21:27:36 Adult health examination 540699690 Z00.01 Hypothyroidism 10353473 E03.9 Allergic rhinitis 870115 04 J30.9 Urinary tr act infectious disease 99165919 N39.0 Hyperlipidemia 54361378 E78.5 Screening for malignant neoplasm of colon 222424078 Z12.11 Obstructiv e sleep apnea syndrome 23793134 G47.33 Atypical chest pain 1025 24204 R07.89 Essential hypertension 94371829 I10 History of migraine 1614 05916 Z86.69 BRCA2 gene mutation detected 008223831 Z15.01 Diabetic p eripheral neuropathy 409303844 E11.40 Depressive disorder 3548 9007 F32.5 Body mass index 40+ - severely obese 233917423 Z68.42 at her last visit and may be higher now Uncontroll ed type 2 diabetes mellitus 646154691 E11.65 Memory impairment 390456 006 R41.3 [id number] Mounika Mccarty MD [facility] [address] [id number] 7 11/05/2018 14:43:12 11/09/2018 08:11:28 Uncontrolled type 2 diabetes mellitus 654263039 E11.65 Essential hypertension 74756618 I10 Body mass index 40+ - severely obese 086257836 Z68.42 at her last visit and may be higher now Hyperlipidemia 13152349 E78.5 Depressive disorder 3548 9007 F32.5 Hypothyroidism 24515368 E03.9 [id number] Mounika Mccarty MD [facility] [address] [place] [id number] 7 01/14/2019 14:46:06 01/17/2019 07:47:19 Seizure disorder 336553780 G40.909 History of migraine 1614 38481 Z86.69 Essential hypertension 29330550 I10 she will continue to monitor this as it is quite variable and consider taking a low dose( 2.5 to 5 mg) of the amlodipine 10 mg tablets she has at home. [id number] Mounika Mccarty MD [facility] [address] [place] [address] [id number] 7 09/05/2019 14:18:47 09/06/2019 09:11:02 Abdominal pain 71237091 R10.9 Diarrhea 09009660 R19.7 Gastro-eso phageal reflux disease with esophagitis 219067386 K21.0 Uncontroll ed type 2 diabetes mellitus 688753461 E11.65 Hyperlipidemia 56224260 E78.5 [id number] Mounika Mccarty MD [facility] [address] [place] [address] [id number] 7 01/30/2020 13:57:06 02/01/2020 19:05:24 Increased frequency of urination 194090284 R35.0 Uncontroll ed type 2 diabetes mellitus 165582050 E11.65 Depressive disorder 3548 9007 F32.5 Depression screening 171 555674 Z13.31 Pain in left thumb 63375 49605 783206 M79.645 [id number] Mounika Mccarty MD [facility] [address] [place] [id number] 7 03/06/2020 09:34:40 03/09/2020 15:50:46 Active or passive immunization 941223182 Z23 Trochanter ic bursitis of right hip 8313878921 07478 M70.61 Adult heal th examination 397538221 Z00.01 Hypothyroidism 09758616 E03.9 Allergic rhinitis 514111 04 J30.9 Hyperlipidemia 44710653 E78.5 Obstructiv e sleep apnea syndrome 91703824 G47.33 History of migraine 1614 61937 Z86.69 BRCA2 gene mutation detected 237015630 Z15.01 Diabetic p eripheral neuropathy 398267148 E11.40 Depressive disorder 3548 9007 F32.5 Body mass index 40+ - severely obese 003951232 Z68.42 at her last visit and may be higher now Uncontroll ed type 2 diabetes mellitus 015305296 E11.65 Memory impairment 730786 006 R41.3 [id number] Mounika Mccarty MD [facility] [address] [address] 7 05/21/2020 11:06:49 05/22/2020 08:38:40 Diabetic peripheral neuropathy 774655799 E11.40 Dizziness 348527947 R42 we will decrease clonidine only to pm dose Administra tion of viral vaccine 27190250 Z23 Body mass index 40+ - severely obese 726925169 Z68.41 [id number] Mounika Mccarty MD [facility] [address] [place] [id number] 7 08/20/2020 09:58:53 08/23/2020 08:56:59 Essential hypertension 73458671 I10 Hyperlipidemia 37322544 E78.5 Fatigue 87828072 R53.83 Type 2 alex betes mellitus without complication 273332828 E11.9 Depressive disorder 3548 9007 F32.5 Mild memor y disturbance 230796360 R41.3 Seizure disorder 5878449 02 G40.909 [id number] Mounika Mccarty MD [facility] [address] [address] 11/29/2020 14:48:17 12/03/2020 09:29:29 Active or passive immunization 854002842 Z23 Neoplasm o f uncertain behavior of skin 07510704 D48.5 suspicious lesion dorsum right hand [id number] Mounika Mccarty MD [facility] [address] [place] [id number] 7 03/07/2021 10:09:30 03/10/2021 15:54:35 Active or passive immunization 965001566 Z23 Adult heal th examination 374510345 Z00.01 Trochanter ic bursitis of right hip 9341795024 97626 M70.61 Hypothyroidism 63850060 E03.9 Allergic rhinitis 051589 04 J30.9 Hyperlipidemia 94708892 E78.5 Obstructiv e sleep apnea syndrome 85512850 G47.33 History of migraine 1614 78681 Z86.69 BRCA2 gene mutation detected 189044267 Z15.01 Diabetic p eripheral neuropathy 247914379 E11.40 Depressive disorder 3548 9007 F32.5 Body mass index 40+ - severely obese 498323821 Z68.42 at her last visit and may be higher now Uncontroll ed type 2 diabetes mellitus 518118667 E11.65 Memory impairment 824041 006 R41.3 Essential hypertension 51026900 I10 Fatigue 55561224 R53.83 [id number] Mounika Mccarty MD [facility] [address] [place] [id number] 7 07/08/2021 14:47:45 07/10/2021 11:53:17 Chest pain 15383940 R07.9 This started 3-4 weeks ago with any activity and it causes a chest pressure and significan t dyspnea with any activity that is new. This is gradually worsening over the past several weeks and is concerning for CAD. Dyspnea on exertion 6084 5006 R06.09 Dyspnea 806825753 R06.00 [id number] Mounika Mccarty MD [facility] [address] [place] [id number] 7 07/30/2021 13:26:45 08/01/2021 08:50:19 Dyspnea on exertion 42769952 R06.09 Multiple n odules of lung 940269003 R91.8 Gastroesop hageal reflux disease 399884422 K21.9 Body mass index 40+ - severely obese 590572101 Z68.42 Health Concerns Section Related Observation LastModified by Organization Detai ls LastModified Time None Recorded Concern Status LastModified by Organization Details LastModified Time None Recorded Advance Directives Directive Y: Payers Insurance Date Sequence Insurance Name Policy Number Policy Hope Covered Member ID Hope Member ID Guarantor Name 09/22/2021 1 [facility] Eliel Murphy [id number] Eliel Murphy 06/05/2023 1 [place] Eliel Murphy [id number] Eliel Murphy 09/22/2021 1 [facility] [employer] HE[employer]AN - [facility] (O) [id number] Eliel Murphy [id number] Eliel Murphy 09/22/2021 1 [facility] () Eliel Murphy [id number] Eliel Murphy 12/03/2021 2 FOR LIFE ( - MEDICARE SUPPLEMENT) Eliel Murphy [id number] Eliel Murphy 12/03/2021 1 [facility] () Eliel Murphy [id number] Eliel Murphy Notes Date Note Type Note Provider Name and Address Organization Details Recorded Time 08/20/2020 text/html Her sister end of june and she got off her diet She had leukemia and was a year younger than her. She is having a hard time with it. She is still doing plant based eating for the most part Mounika Mccarty MD [address] [facility], [place] [address], [place], [address], [facility] 08/22/2020 20:29:32 11/29/2020 text/html she had a sleep study a few weeks ago and she remains on BipaP and she may be changed She has a suspicious lesion right dorsum of hand for early basal cell Mounika Mccarty MD [address] [facility], [place] [address], [place], [address], [facility] 12/02/2020 22:40:19 03/07/2021 text/html her CPAP/ ARC wa s increased about 2 months ago but she is still tired but her sleep numbers are doing well. Mounika Mccarty MD [address] [facility], [facility] [address], [place], [address], [facility] 03/10/2021 15:50:36 07/08/2021 text/html she has been having significant shortness of breath and went to ER. She feels that she gets worse as the day progresses At night on BIPAP she does OK but feels at times like she is struggling with any activity. Just picking up a load of laundry she gets dyspneic She saw her chicken hanger last year. She is having some dry cough lately as well. No fevers. Had a negative covid test last week but we recommend repeating Has not had the Booster yet.All activity including just walking to mailbox has started causing her to have shortness of breath Mounika Mccarty MD [address] [facility], [address] [address], [place], [address], [facility] 07/09/2021 23:21:50 07/30/2021 text/html she gets [...] lexiscan stress test. Mounika Mccarty MD 2017 [facility], [facility], [place], [address], [facility] 07/31/2021 19:49:55 OBGyn Episode No OBEpisode recorded.
--- OUTSIDE RECORDS SUMMARY | 2024-12-22 13:26 | XMS_ITS | Patient Health Record ---
Author [facility] Address [address] [id number] Care Team Providers Care Compress Engineer Name Role Phone Yossi Cuadra Primary Care Provider Allergies Allergen (clinical drug ingredient) Drug/Non Drug Allergy documented on EMR Reaction Allergy Type Onset Date Status zolpidem Ambien Unknown Drug Allergy Active meperidine Demerol Unknown Drug Allergy Active codeine Codeine Unknown Drug Allergy Active ketorolac Ketorolac Unknown Drug Allergy Active Results Component Value Reference Range Notes oguard Reviewed date:11/17/2024 02:22:24 PM Interpretation:not performed, pt is not a candidate Performing Lab: Notes/Report: not performed, pt is not a candidate DEXA Hip and Spine Reviewed date:11/30/2024 03:47:48 PM Interpretation:Normal Performing Lab: Notes/Report: Normal Glycohemoglobin A1c (in hous e) Reviewed date:11/07/2024 10:17:52 AM Interpretation:6.0 Performing Lab: Notes/Report: 6.0 glycohemoglobin 6.0 5 - 6.5 % Glucose (In-House) Reviewed date:11/08/2024 10:23:30 AM Interpretation:134 Performing Lab: Notes/Report: 134 blood glucose 134 74 - 106 mg/dL Mammogram Reviewed date:04/18/2024 11:50:58 AM Interpretation:Negative, annual f/u Performing Lab: Notes/Report: Negative, annual f/u result Negative, annual f/u P-Microalbumin/Creatinine, R andom Urine Sample Reviewed date:04/19/2024 08:59:32 AM Interpretation:Normal Performing Lab: Notes/Report: Test performed by [facility] [address] , [address], [place] [address] Jose De Jesus Núñez MD, Railroad Repairer CLIA: [id number] Albumin/Creatinine Ratio, Urine 6 0-30 ug/mg Microalbumin, Urine, Random 0.4 Creatinine, Urine 69.8 P-TSH Reviewed date:04/19/2024 08:59:32 AM Interpretation:Normal Performing Lab: Notes/Report: [facility] [address] , [address], [place] [address] Jose De Jesus Núñez MD, Railroad Repairer CLIA: [id number] TSH 0.56 0.43-5.25 mU/L P-Lipid Panel Reviewed date:04/19/2024 08:59:32 AM Interpretation:trigs 157 Performing Lab: Notes/Report: [facility] [address] , [address], [place] [address] Jose De Jesus Núñez MD, Railroad Repairer CLIA: [id number] Cholesterol 156 <200 mg/dL Triglycerides 157 <150 [...] Results: 73 Units: mg/dL % Change: - P-T4 Free (thyroxine) Reviewed date:04/19/2024 08:59:32 AM Interpretation:Normal Performing Lab: Notes/Report: Test performed by [employer] [address] [place] [address] , [place] [address] Jose De Jesus Núñez MD, Railroad Repairer CLIA: [id number] Thyroxine Free (free T4) 1.42 0.86-1.76 ng/dL P-Comprehensive Metabolic Pa sujit (CMP) Reviewed date:04/19/2024 08:59:32 AM Interpretation:gluc 125 Performing Lab: Notes/Report: Test performed by [employer] [address] [place] [address] , [address], [place] [address] Jose De Jesus Núñez MD, Railroad Repairer CLIA: [id number] Sodium 143 135-145 mmol/L Potassium 4.4 3.5-5.3 [...] 0.4 <0.2-1.2 mg/dL A/G Ratio 1.8 1.1-2.5 Glycohemoglobin A1c (in hous e) Reviewed date:04/19/2024 08:59:32 AM Interpretation:6.1 Performing Lab: Notes/Report: 6.1 glycohemoglobin 6.1% 5 - 6.5 % Glucose (In-House) Reviewed date:04/19/2024 08:59:32 AM Interpretation:142 Performing Lab: Notes/Report: 142 blood glucose 142 74 - 106 mg/dL Urinalysis - Inhouse Reviewed date:05/12/2024 04:10:13 PM [...] - 38 plat 164 100 - 400 Glucose (In-House) Reviewed date:01/15/2024 05:32:34 PM Interpretation:114 Performing Lab: Notes/Report: 114 blood glucose 114 74 - 106 mg/dL Glycohemoglobin A1c (in hous e) Reviewed date:01/15/2024 05:32:48 PM Interpretation:6.0% Performing Lab: Notes/Report: 6.0% glycohemoglobin 6.0% 5 - 6.5 % Reason For Referral Reason Dr. Mabry Diagnosis 1 TIP on CPAP (G47.33) Referral Organization [facility] Referring Provider First Name Yossi Referring Provider Last Name Khalif Referring Provider Speciality Family [facility] ctice Referred Provider Specialty Neurology General Notes Anne Marie Carvajal 2024 03:59:12 PM > faxed to Dr. Lewis office, Anne Marie Carvajal 10/14/2024 10:01:19 AM > appt 01/12/2025 at 08:45am Referral Priority Routine Medications Medication SIG (Take, Route, Frequency, Duration) Notes Start Date End Date Status cloNIDine HCl 0.2 MG 1 tablet Orally twi ce a day; Duration: 90 days 11/07/2024 Active Cetirizine HCl 10 MG 1 tablet Orally Onc e a day; Duration: 90 days Active buPROPion HCl ER (SR) 150 MG 1 tab(s) orally 2 times a day; Duration: 90 days Active Pravastatin Sodium 80 mg 1 tablet Orally Once a day; Duration: 90 days Active Metoprolol Succinate ER 50 MG 1 tab(s) orally once a day; Duration: 90 days Active Valsartan 320 mg TAKE 1 TABLET DAILY; Duration: 90 days Active CLONIDINE 0.2 mg 1 tab(s) orally 2 ti mes a day; Duration: 90 days Active FREE STYLE EVARISTO GLUCOSE SYSTEM 08/05/2022 Active Aspirin 81 MG 1 tab(s) orally once a day; Duration: 30 day(s) Active Ozempic (2 MG/DOSE) 8 MG/3ML USE DIRECTED UNDER THE SKIN ONCE WEEKLY Active SUMAtriptan Succinate 100 MG 1 tab(s) orally Once a day A ctive Montelukast Sodium 10 MG 1 tab(s) orally once a day; Duration: 90 days Active Fluticasone Propionate 50 MCG/ACT 1 spray(s) in each nostril once a day; Duration: 30 day(s) Active Donepezil HCl 10 MG 1 tab(s) orally once a day (at bedtime); Duration: 90 days Active Synthroid 137 MCG TAKE 1 TABLET DAILY Orally Once a day; Duration: 90 days Active Furosemide 20 MG 1 tablet Orally Once a day; Duration: 30 day(s) Active Mirtazapine 15 MG 1 tab(s) orally once a day (at bedtime); Duration: 90 days Active lamoTRIgine 25 MG 1 tab(s) orally 2 ti mes a day; Duration: 90 days Active B-12 1000 MCG 1 tab(s) orally once a day; Duration: 30 day(s) Active Diclofenac [...] Problem Status W/U Status Risk Notes Problem Type II diabetes mellitus without complication (960622563) Type 2 diabetes mellitus without complications (E11.9) Active confirmed Problem Morbid obesity (826862712) Morbid obesity (E66.01) Active confirmed Problem Memory loss (11262428) Memory loss (R41.3) Active confirmed Problem Long-term current us e of insulin (901049826) intermediate frame tender (current) use of insulin (Z79.4) Active confirmed Problem Acquired hypothyroidism (634701213) Acquired hypothyroidism (E03.9) Active confirmed Problem Dementia (13892968) Dementia ass ociated with other underlying disease without behavioral disturbance (F02.80) Active confirmed Problem Mammography abnormal (362113845) Abnormal mammogram of left breast (R92.8) Active confirmed Problem Obese class II (576337817308072) BMI 39.0-39.9,adult (Z68.39) Active confirmed Problem Pure hypercholesterolemia (801914919) Pure hypercholesterolemia (E78.00) Active confirmed Problem Allergic rhinitis (64909002) Allergic rhinitis, unspecified seasonality, unspecified trigger (J30.9) Active confirmed Problem Gastroesophageal reflux disease (337959442) Gastroesophageal reflux disease, unspecified whether esophagitis present (K21.9) Active confirmed Problem Primary hypertension (04681037) Primary hypertension (I10) Active confirmed Problem Obstructive sleep apnea syndrome (05396399) TIP on CPAP (G47.33) Active confirmed Vital Signs Heart Rate 62 /min 11/07/2024 Blood pressure diastolic 78 mm Hg 11/07/2024 Height 65.5 in 11/07/2024 Blood pressure systolic 128 mm Hg 11/07/2024 Weight 240.2 lbs 11/07/2024 BMI 39.36 kg/m2 11/07/2024 Encounters Encounter Location Date Provider Diagnosis [facility] [address] [facility] [address] [place], [place] [id number] 01/15/2024 Yossi Mansfield Type 2 diabetes ely itus without complications E11.9 ; Primary hypertension I10 ; Depressive disorder F32.A and Morbid obesity E66.01 [facility] [address] [facility] [address] [place], [place] [id number] 04/15/2024 Yossi Mansfield Type 2 diabetes ely itus without complications E11.9 ; Primary hypertension I10 ; Acquired hypothyroidism E03.9 ; Pure hypercholesterolemia E78.00 and Encounter for immunization Z23 [facility] [address] [facility] [address] [place], [place] [id number] 05/12/2024 Yossi Mansfield Dizziness R42 ; Conc ussion with unknown loss of consciousness status, initial encounter S06.0XAA ; Acute URI J06.9 ; Recent urinary tract infection Z87.440 and Primary hypertension I10 [facility] [address] [facility] [address] [place], [place] [id number] 07/14/2024 Yossi Mansfield Type 2 diabetes ely itus without complications E11.9 [facility] [address] [facility] [address] [place], [place] [id number] 11/07/2024 Yossi Mansfield Primary hypertension I10 ; Type 2 diabetes mellitus without complications E11.9 ; Acquired hypothyroidism E03.9 ; Pure hypercholesterolemia E78.00 ; Allergic rhinitis, unspecified seasonality, unspecified trigger J30.9 ; Morbid obesity E66.01 ; Dementia associated with other underlying disease without behavioral disturbance F02.80 and BMI 39.0-39.9,adult Z68.39 [facility] [address] [facility] [address] [place], [place] [id number] 02/04/2024 Yossi Mansfield Type 2 diabetes ely itus without complications E11.9 [facility] [address] [facility] [address] [place], [place] [id number] 02/11/2024 Yossi Mansfield [facility] [address] [facility] [address] [place], [place] [id number] 04/19/2024 Yossi Mansfield [facility] [address] [facility] [address] [place], [place] [id number] 07/14/2024 Yossi Mansfield Type 2 diabetes ley itus without complications E11.9 [facility] [address] [place], [place] [id number] 10/11/2024 Yossi Mansfield TIP on CPAP G47.33 [facility] [address] [place], [place] [id number] 10/12/2024 Yossi Mansfield [facility] [address] [place], [place] [id number] 11/08/2024 Yossi Mansfield Osteoporosis screeni ng Z13.820 and Colon cancer screening Z12.11 [facility] [address] [place], [place] [id number] 11/17/2024 Yossi Mansfield Screening for colon cancer Z12.11 Assessments Encounter [...] 11/17/2024 Next Appt Details Provider Name:Yossi Kat , 05/24/2025 09:30:00 AM, [address], [place], [place], [id number], Insurance Providers Payer Name Payer Address Payer Phone Subscriber Number Group Number Insured Name Patient Relationship to Insured Coverage Start Date Coverage End Date MEDICARE PART B [address] [address] [place] Treviño [id number] ELIEL ALEJANDRO Self - patient is the insured [facility] CLAIMS [address] [address] [place] [id number] ELIEL ALEJANDRO Self - patient is the insured Medical (General) History Medical History History ICD Code Diabetes Mellitus 2 Hypertension, Followed by Dr. Patel Hypothyroidism Migraines Histoplamosis Sleep Apnea, treated with ASV Renal Artery Stenosis Enlarged Left Atrium Narcolepsy Brain Hemorrhage Memory Loss Mild cognitive impairment PRES syndrome, s/p neurology evaluation at [facility] Allergic Rhinitis Cardiac Murmur COPD Surgical History Surgery Date(Month/Year) Tubaligation Appedectomy Hysterectomy LT Knee Orthoscopy Cholecystectomy Bilateral Knee Replacement Thoracotomy Foot/ Ankle Surgery Hospitalization History Reason Date(Month/Year)
--- NOTE | 2024-12-22 13:45 | CA_ITS ---
APPROVED REPORT EXAM: Comprehensive 2D, Doppler, and color-flow Echocardiogram Financial Operations Clerk: JORDAN Pham, RVS Ht: 5 ft 5 in Wt: 247lbs BSA: 2.16 BP: 127/77 mmHg Indications: Dyspnea, Murmur, Hx- brain bleed-stroke Echo Enhancing Agent Indication: Rule Out Septal Defect Agent(s) / Amount(s) Used: Agitated Saline 20 cc Comments: Negative for right to left shunt 2D Dimensions IVSd 1.14 cm F: 0.6-1.0 LA Volume 57.00 mL PWd 1.16 cm F: 0.6 - 1.0 LA Volume Index 26.654890 mL/m2 (M/F) 16-34 LVDd 4.71 cm F: 3.9 - 5.3 Left Atrium 3.28 cm F: 2.7 - 3.8 M-Mode Dimensions RVDd 0.99 cm (0.9-2.6) LA Diam 4.00 cm (1.9-4.0) LVDd 5.35 cm (3.5-5.7) LVDs 3.38 cm (3.5-5.7) IVSd 1.25 cm (0.6-1.1) PWd 1.29 cm (0.6-1.1) EF (Teich) 66.20% EPSs 0.23 cm FS 36.80% EDV (Teich) 138.30 mL TAPSE 2.10 (<1.7) ESV (Teich) 46.80 mL LV Diastology E Decel Time 270 (160-240 msec) E/A Ratio 0.81 MED A' 9.30 cm/s LAT A' 11.30 cm/s Aortic Valve YVES Index 0.93 cm2/m2 AoV Peak Blayne. 204.0 (50-130 cm/s) AO Peak GR. 16.60 mmHg AO Mean GR. 8.20 (<5 mmHg) AO VTI 43.0 (18-25 cm) YVES (VTI) 2.07 (2.5-4.5 cm2) Mitral Valve MV A Velocity 85.0 (40-130 cm/s) E/A Ratio 0.81 Left Ventricle The left ventricle is normal size. The left ventricular systolic function is normal. The left ventricular ejection fraction is within the normal range. There is increased LV wall thickness. There is normal LV segmental wall motion. Transmitral Doppler flow pattern suggests impaired LV relaxation. LVEF is 60%. Right Ventricle The right ventricle is normal size. The right ventricular systolic function is normal. Atria Left atrium is mildly dilated. Right atrium is mildly dilated. There is no Doppler evidence of interatrial shunt. Agitated saline administration demonstrates no evidence of interatrial shunt. Aortic Valve The aortic valve is mildly thickened. Trace aortic regurgitation. There is no aortic valvular stenosis. Mitral Valve The mitral valve is normal in structure. No evidence of mitral valve stenosis. Trace mitral regurgitation. Tricuspid Valve Tricuspid valve is grossly normal in structure and function. Trace tricuspid regurgitation. There is insufficient TR jet to estimate RVSP. Pulmonic Valve The pulmonary valve is normal in structure. Trace pulmonic regurgitation. Great Vessels The aortic root is normal in size. IVC is normal in size and collapses >50% with inspiration. Pericardium There is no pericardial effusion. Other Information Study Quality: Fair Conclusion Normal biventricular systolic function. Biatrial dilation. No significant valvular stenosis or regurgitation. There is no Doppler evidence of interatrial shunt. Agitated saline administration demonstrates no evidence of interatrial shunt. Electronically signed by : Lynn Card MD 12/27/2024 23:37:52
== END 2024-12-22 23:59 | disposition home or self-care (01) ==
LOC: RT 13:22
PROVIDERS: PCP Family Medicine; Visit Provider Nurse Practitioner
DX: I11.9 Hypertensive heart disease without heart failure (principal); I65.23 Occlusion and stenosis of bilateral carotid arteries; R01.1 Cardiac murmur, unspecified
CPT/HCPCS: 93306

== ENCOUNTER 2025-01-09 07:55 | Outpatient (CLI) | payer MEDICARE, OTHER, SELFPAY ==
--- OUTSIDE RECORDS SUMMARY | 2019-02-20 19:18 | XMS_ITS | Encounter Summary ---
Author Organization [facility] Address [address] [place] [address] Care Team Providers Care Filter Tip Catcher Name Role Phone Mounika Mccarty MD Primary Care Provider + Reason for Referral * Hospital - Outpatient (Routine) - Closed Specialty Diagnoses / Procedures Referred By Contac t Referred To Contact Sleep Medicine Diagnoses Obstructive sleep apnea syndrome Hypersomnia with sleep apnea Procedures Polysomnography 4 or More Parameters With CPAP Chente Kelley MD [address] [place] [address] Phone: tel: fax: [facility] [address] [address] Phone: tel: fax: Referral ID Status Reason Start Date Expiration Date Visits Re quested Visits Authorized [id number] Closed 12/29/2018 12/29/2019 1 1 Reason for Visit * Hospital - Outpatient (Routine) - Closed Specialty Diagnoses / Procedures Referred By Contac t Referred To Contact Sleep Medicine Diagnoses Obstructive sleep apnea syndrome Hypersomnia with sleep apnea Procedures Polysomnography 4 or More Parameters With CPAP Chente Kelley MD [address] [place] [address] Phone: tel: fax: [facility] [address] [address] Phone: tel: fax: Referral ID Status Reason Start Date Expiration Date Visits Re quested Visits Authorized [id number] Closed 12/29/2018 12/29/2019 1 1 Encounter Details Date Type Department Care Team (Latest Contact Info) Description 02/20/2019 7:18 PM EDT Hospital Encounter [facility] [address] [place] [address] Chente Kelley MD [address] [facility] [address] [place] [address] Obstructive sleep apnea syndrome; Hypersomnia with sleep apnea Social History Tobacco Use Types Packs/Day Years Used Date Smoking Tobacco: Never Smokeless Tobacco: Never Alcohol Use Standard Drinks/Week Comments No 0 (1 standard drink = 0.6 oz pur e alcohol) AUDIT-C Answer Date Recorded Q1: How often do you have a drink containing alc ohol? Never 06/18/2020 Average Number of Drinks Not on file 021 Frequency of Binge Drinking Not on file 06/08 Abuse Screen Answer Date Recorded Unsafe at Home or Work/School Not on file Feels Threatened by Someone? Not on file 02/2023 Does Anyone Keep You from Co ntacting Others or Doint Things Outside the Home? Not on file 03/16/2023 Physical Sign of Abuse Present Not on file 1 Housing Stability Answer Date Recorded Current Living Arrangements Not on file 02/2023 Potentially Unsafe Housing Conditions Not on jammie e 03/16/2023 Family and Community Support Answer Merritt e Recorded Help with Day-to-Day Activities Not on file 03/16/2023 Lonely or Isolated Not on file 03/16/2023 Employment Answer Date Recorded Do you want help finding or keeping work or a fredi b? Not on file 03/16/2023 Disabilities Answer Date Recorded Concentrating, Remembering, or Making Decisions Difficulty Not on file 03/16/2023 Doing Errands Independently Difficulty Not on fi le 03/16/2023 Education Answer Date Recorded Help with school or training? Not on file Preferred Language Not on file 03/16/2023 Comments Unknown Sex and Gender Information Value Date Recorded Sex Assigned at Not on file Legal Sex Female 1:27 PM EDT Gender Identity Not on file Sexual Orientation Not on file documented as of this encounter Last Filed Vital Signs Vital Sign Reading Time Taken Comments Blood Pressure 121/73 02/20/2019 8:13 PM EDT Pulse 72 02/20/2019 8:13 PM EDT Temperature - - Respiratory Rate - - Oxygen Saturation 93% 02/20/2019 8:13 PM EDT Inhaled Oxygen Concentration - - Weight 132 kg (291 lb 0.1 oz) 02/20/2019 8:13 PM EDT Height 168 cm (5' 6.14 ) 02/20/2019 8:13 PM EDT Body Mass Index 46.77 02/20/2019 8:13 PM EDT documented in this encounter Functional Status documented as of this encounter Plan of Treatment Not on file documented as of this encounter Procedures Procedure Name Priority Date/Time Associated Diagnosis Comments TITRATION Routine 02/21/2019 5:51 AM EDT Obstructive sleep apnea syndrome Hypersomnia with sleep apnea documented in this encounter Results * TITRATION (02/21/2019 5:51 AM EDT) Narrative Chente Kelley MD - 02/26/2019 1:54 PM EDT Polysomnography with positive airway pressure titration report Patient Name: Danielle Murphy Interpreting Physician: Chente Kelley MD Date of : 1955 Referring Physician: Dr. Mccarty Primary Care Physician: Mounika Mccarty MD Date of Study: 02/20/2019 Clinical Information Patient is a 63 y.o. female. Who is seen for the evaluation of obstructive sleep apnea and excessive daytime sleepiness. She has a history of having sleep study 5 years previously and been on CPAP but she says she gets sleepy today. She is been using nasal pillows. She has had snoring for 10 years. She has a history of hypertension and diabetes. Blood blood pressure is 126/74 pulse 80 respirations 16 body mass index 47 she had nasal airway narrowing and nasal septal deviation left. She has mild +4 anatomy. Lungs are clear. Cardiac exam revealed normal S1-S2. She had 2+ pedal edema. Patient presents with an [place] Sleepiness Scale of 16/24 Methods used for Titration Study: Subject was monitored in the sleep laboratory. Electroencephalogram (C3/M2, C4/M1, F3/M2, F4/M1, 01/M2, O2/M1), EOG, EKG, and EMG (chin and bilateral anterior tibialis) were monitored by surface electrodes and recorded utilizing a computerized polygraph. Airflow was recorded via positive airway pressure flow and oxygen saturation was recorded by a pulse oximeter. Thoracic and abdominal respiratory movements were recorded on 2 separate channels by respiratory inductive plethysmograph. Sleep stages were scored by standard techniques and abnormal respiratory events, cardiac arrhythmias, and leg movements were analyzed. Positive airway pressure was titrated in an attempt to aboloish respiratory events. Plywood Stock Grader had problems measuring oxygen saturations to the patient's nail lithuanian and air flow waveform was used to determine apneas hypopneas. Patient brought her home mask a P 10 nasal pillows but had significant mouth leak and was changed to a [employer] fullface mask. Polysomnography Results Titration Summary TOTAL RECORDING TIME: Total Recording Time (TIB) (min): 480.6 minutes TOTAL SLEEP TIME: Total Sleep Time (TST)(min): 445 minutes SLEEP LATENCY: Sleep Latency (min): 10.9 STAGE R. LATENCY: Stage R Latency (min): 191 min SLEEP EFFICIENCY: Sleep Efficiency (%): 92.6 % WAKE AFTER SLEEP ONSET: Wake After Sleep Onset (WASO)(min): 24.7 minutes STAGE N1 DURATION: Stage N1 Duration (min): 18 minutes STAGE N1% TST Stage N1 % TST: 4 % STAGE N2 DURATION: Stage N2 Duration (min): 225 minutes STAGE N3% TST Stage N3 % TST: 14.8 % STAGE N2% TST Stage N2 % TST: 50.6 % STAGE N3 DURATION Stage N3 Duration (min): 66 minutes STAGE R DURATION Stage R Duration (min): 136 minutes STAGE R % TST Stage R % TST: 30.6 % LATENCY N1 FROM LIGHTS OUT Latency N1 from Lights Out (min): 10.9 minutes LATENCY N1 FROM SLEEP ONSET Latency N1 from Sleep Onset (min): 0 minutes LATENCY N2 FROM LIGHTS OUT Latency N2 from Lights Out (min): 14.9 minutes LATENCY N2 FROM SLEEP ONSET Latency N2 from Sleep Onset (min): 4 minutes LATENCY N3 FROM LIGHTS OUT Latency N3 from Lights Out (min): 38.9 minutes LATENCY N3 FROM SLEEP ONSET Latency N3 from Sleep Onset (min): 28 minutes LATENCY R FROM LIGHTS OUT Latency R from Lights Out (min): 201.9 minutes LATENCY R FROM SLEEP ONSET Latency R from Sleep Onset (min): 191 minutes Respiratory Data OBSTRUCTIVE APNEA INDEX Obstructive Apnea Index (#/hr TST): 0 OBSTRUCTIVE APNEA TOTAL Obstructive Apnea Total: 0 CENTRAL APNEA INDEX Central Apnea Index (#/hr TST): 0.1 CENTRAL APNEA TOTAL Central Apnea Total (#/hr TST): 1 MIXED APNEA INDEX Mixed Apnea Index (#/hr TST): 0 MIXED APNEA TOTAL Mixed Apnea Total (#/hr TST): 0 OBSTRUCTIVE HYPOPNEA INDEX Obstructive Hypopnea Index (#/hr TST): 10 OBSTRUCTIVE HYPOPNEA TOTAL Obstructive Hypopnea Total (#/hr TST): 74 TOTAL APNEA INDEX Total Apnea Index (#/hr TST): 0.1 AHI: AHI: 10.1 RDI: RDI (if applicable): 10.1 NREM OAI NREM OAI (#/hr TST): 0 NREM TATI NREM TATI (#/hr TST): 0 NREM SHANNEN: NREM SHANNEN (#/hr TST): 0 NREM TOTAL AL NREM Total Al (#/hr TST): 0 REM OAI: REM OAI (#/hr TST): 0 REM TATI: REM TATI (#/hr TST): 0.4 REM SHANNEN REM SHANNEN (#/hr TST): 0 REM TOTAL AL REM TOTAL Al (#/hr TST): 0.4 OCCURRENCE OF MAXIMILIAN MCGOVERN Occurrence of Maximilian Mcgovern Breathing: no DURATION OF MAXIMILIAN MCGOVERN No Data Recorded REM HYPOPNEA INDEX REM Hypopnea Index: 17.6 REM HYPOPNEA TOTAL REM Hypopnea (Total Count): 40 APNEA TOTAL Total Apnea : 1 NREM HYPOPNEA INDEX NREM Hypopnea Index: 6.6 NREM HYPOPNEA TOTAL NREM Hypopnea (Total Count): 34 Arousals RESP AROUSAL INDEX Resp Arousal Index (#/hr TST): 0.5 LEG AROUSAL INDEX Leg Arousal Index (#/hr TST): 0 SPONTANEOUS AROUSAL INDEX Spontaneous Arousal Index (#/hr TST): 7.7 TOTAL AROUSAL INDEX Total Arousal Index (#/hr TST): 8.2 SNORE AROUSAL INDEX Snore Arousal Index (#/hr TST): 0 Limb Movements PLMS (TOTAL #) Total # PLMS: 0 PLMS INDEX No Data Recorded PLMS AROUSAL INDEX No Data Recorded PLMS AROUSALS (TOTAL #) Total # PLMS Arousals: 0 Cardiac AVG HR DURING SLEEP Avg HR During Sleep: 64.8 bpm HIGHEST HR DURING SLEEP Highest HR During Sleep: 134 bpm BRADYCARDIA Bradycardia: no ASYSTOLE Asystole: no SINUS TACHYCARDIA DURING SLEEP Sinus Tachycardia During Sleep: no NARROW COMPLEX TACHYCARDIA Narrow Complex Tachycardia: no WIDE COMPLEX TACHYCARDIA Wide Complex Tachycardia: no HIGHEST HR DURING SLEEP Highest HR During Recordin bpm ATRIAL FIBRILLATION Atrial Fibrillation: no OTHER ARRHTYMIAS No Data Recorded Oximetry MIN SPO2 Min SpO2: 83 % O2 SATURATION, MEAN VALUE Arterial Oxygen Saturation, Mean Value (%): 93 % Overall she is 31.5 minutes or 7.8% of her sleep time and desaturated state Treatment Respiratory Index Summary by Body Position She showed significant positional effect Supine AHI, REM AHI, REM : 18.1 AHI, NREM AHI, NREM : 8 AHI, TOTAL AHI, TOTAL : 12.1 RDI, REM RDI, REM : 18.1 RDI, NREM RDI, NREM : 8 RDI, TOTAL RDI, TOTAL : 12.1 TST (min) TST (MIN) : 337.6 AI, REM AI, REM : 0.4 AI, NREM AI, NREM : 0 AI, TOTAL AI, TOTAL : 0.2 HI, REM HI, REM : 17.6 HI, NREM No Data Recorded HI, TOTAL No Data Recorded Duration (Min) No Data Recorded Left AHI, REM AHI, REM : 0 AHI, NREM No Data Recorded AHI, TOTAL AHI, TOTAL : 3.9 RDI, REM RDI, REM : 0 RDI, NREM RDI, NREM : 3.9 RDI, TOTAL RDI, TOTAL : 3.9 TST (min) TST (min) : 107.4 AI, REM AI, REM : 0 AI, NREM AI, NREM : 0 AI, TOTAL AI, TOTAL : 0 HI, REM HI, REM : 0 HI, NREM No Data Recorded HI, TOTAL No Data Recorded Duration (Min) No Data Recorded Right AHI, REM AHI, REM : 0 AHI, NREM AHI,NREM: 3.9 AHI, TOTAL AHI, TOTAL : 0 RDI, REM RDI, REM: 0 RDI, NREM RDI, NREM : 0 RDI, TOTAL RDI, TOTAL: 0 TST (min) TST (min) : 0 AI, REM AI, REM : 0 AI, NREM AI, NREM : 0 AI, TOTAL AI, TOTAL : 0 HI, REM HI, REM : 0 HI, NREM No Data Recorded HI, TOTAL No Data Recorded Duration (Min) No Data Recorded Prone AHI, REM No Data Recorded AHI, NREM No Data Recorded AHI, TOTAL No Data Recorded RDI, REM No Data Recorded RDI, NREM No Data Recorded RDI, TOTAL No Data Recorded TST (min) No Data Recorded AI, REM No Data Recorded AI, NREM No Data Recorded AI, TOTAL No Data Recorded HI, REM No Data Recorded HI, NREM No Data Recorded HI, TOTAL No Data Recorded Duration (Min) No Data Recorded Upright AHI, REM AHI, REM : 0 AHI, NREM AHI, NREM : 0 AHI, TOTAL AHI, TOTAL : 0 RDI, REM RDI, REM : 0 RDI, NREM RDI, NREM : 0 RDI, TOTAL RDI, TOTAL : 0 TST (min) TST (min) : 0 AI, REM AI, REM : 0 AI, NREM AI, NREM : 0 AI, TOTAL AI, TOTAL : 0 HI, REM HI, REM : 0 HI, NREM No Data Recorded HI, TOTAL No Data Recorded Duration (Min) No Data Recorded Pressure Summary She was started on a CPAP of 8 titrated CPAP of 12 and then changed to a bilevel of 17/13. She still had slight elevation of her AHI at that final pressure. BIPAP IPAP PRESSURE IPAP : 17 cmH2O EPAP PRESSURE EPAP : 13 TIB Total Recording Time (TIB) (min): 142 minutes LATENCY (MIN) Sleep Latency (min): 136 REM REM Latency (min): 85.5 min CENTRAL APNEA CA#: 1 OBSTRUCTIVE APNEA OA#: 0 APNEA MIXED MA#: 0 TOTAL APNEA INDEX INDEX: 0.4 HYPOPNEA Hypopneas #: 18 HYPOPNEA INDEX Hypopnea Index: 7.9 RESPIRATORY AROUSALSRERA #: 0 RERA INDEX RERA Index: 0 AHI INDICES AHI: 8.4 RDI INDICES RDI : 8.4 MIN SPO2 Min SpO2: 87 % RATE No Data Recorded CPAP IPAP PRESSURE IPAP : 12 cmH2O EPAP PRESSURE EPAP : 12 TIB Total Recording Time (TIB) (min): 108.5 minutes LATENCY (MIN) Sleep Latency (min): 108.5 REM REM Latency (min): 40.4 min CENTRAL APNEA CA#: 0 OBSTRUCTIVE APNEA OA#: 0 APNEA MIXED MA#: 0 TOTAL APNEA INDEX INDEX: 0 HYPOPNEA Hypopneas #: 27 HYPOPNEA INDEX Hypopnea Index: 14.9 RESPIRATORY AROUSALSRERA #: 0 RERA INDEX RERA Index: 0 AHI INDICES AHI: 14.9 RDI INDICES RDI : 14.9 MIN SPO2 Min SpO2: 84 % RATE No Data Recorded Impression: moderate obstructive apnea, moderate oxygen desaturation, significant positional effect and AHI is not completely corrected on a bilevel of Plan: would encourage weight loss , would encourage the patient to avoid alcohol and sedatives close to bedtime , would encourage lateral position sleep , could consider surgical options and Would consider an auto bilevel with 25 cm maximum IPAP and 13 cm maximum EPAP with 8 cm maximum pressure support and 4 cm minimum pressure support and is bilevel as tolerated would consider overnight oximetry to be certain we are correcting nocturnal hypoxemia. And would recommend use of a full facemask. Follow-up: She is to follow-up in sleep clinic in follow-up with Dr. Mccarty. Chente Kelley MD [facility] Sleep Medicine Pulmonary and Critical Care Medicine Electronically signed by: Chente Kelley MD 02/26/19 1:45 PM Chente Kelley MD [facility] ORDERABLES Final Re sult documented in this encounter Visit Diagnoses Diagnosis Obstructive sleep apnea syndrome Obstructive sleep apnea (adult) (pediatric) Hypersomnia with sleep apnea Hypersomnia with sleep apnea, unspecified documented in this encounter Additional Health Concerns Infection Onset Date Last Indicated Resolved Time COVID Screen (preop/placement) 07/01/2020 07/01/2020 07/02/2020 12:33 PM EST COVID Screen (preop/placement) 10/26/2020 10/26/2020 10/27/2020 5:38 PM EDT documented as of this encounter Care Teams Filter Tip Catcher Relationship Specialty Start Date End Date Mounika Mccaryt MD [address] [place] [address] PCP - General Family Medicine 12/08/17 10/27/23 documented as of this encounter
--- OUTSIDE RECORDS SUMMARY | 2020-07-04 20:28 | XMS_ITS | Encounter Summary ---
Author Organization [facility] Address [address] [place] [address] Care Team Providers Care Environmental Services Associate Name Role Phone Mounika Mccarty MD Primary Care Provider + Reason for Referral * Hospital - Outpatient (Routine) - Closed Specialty Diagnoses / Procedures Referred By Lacy freeman Referred To Contact Sleep Medicine Diagnoses Obstructive sleep apnea syndrome Procedures Polysomnography 4 or More Parameters With CPAP Alyx Nazario APRN [address] [place] [address] Phone: tel: fax: [facility] [address] [address] Phone: tel: fax: Referral ID Status Reason Start Date Expiration Date Visits Re quested Visits Authorized [id number] Closed 06/18/2020 06/18/2021 1 1 Reason for Visit * Hospital - Outpatient (Routine) - Closed Specialty Diagnoses / Procedures Referred By Contshreya freeman Referred To Contact Sleep Medicine Diagnoses Obstructive sleep apnea syndrome Procedures Polysomnography 4 or More Parameters With CPAP Alyx Nazario APRN [address] [place] [address] Phone: tel: fax: [facility] [address] [place] [address] Phone: tel: fax: Referral ID Status Reason Start Date Expiration Date Visits Re quested Visits Authorized [id number] Closed 06/18/2020 06/18/2021 1 1 Encounter Details Date Type Department Care Team (Late st Contact Info) Description 07/04/2020 7:28 PM EST Hospital Encounter [facility] [address] [facility] [address] [place] [id number] Alyx Nazario, BINDER ROLLER [address] [place] [address] Obstructive sleep apnea syndrome Social History Tobacco Use Types Packs/Day Years [...] Sign Reading Time Taken Comments Blood Pressure - - Pulse 82 07/04/2020 7:41 PM EST Temperature - - Respiratory Rate - - Oxygen Saturation 93% 07/04/2020 7:41 PM EST Inhaled Oxygen Concentration - - Weight 120 kg (264 lb 15.9 oz) 07/04/2020 7:41 P M EST Height 165.1 cm (5' 5 ) 07/04/2020 7:41 PM EST Body Mass Index 44.1 07/04/2020 7:41 PM EST documented in this encounter Plan of Treatment Not on file documented as of this encounter Procedures Procedure Name Priority Date/Time Associated Diagnosis Comments TITRATION Routine 07/05/2020 6:03 AM EST Obstructive sleep apnea syndrome documented in this encounter Results * TITRATION (07/05/2020 6:03 AM EST) Narrative Chente Kelley MD - 07/08/2020 9:49 AM EST Polysomnography with bilevel PAP titration report Patient Name: Danielle Murphy Interpreting Physician: Chente Kelley MD Date of : 1955 Referring Physician: Alyx Nazario APRN Primary Care Physician: Mounika Mccarty MD Date of Study: 07/04/2020 Clinical Information Patient is a 64 y.o. female. Who is seen for obstructive sleep apnea. She has been on therapy but remains very sleepy with an [place] score of 22/24. Her AHI on therapy is still elevated. She is sent for a titration. She has a history of hypertension, diabetes, obesity, dementia, and allergies. Body mass index is 42.1 Patient presents with an [place] Sleepiness Scale of 22/24 Methods used for Titration Study: Subject was [...] in an attempt to aboloish respiratory events. PAP therapy was applied with a small ResMed air touch fullface mask. Polysomnography Results Titration Summary TOTAL RECORDING TIME: Total Recording Time (TIB) (min): 488.3 minutes TOTAL SLEEP TIME: Total Sleep Time (TST)(min): 432.5 minutes SLEEP LATENCY: Sleep Latency (min): 9 STAGE R. LATENCY: Stage R Latency (min): 147.5 min SLEEP EFFICIENCY: Sleep Efficiency (%): 88.6 % WAKE AFTER SLEEP ONSET: Wake After Sleep Onset (WASO)(min): 46.8 minutes STAGE N1 DURATION: Stage N1 Duration (min): 38 minutes STAGE N1% TST Stage N1 % TST: 8.8 % STAGE N2 DURATION: Stage N2 Duration (min): 260 minutes STAGE N3% TST Stage N3 % TST: 15.7 % STAGE N2% TST Stage N2 % TST: 60.1 % She had good sleep efficiency but had slightly diminished REM sleep STAGE N3 DURATION Stage N3 Duration (min): 68 minutes STAGE R DURATION Stage R Duration (min): 66.5 minutes STAGE R % TST Stage R % TST: 15.4 % LATENCY N1 FROM LIGHTS OUT Latency N1 from Lights Out (min): 9 minutes LATENCY N1 FROM SLEEP ONSET Latency N1 from Sleep Onset (min): 0 minutes LATENCY N2 FROM LIGHTS OUT Latency N2 from Lights Out (min): 16.5 minutes LATENCY N2 FROM SLEEP ONSET Latency N2 from Sleep Onset (min): 7.5 minutes LATENCY N3 FROM LIGHTS OUT Latency N3 from Lights Out (min): 27 minutes LATENCY N3 FROM SLEEP ONSET Latency N3 from Sleep Onset (min): 18 minutes LATENCY R FROM LIGHTS OUT Latency R from Lights Out (min): 156.5 minutes LATENCY R FROM SLEEP ONSET Latency R from Sleep Onset (min): 147.5 minutes Respiratory Data OBSTRUCTIVE APNEA INDEX Obstructive Apnea Index (#/hr TST): 0.3 OBSTRUCTIVE APNEA TOTAL Obstructive Apnea Total: 2 CENTRAL APNEA INDEX Central Apnea Index (#/hr TST): 23.7 CENTRAL APNEA TOTAL Central Apnea Total (#/hr TST): 171 MIXED APNEA INDEX Mixed Apnea Index (#/hr TST): 0.3 MIXED APNEA TOTAL Mixed Apnea Total (#/hr TST): 2 OBSTRUCTIVE HYPOPNEA INDEX Obstructive Hypopnea Index (#/hr TST): 2.8 OBSTRUCTIVE HYPOPNEA TOTAL Obstructive Hypopnea Total (#/hr TST): 20 TOTAL APNEA INDEX Total Apnea Index (#/hr TST): 24.3 AHI: AHI: 27.1 RDI: RDI (if applicable): 27.1 Overall AHI remained elevated on therapy. Most of her respiratory events were central. NREM OAI NREM OAI (#/hr TST): 0.3 NREM TATI NREM TATI (#/hr TST): 26.4 NREM SHANNEN: NREM SHANNEN (#/hr TST): 0.3 NREM TOTAL AL NREM Total Al (#/hr TST): 27 REM OAI: REM OAI (#/hr TST): 0 REM TATI: REM TATI (#/hr TST): 3.6 REM SHANNEN REM SHANNEN (#/hr TST): 0 REM TOTAL AL REM TOTAL Al (#/hr TST): 3.6 OCCURRENCE OF MAXIMILIAN MCGOVERN Occurrence of Maximilian Mcgovern Breathing: no DURATION OF MAXIMILIAN MCGOVERN No data recorded REM HYPOPNEA INDEX REM Hypopnea Index: 0 REM HYPOPNEA TOTAL REM Hypopnea (Total Count): 0 APNEA TOTAL Total Apnea : 175 NREM HYPOPNEA INDEX NREM Hypopnea Index: 3.3 NREM HYPOPNEA TOTAL NREM Hypopnea (Total Count): 20 Arousals RESP AROUSAL INDEX Resp Arousal Index (#/hr TST): 2.9 LEG AROUSAL INDEX Leg Arousal Index (#/hr TST): 0 SPONTANEOUS AROUSAL INDEX Spontaneous Arousal Index (#/hr TST): 17.6 TOTAL AROUSAL INDEX Total Arousal Index (#/hr TST): 20.5 SNORE AROUSAL INDEX Snore Arousal Index (#/hr TST): 0 Limb Movements PLMS (TOTAL #) Total # PLMS: 0 PLMS INDEX No data recorded PLMS AROUSAL INDEX No data recorded PLMS AROUSALS (TOTAL #) Total # PLMS Arousals: 0 Cardiac AVG HR DURING SLEEP Avg HR During Sleep: 67.6 bpm HIGHEST HR DURING SLEEP Highest HR During Sleep: 83 bpm BRADYCARDIA Bradycardia: no ASYSTOLE Asystole: no SINUS TACHYCARDIA DURING SLEEP Sinus Tachycardia During Sleep: no NARROW COMPLEX TACHYCARDIA Narrow Complex Tachycardia: no WIDE COMPLEX TACHYCARDIA Wide Complex Tachycardia: no HIGHEST HR DURING SLEEP Highest HR During Recordin bpm ATRIAL FIBRILLATION Atrial Fibrillation: no OTHER ARRHTYMIAS No data recorded Oximetry MIN SPO2 Min SpO2: 88 % O2 SATURATION, MEAN VALUE Arterial Oxygen Saturation, Mean Value (%): 96 % Treatment Respiratory Index Summary by Body Position She showed significant positional effect Supine AHI, REM AHI, REM : 3.6 AHI, NREM AHI, NREM : 52.8 AHI, TOTAL AHI, TOTAL : 41.5 RDI, REM RDI, REM : 3.6 RDI, NREM RDI, NREM : 52.8 RDI, TOTAL RDI, TOTAL : 41.5 TST (min) TST (MIN) : 258.5 AI, REM AI, REM : 3.6 AI, NREM AI, NREM : 48.1 AI, TOTAL AI, TOTAL : 38.1 HI, REM HI, REM : 0 HI, NREM No data recorded HI, TOTAL No data recorded Duration (Min) No data recorded Left AHI, REM AHI, REM : 0 AHI, NREM No data recorded AHI, TOTAL AHI, TOTAL : 5 RDI, REM RDI, REM : 0 RDI, NREM RDI, NREM : 5 RDI, TOTAL RDI, TOTAL : 5 TST (min) TST (min) : 107 AI, REM AI, REM : 0 AI, NREM AI, NREM : 3.4 AI, TOTAL AI, TOTAL : 3.4 HI, REM HI, REM : 0 HI, NREM No data recorded HI, TOTAL No data recorded Duration (Min) No data recorded Right AHI, REM AHI, REM : 0 AHI, NREM AHI,NREM: 6.3 AHI, TOTAL AHI, TOTAL : 6.3 RDI, REM RDI, REM: 0 RDI, NREM RDI, NREM : 6.3 RDI, TOTAL RDI, TOTAL: 6.3 TST (min) TST (min) : 67 AI, REM AI, REM : 0 AI, NREM AI, NREM : 4.5 AI, TOTAL AI, TOTAL : 4.5 HI, REM HI, REM : 0 HI, NREM No data recorded HI, TOTAL No data recorded Duration (Min) No data recorded Prone AHI, REM AHI, REM : 0 AHI, [...] HI, REM : 0 HI, NREM No data recorded HI, TOTAL No data recorded Duration (Min) No data recorded Upright AHI, REM No data recorded AHI, NREM No data recorded AHI, TOTAL No data recorded RDI, REM No data recorded RDI, NREM No data recorded RDI, TOTAL No data recorded TST (min) No data recorded AI, REM No data recorded AI, NREM No data recorded AI, TOTAL No data recorded HI, REM No data recorded HI, NREM No data recorded HI, TOTAL No data recorded Duration (Min) No data recorded Pressure Summary She was started on a bilevel of and titrated to bilevel of . She did have a normal AHI at her final pressure and had supine REM sleep. BIPAP IPAP PRESSURE IPAP : 22 cmH2O EPAP PRESSURE EPAP : 18 TIB Total Recording Time (TIB) (min): 43.1 minutes LATENCY (MIN) Sleep Latency (min): 43.1 REM REM Latency (min): 43.1 min CENTRAL APNEA CA#: 3 OBSTRUCTIVE APNEA OA#: 0 APNEA MIXED MA#: 0 TOTAL APNEA INDEX INDEX: 4.2 HYPOPNEA Hypopneas #: 0 HYPOPNEA INDEX Hypopnea Index: 0 RESPIRATORY AROUSALSRERA #: 0 RERA INDEX RERA Index: 0 AHI INDICES AHI: 4.2 RDI INDICES RDI : 4.2 MIN SPO2 Min SpO2: 94 % RATE No data recorded Impression: moderate obstructive apnea, moderate central sleep apnea, significant positional effect, decreased REM sleep and She appeared to have good control of respiratory events on a bilevel of . She may need an ASV titration to control central events Plan: would encourage weight loss , would encourage the patient to avoid alcohol and sedatives close to bedtime , would encourage lateral position sleep , could consider surgical options, repeat testing and Would consider therapy with bilevel of or an auto bilevel with maximum IPAP of 25 and minimum EPAP of 18 or would consider an ASV titration. She had an adequate ejection fraction on previous echo. Follow-up: She is to follow-up in sleep clinic and follow-up with Dr. Bibiana Kelley MD [facility] Sleep Medicine Pulmonary and Critical Care Medicine Electronically signed by: Chente Kelley MD 07/08/20 09:40 EST Alyx Nazario [facility] ORDERABLES Fin al Result documented in this encounter Visit Diagnoses Diagnosis Obstructive sleep apnea syndrome Obstructive sleep apnea (adult) (pediatric) documented in this encounter Additional Health Concerns Infection Onset Date Last Indicated Resolved Time COVID Screen (preop/placement) 10/26/2020 10/26/2020 10/27/2020 5:38 PM EDT documented as of this encounter Care Teams Environmental Services Associate Relationship Specialty Start Date End Date Mounika Mccarty MD [address] [place] [phone] PCP - General Family Medicine 12/08/17 10/27/23 documented as of this encounter
--- OUTSIDE RECORDS SUMMARY | 2020-10-29 19:45 | XMS_ITS | Encounter Summary ---
Author Organization [facility] Address [address] [place] [address] Care Team Providers Care Hair Boiler Operator Name Role Phone Mounika Mccarty MD Primary Care Provider + Reason for Referral * Hospital - Outpatient (Routine) - Closed Specialty Diagnoses / Procedures Referred By Lacy freeman Referred To Contact Sleep Medicine Diagnoses Complex sleep apnea syndrome Procedures Polysomnography 4 or More Parameters With CPAP Polysomnography 4 or More Parameters Alyx Nazario APRN [address] [place] [address] Phone: tel: fax: [facility] [address] [place] [phone] Phone: tel: fax: Referral ID Status Reason Start Date Expiration Date Visits Re quested Visits Authorized [id number] Closed 08/14/2020 08/14/2021 1 1 Reason for Visit * Hospital - Outpatient (Routine) - Closed Specialty Diagnoses / Procedures Referred By Contshreya freeman Referred To Contact Sleep Medicine Diagnoses Complex sleep apnea syndrome Procedures Polysomnography 4 or More Parameters With CPAP Polysomnography 4 or More Parameters Alyx Nazario APRN [address] [place] [address] Phone: tel: fax: [facility] [address] [facility] [address] [place] [address] Phone: tel: fax: Referral ID Status Reason Start Date Expiration Date Visits Re quested Visits Authorized [id number] Closed 08/14/2020 08/14/2021 1 1 Encounter Details Date Type Department Care Team (Late st Contact Info) Description 10/29/2020 7:45 PM EDT Hospital Encounter [facility] [address] [facility] [address] [place] [address] Alyx Nazario, DATA CENTER MANAGER [address] [place] [address] Complex sleep apnea syndrome Social History Tobacco Use [...] Sign Reading Time Taken Comments Blood Pressure 135/79 10/29/2020 8:37 PM EDT Pulse 71 10/29/2020 8:37 PM EDT Temperature - - Respiratory Rate - - Oxygen Saturation 95% 10/29/2020 8:37 PM EDT Inhaled Oxygen Concentration - - Weight 127 kg (279 lb 15.8 oz) 10/29/2020 8:37 P M EDT Height 167.6 cm (5' 6 ) 10/29/2020 8:37 PM EDT Body Mass Index 45.19 10/29/2020 8:37 PM EDT documented in this encounter Plan of Treatment Not on file documented as of this encounter Procedures Procedure Name Priority Date/Time Associated Diagnosis Comments TITRATION Routine 10/30/2020 5:57 AM EDT Complex sleep apnea syndrome documented in this encounter Results * TITRATION (10/30/2020 5:57 AM EDT) Narrative Chente Kelley MD - 11/09/2020 3:07 PM EDT Polysomnography with Pap titration report Patient Name: Danielle Murphy Interpreting Physician: Chente Kelley MD Date of : 1955 Referring Physician: Alyx Nazario APRN Primary Care Physician: Mounika Mccarty MD Date of Study: 10/29/2020 Clinical Information Patient is a 65 y.o. female. Who is seen with complex sleep apnea. She had multiple central events on bilevel and is sent for an ASV titration body mass index 44. She has Mallampati class IV anatomy Patient presents with an [place] Sleepiness Scale of 18/22 Methods used for Titration Study: Subject was [...] in an attempt to aboloish respiratory events. Therapy was initiated with a EVS MANAGER [employer] full facemask size small. Raw study data was reviewed on epoch by epoch basis Polysomnography Results Titration Summary TOTAL RECORDING TIME: Total Recording Time (TIB) (min): 421 minutes TOTAL SLEEP TIME: Total Sleep Time (TST)(min): 304 minutes SLEEP LATENCY: Sleep Latency (min): 56.5 STAGE R. LATENCY: Stage R Latency (min): 197 min SLEEP EFFICIENCY: Sleep Efficiency (%): 72.2 % WAKE AFTER SLEEP ONSET: Wake After Sleep Onset (WASO)(min): 60.5 minutes STAGE N1 DURATION: Stage N1 Duration (min): 60 minutes STAGE N1% TST Stage N1 % TST: 19.7 % STAGE N2 DURATION: Stage N2 Duration (min): 97 minutes STAGE N3% TST Stage N3 % TST: 26.5 % STAGE N2% TST Stage N2 % TST: 31.9 % Sleep efficiency was decreased. STAGE N3 DURATION Stage N3 Duration (min): 80.5 minutes STAGE R DURATION Stage R Duration (min): 66.5 minutes STAGE R % TST Stage R % TST: 21.9 % LATENCY N1 FROM LIGHTS OUT Latency N1 from Lights Out (min): 56.5 minutes LATENCY N1 FROM SLEEP ONSET Latency N1 from Sleep Onset (min): 0 minutes LATENCY N2 FROM LIGHTS OUT Latency N2 from Lights Out (min): 64 minutes LATENCY N2 FROM SLEEP ONSET Latency N2 from Sleep Onset (min): 7.5 minutes LATENCY N3 FROM LIGHTS OUT Latency N3 from Lights Out (min): 100 minutes LATENCY N3 FROM SLEEP ONSET Latency N3 from Sleep Onset (min): 43.5 minutes LATENCY R FROM LIGHTS OUT Latency R from Lights Out (min): 253.5 minutes LATENCY R FROM SLEEP ONSET Latency R from Sleep Onset (min): 197 minutes Respiratory Data OBSTRUCTIVE APNEA INDEX Obstructive Apnea Index (#/hr TST): 0 OBSTRUCTIVE APNEA TOTAL Obstructive Apnea Total: 0 CENTRAL APNEA INDEX Central Apnea Index (#/hr TST): 0 CENTRAL APNEA TOTAL Central Apnea Total (#/hr TST): 0 MIXED APNEA INDEX Mixed Apnea Index (#/hr TST): 0 MIXED APNEA TOTAL Mixed Apnea Total (#/hr TST): 0 OBSTRUCTIVE HYPOPNEA INDEX Obstructive Hypopnea Index (#/hr TST): 0.2 OBSTRUCTIVE HYPOPNEA TOTAL Obstructive Hypopnea Total (#/hr TST): 1 TOTAL APNEA INDEX Total Apnea Index (#/hr TST): 0 AHI: AHI: 0.2 RDI: RDI (if applicable): 1.6 Overall AHI was normal on therapy NREM OAI NREM OAI (#/hr TST): 0 NREM TATI NREM TATI (#/hr TST): 0 NREM SHANNEN: NREM SHANNEN (#/hr TST): 0 NREM TOTAL AL NREM Total Al (#/hr TST): 0 REM OAI: REM OAI (#/hr TST): 0 REM TATI: REM TATI (#/hr TST): 0 REM SHANNEN REM SHANNEN (#/hr TST): 0 REM TOTAL AL REM TOTAL Al (#/hr TST): 0 OCCURRENCE OF MAXIMILIAN MCGOVERN Occurrence of Maximilian Mcgovern Breathing: no DURATION OF MAXIMILIAN MCGOVERN No data recorded REM HYPOPNEA INDEX REM Hypopnea Index: 0 REM HYPOPNEA TOTAL REM Hypopnea (Total Count): 0 APNEA TOTAL Total Apnea : 0 NREM HYPOPNEA INDEX NREM Hypopnea Index: 0.3 NREM HYPOPNEA TOTAL NREM Hypopnea (Total Count): 1 Arousals RESP AROUSAL INDEX Resp Arousal Index (#/hr TST): 0.4 LEG AROUSAL INDEX Leg Arousal Index (#/hr TST): 9.1 SPONTANEOUS AROUSAL INDEX Spontaneous Arousal Index (#/hr TST): 22.7 TOTAL AROUSAL INDEX Total Arousal Index (#/hr TST): 32.2 SNORE AROUSAL INDEX Snore Arousal Index (#/hr TST): 0 Limb Movements PLMS (TOTAL #) Total # PLMS: 64 PLMS INDEX PLMS Index: 54 PLMS AROUSAL INDEX PLMS Arousal Index: 10.7 PLMS AROUSALS (TOTAL #) Total # PLMS Arousals: 12.6 Periodic limb movement with arousal index was mildly elevated Cardiac AVG HR DURING SLEEP Avg HR During Sleep: 80.3 bpm HIGHEST HR DURING SLEEP Highest HR During Sleep: 97 bpm BRADYCARDIA Bradycardia: no ASYSTOLE Asystole: no SINUS TACHYCARDIA DURING SLEEP Sinus Tachycardia During Sleep: no NARROW COMPLEX TACHYCARDIA Narrow Complex Tachycardia: no WIDE COMPLEX TACHYCARDIA Wide Complex Tachycardia: no HIGHEST HR DURING SLEEP Highest HR During Recordin bpm ATRIAL FIBRILLATION Atrial Fibrillation: no OTHER ARRHTYMIAS No data recorded Oximetry MIN SPO2 Min SpO2: 92 % O2 SATURATION, MEAN VALUE Arterial Oxygen Saturation, Mean Value (%): 95 % Treatment Respiratory Index Summary by Body Position Supine AHI, REM AHI, REM : 0 AHI, NREM AHI, NREM : 0.7 AHI, TOTAL AHI, TOTAL : 0.4 RDI, REM RDI, REM : 0.9 RDI, NREM RDI, NREM : 3.3 RDI, TOTAL RDI, TOTAL : 2.3 TST (min) TST (MIN) : 158 AI, REM AI, REM : 0 AI, NREM AI, NREM : 0 AI, TOTAL AI, TOTAL : 0 HI, REM HI, REM : 0 HI, NREM No data recorded HI, TOTAL No data recorded Duration (Min) No data recorded Left AHI, REM AHI, REM : 0 AHI, NREM No data recorded AHI, TOTAL AHI, TOTAL : 0 RDI, REM RDI, REM : 0 RDI, NREM RDI, NREM : 0 RDI, TOTAL RDI, TOTAL : 0 TST (min) TST (min) : 86.5 AI, REM AI, REM : 0 AI, NREM AI, NREM : 0 AI, TOTAL AI, TOTAL : 0 HI, REM HI, REM : 0 HI, NREM No data recorded HI, TOTAL No data recorded Duration (Min) No data recorded Right AHI, REM AHI, REM : 0 AHI, NREM AHI,NREM: 0 AHI, TOTAL AHI, TOTAL : 0 RDI, REM RDI, REM: 0 RDI, NREM RDI, NREM : 3 RDI, TOTAL RDI, TOTAL: 3 TST (min) TST (min) : 59.5 AI, REM AI, REM : 0 AI, [...] recorded Pressure Summary She was started on minimum EPAP 10 maximum EPAP 20 minimum pressure support of to maximum pressure 4-15 maximum pressure 30. She titrated to a minimum EPAP of 18 maximum EPAP 24 minimum pressure support of to maximum pressure support of 14. Maximum pressure of 30. BIPAP IPAP PRESSURE IPAP : 22 cmH2O [...] SpO2: 94 % RATE No data recorded ASV EPAP PRESSURE MIN EPAP min : 16 cmH20 EPAP PRESSURE MAX EPAP max: 24 cmH20 PRESSURE SUPPORT MIN Pressure Support Min: 2 cmH20 PRESSURE SUPPORT MAX Pressure Support max: 14 cmH20 MAX PRESSURE Max Pressure: 30 cmH20 BREATH RATE Breath Rate: 1 BrPM CA# No data recorded CA INDEX No data recorded OA# No data recorded OA INDEX No data recorded MA# No data recorded MA INDEX No data recorded HYPOPNEA # Hypopnea #: 1 HYPOPNEA INDEX Hypopnea Index #/h: 2 A+H # A+H #: 1 A+H INDEX A+H Index #/h: 2 RERA # RERA #: 1 RERA INDEX RERA Index #/h: 0.4 TOTAL (A+H+RERA) # Resp. Total (A+H+RERA) #: 1 RESP. TOTAL Resp. Total (A+H+RERA) index #/h: 0.4 TOTAL DURATION Total Dur. : 160.2 min SLEEP DURATION Sleep Dur.: 147.2 min REM DURATION REM Dur.: 59.2 min NREM DURATION NREM Dur.: 88 min SPO2 MIN. Min. SpO2: 87 % AVERAGE SPO2 Avg. SpO2: 96 % AVERAGE LEAK Avg.Leak: 48 LPM PRIMARY BODY POS. Primary Body Pos.: L PRIMARY BODY POS.% Primary Body Pos. %: 56.6 Impression: moderate obstructive apnea, moderate central sleep apnea, mild periodic limb movements of sleep, poor sleep efficiency and Good control of respiratory events on final ASV settings Plan: would encourage weight loss , would encourage the patient to avoid alcohol and sedatives close to bedtime , would encourage lateral position sleep and Would continue therapy with ASV on the final pressure settings as noted above. Follow-up: She is to follow-up in sleep clinic and follow-up with Dr. Bibiana Kelley MD [facility] Sleep Medicine Pulmonary and Critical Care Medicine Electronically signed by: Chente Kelley MD 11/09/20 14:59 EDT us Alyx Nazario [facility] ORDERABLES Fin al Result documented in this encounter Visit Diagnoses Diagnosis Complex sleep apnea syndrome documented in this encounter Care Teams Hair Boiler Operator Relationship Specialty Start Date End Date Mounika Mccarty MD [address] [place], [place] [phone] PCP - General Family Medicine 12/08/17 10/27/23 documented as of this encounter
--- OUTSIDE RECORDS SUMMARY | 2024-11-07 05:45 | XMS_ITS ---
Author Organization [facility] Address [address] [facility] [address] [place] [phone] Care Team Providers Care Dramatic Director Name Role Phone Yossi Cuadra Primary Care Provider [phone] Allergies Allergen (clinical drug ingredient) Drug/Non Drug Allergy documented on EMR Reaction Allergy Type Onset Date Status zolpidem Ambien Unknown Drug Allergy Active meperidine Demerol Unknown Drug Allergy Active codeine Codeine Unknown Drug Allergy Active ketorolac Ketorolac Unknown Drug Allergy Active Results Component Value Reference Range Notes Glucose (In-House) Reviewed date:11/08/2024 10:23:30 AM Interpretation:134 Performing Lab: Notes/Report: 134 blood glucose 134 74 - 106 mg/dL Glycohemoglobin A1c (in hous e) Reviewed date:11/07/2024 10:17:52 AM Interpretation:6.0 Performing Lab: Notes/Report: 6.0 glycohemoglobin 6.0 5 - 6.5 % REASON FOR VISIT 6 months Medications Medication SIG (Take, Route, Frequency, Duration) Notes Start Date End Date Status Cetirizine HCl 10 MG 1 tablet Orally Onc e a day; Duration: 90 days Active Valsartan 320 mg TAKE 1 TABLET DAILY; Duration: 90 days Active Synthroid 137 MCG TAKE 1 TABLET DAILY Orally Once a day; Duration: 90 days Active lamoTRIgine 25 MG 1 tab(s) orally 2 ti mes a day; Duration: 90 days Active cloNIDine HCl 0.2 MG 1 tablet Orally twi ce a day; Duration: 90 days 11/07/2024 Active buPROPion HCl ER (SR) 150 MG 1 tab(s) orally 2 times a day; Duration: 90 days Active Pravastatin Sodium 80 mg 1 tablet Orally Once a day; Duration: 90 days Active Metoprolol Succinate ER 50 MG 1 tab(s) orally once a day; Duration: 90 days Active CLONIDINE 0.2 mg 1 tab(s) orally 2 ti mes a day; Duration: 90 days Active BD Pen Needle Jennifer 2nd Gen 32G X 4 MM USE DIRECTED BY PRESCRIBER OR PACKAGE INSTRUCTIONS Active Ozempic (2 MG/DOSE) 8 MG/3ML USE DIRECTED UNDER THE SKIN ONCE WEEKLY Active Montelukast Sodium 10 MG 1 tab(s) orally once a day; Duration: 90 days Active Donepezil HCl 10 MG 1 tab(s) orally once a day (at bedtime); Duration: 90 days Active Mirtazapine 15 MG 1 tab(s) orally once a day (at bedtime); Duration: 90 days Active FREE STYLE BRIAN GLUCOSE SYSTEM 08/05/2022 Active Aspirin 81 MG 1 tab(s) orally once a day; Duration: 30 day(s) Active SUMAtriptan Succinate 100 MG 1 tab(s) orally Once a day A ctive Fluticasone Propionate 50 MCG/ACT 1 spray(s) in each nostril once a day; Duration: 30 day(s) Active B-12 1000 MCG 1 tab(s) orally once a day; Duration: 30 day(s) Active Furosemide 20 MG 1 tablet Orally Once a day; Duration: 30 day(s) Active Diclofenac Sodium 1 % as directed applie d topically 4 times a day Active Problems Problem Type SNOMED Code ICD Code Onset Dates Problem Status W/U Status Risk Notes Problem Dementia (28665886) Dementia associated with other underlying disease without behavioral disturbance (F02.80) Active confirmed Problem Obese class II (075523561532 105) BMI 39.0-39.9,adult (Z68.39) Active confirmed Vital Signs Weight 240.2 lbs 11/07/2024 Blood pressure systolic 128 mm Hg 11/08/19 25 Blood pressure diastolic 78 mm Hg 025 Heart Rate 62 /min 11/07/2024 Height 65.5 in 11/07/2024 BMI 39.36 kg/m2 11/07/2024 Encounters Encounter Location Date Provider Diagnosis [facility] [address] [place] [phone] 11/07/2024 Yossi Cuadra Primary hypertension I10 ; Type 2 diabetes mellitus without complications E11.9 ; Acquired hypothyroidism E03.9 ; Pure hypercholesterolemia E78.00 ; Allergic rhinitis, unspecified seasonality, unspecified trigger J30.9 ; Morbid obesity E66.01 ; Dementia associated with other underlying disease without behavioral disturbance F02.80 and BMI 39.0-39.9,adult Z68.39 Assessments Encounter Date Diagnosis (ICD Code) Assessment Notes Treatment Notes Treatment Clinical Notes Section Notes 11/07/2024 Primary hypertension (ICD-10 - I10) 11/07/2024 Type 2 diabetes ely itus without complications (ICD-10 - E11.9) 11/07/2024 Acquired hypothyroid ism (ICD-10 - E03.9) 11/07/2024 Pure hypercholesterolemia (ICD-10 - E78.00) 11/07/2024 Allergic rhinitis, unspecified seasonality, unspecified trigger (ICD-10 - J30.9) 11/07/2024 Morbid obesity (ICD- 10 - E66.01) 11/07/2024 Dementia associated with other underlying disease without behavioral disturbance (ICD-10 - F02.80) 11/07/2024 BMI 39.0-39.9,adult (ICD-10 - Z68.39) Plan Of Treatment Medication Medication Name Sig Start Date Stop Date Notes Omeprazole 40 MG 1 cap(s) orally once a day Cetirizine HCl 10 MG 1 tablet Orally Onc e a day; Duration: 90 days Valsartan 320 mg TAKE 1 TABLET DAILY; Duration: 90 days Synthroid 137 MCG TAKE 1 TABLET DAILY Orally Once a day; Duration: 90 days lamoTRIgine 25 MG 1 tab(s) orally 2 ti mes a day; Duration: 90 days cloNIDine HCl 0.2 MG 1 tablet Orally twi ce a day; Duration: 90 days 11/07/2024 Pravastatin Sodium 80 mg 1 tablet Orally Once a day; Duration: 90 days Next Appt Details Follow Up: 6 Months, Reason: Provider Name:Yossi betancourt, 05/24/2025 09:30:00 AM, [address] [facility], [address], [place], [place], [phone], Progress Notes * OLEG ALEJANDRO: 7 (69 yo F)Acc No.[id number]:11/07/2024 Progress Notes Patient: ELIEL CARROLL Provider: Kenia Cuadra M.D. :1955 A ge:69 Y S ex:Female Date:11/07/2024 Address:[address] [place] [address] Subjective: * Chief Complaints: * 1 . 6 months. * HPI: C ardiology: 69 year old female presents with c/o Blood Pressure Elevated?Pt here for 6 mo f/u on hypertension, states she is doing well and does not have any concerns.? c/o Hyperlipidemia P t is fasting today. E ndocrinology: c/o Recent Blood Sugars P t here to f/u on DM 2. Pt sts that her Freestyle Brian will need to be renewed in January. c/o Hypothyroidism P t here to f/u. * ROS: D ERMATOLOGY: no R rylee. n o H michele. G ASTROENTEROLOGY: no N ausea. n o V omiting. U ROLOGY: no D ifficulty urinating. n o B lood in urine. * Medical History: D iabetes Mellitus 2, Hypertension, Followed by Dr. Patel, Hypothyroidism, Migraines, Histoplamosis, Sleep Apnea, treated with ASV, Renal Artery Stenosis, Enlarged Left Atrium, Narcolepsy, Brain Hemorrhage, Memory Loss, Mild cognitive impairment, PRES syndrome, s/p neurology evaluation at [facility], Allergic Rhinitis, Cardiac Murmur, COPD. * Surgical History: T ubaligation , Appedectomy , Hysterectomy , LT Knee Orthoscopy , Cholecystectomy , Bilateral Knee Replacement , Thoracotomy , Foot/ Ankle Surgery . * Hospitalization/Major Diagno stic Procedure: D enies Past Hospitalization. * Family History: F ather: , diagnosed with Heart Disease, Cancer. M other: , diagnosed with Cancer. 1 brother(s) , 4 sister(s) . 1 son(s) , 1 daughter(s) . . * Social History: C URRENT TOBACCO USE: No . C affeine: no. Alcohol: no. * Medications: T aking Furosemide 20 MG Tablet 1 tablet Orally Once a day , Taking Diclofenac Sodium 1 % Gel as directed applied topically 4 times a day , Taking B-12 1000 MCG Tablet 1 tab(s) orally once a day , Taking Aspirin 81 MG Tablet Delayed Release 1 tab(s) orally once a day , Taking FREE STYLE BRIAN GLUCOSE SYSTEM , Taking Fluticasone Propionate 50 MCG/ACT Suspension 1 spray(s) in each nostril once a day , Taking SUMAtriptan Succinate 100 MG Tablet 1 tab(s) orally Once a day , Taking BD Pen Needle Jennifer 2nd Gen 32G X 4 MM Miscellaneous USE DIRECTED BY PRESCRIBER OR PACKAGE INSTRUCTIONS , Taking Omeprazole 40 MG Capsule Delayed Release 1 cap(s) orally once a day , Taking Pravastatin Sodium 80 mg Tablet 1 tablet Orally Once a day , Taking Cetirizine HCl 10 MG Tablet 1 tablet Orally Once a day , Taking Mirtazapine 15 MG Tablet 1 tab(s) orally once a day (at bedtime) , Taking lamoTRIgine 25 MG Tablet 1 tab(s) orally 2 times a day , Taking Valsartan 320 mg Tablet TAKE 1 TABLET DAILY , Taking Ozempic (2 MG/DOSE) 8 MG/3ML Solution Pen-injector USE DIRECTED UNDER THE SKIN ONCE WEEKLY , Taking Synthroid 137 MCG Tablet TAKE 1 TABLET DAILY , Taking Donepezil HCl 10 MG Tablet 1 tab(s) orally once a day (at bedtime) , Taking Montelukast Sodium 10 MG Tablet 1 tab(s) orally once a day , Taking Metoprolol Succinate ER 50 MG Tablet Extended Release 24 Hour 1 tab(s) orally once a day , Taking buPROPion HCl ER (SR) 150 MG Tablet Extended Release 12 Hour 1 tab(s) orally 2 times a day , Taking CLONIDINE 0.2 mg tablet 1 tab(s) orally 2 times a day , Medication List reviewed and reconciled with the patient * Allergies: K etorolac, Demerol, Codeine, Ambien. Objective: * Vitals: W t: 240.2, Temp: 97.8, BP: 128/78, HR: 62, Nurse: VIJAY, Ht: 65.5, BMI:39.36. * Examination: E ndocrinology: General Appearance: N AD, BMI 38.67. H eart: R SR.?Lungs: c lear to auscultation. E xtremities: n o leg edema. Assessment: * Assessment: 1. P rimary hypertension - I10 (Primary) 2 . T ype 2 diabetes mellitus without complications - E11.9 3 . A cquired hypothyroidism - E03.9 4 . P ure hypercholesterolemia - E78.00 5 . A llergic rhinitis, unspecified seasonality, unspecified trigger - J30.9 6 . M orbid obesity - E66.01 ?7. D ementia associated with other underlying disease without behavioral disturbance - F02.80 8 . B CO 39.0-39.9,adult - Z68.39 Plan: * Treatment: 2. T ype 2 diabetes mellitus without complications L AB: Glucose (In-House) (Collection Date & Time - 11/07/2024) 1 34 Value Reference Range b lood glucose 134 74 - 106 mg/dL * Lata Sibley 11/07/2024 10:1 5:13 AM EDT > results reviewed w/ pt in office ?LAB: Glycohemoglobin A1c (in house) (Collection Date & Time - 11/07/2024)? 6.0* Value Reference Range g lycohemoglobin 6.0 5 - 6.5 % * Lata Sibley 11/07/2024 10:1 7:45 AM EDT > reviewed w/ pt in office 3.?Acquired hypothyroidism? Refill Synthroid Tablet, 137 MCG, TAKE 1 TABLET DAILY, Orally, Once a day, 90 days, 90, Refills 1. ?4.?Pure hypercholesterolemia? Refill Pravastatin Sodium Tablet, 80 mg, 1 tablet, Orally, Once a day, 90 days, 90, Refills 1.??5.?Allergic rhinitis, unspecified seasonality, unspecified trigger? Refill Cetirizine HCl Tablet, 10 MG, 1 tablet, Orally, Once a day, 90 days, 90, Refills 1.? 6.?Others? Refill lamoTRIgine Tablet, 25 MG, 1 tab(s), orally, 2 times a day, 90 days, 180, Refills 1;?Stop Omeprazole Capsule Delayed Release, 40 MG, 1 cap(s), orally, once a day.?? * Procedure Codes: G 2211 Complex e/[place], [address] CAPILLARY BLOOD DRAW, 58950 GLUCOSE TEST, 71003 GLYCATED HEMOGLOBIN TEST, Modifiers: QW , 3044F HG A1C LEVEL LT 7.0%, G8950 PREHTN/HTN BP DOC INDCD F/U DOC, G8752 MOST RECENT SYSTOLIC BP < 140MM HG, G8754 MOST RECENT DIASTOLIC BP < 90MM HG * Follow Up: 6 Months * Images: Billing Information: * Visit Code: 44986 Office Visit, Est Pt., Level 4. * Procedure Codes: G2211 Complex e/[place]. [address] CAPILLARY BLOOD DRAW. 75129 GLUCOSE TEST. 50946 GLYCATED HEMOGLOBIN TEST. Modifiers: QW 3044F HG A1C LEVEL LT 7.0%. G8950 PREHTN/HTN BP DOC INDCD F/U DOC. G8752 MOST RECENT SYSTOLIC BP < 140MM HG. G8754 MOST RECENT DIASTOLIC BP < 90MM HG. * Electronic signature of Swapna Cuadra MD on 01/09/2025 at 07:58 AM EDT Sign off status: Pending * Provider: Kenia Cuadra M.D. Date: 0 11/07/2024 Generated for [place] nance/Valerie/eTransmitting on: 0 01/09/2025 07:58 AM EDT History and Physical Notes * HPI (History of Present Illness) Category Sub-Category Detail Notes Category Not es Endocrinology Recent Blood Sugars Pt here to f /u on DM 2. Pt sts that her Freestyle Brian will need to be renewed in January Hypothyroidism Pt here to f/u Cardiology Blood Pressure Elevated Pt here for 6 mo f/u on hypertension, states she is doing well and does not have any concerns Hyperlipidemia Pt is fasting today Examination Category Sub-Category Detail Notes Category Not es Endocrinology Heart: RSR Lungs: clear to auscultatio n Extremities: no leg edema General Appearance: NAD, BMI 38.67
--- OUTSIDE RECORDS SUMMARY | 2024-11-17 09:51 | XMS_ITS ---
[facility] [address] [facility] [address] [place] [phone] Care Team Providers Care Farmhand Name Role Phone oYssi Cuadra Primary Care Provider [phone] REASON FOR VISIT order change Encounters Encounter Location Date Provider Diagnosis [facility] [address] [facility] [address] [place] [id number] 11/17/2024 Yossi Cuadra Screening for colon cancer Z12.11 Assessments Encounter Date Diagnosis (ICD Code) Assessment Notes Treatment Notes Treatment Clinical Notes Section Notes 11/17/2024 Screening for colon cancer (ICD-10 - Z12.11) Plan Of Treatment Pending Test Test Name Order Date colonoscopy 11/17/2024 Next Appt Details Provider Name:Yossi Kat ry, 05/24/2025 09:30:00 AM, [address] [facility], [address], [place], [phone], Progress Notes * ELIEL ARROYODOB: (69 yo F)Acc No.[id number]:11/17/2024 Patient: ELIEL CARROLL :1955 A ge:69 Y S ex:Female Address:[facility] [address], [address] Subjective: * Chief Complaints: * O rder change * Medical History: * Surgical History: * Hospitalization/Major Diagno stic Procedure: * Medications: Objective: * Vitals: * Physical Examination: Assessment: * Assessment: 1. S creening for colon cancer - Z12.11 (Primary) Plan: * Treatment: * Procedure Codes: * true * Date: Generated for [place] nance/Valerie/Anurag on: 0 01/09/2025 07:58 AM EDT
--- OUTSIDE RECORDS SUMMARY | 2025-01-09 07:58 | XMS_ITS | Clinical Summary ---
Author Organization Healthcare Address [address] [place] [address] Care Team Providers Care Instrumentation Specialist Name Role Phone Mounika Mccarty MD Primary Care Provider [phone] Family History Medical History Relation Name Comments [...] PCV20 or PCV21) 03/16/2022 03/16/2017, 04/11/2016, 06/08/2011 UIN-TIQVO-33 Vaccine (1 - 2023- season) 2024 UKY-Influenza [...] femaleDate of Service: 08/01/2020 eferring Phy:Mounikakayden Mccarty, [facility] [id number] Dictated By: Luis Whaley M.D. Verified By: [...] An Outside Location on 07/28/2016, [facility]. FINDINGS: MAMMOGRAM There [...] femaleDate of Service: 08/01/2020 eferring Phy:Mounika Mccarty, [facility] [id number] MD Bibiana G[address], [address] [place] [address] FINAL REPORT PROCEDURE: Tomosynthesis Bilateral Screening - [...] An Outside Location on 07/28/2016, and at [facility] 2017 and 10/11/2018. FINDINGS: MAMMOGRAM There [...] An Outside Location on 07/28/2016, and at [facility] 2017 and 10/11/2018. FINDINGS: MAMMOGRAM There [...] Gender: femaleDate of Service:08/01/2020 eferring Phy:[facility]ika [facility]ccarty [facility] [id number] MD Bibiana G[address] [place] [address] FINAL REPORT PROCEDURE: Tomosynthesis Bilateral Screening - [...] An Outside Location on 07/28/2016, and at [facility] 2017 and 10/11/2018. FINDINGS: MAMMOGRAM There [...] Gender: femaleDate of Service:08/01/2020 eferring Phy:Mounika Mccarty, [facility] [id number] Dictated By: Luis Whaley M.D. Verified By: Luis Whaley M.D. on 08/02/2020 at 03:07:24 PM Page 2 of 2 us Mounika Mccarty MD IMG BI PROCEDURES Final Res ult from Last 3 Months or Most Recently Relevant to [place] [address] [place] [id number] MEDICARE Care Teams Instrumentation Specialist Relationship Specialty Start Date End Date Mounika Mccarty MD [address] [place] [address] [address] [place] [address] PCP - General 10/19/20
--- OUTSIDE RECORDS SUMMARY | 2025-01-09 07:58 | XMS_ITS | Clinical Summary ---
Author Organization [facility] Address [address] [place] [address] Care Team Providers Care Overhead Cleaner Maintainer Name Role Phone Yossi Cuadra MD Primary Care Provider + [phone] Allergies Active Allergy Reactions Criticality Noted Date Comments Zolpidem Tartrate Delirium Codeine Other (See Comments) Ketorolac Tromethamine Swelling Meperidine Itching Zolpidem Unknown - High Severity 05/21/2023 Medications aspirin 81 MG tablet aspirin 81 mg tablet,delayed release Take 1 tablet every day by oral route. Active calcium carbonate-vitam in d 600-400 MG-UNIT per tablet Caltrate 600 + D 1 PO daily Active Multiple Vitamins-Minera ls (CENTRUM SILVER 50+MEN PO) Centrum Silver 1 PO daily Active aspirin-acetami nophen-caffeine (EXCEDRIN MIGRAINE) 250-250-65 MG per tablet As Needed. Active hydrOXYzine (ATARAX) 50 MG tablet hydroxyzine HCl 50 mg tablet TAKE 1/2 TO 1 TABLET BY MOUTH AT BEDTIME NEEDED Active metFORMIN ER (GLUCOPHAGE-XR) 500 MG 24 hr tablet metformin ER 500 mg tablet,extended release 24 hr TAKE 1 TABLET TWICE A DAY WITH MEALS Active mirtazapine (REMERON) 15 MG tablet mirtazapine 15 mg tablet TAKE 1 TABLET DAILY IN THE EVENING Active pravastatin (PRAVACHOL) 80 MG tablet 1 tablet Every Night. Active metoprolol succinate XL (TOPROL-XL) 50 MG 24 hr tablet Toprol XL 50 mg tablet,extended release TAKE 1 TABLET DAILY Active SUMAtriptan (IMITREX) 50 MG tablet 2 tablets. 8 Active empagliflozin (JARDIANCE) 25 MG tablet tablet Active fluticasone (FLONASE) 50 MCG/ACT nasal spray 2 sprays by Each Nare route Daily. 0 9 Active donepezil (ARICEPT) 10 MG tablet TAKE 1 TABLET EVERY NIGHT 30 tablet 12 0 Active valsartan (DIOVAN) 320 MG tablet Take 1 tablet by mouth Daily. Active vitamin B-12 (CYANOCOBALAMIN ) 1000 MCG tablet Take 1 tablet by mouth Daily. Active insulin glargine (LANTUS) 100 UNIT/ML injection Inject 34 Units under the skin into the appropriate area as directed Daily. Active buPROPion XL (WELLBUTRIN XL) 150 MG 24 hr tablet bupropion HCl XL 150 mg 24 hr tablet, extended release Active glimepiride (AMARYL) 1 MG tablet glimepiride 1 mg tablet 0 Active Levoxyl 137 MCG tablet 0 Active lamoTRIgine (LaMICtal) 25 MG tablet TAKE 3 TABLETS TWICE A DAY 180 tablet 11 1 Active cloNIDine (CATAPRES) 0.2 MG tablet 1 Active BD Pen Needle Jennifer 2nd Gen 32G X 4 MM misc 1 Active furosemide (LASIX) 20 MG tablet Take 1 tablet by mouth Daily As Needed (Weight gain >2lbs in 24 hours). 30 tablet 2 Active omeprazole (priLOSEC) 40 MG capsule 3 Active montelukast (SINGULAIR) 10 MG tablet 3 Active fluticasone-mariana meterol (ADVAIR HFA) 115-21 MCG/ACT inhaler Inhale 2 puffs 2 (Two) Times a Day. Active levalbuterol (XOPENEX HFA) 45 MCG/ACT inhaler Inhale 1-2 puffs Every 4 (Four) Hours As Needed for Wheezing. 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 Cellulitis of leg, except foot 11/14/2020 Chest swelling 11/14/2020 Chronic headache disorder 11/14/2020 Depressive disorder 11/14/2020 Diabetic peripheral neuropathy 11/14/2020 Disorder of urinary tract 11/14/2020 Fever 11/14/2020 Generalized osteoarthritis 11/14/2020 Hip pain 11/14/2020 Hyperlipidemia 11/14/2020 Hypertensive disorder 11/14/2020 Hypertrophic condition of skin 11/14/2020 Hypothyroidism 11/14/2020 Impacted cerumen 11/14/2020 Insomnia 11/14/2020 Knee pain 11/14/2020 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 Malaise and fatigue 11/14/2020 Nausea 11/14/2020 Otitis media 11/14/2020 Sensory neuropathy 11/14/2020 Tendinitis of elbow or forearm 11/14/2020 Type 2 diabetes mellitus without complication Sleep apnea 11/14/2020 Sleep disorder 11/14/2020 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 Sleep apnea 12/29/2018 Class 3 severe obesity in adult 12/29/2018 Hypersomnia with sleep apnea 12/29/2018 Immunizations Immunization Administration Dates Next Due COVID-19 (UNSPECIFIED) 08/19/2020,07/22/2020 Flu Vaccine Split Quad 03/16/2017,2014,03/14/2014,06/08,03/05/2012 Fluzone (or Fluarix & Flulav al for VFC) >6mos 05/14/2021,02/23/2019,03/16/2017 Fluzone Quad >6mos (Multi-dose) 02/23/2019,02/21,04/11/2016 Hepatitis A 08/30/2018,03/17/2017 Influenza, Unspecified 03/06/2020,03/01/2019 Pneumococcal Conjugate 13-Va lent (PCV13) 05/05/2022,04/11/2016 Pneumococcal Polysaccharide (PPSV23) 03/16/2017 Pneumococcal, Unspecified 06/08/2011 Shingrix 03/07/2021,11/29/2020 Tdap 07/29/2016 Zostavax 07/29/2016 Family History Medical History Relation Name Comments Cancer Brother Hypertension Brother Obesity Brother Cancer Father Heart disease Father Hypertension Father Obesity Father Stroke Father Cancer Mother Obesity Mother Diabetes Sister 1 Heart disease Sister 1 Hypertension Sister 1 Obesity Sister 1 Cancer Sister 2 Cancer Sister 3 Sleep apnea Sister 3 Cancer Sister 4 Relation Name Status Comments Brother Alive Father Mother Sister 1 Alive Sister 2 Alive Sister 3 Alive Sister 4 Alive Social History Tobacco Use Types Packs/Day Years Used Date Smoking Tobacco: Never Smokeless Tobacco: Never Tobacco Cessation:Counseling Given: Not Answered Alcohol Use Standard Drinks/Week Comments No 0 [...] Sign Reading Time Taken Comments Blood Pressure 126/86 10/28/2023 10:21 AM EDT Pulse 70 10/28/2023 10:21 AM EDT Temperature 36.1 C (96.9 F) 10/28/2023 10:21 AM EDT Respiratory Rate - - Oxygen Saturation 95% 10/28/2023 10:21 AM EDT Inhaled Oxygen Concentration - - Weight 118 kg (261 lb) 10/28/2023 10:21 AM EDT Height 167.6 cm (5' 6 ) 10/07/2022 10:38 AM EDT Body Mass Index 42.13 10/07/2022 10:38 AM EDT Plan of Treatment Health Maintenance Due Date Last Done Comments DXA SCAN 1956 LIPID PANEL 1956 DIABETIC EYE EXAM 1966 DIABETIC FOOT EXAM 1966 URINE MICROALBUMIN-CREATININ E RATIO (uACR) 1966 COLOGUARD 2001 COLON CANCER SCREENING 5 YEA R SIGMOIDOSCOPY 2001 COLONOSCOPY 2001 [address] CANCER SCREENING 2001 CT COLONOGRAPHY 2001 FECAL OCCULT BLOOD TEST 2001 FIT Testing (1 year) 2001 ANNUAL WELLNESS VISIT 12/08/2017 HEMOGLOBIN A1C 12/08/2017 HEPATITIS C SCREENING 12/08/2017 MAMMOGRAM 08/01/2022 08/01/2020, 07/10, 10/11/2018, Additional history exists COVID-19 Vaccine (3 - 2023- 5 season) 2024 08/19/2020, 07/22/2020 INFLUENZA VACCINE 03/08/2025 05/14/2021, , 03/01/2019, Additional history exists TDAP/TD VACCINES (2 - Td or Tdap) 07/29/2026 017 Pneumococcal Vaccine 50+ (3 of 3 - PCV20 or PCV21) 05/05/2027 05/05/2022, 03/16/2017, 04/11/2016, Additional history exists ZOSTER VACCINE Completed 03/07/2021, 11/07, 07/29/2016 Insurance MEDICARE A & B Member Subscriber Plan / Payer (Ef fective 2021-Present) Name:Danielle Murphy Member ID:[id number] Relation to Subscriber:Self Name:Danielle Murphy Subscriber ID:[id number] Payer ID:[id number] Group ID:Not on file Type:Not on file Address: [facility] [id number] [address] Care Teams Overhead Cleaner Maintainer Relationship Specialty Start Date End Date Yossi Cuadra MD [address] [facility] [address] [place] [id number] PCP - General Family Medicine 10/28/23
--- OUTSIDE RECORDS SUMMARY | 2025-01-09 07:58 | XMS_ITS | Patient Health Record ---
[facility] Organization [facility] Address [address] [place] [id number] Care Team Providers Care Offset Pressman Name Role Phone Yossi Cuadra Primary Care Provider Allergies Allergen (clinical drug ingredient) Drug/Non Drug Allergy documented on EMR Reaction Allergy Type Onset Date Status zolpidem Ambien Unknown Drug Allergy Active meperidine Demerol Unknown Drug Allergy Active codeine Codeine Unknown Drug Allergy Active ketorolac Ketorolac Unknown Drug Allergy Active Results Component Value Reference Range Notes P-Microalbumin/Creatinine, R andom Urine Sample Reviewed date:04/19/2024 08:59:32 AM Interpretation:Normal Performing Lab: Notes/Report: Test performed by [facility] [address] [place], [place] [address] [place] , [address], [place] [address] Jose De Jesus Núñez MD, Sales Representative Supervisor CLIA: [id number] Albumin/Creatinine Ratio, Urine 6 0-30 ug/mg Microalbumin, Urine, Random 0.4 Creatinine, Urine 69.8 P-TSH Reviewed date:04/19/2024 08:59:32 AM Interpretation:Normal Performing Lab: Notes/Report: Test performed by [facility] [address] [place] [address] , [address], [place] [address] Jose De Jesus Núñez MD, Sales Representative Supervisor CLIA: [id number] TSH 0.56 0.43-5.25 mU/L P-Lipid Panel Reviewed date:04/19/2024 08:59:32 AM Interpretation:trigs 157 Performing Lab: Notes/Report: Test performed by [facility] [address] [place] [address] Raoul Cavanaugh, [place] [address] Jose De Jesus Núñez MD, Sales Representative Supervisor CLIA: [id number] Cholesterol 156 <200 mg/dL Triglycerides 157 <150 [...] Interpretation:Normal Performing Lab: Notes/Report: Test performed by [facility], [address] , [place] [address] Jose De Jesus Núñez MD, Sales Representative Supervisor CLIA: [id number] Thyroxine Free (free T4) 1.42 0.86-1.76 ng/dL P-Comprehensive Metabolic Pa sujit (CMP) Reviewed date:04/19/2024 08:59:32 AM Interpretation:gluc 125 Performing Lab: Notes/Report: Test performed by [facility], [address] , [address], [place] [address] Jose De Jesus Núñez MD, Sales Representative Supervisor CLIA: [id number] Sodium 143 135-145 mmol/L Potassium 4.4 3.5-5.3 [...] 6.0 glycohemoglobin 6.0 5 - 6.5 % Cologuard Reviewed date:11/17/2024 02:22:24 PM Interpretation:not performed, pt is not a candidate Performing Lab: Notes/Report: not performed, pt is not a candidate DEXA Hip and Spine Reviewed date:11/30/2024 03:47:48 PM Interpretation:Normal Performing Lab: Notes/Report: Normal Mammogram Reviewed date:04/18/2024 11:50:58 AM Interpretation:Negative, annual f/u Performing Lab: Notes/Report: Negative, annual f/u result Negative, annual f/u Reason For Referral Reason Dr. Mabry Diagnosis 1 TIP on CPAP (G47.33) Referral Organization [facility] Referring Provider First Name Yossi Referring Provider Last Name Khalif Referring Provider Speciality Family [facility] ctice Referred Provider Specialty Neurology General [...] Vaccine Route Administration Date Status Comme nts Shingrix Unknown 11/29/2020 Administered Shingrix Unknown 03/07/2021 Administered Prevnar (PCV20) IM Intramuscular 04/15/2024 Administered Prevnar (PCV13) IM Intramuscular 05/05/2022 Administered Fluzone PF Quad (6-35 months) Unknown 05/14/2021 Administered Fluzone High Dose (65yr and older) IM Intramuscular 05/05/2022 Administered Fluzone High Dose (65yr and older) IM Intramuscular 03/11/2023 Administered Fluzone High Dose (65yr and older) IM Intramuscular 04/15/2024 Administered Problems Problem Type SNOMED Code ICD Code Onset Dates Problem Status W/U Status Risk Notes Problem Type II diabetes mellitus without complication (052751984) Type 2 diabetes mellitus without complications (E11.9) Active confirmed Problem Morbid obesity (679650817) Morbid obesity (E66.01) Active confirmed Problem Memory loss (15529237) Memory loss (R41.3) Active confirmed Problem Long-term current us e of insulin (026068964) penitentiary (current) use of insulin (Z79.4) Active confirmed Problem Acquired hypothyroidism (105779995) Acquired hypothyroidism (E03.9) Active confirmed Problem Dementia (80474260) Dementia ass ociated with other underlying disease without behavioral disturbance (F02.80) Active confirmed Problem Mammography abnormal (882084125) Abnormal mammogram of left breast (R92.8) Active confirmed Problem Obese class II (144545971132183) BMI 39.0-39.9,adult (Z68.39) Active confirmed Problem Pure hypercholesterolemia (651775970) Pure hypercholesterolemia (E78.00) Active confirmed Problem Allergic rhinitis (52274383) Allergic rhinitis, unspecified seasonality, unspecified trigger (J30.9) Active confirmed Problem Gastroesophageal reflux disease (929132967) Gastroesophageal reflux disease, unspecified whether esophagitis present (K21.9) Active confirmed Problem Primary hypertension (36599634) Primary hypertension (I10) Active confirmed Problem Obstructive sleep apnea syndrome (66737651) TIP on CPAP (G47.33) Active confirmed Vital Signs Heart Rate 62 /min 11/07/2024 Blood pressure diastolic 78 mm Hg 11/07/2024 Height 65.5 in 11/07/2024 Blood pressure systolic 128 mm Hg 11/07/2024 Weight 240.2 lbs 11/07/2024 BMI 39.36 kg/m2 11/07/2024 Encounters Encounter Location Date Provider Diagnosis [facility] [address] [facility] [address] [place], [place] [id number] 01/15/2024 Yossi [place] Type 2 diabetes ely itus without complications E11.9 ; Primary hypertension I10 ; Depressive disorder F32.A and Morbid obesity E66.01 [facility] [address] [facility] [address] [place], [place] [id number] 04/15/2024 Yossi [place] Type 2 diabetes ely itus without complications E11.9 ; Primary hypertension I10 ; Acquired hypothyroidism E03.9 ; Pure hypercholesterolemia E78.00 and Encounter for immunization Z23 [facility] [address] [facility] [address] [place], [place] [id number] 05/12/2024 Yossi [place] Dizziness R42 ; Conc ussion with unknown loss of consciousness status, initial encounter S06.0XAA ; Acute URI J06.9 ; Recent urinary tract infection Z87.440 and Primary hypertension I10 [facility] [address] [facility] [address] [place], [place] [id number] 07/14/2024 Yossi [place] Type 2 diabetes ely itus without complications E11.9 [facility] [address] [facility] [address] [place], [place] [id number] 11/07/2024 Yossi [place] Primary hypertension I10 ; Type 2 diabetes mellitus without complications E11.9 ; Acquired hypothyroidism E03.9 ; Pure hypercholesterolemia E78.00 ; Allergic rhinitis, unspecified seasonality, unspecified trigger J30.9 ; Morbid obesity E66.01 ; Dementia associated with other underlying disease without behavioral disturbance F02.80 and BMI 39.0-39.9,adult Z68.39 [facility] [address] [facility] [address] [place], [place] [id number] 02/04/2024 Yossi [place] Type 2 diabetes ely itus without complications E11.9 [facility] [address] [facility] [address] [place], [place] [id number] 02/11/2024 Yossi [place] [facility] [address] [facility] [address] [place] [id number] 04/19/2024 Yossi [place] [facility] [address] [facility] [address] [place] [id number] 07/14/2024 Yossi [place] Type 2 diabetes ely itus without complications E11.9 [facility] [address] [place], [place] [id number] 10/11/2024 Yossi [place] TIP on CPAP G47.33 [facility] [address] [place], [place] [id number] 10/12/2024 Yossi [place] [facility] [address] [place], [place] [id number] 11/08/2024 Yossi [place] Osteoporosis screeni ng Z13.820 and Colon cancer screening Z12.11 [facility] [address] [place], [place] [id number] 11/17/2024 Yossi [place] Screening for colon cancer Z12.11 Assessments Encounter [...] Screening for colon cancer (ICD-10 - Z12.11) 07/14/2024 Type 2 diabetes ely itus without complications (ICD-10 - E11.9) 11/07/2024 Acquired hypothyroid ism (ICD-10 - E03.9) 05/12/2024 Acute URI (ICD-10 - J06.9) fluids, rest, supportive measures for fever/symptom relief 04/15/2024 Acquired hypothyroid ism (ICD-10 - E03.9) 01/15/2024 Depressive disorder (ICD-10 - F32.A) 01/15/2024 Morbid obesity (ICD- 10 - E66.01) 04/15/2024 Pure hypercholesterolemia (ICD-10 - E78.00) 05/12/2024 Recent urinary tract infection (ICD-10 - Z87.440) Resolved 11/07/2024 Pure hypercholesterolemia (ICD-10 - E78.00) 11/07/2024 [...] [address], [place], [place], [id number], Insurance Providers Payer Name Payer Address Payer Phone Subscriber Number Group Number Insured Name Patient Relationship to Insured Coverage Start Date Coverage End Date MEDICARE PART B [address] [address] [place] [id number] ELIEL ALEJANDRO Self - patient is the insured [facility] CLAIMS [address] [address] [place] [id number] ELIEL ALEJANDRO Self - patient is the insured Medical (General) History Medical History History ICD Code Diabetes Mellitus 2 Hypertension, Followed by Dr. Patel Hypothyroidism Migraines Histoplamosis Sleep Apnea, treated with ASV Renal Artery Stenosis Enlarged Left Atrium Narcolepsy Brain Hemorrhage Memory Loss Mild cognitive impairment PRES syndrome, s/p neurology evaluation at [facility] Allergic Rhinitis Cardiac Murmur COPD Surgical History Surgery Date(Month/Year) Tubaligation Appedectomy Hysterectomy LT Knee Orthoscopy Cholecystectomy Bilateral Knee Replacement Thoracotomy Foot/ Ankle Surgery Hospitalization History Reason Date(Month/Year)
--- OUTSIDE RECORDS SUMMARY | 2025-01-09 07:59 | XMS_ITS | Clinical Summary ---
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 OBESITY 457462456 (SNOMED CT) Active Jovita Calle MD Obesity DM TYPE II E11.9 (ICD-10-CM ) Active Alexandra Rea Type 2 diabetes mellitus without complications HYPERTENSION 62128682 (SNOMED CT) Active Alexandra Rea Hypertensive disorder HYPERLIPIDEMIA 10973263 (SNOMED CT) Active Alexandra Rea Hyperlipidemia MARTHA LUNG MASS (CASEATING GRANULOMATOUS PNEUMONITIS) R22.2 (ICD-10-CM ) Active Alexandra Rea Localized swelling, mass and lump, trunk Medications Medication Instructions Start Date Stop Date Generic Name NDC Provider SPORANOX SOLN 200mg tid x2days then 200mg bid [id number] ITRACONAZOLE SOLN [id number] Jovita Calle MD SPORANOX SOLN 200mg tid x2days then 200mg bid [id number] ITRACONAZOLE SOLN [id number] Donita Suzan RN ITRACONAZOLE 100 MG CAPS take two pills three times daily for two days, then decrease to two pills twice daily. Take after a full meal. ITRACONAZOLE [id number] Donita Suzan RN ITRACONAZOLE 100 MG CAPS take two pills three times daily for two days, then decrease to two pills twice daily. Take after a full meal. ITRACONAZOLE [id number] Jovita Calle MD PERCOCET TABS OXYCODONE-ACETAM INOPHEN TABS [id number] Jovita Calle MD MECLIZINE HCL TABS MECLIZINE HCL TABS 24325945592 Jovita Calle MD ZYRTEC ALLERGY TABS CETIRIZINE HCL TABS 71980647525 Jovita Calle MD STOOL SOFTENER CAPS DOCUSATE CALCIUM CAPS 64839964979 Jovita Calle MD PERCOCET TABS OXYCODONE-ACETAM INOPHEN TABS 26161208193 Becca G MECLIZINE HCL TABS MECLIZINE HCL TABS 39017517095 Becca G ZYRTEC ALLERGY TABS CETIRIZINE HCL TABS 32626674170 Becca G SIMVASTATIN TABLET SIMVASTATIN TABS 24327840465 Becca G CENTRUM ORAL TABLET MULTIPLE VITAMINS-MINERAL S 13342043372 Becca G METFORMIN HCL TABS METFORMIN HCL TABS 70190452881 Becca G COZAAR 50 MG TABS LOSARTAN POTASSIUM 11419327074 Becca G SYNTHROID TABS LEVOTHYROXINE SODIUM TABS 11591990507 Becca G LEXAPRO TABS ESCITALOPRAM OXALATE TABS 82909738808 Becca G STOOL SOFTENER CAPS DOCUSATE CALCIUM CAPS 43124080831 Becca G CELEBREX CAPS CELECOXIB CAPS [id number] Becca G Medications Administered No information available. [...] Procedures Code Procedure Name Date Entry Date [id number]-34548 Histoplasmosis Urinary AG 20 20/06/10 Vital Signs [...]
[2025-01-09 08:39] LABS: Hematocrit 41.8 % (37.0-47.0); Hemoglobin 13.4 g/dL (12.2-16.2); Immature Granulocytes % 0.3 %; Mean Corpuscular HGB Conc 32.1 g/dL (31.8-35.4); Mean Corpuscular Hemoglobin 29.3 pg (27.0-31.2); Mean Corpuscular Volume 91.5 fl (81-99); Nucleated Red Blood Cells % 0 %; Platelet Count 180 K/mm3 (142-424); Red Blood Count 4.57 M/mm3 (4.20-5.40); Red Cell Distribution Width-SD 42.7 fL; White Blood Count 6.1 K/mm3 (4.8-10.8)
[2025-01-09 09:14] LABS: Free T4 (Free Thyroxine) 0.93 ng/dl (0.78-2.19)
[2025-01-09 09:21] LABS: Albumin Level 3.1 g/dl (3.5-5.0); Chloride 102 mmol/L (98-107); Sodium 135 mmol/L (136-145)
[2025-01-09 09:22] LABS: Potassium 4.5 mmoL/L (3.5-5.1)
[2025-01-09 09:24] LABS: Alanine Aminotransferase 32 U/L (12-78); Alkaline Phosphatase 98 U/L (38-126); Anion Gap 8.5 mEq/L (5-15); Aspartate Amino Transferase 28 U/L (14-36); Bilirubin,Direct 0.1 mg/dl (0.0-0.4); Bilirubin,Indirect 0.2 mg/dL (0.0-0.9); Bilirubin,Total 0.3 mg/dl (0.2-1.3); Bilirubin,Unconjugated 0.1 mg/dL (0.0-1.1); Carbon Dioxide 29 mmol/L (22.0-30.0); Cholesterol 181 mg/dl (140-200); Total Protein,Serum 6.1 g/dl (6.3-8.2); Triglycerides 167 mg/dl (30-150)
[2025-01-09 09:25] LABS: Calcium 9.2 mg/dl (8.4-10.2); Glucose 120 mg/dl (74-100); HDL Cholesterol 56 mg/dl (40-60); Magnesium 2.0 mg/dl (1.6-2.3)
[2025-01-09 09:29] LABS: Blood Urea Nitrogen 25 mg/dl (7-17); Creatinine,Serum 0.80 mg/dl (0.52-1.04); Estimated Glomerular Filt Rate 71 ml/min (>60); GFR (African American) 86 ML/MIN (>60)
[2025-01-09 14:38] LABS: Thyroid Stimulating Hormone 4.42 uIU/mL (0.465-4.68)
== END 2025-01-09 23:59 | disposition home or self-care (01) ==
LOC: LAB 07:56
PROVIDERS: PCP Family Medicine; Visit Provider Nurse Practitioner
DX: I65.23 Occlusion and stenosis of bilateral carotid arteries (principal); I61.9 Nontraumatic intracerebral hemorrhage, unspecified; R06.09 Other forms of dyspnea; I10 Essential (primary) hypertension
CPT/HCPCS: 36415; 80048; 80061; 80076; 83735; 84439; 84443; 85025

== ENCOUNTER 2025-02-08 12:03 | Day surgery (SDC) | payer MEDICARE, OTHER, SELFPAY ==
[2025-02-07 12:56] VITALS: BMI 39.9
--- NOTE | 2025-02-07 13:50 | P.HP_ITS ---
History of Present Illness *Admission Date: 02/08/25 *Reason for visit:: Personal history of adenomatous colon polyp and family history *History of present illness: Mrs. Murphy is a 69-year-old female who is here for follow-up screening/surveillance colonoscopy secondary to a personal history of adenomatous colon polyps. The patient did have a colonoscopy with me in October 2017 and had a single transverse polyp (tubular adenoma) removed. He also had left-sided diverticulosis. He does state that his brother had colon cancer at the age of 40. He does have the positive BRCA gene. His father had stomach cancer at the age of 49. His colonoscopy in August 2009 showed no polyps. The examination is deemed medically necessary for screening/surveillance colonoscopy. The patient has been seen, interviewed and examined prior to the procedure by both myself and the anesthesia provider. [facility] Disclaimer: The information contained in this section may have been updated after the laura lagos was seen, as this information can be updated by other users. Medical History Other forms of dyspnea Cardiac murmur Hemorrhagic cerebrovascular accident (CVA) PRES (posterior reversible encephalopathy syndrome) TIA (transient ischemic attack) Congestive heart failure History of CT scan of head History of echocardiogram History of COPD Asthma-chronic obstructive pulmonary disease overlap syndrome Asthma Lung nodule History of 2019 novel coronavirus disease (COVID-19) Abnormal x-ray of lungs with single pulmonary nodule History of sleep apnea Orthopnea Wheezing on both sides of chest Dyspnea on exertion Depression Thyroid disease Seizure disorder Migraine History of stroke Diabetes mellitus, type 2 Hyperlipidemia Hypertension Surgical History History of ankle surgery History of total knee replacement History of tonsillectomy History of hysterectomy History of cholecystectomy History of appendectomy Family History Other COPD (chronic obstructive pulmonary disease) Cancer Coronary artery disease Social History Smoking Status: Never smoker alcohol intake: never substance use type: denies use current occupational status: retired and other Travel in the last 8 weeks?: Inside the [place] household members: spouse housing: house marital status: number of children: 2 Have you lived/traveled outside [place] in past 30 days?: No Contact w/someone who lives/traveled outside US past 30 days?: No Exposure to someone with infectious disease in past 14 days?: No Do you have a fever (greater than 100.4 F or 38 C)?: No Have you tested positive for COVID-19?: No Exposed to someone with COVID-19 in past 14 days?: No Do you have a sore throat?: No Do you have a cough?: No Do you have any weakness?: No Do you have any diarrhea?: No Are you experiencing any unusual bleeding?: No Do you have any muscle aches/pain?: No Do you have any abdominal pain?: No Are you experiencing loss of taste or smell?: No Other Medical History Have you received the Pneumonia Vaccine: Yes Review of Systems Review of Systems Review of systems (narrative): Negative *Cardiovascular Comments: Negative *Gastrointestinal Comments: Negative *Genitourinary Comments: Negative *Musculoskeletal Comments: Negative *Neurologic Comments: Negative Meds Home Medications and Allergies Home Medications ?Medication ?Instructions ?Recorded ?Confirmed ?Type metoprolol succinate 50 mg 50 mg PO DAILY Heart rate 0 10/09/17 02/08/25 History tablet,extended release 24 hr mirtazapine 15 mg tablet (Remeron) 15 mg PO DAILY Depr ession 10/09/17 02/08/25 History xogwuinq-sav-bdner acid 0.4 1 ea PO DAILY Supplement 0 10/09/17 02/08/25 History mg-lycopene 300 mcg-lutein 250 mcg tablet (Centrum Silver) fluticasone propionate 50 1 - 2 spray IN DAILY allergi es 06/29/18 02/08/25 History mcg/actuation nasal spray,suspension lamotrigine 25 mg tablet 25 mg PO DAILY . 07/22/22 History montelukast 10 mg tablet 10 mg PO DAILY allergies 02/08/25 History omeprazole 40 mg capsule,delayed 40 mg PO DAILY gerd 0 07/22/22 02/08/25 History release bupropion HCl 150 mg tablet,12 hr 150 mg PO DAILY Depr ession 10/02/22 02/08/25 History sustained-release donepezil 10 mg tablet 10 mg PO DAILY . 10/02/22 History mecobalamin (vitamin B12) 1,000 1,000 mcg PO DAILY Sup plement 10/02/22 02/08/25 History mcg chewable tablet (B12 Active) meloxicam 15 mg tablet See Rx Instructions .Route 1 07/19/23 02/08/25 Rx .COMPLEX #90 tabs cetirizine 10 mg tablet (All Day 10 mg PO DAILY PRN al lergies 10/13/24 02/08/25 History Allergy (cetirizine)) clonidine HCl 0.1 mg tablet 0.1 mg PO HS 10/13/24 0908/30 History levothyroxine 137 mcg tablet 137 mcg PO DAILY 10/13/24 02/08/25 History (Synthroid) metoclopramide HCl 10 mg tablet 10 mg PO Q6H PRN bowel s 10/13/24 02/07/25 History (Reglan) pravastatin 40 mg tablet 80 mg PO DAILY Cholesterol 0 10/13/24 02/08/25 History semaglutide 2 mg/dose (8 mg/3 mL) 2 mg SQ WEEKLY 10/1302/08/25 History subcutaneous pen injector (Ozempic) sumatriptan succinate 50 mg tablet 100 mg PO NEEDED PRN Migraine 10/13/24 02/08/25 History (Imitrex) Headache [id number] 140 gram-sod sulfate 9 500 ml PO .COMPLEX colo nscopy #3 ea 01/31/25 02/07/25 Rx gram-NaCl 5.2gram-KCl-C oral pwdr packs (Plenvu) New Prescriptions to Start Prescriptions: Allergies Allergy/AdvReac Type Severity Reaction Status Date / Time codeine (CODEINE) Allergy Unknown Unknown Verified 02/08/25 12:21 allergy reaction ketorolac (From TORADOL) Allergy Unknown Unknown Verified 02/08/25 12:21 allergy reaction meperidine (From DEMEROL) Allergy Unknown Unknown Verified 02/08/25 12:21 allergy reaction zolpidem (From AMBIEN) Allergy Unknown Unknown Verified 02/08/25 12:21 allergy reaction Exam Data for Last 24 hours I & O for Last 24 hours: Intake & Output 02/04/25 02/05/25 02/06/25 02/07/25 23:59 23:59 23:59 23:59 Weight 240 lb *Routine HEENT Exam Head: Present normocephalic Eye: Present EOMI and PERRL ENT: Present mucous membranes moist *Routine Neck Exam Neck: Present supple *Routine Respiratory Exam Respiratory: Present CTA bilaterally *Routine Cardiovascular Exam Cardiovascular: Present RRR *Routine Abdominal Exam Abdominal: Present soft and normoactive bowel sounds; Absent tenderness *Routine Rectal Exam Rectal:: deferred *Routine Genitalia Exam Genitalia:: deferred *Routine Extremities Exam Extremities: Absent cyanosis, clubbing or edema *Routine Skin Exam Skin: Present warm; Absent rash *Routine Neurological Exam Neurological: Present alert and oriented X3 Assessment and Plan *Assessment and plan (1) Family history of colon cancer: Status: Acute Category: Medical Code(s): Z80.0 - Family history of malignant neoplasm of digestive organs (2) Personal history of adenomatous and serrated colon polyps: Status: Acute Category: Medical Code(s): Z86.0101 - Personal history of adenomatous and serrated colon polyps Plan A/P: 1. Personal history of adenomatous colon polyps and family history of colon cancer is the preprocedural diagnosis. The patient will be anesthetized/sedated using MAC sedation. The patient has been seen and examined. Cardiac and lung assessment prior to the examination is stable. Proceed with planned screening/surveillance colonoscopy.
[2025-02-08 12:15] VITALS: BP 166/92; PULSE 68; RESP 18; TEMP 36.3; O2SAT 96
[2025-02-08] MEDS: LACTATED RINGERS 1000ML 1,000 ML 50 ML IV (12:36)
[2025-02-08 12:42] VITALS: BP 166/92; PULSE 68; RESP 18; TEMP 36.3; O2SAT 96
--- NOTE | 2025-02-08 12:43 | EXP.ANES.CKL ---
[facility] Disclaimer: The information contained in this section may have been updated after the patient was seen, as this information can be updated by other users. Medical History Other forms of dyspnea Cardiac murmur Hemorrhagic cerebrovascular accident (CVA) PRES (posterior reversible encephalopathy syndrome) TIA (transient ischemic attack) Congestive heart failure History of CT scan of head History of echocardiogram History of COPD Asthma-chronic obstructive pulmonary disease overlap syndrome Asthma Lung nodule History of 2019 novel coronavirus disease (COVID-19) Abnormal x-ray of lungs with single pulmonary nodule History of sleep apnea Orthopnea Wheezing on both sides of chest Dyspnea on exertion Depression Thyroid disease Seizure disorder Migraine History of stroke Diabetes mellitus, type 2 Hyperlipidemia Hypertension Surgical History History of ankle surgery History of total knee replacement History of tonsillectomy History of hysterectomy History of cholecystectomy History of appendectomy Family History Other COPD (chronic obstructive pulmonary disease) Cancer Coronary artery disease Social History Smoking Status: Never smoker alcohol intake: never substance use type: denies use current occupational status: retired and other Travel in the last 8 weeks?: Inside the [place] household members: spouse housing: house marital status: number of children: 2 Have you lived/traveled outside [place] in past 30 days?: No Contact w/someone who lives/traveled outside [place] past 30 days?: No Exposure to someone with infectious disease in past 14 days?: No Do you have a fever (greater than 100.4 F or 38 C)?: No Have you tested positive for COVID-19?: No Exposed to someone with COVID-19 in past 14 days?: No Do you have a sore throat?: No Do you have a cough?: No Do you have any weakness?: No Do you have any diarrhea?: No Are you experiencing any unusual bleeding?: No Do you have any muscle aches/pain?: No Do you have any abdominal pain?: No Are you experiencing loss of taste or smell?: No [facility] Anesthesia Checklist Patient Identification Patient Identification: Arm Band Structural Data Admitted From: Home Planned Operative Procedure/s: Colonoscopy Consent for Planned Operative Procedure(s) Verified: Yes Verified Documents: Surgical Consent and History and Physical NPO Status Verified Time NPO: 09:15 (finished prep) Additional verifications Anesthesia Reactions: Yes (trouble urinating after anesthesia) Airway Assessment Mallampati Score:: Class II C-Spine Mobility Assessed: Yes TMJ Mobility Assessed: Yes Dentition: Good Dentition Neurological Assessment Level of Consciousness: Awake, Alert and Appropriate Anesthesia Plan Anesthesia Risk discussed: Yes Anesthesia Plan: Verified ASA Class: III Anesthesia Type: MAC
--- NOTE | 2025-02-08 12:45 | HMH.PROCNOTE ---
[facility] Procedure Note Date: 02/08/25 Time: 13:17 Procedure Note:: Colonoscopy Procedure Report: Colonoscopy with cold snare polypectomy Endoscopist: Gama Sanchez II, MD Referring physician: Yossi Cuadra MD Date of Procedure: February 08, 2025 Equipment: Olympus [id number] adult colonoscope Sedation: MAC sedation Indication: Mrs. Murphy is a 69-year-old female who is here for follow-up screening/surveillance colonoscopy secondary to a personal history of adenomatous colon polyps. The patient did have a colonoscopy with me in October 2017 at [facility] and had a single transverse polyp (tubular adenoma) removed. She also had left-sided diverticulosis. She does state that her brother had colon cancer at the age of 40. She does have the positive BRCA gene. Her father had gastric cancer at the age of 49 and her sister had gastric cancer. Her colonoscopy in August 2009 showed no polyps. The patient reports no abdominal pain, weight loss, change in her bowel habits or rectal bleeding. Procedure: Prior to the procedure, a history and physical exam was performed, and patient's medications and allergies were reviewed. The risks, benefits and alternatives of the sedation and procedure were discussed with the patient. All questions were answered and informed consent was obtained. The patient was brought to the procedure room. Patient identification and proposed procedure were verified by the physician and the nurse. The patient was placed in a left lateral decubitus position and the scope was passed under direct vision. Throughout the procedure, the patient's blood pressure, pulse, and oxygen saturations were monitored continuously. The colonoscopy was accomplished without difficulty. The patient tolerated the procedure well. Findings: On digital rectal examination there was normal rectal tone. There were no external hemorrhoids. The colonoscope was introduced through the anal canal to the rectum and advanced to the cecum. The ileocecal valve and appendiceal orifice were identified. The scope was advanced a short distance into the ileum which appeared grossly normal. The scope was then withdrawn into the colon. There were 5 diminutive polyps (ascending x 2 (3 and 4 mm), descending x 1 (4 mm) and sigmoid x 2 (3 and 3 mm)). These were all removed via cold snare polypectomy. The remaining cecum, ascending and transverse colon and mucosa were grossly normal. There were scattered diverticuli throughout the descending and sigmoid colon (LEFT colon). The rectum itself was normal. Upon retroflexion within the rectum there were grade 1-2 internal hemorrhoids. The preparation was excellent throughout with [place] Preparation Score of 9. The cecal time was 12 minutes. Impression: 1. Diminutive colonic polyps x 5 2. Left-sided diverticulosis 3. Grade 1-2 internal hemorrhoids Plan: I will follow-up the polyp histology and recommend repeat screening/surveillance colonoscopy again in 5 years. I would encourage bulking psyllium fiber supplementation on a long-term daily maintenance basis.
[2025-02-08 13:21] VITALS: BP 93/48; PULSE 76; RESP 16; TEMP 36.4; O2SAT 76
[2025-02-08 13:31] VITALS: BP 130/76; PULSE 93; RESP 18; TEMP 36.4; O2SAT 97
[2025-02-08 13:39] LABS: POC Glucose,Bedside 132 gm/dL (70-110)
[2025-02-08 13:41] VITALS: BP 130/65; PULSE 80; RESP 18; TEMP 36.4; O2SAT 97
[2025-02-08 13:51] VITALS: BP 128/86; PULSE 62; RESP 18; TEMP 36.4; O2SAT 97
== END 2025-02-08 13:51 | disposition home or self-care (01) ==
PROVIDERS: PCP Family Medicine; Visit Provider Internal Medicine Gastroenterology
PROC: 0DJD8ZZ Inspection of Lower Intestinal Tract, Via Natural or Artificial Opening Endoscopic (ICD-10-PCS; CPT 45378; principal; 2025-02-08 13:30)
DX: Z12.11 Encounter for screening for malignant neoplasm of colon (principal); Z80.0 Family history of malignant neoplasm of digestive organs; Z86.0101 Personal history of adenomatous and serrated colon polyps; D12.2 Benign neoplasm of ascending colon; D12.4 Benign neoplasm of descending colon; D12.5 Benign neoplasm of sigmoid colon; K51.40 Inflammatory polyps of colon without complications; K57.30 Diverticulosis of large intestine without perforation or abscess without bleeding; K64.1 Second degree hemorrhoids; J44.89 Other specified chronic obstructive pulmonary disease; I11.0 Hypertensive heart disease with heart failure; I50.9 Heart failure, unspecified; F32.A Depression, unspecified; E11.9 Type 2 diabetes mellitus without complications; Z86.73 Personal history of transient ischemic attack (TIA), and cerebral infarction without residual deficits; G47.30 Sleep apnea, unspecified; E78.5 Hyperlipidemia, unspecified; G40.909 Epilepsy, unspecified, not intractable, without status epilepticus; E07.9 Disorder of thyroid, unspecified; Z88.5 Allergy status to narcotic agent; Z88.8 Allergy status to other drugs, medicaments and biological substances; Z79.85 Long-term (current) use of injectable non-insulin antidiabetic drugs; Z79.890 Hormone replacement therapy; Z79.899 Other long term (current) drug therapy
CPT/HCPCS: 45385; 82962; J2003; J2704; J7120